=== PATIENT | male | born 1935 | race Caucasian/White ===

== ENCOUNTER → 2016-06-03 | Outpatient (CLI) | payer OTHER, BC ==
[~2016-06-03] MED LIST: ASPI81TA28 PO; LSN5 PO; METR1GEL16 TOP; MNC50 PO; TRIA37.5 PO
[2016-06-03 15:27] LABS: BASO % 0.2 %; BASO ABS # 0.02 K/uL (0-0.2); COMPLETE YES; EOS % 2.1 %; HEMATOCRIT 45.7 % (42-52); IG% 0.2 %; LYMPH % 22.8 %; LYMPH ABS # 2.38 K/uL (1.2-3.4); MEAN CORPUSCULAR HEMOGLOBIN 33.1 pg (25-34); MEAN CORPUSCULAR HGB CONC 34.8 g/dl (32-36); MEAN PLATELET VOLUME 10.2 fL (7.4-10.4); MONO % 10.2 %; NEUT % 64.5 %; PLATELET COUNT 205 K/uL (130-400); RED BLOOD COUNT 4.81 M/uL (4.7-6.1); WHITE BLOOD COUNT 10.43 K/uL (4.8-10.8)
== END | disposition home or self-care (01) ==
LOC: C.LABSPEC 14:52
PROVIDERS: ATTEND Internal Medicine
DX: M19.072 Primary osteoarthritis, left ankle and foot (principal)

== ENCOUNTER → 2016-06-04 | Outpatient (CLI) | payer OTHER, BC ==
--- NOTE | 2016-06-04 12:45 | DIAGNOSTIC IMAGING REPORT ---
RIGHT ANKLE MIN 3 VIEWS ROUTINE CLINICAL HISTORY: ACUTE ARTHRITIS Right pain COMPARISON: None. DISCUSSION: Significant degenerative change of the right ankle. Findings of old healed fractures the medial malleolus as well as distal fibular shaft. Moderate deterioration of the ankle mortise. Small heel spur. Soft tissue vascular calcifications. Moderate soft tissue edema. IMPRESSION: Findings consistent with a combination of old trauma and superimposed degenerative change. Electronically signed by: Mateo Lawrence M.D. 06/04/2016 12:42 PM Dictated Date/Time: 06/04/2016 12:42 PM
--- NOTE | 2016-06-04 12:46 | DIAGNOSTIC IMAGING REPORT ---
LEFT ANKLE MIN 3 VIEWS ROUTINE CLINICAL HISTORY: ACUTE ARTHRITIS pain COMPARISON: None. DISCUSSION: Findings consistent with a combination of old trauma and degenerative change. There is an old healed fracture of the distal fibular shaft. Is considerable degenerative change of the ankle mortise. Heel spur is present. There is mild pars planus deformity of the ankle. Soft tissue vascular calcifications present. There is no evidence for soft tissue swelling. IMPRESSION: Combination of considerable degenerative change and old posttraumatic change. No acute bony abnormalities identified. Electronically signed by: Mateo Lawrence M.D. 06/04/2016 12:44 PM Dictated Date/Time: 06/04/2016 12:43 PM
--- NOTE | 2016-06-04 12:48 | DIAGNOSTIC IMAGING REPORT ---
RIGHT FOOT MIN 3 VIEWS ROUTINE CLINICAL HISTORY: ACUTE ARTHRITIS Right pain COMPARISON: None. DISCUSSION: Considerable degenerative change throughout the great toe. This is most prominent at the first metatarsophalangeal joint but less prominent findings seen at the tarsal metatarsal and interphalangeal joint. There are moderate degenerative changes of the interphalangeal joints throughout the second through fifth toes. There is pars planus deformity of the right ankle. Heel spur is present. There is no evidence for soft tissue swelling. IMPRESSION: Considerable degenerative change. This is most prominent at the level of the great toe. Electronically signed by: Mateo Lawrence M.D. 06/04/2016 12:45 PM Dictated Date/Time: 06/04/2016 12:44 PM
--- NOTE | 2016-06-04 12:49 | DIAGNOSTIC IMAGING REPORT ---
LEFT FOOT MIN 3 VIEWS ROUTINE CLINICAL HISTORY: Left foot pain. Acute arthritis. COMPARISON: None. DISCUSSION: The bones are osteopenic. There are vascular calcifications present. No acute fractures are visualized. There is no erosive disease. There are degenerative changes most pronounced at the level of the first metatarsal phalangeal joint. There is a plantar calcaneal spur. IMPRESSION: 1. No acute fractures 2. Osteopenia and vascular calcification 3. No evidence of erosive disease 4. Degenerative changes most pronounced at the level of the first metatarsal phalangeal joint Electronically signed by: Jayy Kevin M.D. 06/04/2016 12:47 PM Dictated Date/Time: 06/04/2016 12:46 PM
== END | disposition home or self-care (01) ==
LOC: C.RAD 11:56
PROVIDERS: ATTEND Internal Medicine
DX: M19.071 Primary osteoarthritis, right ankle and foot (principal); M19.072 Primary osteoarthritis, left ankle and foot

== ENCOUNTER → 2016-11-11 | Outpatient (CLI) | payer OTHER, BC ==
--- NOTE | 2016-11-11 12:20 | DIAGNOSTIC IMAGING REPORT ---
KUB HISTORY: Follow-up study to assess bilateral kidney stones. N20.0 [id number] COMPARISON: Abdominal radiograph 11/08/2015. FINDINGS: The bowel gas pattern is non-obstructive. There is no organomegaly. Bilateral renal calculi are redemonstrated, largest of which involves the inferior pole left kidney measuring up to 1.5 cm. Largest calculi on the right measure up to 9 mm. Distribution of the stones appear stable from comparison. No calculi are seen along the course of either ureter or within the region of the urinary bladder. Multiple phleboliths are seen within the pelvis. No pneumoperitoneum or pneumatosis. No fracture. Moderate changes involve the bilateral hips. IMPRESSION: Extensive bilateral nephrolithiasis, not significantly changed from 11/08/2015. No calculi are seen along the course of either ureter. Electronically signed by: Manny Villafuerte M.D. 11/11/2016 12:19 PM Dictated Date/Time: 11/11/2016 12:17 PM
== END | disposition home or self-care (01) ==
LOC: C.RAD 11:46
PROVIDERS: ATTEND Urology
DX: N20.0 Calculus of kidney (principal)

== ENCOUNTER → 2017-06-17 | Outpatient (CLI) | payer OTHER, BC ==
[2017-06-17 13:54] LABS: HEMOGLOBIN A1C 6.2 % (4.5-5.6)
[2017-06-17 14:01] LABS: BLOOD UREA NITROGEN 17 mg/dl (7-18); CALCIUM 9.9 mg/dl (8.5-10.1); CARBON DIOXIDE 29 mmol/L (21-32); CHOLESTEROL 149 mg/dl (0-200); CREATININE 1.23 mg/dl (0.60-1.40); GLUCOSE 109 mg/dl (70-99); SODIUM 142 mmol/L (136-145)
[2017-06-17 14:06] LABS: LDL CHOLESTEROL (DIRECT) 95 mg/dl
== END | disposition home or self-care (01) ==
LOC: C.LABSPEC 12:25
PROVIDERS: ATTEND Internal Medicine
DX: I10 Essential (primary) hypertension (principal); E78.5 Hyperlipidemia, unspecified; R73.9 Hyperglycemia, unspecified

== ENCOUNTER 2018-04-16 14:52 | Inpatient (IN) ==
[2018-04-16 15:43] LABS: Basophils # (auto) 0.03 K/uL (0-0.2); Basophils % (auto) 0.3 %; Eosinophils # (auto) 0.06 K/uL (0-0.5); Eosinophils % (auto) 0.5 %; Hematocrit (blood only) 39.7 % (42-52); Hemoglobin 13.3 g/dL (14.0-18.0); Immature Granulocytes # (auto) 0.04 K/uL (0.00-0.02); Immature Granulocytes % (auto) 0.3 %; Lymphocytes # (auto) 1.31 K/uL (1.2-3.4); Lymphocytes % (auto) 11.1 %; Mean Corpuscular Hgb Conc 33.5 g/dL (32-36); Mean Corpuscular Volume 97.8 fL (80-100); Mean Platelet Volume 10.1 fL (7.4-10.4); Monocytes # (auto) 0.51 K/uL (0.11-0.59); Monocytes % (auto) 4.3 %; Neutrophils # (auto) 9.86 K/uL (1.4-6.5); Neutrophils % (auto) 83.5 %; Platelet Count 235 K/uL (130-400); RDW Coefficient of Variation 13.8 % (11.5-14.5); RDW Standard Deviation 48.8 fL (36.4-46.3); Red Blood Count 4.06 M/uL (4.7-6.1); White Blood Count 11.81 K/uL (4.8-10.8)
[2018-04-16 15:53] LABS: INR 1.2 (0.9-1.1); Partial Thromboplastin Time 26.3 Seconds (21.0-31.0); Prothrombin Time 12.1 Seconds (9.0-12.0)
[2018-04-16 16:13] LABS: Alanine Aminotransferase 15 U/L (12-78); Albumin Level 2.9 gm/dl (3.4-5.0); Aspartate Aminotransferase 14 U/L (15-37); BUN Creatinine Ratio 16.7 (10-20); Blood Urea Nitrogen 21 mg/dl (7-18); Calcium 9.3 mg/dl (8.5-10.1); Carbon Dioxide 26 mmol/L (21-32); Chloride 112 mmol/L (98-107); Creatinine Clr Calc Pharmacy 51.3 ml/min; Est GFR (African American) 60.4; Est GFR (Non-African American) 52.1; Glucose 133 mg/dl (70-99); Sodium 144 mmol/L (136-145)
[2018-04-16 16:18] LABS: Albumin Globulin Ratio 0.8 (0.9-2); Alkaline Phosphatase 83 U/L (45-117); Bilirubin,Total 0.6 mg/dl (0.2-1); Globulin 3.5 gm/dl (2.5-4.0); Total Protein 6.4 gm/dl (6.4-8.2); Troponin I < 0.015 ng/ml (0-0.045)
[2018-04-16] MEDS ORDERED: IOVERSOL 100ml IV PRN (17:03)
--- NOTE | 2018-04-16 17:19 | CT Scan Report ---
CT abd pelvis IV con only CT DOSE: 588.72 mGy.cm HISTORY: Bleeding. Nausea. Pain. gi bleeding, hx diverticulitits TECHNIQUE: Multiaxial CT images of the abdomen and pelvis were performed following the use of intrave nous contrast. A dose lowering technique was utilized adhering to the principles of ALARA. COMPARISON STUDY: 02/11/2018 FINDINGS: Findings consistent with acute diverticula diverticulitis of the a sending colon at and yesi ewhat proximal to the hepatic flexure. Mild pericolonic infiltrative change. No evidence for drainabl e abscess or collection. No obstructive characteristics. Lung bases are grossly clear. Liver demonstrates several small cysts unchanged in the prior study. Ex tensive bilateral nonobstructing nephrocalcinosis is present. Bilateral renal cysts are stable. Bowel pattern is nonobstructive. There are findings of chronic diverticulosis involving the bulk of the remainder the colon. The bladd er is midline. There is no free fluid within the pelvic cul-de-sac. IMPRESSION: 1. Acute diverticulitis of the a sending colon extending to the hepatic flexure. 2. Mild pericolonic infiltrative change with no evidence for drainable abscess or collection. 3. Chronic diverticulosis throughout the major components of the remainder the colon. 4. Stable extensive bilateral nephrocalcinosis and renal cysts. 5. Several small hepatic cysts also stable. The above report was generated using voice recognition software. It may contain grammatical, syntax or spelling errors. Electronically signed by: Mateo Lawrence M.D. 04/16/2018 5:17 PM
[2018-04-16] MEDS ORDERED: CIPROFLOXACIN 400 MG/200 ML BAG IV STA (17:20)
[2018-04-16] MEDS ORDERED: metroNIDAZOLE 500 MG/100 ML BAG IV STA (17:20)
--- NOTE | 2018-04-16 17:53 | History & Physical Report ---
Date of Service April 16, 2018 Assessment & Plan (1) Lower GI bleed: Suspect diverticular bleed as in the past. Patient presently hemodynamically stable, H/h=13.3/39.7, only slightly lower than his baseline of 15/45. No bleeding since arrival to ER. -Admit to PCU -Maintain 2 large PIVs -CBC q 8 hours - transfuse for active bleed, symptomatic anemia or Hg < 7 -Protonix 40mg IV daily -NPO -GI consultation - patient is known to Dr. Carlson, appreciate assistance with this case Present on Admission?: Yes (2) Atrial fibrillation: Rate controlled. Patient taking Eliquis for anticoagulation - last dose this AM around 08:30 -Hold Eliquis in setting of GIB -Hold Metoprolol in setting of GIB -Telemetry monitoring (3) Acute diverticulitis: Patient afebrile, hemodynamically stable, non-toxic in appearance. Abdominal exam benign -Cipro and Flagyl -GI consult as above (4) Hypertension: Blood pressure well controlled at present -Hold Metoprolol -Hold Lisinopril -Hold Triamterine/HCTZ -Continue to monitor BP (5) Gout: Stable. Chronic -Continue Allopurinol F/E/N - Maintain 2 PIVs. LR at 80mL/hr x 1 liter. Monitor electrolytes and replete as needed. NPO for now Ppx - SCDs to bilateral LE Code -FUll Dispo - PCU History of Present Illness Chief Complaint: GIB Primary Care Provider: Elio Ramires MD Mr. Major is a pleasant 82yo male with history of AF on Eliquis antiocoagulation, HTN, diverticular disease presenting with LGIB. Patient was admitted in August of 2013 with a severe diverticular bleed with syncope requiring transfusion of 7 u of PRBCs. He was evaluated by Drs. Patrick and Robny and had EGD and Colonoscopy performed at that time with no bleeding source identified. He was transferred to [facility] [place] for angiogram with possible embolization. He presents today with loose stools with bright red blood per rectum which started this AM. He reports at least 4 BMs that were very loose, franki in color with BRB noted on the toilet paper after wiping. He denies abdominal pain, no epigastric discomfort. No nausea/vomiting/constipation. No CP/SOB/palpitations or diaphoresis. He was quite dizzy throughout the day. He was seen by his PCP this afternoon and was sent to the ER for further workup. ER Course: Cipro, Flagyl Allergies Allergy/AdvReac Type Severity Reaction Status Date / Time No Known Allergies Allergy Unknown Verified 04/16/18 15:26 Home Medications Home Medications Medication Instructions Recorded Confirmed Type Eliquis 5 mg PO BID 01/27/18 04/16/18 History allopurinol 100 mg PO QAM 01/27/18 04/16/18 History potassium chloride 10 meq PO QAM 01/27/18 04/16/18 History triamterene-hydrochlorothiazid 1 tab PO QAM 01/27/18 04/16/18 History metronidazole 1 applic TOPICAL DAILY PRN 02/02/18 04/16/18 History lisinopril 10 mg PO QAM 04/16/18 04/16/18 History metoprolol succinate 50 mg PO QAM 04/16/18 04/16/18 History Past Med/Surg History Medical History Gout Atrial fibrillation BPH (benign prostatic hyperplasia) Basal cell carcinoma (BCC) FOLLOWS WITH DERMATOLOGY Diverticular disease GI bleed 4-5 YEARS AGO --> 2/2 DIVERTICULITIS Hematuria FOLLOWING WITH DR. POLANCO. AWAITING CT AND CYSTOSCOPY Hypertension Kidney stones On anticoagulant therapy SCC (squamous cell carcinoma) FOLLOWS WITH DERMATOLOGY Surgical History History of surgery on arm History of colonoscopy History of total knee replacement RIGHT Status post Mohs surgery MULTIPLE TIMES Family History Father Cancer PROSTATE CANCER Social History Preferred Language: Tajik Communication Ability: Effective Beliefs That Will Affect Care: None Current Living Situation: Spouse Feels Safe at Home: Yes Smoking Status: Never smoker Hx Alcohol Use: No Hx Substance Use: No Review of Systems All systems reviewed & are unremarkable except as noted in HPI & below Physical Exam Vital Signs (Past 24 Hours): Last Vital Signs Temp 36.8 C 04/16/18 15:00 Pulse 68 04/16/18 16:47 Resp 23 04/16/18 16:47 BP 106/70 04/16/18 16:47 Pulse Ox 99 04/16/18 16:47 Physical Exam: General: patient resting comfortably, NAD, non-toxic in appearance, AA&O x 4 Skin: warm, dry, intact, multiple skin lesions, dry patches with flaking, no bleeding, no evidence of secondary infection HEENT: NC/AT, PERRL, EOMI, anicteric sclera, conjunctiva without injection, external ear normal to inspection and nontender, nares patent, moist mucus membranes, dentition intact, no oropharyngeal lesions, neck supple, trachea midline, no LAD, no thyromegaly, no JVD Heart: +S1/S2, irregularly irregular, no m/r/g Lungs: equal air entry bilaterally, no rales/rhonchi/wheezes Abd: +BS, soft, NT/ND, no masses/organomegaly/ascites. Rectal performed by PCP - Hemoccult positive. patient with external hemorrhoids visible on inspection and dried blood present on buttock Ext: warm, 2+ pulses in UE/LE bilaterally, no clubbing/cyanosis or edema Neuro: nonfocal, patient AA&O x 4, speech intact, no facial droop, moving all extremities on command with equal strength 5/5 Results & Data Laboratory Results Lab Results 04/16/18 04/16/18 04/16/18 Range/Units 14:56 15:27 15:27 WBC 11.81 H (4.8-10.8) K/uL RBC 4.06 L (4.7-6.1) M/uL Hgb 13.3 L (14.0-18.0) g/dL Hct 39.7 L (42-52) % MCV 97.8 (80-100) fL MCH 32.8 (25-34) pg MCHC 33.5 (32-36) g/dL RDW Std Deviation 48.8 H (36.4-46.3) fL RDW Coeff of Edith 13.8 (11.5-14.5) % Plt Count 235 (130-400) K/uL MPV 10.1 (7.4-10.4) fL Immature Gran % (Auto) 0.3 % Neut % (Auto) 83.5 % Lymph % (Auto) 11.1 % Sauk % (Auto) 4.3 % Eos % (Auto) 0.5 % Baso % (Auto) 0.3 % Immature Gran # (Auto) 0.04 H (0.00-0.02) K/uL Neut # (Auto) 9.86 H (1.4-6.5) K/uL Lymph # (Auto) 1.31 (1.2-3.4) K/uL Sauk # (Auto) 0.51 (0.11-0.59) K/uL Eos # (Auto) 0.06 (0-0.5) K/uL Baso # (Auto) 0.03 (0-0.2) K/uL PT 12.1 H (9.0-12.0) Seconds INR 1.2 H (0.9-1.1) APTT 26.3 (21.0-31.0) Seconds PTT Ratio 1.0 Sodium (136-145) mmol/L Potassium (3.5-5.1) mmol/L Chloride (98-107) mmol/L Carbon Dioxide (21-32) mmol/L Anion Gap (3-11) BUN (7-18) mg/dl Creatinine (0.6-1.4) mg/dl Est Cr Clr Drug Dosing ml/min Est GFR ( Amer) Est GFR (Non-Af Amer) BUN/Creatinine Ratio (10-20) Glucose (70-99) mg/dl Calcium (8.5-10.1) mg/dl Total Bilirubin (0.2-1) mg/dl AST (15-37) U/L ALT (12-78) U/L Alkaline Phosphatase (45-117) U/L Troponin I (0-0.045) ng/ml Total Protein (6.4-8.2) gm/dl Albumin (3.4-5.0) gm/dl Globulin (2.5-4.0) gm/dl Albumin/Globulin Ratio (0.9-2) Lipase (73-393) U/L POC Stool Occult Blood Positive H (Negative) Blood Type Antibody Screen 04/16/18 04/16/18 Range/Units 15:27 15:27 WBC (4.8-10.8) K/uL RBC (4.7-6.1) M/uL Hgb (14.0-18.0) g/dL Hct (42-52) % MCV (80-100) fL MCH (25-34) pg MCHC (32-36) g/dL RDW Std Deviation (36.4-46.3) fL RDW Coeff of Edith (11.5-14.5) % Plt Count (130-400) K/uL MPV (7.4-10.4) fL Immature Gran % (Auto) % Neut % (Auto) % Lymph % (Auto) % Sauk % (Auto) % Eos % (Auto) % Baso % (Auto) % Immature Gran # (Auto) (0.00-0.02) K/uL Neut # (Auto) (1.4-6.5) K/uL Lymph # (Auto) (1.2-3.4) K/uL Sauk # (Auto) (0.11-0.59) K/uL Eos # (Auto) (0-0.5) K/uL Baso # (Auto) (0-0.2) K/uL PT (9.0-12.0) Seconds INR (0.9-1.1) APTT (21.0-31.0) Seconds PTT Ratio Sodium 144 (136-145) mmol/L Potassium 4.0 (3.5-5.1) mmol/L Chloride 112 H (98-107) mmol/L Carbon Dioxide 26 (21-32) mmol/L Anion Gap 6.0 (3-11) BUN 21 H (7-18) mg/dl Creatinine 1.28 (0.6-1.4) mg/dl Est Cr Clr Drug Dosing 51.3 ml/min Est GFR ( Amer) 60.4 Est GFR (Non-Af Amer) 52.1 BUN/Creatinine Ratio 16.7 (10-20) Glucose 133 H (70-99) mg/dl Calcium 9.3 (8.5-10.1) mg/dl Total Bilirubin 0.6 (0.2-1) mg/dl AST 14 L (15-37) U/L ALT 15 (12-78) U/L Alkaline Phosphatase 83 (45-117) U/L Troponin I < 0.015 (0-0.045) ng/ml Total Protein 6.4 (6.4-8.2) gm/dl Albumin 2.9 L (3.4-5.0) gm/dl Globulin 3.5 (2.5-4.0) gm/dl Albumin/Globulin Ratio 0.8 L (0.9-2) Lipase 205 (73-393) U/L POC Stool Occult Blood (Negative) Blood Type B Positive Antibody Screen NEGATIVE Diagnostic Findings [place], [place] [phone] CT Scan Report Patient: ALEJANDRO MAJOR JRAdmit Date: 04/16/18 MR#: [id number]: [address] Acct ID:[id number]: Date: 1935City Zip: [place] [address] Age: 82Location: ED Sex: M Room/Bed: Att Phy: Diagnosis: GI BLEED Evangelina Phy: Elio Ortega M.D.Service Date: 04/16/18 Fam Phy: Mahesh Carlson M.D.Interpreting Phy: Mateo Lawrence MD Admit Phy: Ordering Phy: Jose James M.D. cc: ~ CT abd pelvis IV con only CT DOSE: 588.72 mGy.cm HISTORY: Bleeding. Nausea. Pain. gi bleeding, hx diverticulitits TECHNIQUE: Multiaxial CT images of the abdomen and pelvis were performed following the use of intravenous contrast. A dose lowering technique was utilized adhering to the principles of ALARA. COMPARISON STUDY: 02/11/2018 FINDINGS: Findings consistent with acute diverticula diverticulitis of the a sending colon at and somewhat proximal to the hepatic flexure. Mild pericolonic infiltrative change. No evidence for drainable abscess or collection. No obstructive characteristics. Lung bases are grossly clear. Liver demonstrates several small cysts unchanged in the prior study. Extensive bilateral nonobstructing nephrocalcinosis is pre sent. Bilateral renal cysts are stable. Bowel pattern is nonobstructive. There are findings of chronic diverticulosis involving the bulk of the remainder the colon. The bladder is midline. There is no free fluid within the pelvic cul-de-sac. IMPRESSION: 1. Acute diverticulitis of the a sending colon extending to the hepatic flexure. 2. Mild pericolonic infiltrative change with no evidence for drainable abscess or collection. 3. Chronic diverticulosis throughout the major components of the remainder the colon. 4. Stable extensive bilateral nephrocalcinosis and renal cysts. 5. Several small hepatic cysts also stable. The above report was generated using voice recognition software. It may contain grammatical, syntax or spelling errors. Electronically signed by: Mateo Lawrence M.D. 04/16/2018 5:17 PM Dictated: 04/16/181705 Transcribed: 04/16/181705 ECG Additional Comments: The study shows AF at 75bpm, left axis deviation, PVC x 1, TWI present in anterior leads Code Status & VTE Plan Code Status FULL VTE Prophylaxis Plan VTE Prophylaxis will be ordered: Yes Critical Care Time Critical Care Time: No (1) Atrial fibrillation Atrial fibrillation type: permanent Qualified Code(s): I48.2 - Chronic atrial fibrillation (2) Hypertension Hypertension type: essential hypertension Qualified Code(s): I10 - Essential (primary) hypertension
[2018-04-16] MEDS ORDERED: LACTATED RINGER'S 1,000 ML IV SCH (19:57)
[2018-04-16] MEDS ORDERED: ONDANSETRON INJ 2 MG/ML 2 ML VIAL IV PRN (19:57)
[2018-04-16 20:51] LABS: Hematocrit (blood only) 39.9 % (42-52); Hemoglobin 13.5 g/dL (14.0-18.0); Mean Corpuscular Hgb Conc 33.8 g/dL (32-36); Mean Corpuscular Volume 97.6 fL (80-100); Mean Platelet Volume 9.8 fL (7.4-10.4); Platelet Count 253 K/uL (130-400); RDW Coefficient of Variation 13.7 % (11.5-14.5); RDW Standard Deviation 48.4 fL (36.4-46.3); Red Blood Count 4.09 M/uL (4.7-6.1); White Blood Count 10.86 K/uL (4.8-10.8)
[2018-04-16 21:07] LABS: Magnesium 1.9 mg/dl (1.8-2.4); Phosphorus 2.9 mg/dl (2.5-4.9)
--- NOTE | 2018-04-16 21:56 | Emergency Department Note ---
Entered by Charmaine Lafleur acting as a scribe for History of Present Illness General Chief complaint: GI Bleed Source: patient Mode of arrival: EMS Limitations: no limitations History of Present Illness Provider complaint: Hematochezia Onset (ago): hour(s) (4-5) Location: abdomen Severity: mild Pain Consistency: + constant Associated symptoms: + denies other symptoms Patient is an 82 year old female presenting to the ED with GI bleed beginning today. Patient states that a few hours ago, he noticed bright red blood during his bowel movement. Patient notes that he had diarrhea as well, being a total of x5 bowel movements since onset. He notes that he went to his PCPs office today for complaint, to which he began to feel dizzy after walking back to the patient room. According to nurse, patient did have a syncopal episode lastly a few seconds in length.. He shares that he was feeling dizzy and lightheaded while at home upon onset. Patient denies any nausea, vomiting, CP, cough, abd pain, or any other complaints or concerns at this time. He notes that he does have a hx of diverticulitis, Afib, and HTN. Home Medications Home Medications Medication Instructions Recorded Confirmed Type Eliquis 5 mg PO BID 01/27/18 04/16/18 History allopurinol 100 mg PO QAM 01/27/18 04/16/18 History potassium chloride 10 meq PO QAM 01/27/18 04/16/18 History triamterene-hydrochlorothiazid 1 tab PO QAM 01/27/18 04/16/18 History metronidazole 1 applic TOPICAL DAILY PRN 02/02/18 04/16/18 History lisinopril 10 mg PO QAM 04/16/18 04/16/18 History metoprolol succinate 50 mg PO QAM 04/16/18 04/16/18 History Allergies Allergy/AdvReac Type Severity Reaction Status Date / Time No Known Allergies Allergy Unknown Verified 04/16/18 15:26 Past Med/Surg History Medical History Gout Atrial fibrillation BPH (benign prostatic hyperplasia) Basal cell carcinoma (BCC) FOLLOWS WITH DERMATOLOGY Diverticular disease GI bleed 4-5 YEARS AGO --> 2/2 DIVERTICULITIS Hematuria FOLLOWING WITH DR. POLANCO. AWAITING CT AND CYSTOSCOPY Hypertension Kidney stones On anticoagulant therapy SCC (squamous cell carcinoma) FOLLOWS WITH DERMATOLOGY Surgical History History of surgery on arm History of colonoscopy History of total knee replacement RIGHT Status post Mohs surgery MULTIPLE TIMES Family History Father Cancer PROSTATE CANCER Social History Preferred Language: Ghanaian Beliefs That Will Affect Care: None Current Living Situation: Spouse Feels Safe at Home: Yes Safety Concerns: Feels Safe At This Time Smoking Status: Never smoker Hx Alcohol Use: Yes ("very rarely") Hx Substance Use: No Review of Systems See HPI for pertinent positives & negatives. and A total of 10 systems reviewed and were otherwise negative Physical Exam Vital Signs Vital Signs - 24 hr 04/16/18 14:56 04/16/18 15:00 04/16/18 16:47 Temperature 36.8 C Temperature Source Oral Sepsis Recent Fever Within 48 Hours No Sepsis New/Unexplained Change in Mental Status No Sepsis Action Taken by Nursing No Action Required Pulse Rate 74 Pulse Rate [Apical] 68 Respiratory Rate 20 23 Respiratory Effort / Characteristics Non-Labored Respiratory Depth Normal Respiratory Pattern Regular Blood Pressure 111/74 Blood Pressure [Right Arm] 106/70 Blood Pressure Mean 86 Blood Pressure Mean [Right Arm] 82 Pulse Oximetry 100 97 99 Oxygen Delivery Method Room Air Room Air Room Air 04/16/18 18:00 04/16/18 19:28 04/16/18 19:40 Temperature 36.6 C Temperature Source Oral Sepsis Recent Fever Within 48 Hours Sepsis New/Unexplained Change in Mental Status Sepsis Action Taken by Nursing Pulse Rate 68 Pulse Rate [Apical] 72 70 Respiratory Rate 20 20 17 Respiratory Effort / Characteristics Non-Labored Spontaneous Respiratory Depth Normal Respiratory Pattern Regular Blood Pressure 91/67 L Blood Pressure [Right Arm] 106/58 L 106/68 Blood Pressure Mean Blood Pressure Mean [Right Arm] 74 80 Pulse Oximetry 99 98 98 Oxygen Delivery Method Room Air Room Air Room Air GENERAL: Awake, alert, well-appearing, in no distress HENT: Normocephalic, atraumatic. EYES: Normal conjunctiva. Sclera non-icteric. NECK: Supple. No nuchal rigidity. RESPIRATORY: Clear to auscultation. No wheezes. Normal respiratory effort. CARDIAC: Normal rate. Irregular rhythm. Extremities warm and well perfused. GI: Soft, non-distended. No tenderness to palpation. No rebound or guarding. No masses. RECTAL: Hemoccult positive showing bright red blood per rectum. MUSCULOSKELETAL: Atraumatic. Chest examination reveals no tenderness. LOWER EXTREMITIES: Calves are equal size bilaterally and non-tender. NEURO: Normal sensorium. No sensory or motor deficits noted. No facial droop. SKIN: Warm and dry. No rash or jaundice noted. Course 1459: Past medical records reviewed. The patient was evaluated in room B06, and a complete history and physical examination were performed. 1723: Discussed case with Dr. James, who accepts patient for admission. 1725: Updated patient on discussion with Dr. James and plan for admission. Patient is agreeable to plan. Administered Medications Lactated Ringer's (Lr) 1,000 mls @ 80 mls/hr IV .[id number] HUNTER Stop: 04/17/18 08:26 Last Admin: 04/16/18 20:46 Dose: 80 mls/hr Documented by: [id number] Discontinued Medications Ciprofloxacin (Cipro) 400 mg in 200 mls @ 200 mls/hr IV NOW STA Stop: 04/16/18 18:19 Last Infusion: 04/16/18 18:42 Dose: 0 mls/hr Documented by: [id number] Admin: 04/16/18 17:46 Dose: 200 mls/hr Documented by: [id number] Metronidazole (Flagyl) 500 mg in 100 mls @ 100 mls/hr IV NOW STA Stop: 04/16/18 18:19 Last Infusion: 04/16/18 18:42 Dose: 0 mls/hr Documented by: [id number] Admin: 04/16/18 17:46 Dose: 100 mls/hr Documented by: [id number] Ioversol (Optiray 320 100ml) 93 ml IV ONCE PRN PRN Reason: Interaction Checking Stop: 04/20/18 17:02 Last Admin: 04/16/18 17:04 Dose: 93 ml Documented by: [id number] Medical Decision Making Differential Diagnosis Differential diagnosis: Etiologies such as diverticulosis, AVM, coagulopathy, colitis, inflammatory bowel disease, malignancy, Rebecca-Vega tear, esophagitis, peptic ulcer disease, variceal bleed, gastritis, epistaxis, fissure, hemorrhoids, as well as others were entertained Medical Records Attestation: I reviewed the patient's medical records. Home Medications Current Medication List: was personally reviewed by me Laboratory Data Attestation: I reviewed the patient's lab results. Result diagrams: 04/16/18 20:27 04/16/18 15:27 Lab Results 04/16/18 04/16/18 04/16/18 Range/Units 14:56 15:27 15:27 WBC 11.81 H (4.8-10.8) K/uL RBC 4.06 L (4.7-6.1) M/uL Hgb 13.3 L (14.0-18.0) g/dL Hct 39.7 L (42-52) % MCV 97.8 (80-100) fL MCH 32.8 (25-34) pg MCHC 33.5 (32-36) g/dL RDW Std Deviation 48.8 H (36.4-46.3) fL RDW Coeff of Edith 13.8 (11.5-14.5) % Plt Count 235 (130-400) K/uL MPV 10.1 (7.4-10.4) fL Immature Gran % (Auto) 0.3 % Neut % (Auto) 83.5 % Lymph % (Auto) 11.1 % [place] % (Auto) 4.3 % Eos % (Auto) 0.5 % Baso % (Auto) 0.3 % Immature Gran # (Auto) 0.04 H (0.00-0.02) K/uL Neut # (Auto) 9.86 H (1.4-6.5) K/uL Lymph # (Auto) 1.31 (1.2-3.4) K/uL [place] # (Auto) 0.51 (0.11-0.59) K/uL Eos # (Auto) 0.06 (0-0.5) K/uL Baso # (Auto) 0.03 (0-0.2) K/uL PT 12.1 H (9.0-12.0) Seconds INR 1.2 H (0.9-1.1) APTT 26.3 (21.0-31.0) Seconds PTT Ratio 1.0 Sodium (136-145) mmol/L Potassium (3.5-5.1) mmol/L Chloride (98-107) mmol/L Carbon Dioxide (21-32) mmol/L Anion Gap (3-11) BUN (7-18) mg/dl Creatinine (0.6-1.4) mg/dl Est Cr Clr Drug Dosing ml/min Est GFR ( Amer) Est GFR (Non-Af Amer) BUN/Creatinine Ratio (10-20) Glucose (70-99) mg/dl Calcium (8.5-10.1) mg/dl Phosphorus (2.5-4.9) mg/dl Magnesium (1.8-2.4) mg/dl Total Bilirubin (0.2-1) mg/dl AST (15-37) U/L ALT (12-78) U/L Alkaline Phosphatase (45-117) U/L Troponin I (0-0.045) ng/ml Total Protein (6.4-8.2) gm/dl Albumin (3.4-5.0) gm/dl Globulin (2.5-4.0) gm/dl Albumin/Globulin Ratio (0.9-2) Lipase (73-393) U/L POC Stool Occult Blood Positive H (Negative) Blood Type Antibody Screen 04/16/18 04/16/18 04/16/18 Range/Units 15:27 15:27 20:27 WBC (4.8-10.8) K/uL RBC (4.7-6.1) M/uL Hgb (14.0-18.0) g/dL Hct (42-52) % MCV (80-100) fL MCH (25-34) pg MCHC (32-36) g/dL RDW Std Deviation (36.4-46.3) fL RDW Coeff of Edith (11.5-14.5) % Plt Count (130-400) K/uL MPV (7.4-10.4) fL Immature Gran % (Auto) % Neut % (Auto) % Lymph % (Auto) % [place] % (Auto) % Eos % (Auto) % Baso % (Auto) % Immature Gran # (Auto) (0.00-0.02) K/uL Neut # (Auto) (1.4-6.5) K/uL Lymph # (Auto) (1.2-3.4) K/uL [place] # (Auto) (0.11-0.59) K/uL Eos # (Auto) (0-0.5) K/uL Baso # (Auto) (0-0.2) K/uL PT (9.0-12.0) Seconds INR (0.9-1.1) APTT (21.0-31.0) Seconds PTT Ratio Sodium 144 (136-145) mmol/L Potassium 4.0 (3.5-5.1) mmol/L Chloride 112 H (98-107) mmol/L Carbon Dioxide 26 (21-32) mmol/L Anion Gap 6.0 (3-11) BUN 21 H (7-18) mg/dl Creatinine 1.28 (0.6-1.4) mg/dl Est Cr Clr Drug Dosing 51.3 ml/min Est GFR ( Amer) 60.4 Est GFR (Non-Af Amer) 52.1 BUN/Creatinine Ratio 16.7 (10-20) Glucose 133 H (70-99) mg/dl Calcium 9.3 (8.5-10.1) mg/dl Phosphorus 2.9 (2.5-4.9) mg/dl Magnesium 1.9 (1.8-2.4) mg/dl Total Bilirubin 0.6 (0.2-1) mg/dl AST 14 L (15-37) U/L ALT 15 (12-78) U/L Alkaline Phosphatase 83 (45-117) U/L Troponin I < 0.015 (0-0.045) ng/ml Total Protein 6.4 (6.4-8.2) gm/dl Albumin 2.9 L (3.4-5.0) gm/dl Globulin 3.5 (2.5-4.0) gm/dl Albumin/Globulin Ratio 0.8 L (0.9-2) Lipase 205 (73-393) U/L POC Stool Occult Blood (Negative) Blood Type B Positive Antibody Screen NEGATIVE 04/16/18 Range/Units 20:27 WBC 10.86 H (4.8-10.8) K/uL RBC 4.09 L (4.7-6.1) M/uL Hgb 13.5 L (14.0-18.0) g/dL Hct 39.9 L (42-52) % MCV 97.6 (80-100) fL MCH 33.0 (25-34) pg MCHC 33.8 (32-36) g/dL RDW Std Deviation 48.4 H (36.4-46.3) fL RDW Coeff of Edith 13.7 (11.5-14.5) % Plt Count 253 (130-400) K/uL MPV 9.8 (7.4-10.4) fL Immature Gran % (Auto) % Neut % (Auto) % Lymph % (Auto) % [place] % (Auto) % Eos % (Auto) % Baso % (Auto) % Immature Gran # (Auto) (0.00-0.02) K/uL Neut # (Auto) (1.4-6.5) K/uL Lymph # (Auto) (1.2-3.4) K/uL [place] # (Auto) (0.11-0.59) K/uL Eos # (Auto) (0-0.5) K/uL Baso # (Auto) (0-0.2) K/uL PT (9.0-12.0) Seconds INR (0.9-1.1) APTT (21.0-31.0) Seconds PTT Ratio Sodium (136-145) mmol/L Potassium (3.5-5.1) mmol/L Chloride (98-107) mmol/L Carbon Dioxide (21-32) mmol/L Anion Gap (3-11) BUN (7-18) mg/dl Creatinine (0.6-1.4) mg/dl Est Cr Clr Drug Dosing ml/min Est GFR ( Amer) Est GFR (Non-Af Amer) BUN/Creatinine Ratio (10-20) Glucose (70-99) mg/dl Calcium (8.5-10.1) mg/dl Phosphorus (2.5-4.9) mg/dl Magnesium (1.8-2.4) mg/dl Total Bilirubin (0.2-1) mg/dl AST (15-37) U/L ALT (12-78) U/L Alkaline Phosphatase (45-117) U/L Troponin I (0-0.045) ng/ml Total Protein (6.4-8.2) gm/dl Albumin (3.4-5.0) gm/dl Globulin (2.5-4.0) gm/dl Albumin/Globulin Ratio (0.9-2) Lipase (73-393) U/L POC Stool Occult Blood (Negative) Blood Type Antibody Screen Imaging Data Radiologist's Impression: CT abd pelvis IV con only CT DOSE: 588.72 mGy.cm HISTORY: Bleeding. Nausea. Pain. gi bleeding, hx diverticulitits TECHNIQUE: Multiaxial CT images of the abdomen and pelvis were performed following the use of intravenous contrast. A dose lowering technique was utilized adhering to the principles of ALARA. COMPARISON STUDY: 02/11/2018 FINDINGS: Findings consistent with acute diverticula diverticulitis of the a sending colon at and somewhat proximal to the hepatic flexure. Mild pericolonic infiltrative change. No evidence for drainable abscess or collection. No obstructive characteristics. Lung bases are grossly clear. Liver demonstrates several small cysts unchanged in the prior study. Extensive bilateral nonobstructing nephrocalcinosis is present. Bilateral renal cysts are stable. Bowel pattern is nonobstructive. There are findings of chronic diverticulosis involving the bulk of the remainder the colon. The bladder is midline. There is no free fluid within the pelvic cul-de-sac. IMPRESSION: 1. Acute diverticulitis of the a sending colon extending to the hepatic flexure. 2. Mild pericolonic infiltrative change with no evidence for drainable abscess or collection. 3. Chronic diverticulosis throughout the major components of the remainder the colon. 4. Stable extensive bilateral nephrocalcinosis and renal cysts. 5. Several small hepatic cysts also stable. The above report was generated using voice recognition software. It may contain grammatical, syntax or spelling errors. Electronically signed by: Mateo Lawrence M.D. 04/16/2018 5:17 PM ECG Data Attestation: I personally reviewed and interpreted this ECG as follows: Indication: other (GI bleed) Rate (beats per minute): 75 Rhythm: atrial fibrillation Findings: + nonspecific-ST abn and + PVC; no ST elevation Blood Pressure Blood Pressure Findings: Normal blood pressure MDM Narrative Patient is an 82-year-old gentleman with a significant past medical history of hypertension, atrial fibrillation on Eliquis, GI bleed secondary to diverticulitis, kidney stones presenting today complaining of GI bleed. Noted multiple episodes of bright red blood per rectum today. Checked in his doctor's office and did have a syncopal event for less than 10 seconds there. Is on Eliquis. Denies abdominal pain or fever. History again of significant diverticular bleed requiring transfusion in the past. Not hypotensive or tachycardic upon arrival here. Basic laboratory studies including hemoglobin type and screen were completed. CT abdomen pelvis completed look for possible evidence of diverticulitis at this time of the pain has minimal abdominal symptoms. Denies a history of these in the past with this issue. Discussed with his PCP via phone. Trace leukocytosis with slight anemia that does appear new based on laboratory studies of 13. BUN not significantly elevated compared to previous and lower suspicion for upper GI bleed in this patient. No evidence of hepatitis pancreatitis or cardiac injury. Is an irregular rate controlled A. fib. CT does show evidence of acute diverticulitis given Cipro and Flagyl. Liekly this is source of bleeding. Do believe the patient requires admission especially given his anticoagulation and syncopal event today. Discussed with patient and hospitalist. Impression & Plan Acute diverticulitis, Lower GI bleed Discharge Plan Visit Data *Final* Discharge Date/Time: 04/16/18 19:28 Chief Complaint: GI Bleed ED Provider: Jose James Discharge Problem: Acute diverticulitis, Lower GI bleed Patient Disposition: Home - Self-Care Discharge Instructions Interventions: ED Discharge Assessment Last Done: 04/16/18 19:28 The leeannibe's documentation has been prepared under my direction and personally reviewed by me in its entirety. I confirm that the note above accurately reflects all work, treatment, procedures, and medical decision making performed by me.
[2018-04-17] MEDS: metroNIDAZOLE 500 MG/100 ML BAG IV SCH ×3 (01:59→18:06)
[2018-04-17 04:01] LABS: Hematocrit (blood only) 38.7 % (42-52); Hemoglobin 12.8 g/dL (14.0-18.0); Mean Corpuscular Hgb Conc 33.1 g/dL (32-36); Mean Corpuscular Volume 97.5 fL (80-100); Mean Platelet Volume 9.5 fL (7.4-10.4); Platelet Count 230 K/uL (130-400); RDW Coefficient of Variation 13.9 % (11.5-14.5); RDW Standard Deviation 49.8 fL (36.4-46.3); Red Blood Count 3.97 M/uL (4.7-6.1); White Blood Count 10.96 K/uL (4.8-10.8)
[2018-04-17 04:19] LABS: BUN Creatinine Ratio 17.6 (10-20); Calcium 9.7 mg/dl (8.5-10.1); Creatinine Clr Calc Pharmacy 52.6 ml/min; Est GFR (African American) 63.4; Est GFR (Non-African American) 54.7; Potassium 3.9 mmol/L (3.5-5.1)
[2018-04-17] MEDS: CIPROFLOXACIN 400 MG/200 ML BAG IV SCH ×2 (05:38→18:05)
[2018-04-17] MEDS: ALLOPURINOL 100 MG TAB PO SCH (07:37)
[2018-04-17] MEDS: PANTOprazole 40 MG in SYRINGE 0 ML IV SCH (10:24)
[2018-04-17 12:45] LABS: Hematocrit (blood only) 35.7 % (42-52); Mean Corpuscular Hgb Conc 33.6 g/dL (32-36); Mean Corpuscular Volume 96.2 fL (80-100); Mean Platelet Volume 9.4 fL (7.4-10.4); Platelet Count 200 K/uL (130-400); RDW Coefficient of Variation 13.9 % (11.5-14.5); RDW Standard Deviation 48.7 fL (36.4-46.3); Red Blood Count 3.71 M/uL (4.7-6.1); White Blood Count 9.41 K/uL (4.8-10.8)
--- NOTE | 2018-04-17 15:18 | Hospitalist Progress Note ---
Date of Service April 17, 2018 Assessment & Plan (1) Lower GI bleed: (2) Atrial fibrillation: (3) Acute diverticulitis: (4) Hypertension: (5) Gout: 82yo male with history of AF on Eliquis antiocoagulation, HTN, diverticular disease presenting with LGIB. Lower GI bleed Suspect diverticular bleed History of diverticular bleeding Acute diverticulitis which is evident by CT exam Continue IV fluid, follow-up CBC q 8 hours - transfuse for active bleed, symptomatic anemia or Hg < 7 Continue Protonix 40mg IV daily, NPO follow-up GI consult Atrial fibrillation: Rate controlled. Patient taking Eliquis for anticoagulation Hold Eliquis in setting of GIB, and hold Metoprolol in setting of GIB Discussed with patient and family about risk and benefit of holding Eliquis, they understand and fully understand and okay to take the risk of stroke while holding this medication Hypertension, gout, will continue follow-up, monitor blood pressure DVT prophylaxis on SCD, GI prophylaxis is Protonix Subjective Generally doing okay, denies abdominal pain, denied dizziness, Review of Systems Constitutional: positive weakness, or fatigue Respiratory: no cough, sputum, wheezing, or dyspnea on exertion Cardiac: No chest pain, No orthopnea, No PND, No claudication, No palpitations, Abdomen: No pain, No nausea, No vomiting, Musculoskeletal: No joint pain, No muscle pain, No swelling, No calf pain, No problem reported : No dysuria, No urinary frequency, No incontinence, No hematuria Neurologic: No paralysis, No weakness, No numbness/tingling, No vertigo, No balance problems Psychiatric: No depression symptoms, No anhedonism, No anxiety, No insomnia, No substance abuse Heme: No abnormal bleeding/bruising, No clotting problems, No swollen lymph nodes, No night sweats Skin: No rash, No itch, No new/changing skin lesions, No color change, No bleeding Physical Exam Vital Signs (Past 24 Hours): Last Vital Signs Temp 37.0 C 04/17/18 12:00 Pulse 76 04/17/18 12:00 Resp 18 04/17/18 12:00 BP 135/77 04/17/18 12:00 Pulse Ox 99 04/17/18 12:00 Physical Exam: General Appearance: WD/WN, no apparent distress, no obvious pale Eyes: normal inspection, PERRL, EOMI, sclerae normal ENT: normal ENT inspection, hearing grossly normal, pharynx normal Neck: supple, no adenopathy, thyroid normal, no JVD, no carotid bruits, trachea midline Respiratory/Chest: chest non-tender, normal breath sounds, no respiratory distress, no accessory muscle use, rales, wheezing Cardiovascular: irregular rate, rhythm, no JVD, no murmur Abdomen: normal bowel sounds, non tender, soft, no organomegaly, Extremities: normal range of motion, non-tender, normal inspection, no pedal edema, no calf tenderness, normal capillary refill, pelvis stable, joint has no limited range of motion, capillary refill is normal, no cyanosis clubbing Neurologic/Psychiatric: online marketing coordinator II-XII nml as tested, no motor/sensory deficits, alert, normal mood/affect, oriented x 3 Skin: normal color, warm/dry, no rash Lymphatic: no adenopathy Results & Data Laboratory Results Laboratory Results - last 24 hr 04/16/18 04/16/18 04/16/18 14:56 15:27 15:27 WBC 11.81 H RBC 4.06 L Hgb 13.3 L Hct 39.7 L MCV 97.8 MCH 32.8 MCHC 33.5 RDW Std Deviation 48.8 H RDW Coeff of Edith 13.8 Plt Count 235 MPV 10.1 Immature Gran % (Auto) 0.3 Neut % (Auto) 83.5 Lymph % (Auto) 11.1 [place] % (Auto) 4.3 Eos % (Auto) 0.5 Baso % (Auto) 0.3 Immature Gran # (Auto) 0.04 H Neut # (Auto) 9.86 H Lymph # (Auto) 1.31 [place] # (Auto) 0.51 Eos # (Auto) 0.06 Baso # (Auto) 0.03 PT 12.1 H INR 1.2 H APTT 26.3 PTT Ratio 1.0 Sodium Potassium Chloride Carbon Dioxide Anion Gap BUN Creatinine Est Cr Clr Drug Dosing Est GFR ( Amer) Est GFR (Non-Af Amer) BUN/Creatinine Ratio Glucose Calcium Phosphorus Magnesium Total Bilirubin AST ALT Alkaline Phosphatase Troponin I Total Protein Albumin Globulin Albumin/Globulin Ratio Lipase POC Stool Occult Blood Positive H Blood Type Antibody Screen 04/16/18 04/16/18 04/16/18 15:27 15:27 20:27 WBC RBC Hgb Hct MCV MCH MCHC RDW Std Deviation RDW Coeff of Edith Plt Count MPV Immature Gran % (Auto) Neut % (Auto) Lymph % (Auto) [place] % (Auto) Eos % (Auto) Baso % (Auto) Immature Gran # (Auto) Neut # (Auto) Lymph # (Auto) [place] # (Auto) Eos # (Auto) Baso # (Auto) PT INR APTT PTT Ratio Sodium 144 Potassium 4.0 Chloride 112 H Carbon Dioxide 26 Anion Gap 6.0 BUN 21 H Creatinine 1.28 Est Cr Clr Drug Dosing 51.3 Est GFR ( Amer) 60.4 Est GFR (Non-Af Amer) 52.1 BUN/Creatinine Ratio 16.7 Glucose 133 H Calcium 9.3 Phosphorus 2.9 Magnesium 1.9 Total Bilirubin 0.6 AST 14 L ALT 15 Alkaline Phosphatase 83 Troponin I < 0.015 Total Protein 6.4 Albumin 2.9 L Globulin 3.5 Albumin/Globulin Ratio 0.8 L Lipase 205 POC Stool Occult Blood Blood Type B Positive Antibody Screen NEGATIVE 04/16/18 04/16/18 04/17/18 20:27 22:58 03:44 WBC 10.86 H 10.96 H RBC 4.09 L 3.97 L Hgb 13.5 L 12.8 L Hct 39.9 L 38.7 L MCV 97.6 97.5 MCH 33.0 32.2 MCHC 33.8 33.1 RDW Std Deviation 48.4 H 49.8 H RDW Coeff of Edith 13.7 13.9 Plt Count 253 230 MPV 9.8 9.5 Immature Gran % (Auto) Neut % (Auto) Lymph % (Auto) [place] % (Auto) Eos % (Auto) Baso % (Auto) Immature Gran # (Auto) Neut # (Auto) Lymph # (Auto) [place] # (Auto) Eos # (Auto) Baso # (Auto) PT INR APTT PTT Ratio Sodium Potassium Chloride Carbon Dioxide Anion Gap BUN Creatinine Est Cr Clr Drug Dosing Est GFR ( Amer) Est GFR (Non-Af Amer) BUN/Creatinine Ratio Glucose Calcium Phosphorus Magnesium Total Bilirubin AST ALT Alkaline Phosphatase Troponin I < 0.015 Total Protein Albumin Globulin Albumin/Globulin Ratio Lipase POC Stool Occult Blood Blood Type Antibody Screen 04/17/18 04/17/18 03:44 12:19 WBC 9.41 RBC 3.71 L Hgb 12.0 L Hct 35.7 L MCV 96.2 MCH 32.3 MCHC 33.6 RDW Std Deviation 48.7 H RDW Coeff of Edith 13.9 Plt Count 200 MPV 9.4 Immature Gran % (Auto) Neut % (Auto) Lymph % (Auto) [place] % (Auto) Eos % (Auto) Baso % (Auto) Immature Gran # (Auto) Neut # (Auto) Lymph # (Auto) [place] # (Auto) Eos # (Auto) Baso # (Auto) PT INR APTT PTT Ratio Sodium 143 Potassium 3.9 Chloride 109 H Carbon Dioxide 29 Anion Gap 5.0 BUN 22 H Creatinine 1.23 Est Cr Clr Drug Dosing 52.6 Est GFR ( Amer) 63.4 Est GFR (Non-Af Amer) 54.7 BUN/Creatinine Ratio 17.6 Glucose 118 H Calcium 9.7 Phosphorus Magnesium Total Bilirubin AST ALT Alkaline Phosphatase Troponin I Total Protein Albumin Globulin Albumin/Globulin Ratio Lipase POC Stool Occult Blood Blood Type Antibody Screen (1) Atrial fibrillation Atrial fibrillation type: permanent Qualified Code(s): I48.2 - Chronic atrial fibrillation (2) Hypertension Hypertension type: essential hypertension Qualified Code(s): I10 - Essential (primary) hypertension
[2018-04-17] MEDS ORDERED: MAGNESIUM CITRATE 296 ML/BTL PO STA (16:00)
--- NOTE | 2018-04-17 16:11 | Gastrointestinal Consultation ---
Date of Consultation April 17, 2018 Assessment & Plan (1) Lower GI bleed: most likely diveticular bleed. Seems to have slowed or stopped. Follow H and H. Had recent colonscoy and colonoscopy now in setting of possible diverticulitis contraindicated. Purge gut with mag citrate to more rapidly a scertain when bleeding has stopped. If rebleeds recommend RBC scan and/or transfer to [place] where IR is available. acute blood loss anemia---follow diverticultis on CT--continue abx History of Present Illness Reason for Consultation: GI bleeding Requesting Physician: Phillip Mir MD Attending Physician: Phillip Mir MD, PhD, [facility] History of Present Illness CC GI bleeding HPI Reviewed [facility] EMR and [facility]si EMR. PT had GI bleedig 08/2013 with EGD normal then. [place] then to TI normal TI but fresh blood throughout colon with pandiverticulosis. TC polyp not removed. He was sent to [place] but stopped bleeding and no intervention done and thought secondary to diverticular bleed. Pt had rectal bleed and went to ER 09/2017 with nl Hgb. Pt saw Dr Carlson after ER visit and colonoscopy 11/2018 showed mild internal hemorrhoids, pandiverticulosis and 3 mm AC polyp removed, tubular adenoma wiht 5 year recall. Pt was diagnose with afib just prior to that colonscopy and was on place on Eliquis. He comes into ER with 3 large bms of blood mahagony to bright red but no abd pain. HTc on amdit 13.3 and noon today 12. No stools since yesterday at noon. No abd pain. CT a/p suggestive of diverticuois AC and hepatic flexure. Allergies Allergy/AdvReac Type Severity Reaction Status Date / Time No Known Allergies Allergy Unknown Verified 04/16/18 15:26 Home Medications Home Medications Medication Instructions Recorded Confirmed Type Eliquis 5 mg PO BID 01/27/18 04/16/18 History allopurinol 100 mg PO QAM 01/27/18 04/16/18 History potassium chloride 10 meq PO QAM 01/27/18 04/16/18 History triamterene-hydrochlorothiazid 1 tab PO QAM 01/27/18 04/16/18 History metronidazole 1 applic TOPICAL DAILY PRN 02/02/18 04/16/18 History lisinopril 10 mg PO QAM 04/16/18 04/16/18 History metoprolol succinate 50 mg PO QAM 04/16/18 04/16/18 History Patient History Medical History Gout Atrial fibrillation BPH (benign prostatic hyperplasia) Basal cell carcinoma (BCC) FOLLOWS WITH DERMATOLOGY Diverticular disease GI bleed 4-5 YEARS AGO --> 2/2 DIVERTICULITIS Hematuria FOLLOWING WITH DR. POLANCO. AWAITING CT AND CYSTOSCOPY Hypertension Kidney stones On anticoagulant therapy SCC (squamous cell carcinoma) FOLLOWS WITH DERMATOLOGY Surgical History History of surgery on arm History of colonoscopy History of total knee replacement RIGHT Status post Mohs surgery MULTIPLE TIMES Family History Father Cancer PROSTATE CANCER Social History Preferred Language: Slovenian Beliefs That Will Affect Care: None Current Living Situation: Spouse Feels Safe at Home: Yes Safety Concerns: Feels Safe At This Time Smoking Status: Never smoker Hx Alcohol Use: Yes ("very rarely") Hx Substance Use: No Review of Systems see HPI, otherwise 10 ROS neg Physical Exam Vital Signs (Past 24 Hours): Last Vital Signs Temp 36.9 C 04/17/18 15:35 Pulse 70 04/17/18 15:35 Resp 18 04/17/18 15:35 BP 115/79 04/17/18 15:35 Pulse Ox 99 04/17/18 15:35 Constitutional: WD/WN, vitals as above Eyes: PERRL, conjunctivae normal, anicteric sclerae ENMT: external ear and nose normal, oropharynx normal Neck: normal visual inspection and trachea midline Respiratory: normal respiratory effort, lungs clear to auscultation Cardiovascular: Heart Sounds: no murmur Gastrointestinal (Abdomen): normal bowel sounds, soft, nontender, no hepatospl enomegaly Skin: normal turgor warm and dry Neurologic: PERRL, EOMI, accommodation nl, no face palsy, no dysarthria Psychiatric: A+Ox3, euthymic affect
[2018-04-17 20:13] LABS: Hematocrit (blood only) 33.7 % (42-52); Hemoglobin 11.4 g/dL (14.0-18.0); Mean Corpuscular Hgb Conc 33.8 g/dL (32-36); Mean Corpuscular Volume 96.3 fL (80-100); Mean Platelet Volume 9.3 fL (7.4-10.4); Platelet Count 204 K/uL (130-400); RDW Coefficient of Variation 13.8 % (11.5-14.5); RDW Standard Deviation 48.8 fL (36.4-46.3); White Blood Count 8.92 K/uL (4.8-10.8)
[2018-04-18] MEDS: metroNIDAZOLE 500 MG/100 ML BAG IV SCH ×3 (02:17→18:42)
[2018-04-18] MEDS: CIPROFLOXACIN 400 MG/200 ML BAG IV SCH ×2 (06:01→18:42)
[2018-04-18 07:16] LABS: Basophils # (auto) 0.03 K/uL (0-0.2); Basophils % (auto) 0.4 %; Eosinophils # (auto) 0.13 K/uL (0-0.5); Eosinophils % (auto) 1.8 %; Hematocrit (blood only) 33.4 % (42-52); Immature Granulocytes # (auto) 0.04 K/uL (0.00-0.02); Immature Granulocytes % (auto) 0.6 %; Lymphocytes # (auto) 1.85 K/uL (1.2-3.4); Lymphocytes % (auto) 25.7 %; Mean Corpuscular Hgb Conc 32.9 g/dL (32-36); Mean Corpuscular Volume 97.4 fL (80-100); Mean Platelet Volume 9.5 fL (7.4-10.4); Monocytes # (auto) 0.53 K/uL (0.11-0.59); Monocytes % (auto) 7.4 %; Neutrophils # (auto) 4.61 K/uL (1.4-6.5); Neutrophils % (auto) 64.1 %; Platelet Count 203 K/uL (130-400); RDW Coefficient of Variation 13.9 % (11.5-14.5); RDW Standard Deviation 49.2 fL (36.4-46.3); Red Blood Count 3.43 M/uL (4.7-6.1); White Blood Count 7.19 K/uL (4.8-10.8)
[2018-04-18 08:17] LABS: Albumin Globulin Ratio 0.9 (0.9-2); Albumin Level 2.8 gm/dl (3.4-5.0); BUN Creatinine Ratio 16.8 (10-20); Bilirubin,Total 0.6 mg/dl (0.2-1); Calcium 9.3 mg/dl (8.5-10.1); Creatinine Clr Calc Pharmacy 61.1 ml/min; Est GFR (African American) 75.9; Est GFR (Non-African American) 65.5; Phosphorus 2.1 mg/dl (2.5-4.9); Potassium 3.3 mmol/L (3.5-5.1); Total Protein 5.8 gm/dl (6.4-8.2)
[2018-04-18] MEDS ORDERED: POTASSIUM PHOS 3 MMOL/1 ML INFUSION IV STA (08:36)
[2018-04-18] MEDS: ALLOPURINOL 100 MG TAB PO SCH (10:24)
[2018-04-18] MEDS: PANTOprazole 40 MG in SYRINGE 0 ML IV SCH (10:24)
[2018-04-18] MEDS ORDERED: POTASSIUM PHOSPHATE 21 MMOL in SODIUM CHLORIDE 0.9% 500 ML IV ONE (11:00)
[2018-04-18] MEDS ORDERED: Nursing to Pharmacy Communication ONE (11:18)
[2018-04-18] MEDS: POTASSIUM CHLORIDE / WTR 10 MEQ/100 ML PLCT IV SCH (11:20)
[2018-04-18] MEDS ORDERED: POTASSIUM CHLORIDE 20 MEQ TABCR PO ONE (12:00)
--- NOTE | 2018-04-18 15:46 | Hospitalist Progress Note ---
Date of Service April 18, 2018 Assessment & Plan (1) Lower GI bleed: (2) Atrial fibrillation: (3) Acute diverticulitis: (4) Hypertension: (5) Gout: 82yo male with history of AF on Eliquis antiocoagulation, HTN, diverticular disease presenting with LGIB. Lower GI bleed Suspect diverticular bleed History of diverticular bleeding Acute diverticulitis which is evident by CT exam Condition has been stable , hemoglobin stable, Advance diet as DC IV fluid, Continue Protonix 40mg IV daily Continue follow-up H&H Atrial fibrillation: Rate controlled. Patient taking Eliquis for anticoagulation Hold Eliquis in setting of GIB, and hold Metoprolol in setting of GIB Discussed with patient and family about risk and benefit of holding Eliquis, they understand and fully understand and okay to take the risk of stroke while holding this medication Hypertension, gout, will continue follow-up, monitor blood pressure Hypokalemia and hypophosphatemia, recommendation from GI, red blood cell scan or transfer to [place] if need Patient is doing fair for now, if hemoglobin continues stable after resume Eliquis, if continue to be stable after resumed Eliquis will discharge her home in 2 days DVT prophylaxis on SCD, GI prophylaxis is Protonix Subjective Generally doing okay no more BRBPR, currently has some brown dark stool No other complaints Start on clear liquid diet, will otherwise to full liquid diet as tolerated Review of Systems Constitutional: positive weakness, or fatigue Respiratory: no cough, sputum, wheezing, or dyspnea on exertion Cardiac: No chest pain, No orthopnea, No PND, No claudication, No palpitations, Abdomen: No pain, No nausea, No vomiting, Musculoskeletal: No joint pain, No muscle pain, No swelling, No calf pain, No problem reported : No dysuria, No urinary frequency, No incontinence, No hematuria Neurologic: No paralysis, No weakness, No numbness/tingling, No vertigo, No balance problems Psychiatric: No depression symptoms, No anhedonism, No anxiety, No insomnia, No substance abuse Heme: No abnormal bleeding/bruising, No clotting problems, No swollen lymph nodes, No night sweats Skin: No rash, No itch, No new/changing skin lesions, No color change, No bleeding Physical Exam Vital Signs (Past 24 Hours): Last Vital Signs Temp 36.9 C 04/18/18 11:29 Pulse 74 04/18/18 11:29 Resp 16 04/18/18 11:29 BP 123/77 04/18/18 11:29 Pulse Ox 99 04/18/18 11:29 Physical Exam: General Appearance: WD/WN, no apparent distress, no obvious pale Eyes: normal inspection, PERRL, EOMI, sclerae normal ENT: normal ENT inspection, hearing grossly normal, pharynx normal Neck: supple, no adenopathy, thyroid normal, no JVD, no carotid bruits, trachea midline Respiratory/Chest: chest non-tender, normal breath sounds, no respiratory distress, no accessory muscle use, rales, wheezing Cardiovascular: irregular rate, rhythm, no JVD, no murmur Abdomen: normal bowel sounds, non tender, soft, no organomegaly, Extremities: normal range of motion, non-tender, normal inspection, no pedal edema, no calf tenderness, normal capillary refill, pelvis stable, joint has no limited range of motion, capillary refill is normal, no cyanosis clubbing Neurologic/Psychiatric: fourchette sewer II-XII nml as tested, no motor/sensory deficits, alert, normal mood/affect, oriented x 3 Skin: normal color, warm/dry, no rash Lymphatic: no adenopathy Results & Data Laboratory Results Laboratory Results - last 24 hr 04/17/18 04/18/18 04/18/18 19:51 06:37 06:37 WBC 8.92 7.19 RBC 3.50 L 3.43 L Hgb 11.4 L 11.0 L Hct 33.7 L 33.4 L MCV 96.3 97.4 MCH 32.6 32.1 MCHC 33.8 32.9 RDW Std Deviation 48.8 H 49.2 H RDW Coeff of Edith 13.8 13.9 Plt Count 204 203 MPV 9.3 9.5 Immature Gran % (Auto) 0.6 Neut % (Auto) 64.1 Lymph % (Auto) 25.7 [place] % (Auto) 7.4 Eos % (Auto) 1.8 Baso % (Auto) 0.4 Immature Gran # (Auto) 0.04 H Neut # (Auto) 4.61 Lymph # (Auto) 1.85 [place] # (Auto) 0.53 Eos # (Auto) 0.13 Baso # (Auto) 0.03 Sodium 141 Potassium 3.3 L D Chloride 107 Carbon Dioxide 28 Anion Gap 6.0 BUN 18 Creatinine 1.06 Est Cr Clr Drug Dosing 61.1 Est GFR ( Amer) 75.9 Est GFR (Non-Af Amer) 65.5 BUN/Creatinine Ratio 16.8 Glucose 123 H Calcium 9.3 Phosphorus 2.1 L Magnesium 2.0 Total Bilirubin 0.6 AST 15 ALT 15 Alkaline Phosphatase 73 Total Protein 5.8 L Albumin 2.8 L Globulin 3.0 Albumin/Globulin Ratio 0.9 (1) Atrial fibrillation Atrial fibrillation type: permanent Qualified Code(s): I48.2 - Chronic atrial fibrillation (2) Hypertension Hypertension type: essential hypertension Qualified Code(s): I10 - Essential (primary) hypertension
--- NOTE | 2018-04-18 16:07 | Gastroenterology Progress Note ---
Date of Service April 18, 2018 Assessment & Plan (1) Lower GI bleed: most likely diveticular bleed. This has stopped. Ok for advance to low fiber diet in am. Discussed with DR Mir who feels it is important to resume Eliquis as quickly as possible so this may be resumed tomorrow. Discussed would keep patient another 24 hour after starting Eliquis. Also, I recommend transfer to [place] where they have IR if patient rebleeds whether on of off Eliquis. acute blood loss anemia---follow diverticultis on CT--continue abx Subjective CC f/u GI Bleeding HPI Pt had mag citrate with subseequent loose stools and by this am stools clerared to brown. No abd pain. Respiratory: no dyspnea Cardiovascular: no chest pain Gastrointestinal: + abdominal pain Physical Exam Vital Signs (Past 24 Hours): Last Vital Signs Temp 36.9 C 04/18/18 11:29 Pulse 74 04/18/18 11:29 Resp 16 04/18/18 11:29 BP 123/77 04/18/18 11:29 Pulse Ox 99 04/18/18 11:29 Constitutional: WD/WN, vitals as above Respiratory: normal respiratory effort, lungs clear to auscultation Cardiovascular: Heart Sounds: no murmur Gastrointestinal (Abdomen): normal bowel sounds, soft, nontender, no hepatosplenomegaly Psychiatric: A+Ox3, euthymic affect
[2018-04-19] MEDS: metroNIDAZOLE 500 MG/100 ML BAG IV SCH (02:28)
[2018-04-19] MEDS: CIPROFLOXACIN 400 MG/200 ML BAG IV SCH (06:29)
[2018-04-19 07:07] LABS: Basophils # (auto) 0.03 K/uL (0-0.2); Basophils % (auto) 0.4 %; Eosinophils # (auto) 0.26 K/uL (0-0.5); Eosinophils % (auto) 3.4 %; Hemoglobin 11.1 g/dL (14.0-18.0); Immature Granulocytes # (auto) 0.05 K/uL (0.00-0.02); Immature Granulocytes % (auto) 0.7 %; Lymphocytes % (auto) 22.5 %; Mean Corpuscular Hgb Conc 33.6 g/dL (32-36); Mean Corpuscular Volume 95.9 fL (80-100); Mean Platelet Volume 9.2 fL (7.4-10.4); Monocytes # (auto) 0.79 K/uL (0.11-0.59); Monocytes % (auto) 10.5 %; Neutrophils # (auto) 4.71 K/uL (1.4-6.5); Neutrophils % (auto) 62.5 %; Platelet Count 192 K/uL (130-400); RDW Coefficient of Variation 13.8 % (11.5-14.5); RDW Standard Deviation 48.3 fL (36.4-46.3); Red Blood Count 3.44 M/uL (4.7-6.1); White Blood Count 7.54 K/uL (4.8-10.8)
[2018-04-19 07:35] LABS: Albumin Level 2.6 gm/dl (3.4-5.0); BUN Creatinine Ratio 10.7 (10-20); Calcium 9.3 mg/dl (8.5-10.1); Creatinine Clr Calc Pharmacy 64.9 ml/min; Est GFR (African American) 81.4; Est GFR (Non-African American) 70.3; Potassium 3.4 mmol/L (3.5-5.1)
[2018-04-19 07:38] LABS: Albumin Globulin Ratio 0.9 (0.9-2); Bilirubin,Total 0.6 mg/dl (0.2-1); Globulin 2.9 gm/dl (2.5-4.0); Total Protein 5.5 gm/dl (6.4-8.2)
[2018-04-19] MEDS ORDERED: POTASSIUM CHLORIDE 10 MEQ TABCR PO ONE (08:30)
[2018-04-19] MEDS: ALLOPURINOL 100 MG TAB PO SCH (08:45)
[2018-04-19] MEDS: metroNIDAZOLE 500 MG TAB PO SCH ×3 (08:45→21:14)
[2018-04-19] MEDS: PANTOprazole 40 MG in SYRINGE 0 ML IV SCH (11:07)
[2018-04-19] MEDS: APIXABAN 2.5 MG TAB PO SCH ×2 (11:07→21:14)
--- NOTE | 2018-04-19 13:49 | Gastroenterology Progress Note ---
Date of Service April 19, 2018 Assessment & Plan (1) Lower GI bleed: most likely diveticular bleed--resolved, Eliquis has been restarted--if rebleeds recommend [facility] where they have IR capability. acute blood loss anemia---stabl.e diverticultis on CT--continue abx I am going off service tomorrow 04/20/[address] Carlson is assuming GI care then. Subjective CC f/u GI Bleeding HPI Pt states stools continue to be brown. No abd pain Respiratory: no dyspnea Cardiovascular: no chest pain Physical Exam Vital Signs (Past 24 Hours): Last Vital Signs Temp 36.7 C 04/19/18 11:51 Pulse 81 04/19/18 11:51 Resp 16 04/19/18 11:51 BP 127/81 04/19/18 11:51 Pulse Ox 98 04/19/18 11:51 Constitutional: WD/WN, vitals as above Respiratory: normal respiratory effort, lungs clear to auscultation Cardiovascular: Heart Sounds: no murmur Gastrointestinal (Abdomen): normal bowel sounds, soft, nontender, no hepatosplenomegaly Psychiatric: A+Ox3, euthymic affect
--- NOTE | 2018-04-19 15:56 | Hospitalist Progress Note ---
Date of Service April 19, 2018 Assessment & Plan (1) Lower GI bleed: (2) Atrial fibrillation: (3) Acute diverticulitis: (4) Hypertension: (5) Gout: 82yo male with history of AF on Eliquis antiocoagulation, HTN, diverticular disease presenting with LGIB. Lower GI bleed, likely from diverticular bleed, possible resolving no active bleeding for now H&H stable yesterday 11 today's 11.1 History of diverticular bleeding Acute diverticulitis which is evident by CT exam, change antibiotic to oral which include Cipro and Flagyl Advance diet as DC IV fluid, Continue Protonix 40mg IV daily, will change to p.o. Atrial fibrillation: Rate controlled. Patient taking Eliquis for anticoagulati on prior to his admission He has been on hold Discussed with patient and family about risk and benefit of restarting Eliquis, will start low-dose as he initially doing 2.5 mg p.o. twice daily , and will let his PCP to continue take care of it , and will notify packager hand as well Hypertension, gout, will continue follow-up, monitor blood pressure per recommendation from GI, red blood cell scan or transfer to [place] to be eval by IR if need DVT prophylaxis on SCD and Eliquis, GI prophylaxis is Protonix Subjective Generally doing okay, no more BRBPR, denies abdominal pain diarrhea or constipation No other complaints, has been tolerate diet Review of Systems Constitutional: positive weakness, or fatigue, however is better Respiratory: no cough, sputum, wheezing, or dyspnea on exertion Cardiac: No chest pain, No orthopnea, No PND, No claudication, No palpitations, Abdomen: No pain, No nausea, No vomiting, Musculoskeletal: No joint pain, No muscle pain, No swelling, No calf pain, No problem reported : No dysuria, No urinary frequency, No incontinence, No hematuria Neurologic: No paralysis, No weakness, No numbness/tingling, No vertigo, No balance problems Psychiatric: No depression symptoms, No anhedonism, No anxiety, No insomnia, No substance abuse Heme: No abnormal bleeding/bruising, Skin: No rash, No itch, No new/changing skin lesions, No color change, No bleeding Physical Exam Vital Signs (Past 24 Hours): Last Vital Signs Temp 36.9 C 04/19/18 15:28 Pulse 76 04/19/18 15:28 Resp 16 04/19/18 15:28 BP 128/79 04/19/18 15:28 Pulse Ox 97 04/19/18 15:28 Physical Exam: General Appearance: WD/WN, no apparent distress, no obvious pale, pleasant and conversational Eyes: normal inspection, PERRL, EOMI, sclerae normal ENT: normal ENT inspection, hearing grossly normal, pharynx normal Neck: supple, no adenopathy, thyroid normal, no JVD, no carotid bruits, trachea midline Respiratory/Chest: chest non-tender, normal breath sounds, no respiratory distress, no accessory muscle use, rales, wheezing Cardiovascular: irregular rate, rhythm, no JVD, no murmur Abdomen: normal bowel sounds, non tender, soft, no organomegaly, Extremities: normal range of motion, non-tender, normal inspection, no pedal edema, no calf tenderness, normal capillary refill, joint has no limited range of motion, capillary refill is normal, no cyanosis clubbing Neurologic/Psychiatric: stone derrickman and rigger II-XII nml as tested, no motor/sensory deficits, alert, normal mood/affect, oriented x 3 Skin: normal color, warm/dry, no rash Lymphatic: no adenopathy Results & Data Laboratory Results Laboratory Results - last 24 hr 04/19/18 04/19/18 04/19/18 06:53 06:53 08:17 WBC 7.54 RBC 3.44 L Hgb 11.1 L Hct 33.0 L MCV 95.9 MCH 32.3 MCHC 33.6 RDW Std Deviation 48.3 H RDW Coeff of Edith 13.8 Plt Count 192 MPV 9.2 Immature Gran % (Auto) 0.7 Neut % (Auto) 62.5 Lymph % (Auto) 22.5 [place] % (Auto) 10.5 Eos % (Auto) 3.4 Baso % (Auto) 0.4 Immature Gran # (Auto) 0.05 H Neut # (Auto) 4.71 Lymph # (Auto) 1.70 [place] # (Auto) 0.79 H Eos # (Auto) 0.26 Baso # (Auto) 0.03 Sodium 143 Potassium 3.4 L 3.6 Chloride 112 H Carbon Dioxide 25 Anion Gap 7.0 BUN 11 Creatinine 1.00 Est Cr Clr Drug Dosing 64.9 Est GFR ( Amer) 81.4 Est GFR (Non-Af Amer) 70.3 BUN/Creatinine Ratio 10.7 Glucose 128 H Calcium 9.3 Total Bilirubin 0.6 AST 21 ALT 15 Alkaline Phosphatase 68 Total Protein 5.5 L Albumin 2.6 L Globulin 2.9 Albumin/Globulin Ratio 0.9 (1) Atrial fibrillation Atrial fibrillation type: permanent Qualified Code(s): I48.2 - Chronic atrial fibrillation (2) Hypertension Hypertension type: essential hypertension Qualified Code(s): I10 - Essential (primary) hypertension
[2018-04-19] MEDS: CIPROFLOXACIN 500 MG TAB PO SCH (21:13)
[2018-04-20 07:23] LABS: Basophils # (auto) 0.02 K/uL (0-0.2); Basophils % (auto) 0.2 %; Eosinophils # (auto) 0.33 K/uL (0-0.5); Eosinophils % (auto) 3.7 %; Hematocrit (blood only) 35.9 % (42-52); Immature Granulocytes # (auto) 0.05 K/uL (0.00-0.02); Immature Granulocytes % (auto) 0.6 %; Lymphocytes # (auto) 2.22 K/uL (1.2-3.4); Lymphocytes % (auto) 25.2 %; Mean Corpuscular Hgb Conc 33.4 g/dL (32-36); Mean Platelet Volume 9.3 fL (7.4-10.4); Monocytes # (auto) 0.89 K/uL (0.11-0.59); Monocytes % (auto) 10.1 %; Neutrophils # (auto) 5.31 K/uL (1.4-6.5); Neutrophils % (auto) 60.2 %; Platelet Count 219 K/uL (130-400); RDW Standard Deviation 49.1 fL (36.4-46.3); White Blood Count 8.82 K/uL (4.8-10.8)
[2018-04-20] MEDS: ALLOPURINOL 100 MG TAB PO SCH (07:31)
[2018-04-20] MEDS: APIXABAN 2.5 MG TAB PO SCH (07:32)
[2018-04-20] MEDS: metroNIDAZOLE 500 MG TAB PO SCH ×2 (07:32→12:53)
[2018-04-20] MEDS: CIPROFLOXACIN 500 MG TAB PO SCH (07:32)
[2018-04-20 07:59] LABS: BUN Creatinine Ratio 7.7 (10-20); Calcium 9.2 mg/dl (8.5-10.1); Creatinine Clr Calc Pharmacy 51.2 ml/min; Est GFR (Non-African American) 52.6; Magnesium 2.1 mg/dl (1.8-2.4); Potassium 3.7 mmol/L (3.5-5.1)
[2018-04-20 08:01] LABS: Albumin Globulin Ratio 0.9 (0.9-2); Bilirubin,Total 0.7 mg/dl (0.2-1); Globulin 3.4 gm/dl (2.5-4.0); Phosphorus 2.3 mg/dl (2.5-4.9); Total Protein 6.4 gm/dl (6.4-8.2)
[2018-04-20] MEDS: POT PHOSPHATE MONOBASIC W/ SOD TAB PO SCH ×2 (10:55→12:52)
[2018-04-20] MEDS: PANTOprazole 40 MG in SYRINGE 0 ML IV SCH (10:55)
--- NOTE | 2018-04-20 11:36 | Discharge Summary ---
Date of Service April 20, 2018 Admission HPI Per Admitting Provider Mr. Major is a pleasant 82yo male with history of AF on Eliquis antiocoagulation, HTN, diverticular disease presenting with LGIB. Patient was admitted in August of 2013 with a severe diverticular bleed with syncope requiring transfusion of 7 u of PRBCs. He was evaluated by Drs. Patrick and Robyn and had EGD and Colonoscopy performed at that time with no bleeding source identified. He was transferred to [facility] for angiogram with possible embolization. He presents today with loose stools with bright red blood per rectum which started this AM. He reports at least 4 BMs that were very loose, franki in color with BRB noted on the toilet paper after wiping. He denies abdominal pain, no epigastric discomfort. No nausea/vomiting/constipation. No CP/SOB/palpitations or diaphoresis. He was quite dizzy throughout the day. He was seen by his PCP this afternoon and was sent to the ER for further workup. ER Course: Cipro, Flagyl Principal Diagnosis no Discharge Data Allergies Allergy/AdvReac Type Severity Reaction Status Date / Time No Known Allergies Allergy Unknown Verified 04/16/18 15:26 Consultations 04/16/18 17:20 ED Decision to Admit Stat 04/16/18 19:57 Consult Gastroenterology Routine Ordered Studies 04/16/18 14:56 CT abd pelvis IV con only Stat Hospital Course (1) Lower GI bleed: (2) Atrial fibrillation: (3) Acute diverticulitis: (4) Hypertension: (5) Gout: 82yo male with history of AF on Eliquis antiocoagulation, HTN, diverticular disease presenting with LGIB. Lower GI bleed, likely from diverticular bleed, possible resolving no active bleeding for now H&H stable History of diverticular bleeding Acute diverticulitis which is evident by CT exam, change antibiotic to oral which include Cipro and Flagyl, Will need to be total 14 days Has been tolerate diet, changed to low fiber diet Continue Protonix 40mg IV daily, will change to p.o. Atrial fibrillation: Rate controlled. Patient taking Eliquis for anticoagulation prior to his admission He has been on hold Discussed with patient and family about risk and benefit of restarting Eliquis, will start low-dose as he initially doing 2.5 mg p.o. twice daily , and will let his PCP to continue take care of it , and will notify vault keeper as well Hypertension, gout, will continue follow-up, monitor blood pressure, Will resume home blood pressure medication per recommendation from GI, red blood cell scan or transfer to [place] to be eval by IR if need I have advised patient that if have re-bleeding from GI, need to be transferred from Emergency room, if appropriate, to a facility with interventional radiologist Available to have more further evaluation and treatment by angiography DVT prophylaxis on SCD and Eliquis, GI prophylaxis is Protonix Subjective discharge Generally doing okay, no more BRBPR,Passing a lot of gas, and some stool is brown, denies abdominal pain diarrhea or constipation No other complaints, has been tolerate diet Review of SystemsAt discharge Constitutional: positive weakness, or fatigue, however is better Respiratory: no cough, sputum, wheezing, or dyspnea on exertion Cardiac: No chest pain, No orthopnea, No PND, No claudication, No palpita tions, Abdomen: No pain, No nausea, No vomiting, Musculoskeletal: No joint pain, No muscle pain, No swelling, No calf pain, No problem reported : No dysuria, No urinary frequency, No incontinence, No hematuria Neurologic: No paralysis, No weakness, No numbness/tingling, No vertigo, No balance problems Psychiatric: No depression symptoms, No anhedonism, No anxiety, No insomnia, No substance abuse Heme: No abnormal bleeding/bruising, Skin: No rash, No itch, No new/changing skin lesions, No color change, No bleeding Physical ExamAt discharge General Appearance: WD/WN, no apparent distress, no obvious pale, pleasant and conversational Eyes: normal inspection, PERRL, EOMI, sclerae normal ENT: normal ENT inspection, hearing grossly normal, pharynx normal Neck: supple, no adenopathy, thyroid normal, no JVD, no carotid bruits, trachea midline Respiratory/Chest: chest non-tender, normal breath sounds, no respiratory distress, no accessory muscle use, rales, wheezing Cardiovascular: irregular rate, rhythm, no JVD, no murmur Abdomen: normal bowel sounds, non tender, soft, no organomegaly, Extremities: normal range of motion, non-tender, normal inspection, no pedal edema, no calf tenderness, normal capillary refill, joint has no limited range of motion, capillary refill is normal, no cyanosis clubbing Neurologic/Psychiatric: language translator II-XII nml as tested, no motor/sensory deficits, alert, normal mood/affect, oriented x 3 Skin: normal color, warm/dry, no rash Lymphatic: no adenopathy Lab data Subjective upon discharge Laboratory Results - last 24 hr 04/20/18 04/20/18 07:07 07:07 WBC 8.82 RBC 3.70 L Hgb 12.0 L Hct 35.9 L MCV 97.0 MCH 32.4 MCHC 33.4 RDW Std Deviation 49.1 H RDW Coeff of Edith 14.0 Plt Count 219 MPV 9.3 Immature Gran % (Auto) 0.6 Neut % (Auto) 60.2 Lymph % (Auto) 25.2 [place] % (Auto) 10.1 Eos % (Auto) 3.7 Baso % (Auto) 0.2 Immature Gran # (Auto) 0.05 H Neut # (Auto) 5.31 Lymph # (Auto) 2.22 [place] # (Auto) 0.89 H Eos # (Auto) 0.33 Baso # (Auto) 0.02 Sodium 142 Potassium 3.7 Chloride 109 H Carbon Dioxide 26 Anion Gap 7.0 BUN 10 Creatinine 1.27 Est Cr Clr Drug Dosing 51.2 Est GFR ( Amer) 61.0 Est GFR (Non-Af Amer) 52.6 BUN/Creatinine Ratio 7.7 L Glucose 113 H Calcium 9.2 Phosphorus 2.3 L Magnesium 2.1 Total Bilirubin 0.7 AST 48 H ALT 30 Alkaline Phosphatase 75 Total Protein 6.4 Albumin 3.0 L Globulin 3.4 Albumin/Globulin Ratio 0.9 Total Time Total Time Spent Total Time Spent (In Minutes): 35 Total Time Includes: Examination of the Patient, Discharge Planning, Medication Reconciliation and Communication With Other Providers Discharge Plan Discharge Items Patient Disposition: Home - Self-Care Reason For Visit: GI BLEED Discharge Diagnosis: Lower GI bleed, likely from diverticular bleed Acute diverticulitis Condition: Fair Discharge Goals: Decrease discomfort, Diagnostic testing, Improve disease co ntrol, Improve function, Increase independence, Learn about illness and Therapeutic intervention Activity: Resume your previous activity Non-emergency contact: Primary Care Provider and Information Technology Assistant Call non-emergency contact if: you have any medication questions Follow-up/Referrals: Elio Ramires MD [Primary Care Provider] - Diet: Heart Healthy and Low Fiber Addtl Provider Instructions: you have Lower GI bleed, likely from diverticular bleed, relative stable Acute diverticulitis which is evident by CT exam, will continue for Cipro and Flagyl for total 14 days you have Atrial fibrillation: Rate controlled. you was taking Eliquis for anticoagulation prior to his admission has restarted low-dose eliquis at 2.5 mg p.o. twice daily , and you need to follow uo with your PCP to continue take care of it , and you need to follow up vault keeper as well If you have re-bleeding from GI, you need to be transferred from Emergency room, if appropriate, to a facility with interventional radiologist Available to have more further evaluation and treatment by angiography you need to follow up with your primary care physician in 1 week, - take medication as instructed, never overdose or any misuse, or take with alcohol, because misuse of medicine may cause organ damage or , call me, or your primary care physician if have questions of discharge medicaitons. - call your primary care physician, or go to local emergency room if has any fever/chill, chest pain, shortness of breathing, nausea/vomiting/abdominal pain, facial droop/slurry speech/local weakness, or if has any questions. - fall precaution - diet as instructed - you need to follow up with your subspecialist, such as Dr. Montes Prescriptions: New metronidazole 500 mg Tablet 500 mg PO TID 10 Days Qty: 30 RF: 0 ciprofloxacin HCl 500 mg Tablet 500 mg PO BID 10 Days Qty: 20 RF: 0 Eliquis 2.5 mg Tablet 2.5 mg PO BID 30 Days Qty: 60 RF: 0 Continued potassium chloride 10 mEq Tablet Extended Release 10 meq PO QAM RF: 0 allopurinol 100 mg Tablet 100 mg PO QAM RF: 0 triamterene-hydrochlorothiazid 37.5-25 mg Tablet 1 tab PO QAM RF: 0 metronidazole 1 % Gel 1 applic TOPICAL DAILY PRN (Reason: ROSACEA FLARES) RF: 0 metoprolol succinate 50 mg Tablet Extended Release 24 Hr 50 mg PO QAM RF: 0 lisinopril 10 mg Tablet 10 mg PO QAM RF: 0 Discontinued Eliquis 5 mg Tablet 5 mg PO BID RF: 0 Stand-Alone Forms: My [facility] Discharge Orders: Discharge Order (Routine); Ordered 04/20/18 Ordered By: Phillip Mir Admission Data Admit Date/Time: 04/16/18 18:24 Attending Provider: Phillip Mir Admit Provider: Kitty James Primary Care Provider: Elio Ramires Other Providers: Kitty James ; Mahesh Carlson Service: Telemetry
[2018-04-20] MEDS ORDERED: POLYETHYLENE (MIRALAX) 17 GM PACK PO SCH (12:30)
[2018-04-20] MEDS ORDERED: SENNA 8.6 MG TAB PO SCH (14:30)
== END 2018-04-20 16:43 | disposition home or self-care (01) | DRG 378 ==
LOC: ED 14:52 → SUATTDRO 18:24 → 2S 18:24

== ENCOUNTER 2021-09-02 14:42 | Inpatient (IN) ==
[2021-09-02] MEDS ORDERED: SODIUM CHLORIDE 0.9% 500 ML IV STA (15:25)
--- NOTE | 2021-09-02 15:29 | Emergency Department Note ---
History of Present Illness General Chief complaint: Rectal Bleed Stated complaint: BLOOD IN STOOL Time Seen by Provider: 09/02/21 15:12 Source: patient and family ( Who is at the bedside) Mode of arrival: ambulatory Limitations: no limitations History of Present Illness This patient is a 86-year-old male who comes in complaining of rectal bleeding which started around 11 or 1130 he noticed a small amount on the tissue and he felt like his stomach was grumbling a little bit and then at 2:00 this afternoon he looked in the toilet and he said it was maroon stool he had history of diverticulosis bleed in the past and he is on Eliquis for A. fib he is took his Eliquis last and this morning. He feels asymptomatic at present no light headedness or dizziness no chest pain or shortness of breath or palpitations no abdominal pain. no blood or bruising anywhere else no trauma or injury. Home Medications Medication Instructions Recorded Confirmed Type allopurinol 100 mg tablet 100 mg PO QAM 01/27/18 09/02/21 History potassium chloride 10 mEq 10 meq PO QAM 01/27/18 09/02/21 History tablet,extended release metronidazole 1 % topical gel 1 applic topical DAILY PRN ROSACEA 02/02/18 09/02/21 History FLARES triamterene 37.5 0.5 tab PO QAM 02/23/19 09/02/21 History mg-hydrochlorothiazide 25 mg tablet apixaban 5 mg tablet 5 mg PO BID #180 tabs 10/05/20 09/02/21 Rx lisinopril 20 mg tablet 20 mg PO DAILY #90 tabs 04/05/21 09/02/21 Rx Allergies Allergy/AdvReac Type Severity Reaction Status Date / Time No Known Allergies Allergy Verified 09/02/21 16:40 Past Med/Surg History Medical History (Updated 09/02/21 @ 21:55 by Nawaf Sen MD) Atrial fibrillation Benign prostatic hyperplasia with urinary obstruction BPH (benign prostatic hyperplasia) BPH NOS w ur obs/LUTS Carpal tunnel syndrome of right wrist Diverticular disease Diverticulosis GI bleed 4-5 YEARS AGO --> 2/2 DIVERTICULITIS Gout Gross hematuria Hematuria FOLLOWING WITH DR. POLANCO. AWAITING CT AND CYSTOSCOPY Hypertension Kidney stones Mild mitral regurgitation On anticoagulant therapy Permanent atrial fibrillation Rosacea Swelling of eyelid Surgical History History of cataract surgery History of colonoscopy History of lithotripsy History of surgery on arm History of tonsillectomy History of total knee replacement RIGHT Status post Mohs surgery MULTIPLE TIMES Family History Father Cancer PROSTATE CANCER Social History Smoking Status: Never smoker Second Hand Exposure: No; Hx Alcohol Use: Yes Alcohol type: wine Hx Substance Use: No Preferred Language: Sami Communication Ability: Effective Institutional Custodian Required: No Beliefs That Will Affect Care: None Current Living Situation: Spouse Current Living Situation Comment: Lives at home with Other Information That Helps Us Care for You: No Feels Safe at Home: Yes Safety Concerns: Feels Safe At This Time Assistive Devices: Glasses Review of Systems A total of 10 systems reviewed and were otherwise negative Physical Exam Vital Signs Vital Signs - 24 hr 09/02/21 14:43 09/02/21 16:07 09/02/21 15:25 Temperature 36.4 C L Temperature Source Temporal Artery Scan Pulse Rate 81 Pulse Rate [Apical] 67 Respiratory Rate 16 18 Blood Pressure 117/83 Blood Pressure [Right Arm] 109/78 Blood Pressure Mean 94 Blood Pressure Mean [Right Arm] 88 Pulse Oximetry 96 98 97 Oxygen Delivery Method Room Air Room Air Sepsis Recent Fever Within 48 Hours No Sepsis New/Unexplained Change in Mental Status No Sepsis Action Taken by Nursing No Action Required General: Well developed well nourished not ill-appearing older male who appears in no acute distress, breathing comfortably on room air. Normal speech HEENT: Normal cephalic atraumatic. Pupils are equal round and reactive to light. Extraocular movements are intact. Oropharynx is pink with moist mucous membranes. No swelling of the mouth lips or tongue. Neck: Supple with a midline trachea. No meningeal signs or stiffness, no JVD or bruits. No Stridor. Chest: Clear to auscultation bilaterally. No wheezes or rhonchi. No increased work of breathing. Heart: Regular rate and rhythm without murmurs or gallops. Abdomen: Soft nontender, nondistended without rebound guarding or rigidity. Rectal: There is a small amount of bright red/maroon blood seen at the rectum but no active bleeding. No masses or hemorrhoids. Normal rectal tone. when the stool was tested it was guaiac negative Extremities: No cyanosis clubbing or edema. No calf tenderness or assymetry Spine/Back. Non tender to palpation. No CVA tenderness Skin: Good turgor without rashes. Neurologic exam: Cranial nerves two through 12 are intact. Motor and sensation are intact and symmetrical throughout. Course Administered Medications Discontinued Medications Sodium Chloride (Nss) 500 mls @ 999 mls/hr IV .Q31M STA Stop: 09/02/21 15:55 Last Infusion: 09/02/21 16:43 Dose: 0 mls/hr Documented By: JO-ANN Admin: 09/02/21 16:06 Dose: 999 mls/hr Documented By: JO-ANN Sodium Chloride (Nss 1000ml) 1,000 mls @ 999 mls/hr IV .Q1H1M ONE Stop: 09/02/21 21:01 Last Infusion: 09/02/21 21:10 Dose: 0 mls/hr Documented By: Admin: 09/02/21 20:09 Dose: 999 mls/hr Documented By: PALMER Ioversol (Optiray 320 125ml) 114 ml IV ONCE ONE Stop: 09/02/21 20:43 Last Admin: 09/02/21 20:43 Dose: 114 ml Documented By: CATRACHO Medical Decision Making Differential Diagnosis GI bleed, anticoagulation, anemia, diverticulosis, infection, electrolyte or metabolic Medical Records Attestation: I reviewed the patient's medical records. Home Medications Current Medication List: was personally reviewed by me Laboratory Data Attestation: I reviewed the patient's lab results. Result diagrams: 09/02/21 20:12 09/02/21 15:19 Lab Results 09/02/21 09/02/21 09/02/21 Range/Units 15:19 15:19 15:19 WBC 9.44 (4.8-10.8) K/ul RBC 4.49 L (4.63-6.08) M/uL Hgb 14.9 (14.0-18.0) g/dl Hct 43.8 (40.1-51.0) % MCV 97.6 (80.0-100.0) fL MCH 33.2 (25.0-34.0) pg MCHC 34.0 (32.0-36.0) g/dL RDW Std Deviation 47.8 H (36.4-46.3) fL RDW Coeff of Edith 13.5 (11.5-14.5) % Plt Count 178 (130-400) K/uL MPV 9.9 (9.4-12.4) fL Immature Gran % (Auto) 0.2 % Neut % (Auto) 68.6 % Lymph % (Auto) 21.6 % [place] % (Auto) 7.3 % Eos % (Auto) 1.8 % Baso % (Auto) 0.5 % Neut # (Auto) 6.47 (1.4-6.5) K/uL Lymph # (Auto) 2.04 (1.2-3.4) K/uL [place] # (Auto) 0.69 (0.24-0.82) K/uL Eos # (Auto) 0.17 (0-0.50) K/uL Baso # (Auto) 0.05 (0-0.2) K/uL Immature Gran # (Auto) 0.02 (0.00-0.02) K/uL PT 12.1 H (9.0-12.0) Seconds INR 1.1 (0.9-1.1) APTT 30.9 (21.0-31.0) Seconds PTT Ratio 1.1 Sodium 141 (136-145) mmol/L Potassium 4.1 (3.5-5.1) mmol/L Chloride 108 H (98-107) mmol/L Carbon Dioxide 24 (21-32) mmol/L Anion Gap 9 (3-11) BUN 19 (6-23) mg/dl Creatinine 1.26 (0.6-1.4) mg/dl Est Cr Clr Drug Dosing 47.4 ml/min Est GFR ( Amer) 59.9 ml/min Est GFR (Non-Af Amer) 51.7 ml/min BUN/Creatinine Ratio 15.1 (10-20) Glucose 108 H (70-99(Fasting)) mg/dl Calcium 10.6 H (8.5-10.1) mg/dl Total Bilirubin 1.3 H (0.2-1.0) mg/dl AST 15 (13-39) U/L ALT 9 (7-52) U/L Alkaline Phosphatase 81 (34-104) U/L Total Protein 7.0 (6.0-8.3) gm/dl Albumin 4.0 (3.4-5.0) gm/dl Globulin 3.0 (2.5-4.0) gm/dl Albumin/Globulin Ratio 1.3 (0.9-2) Lipase 26 (11-82) U/L SARS-CoV-2, RNA, NAAT (NEGATIVE) Blood Type Antibody Screen Crossmatch 09/02/21 09/02/21 Range/Units 16:10 16:22 WBC (4.8-10.8) K/ul RBC (4.63-6.08) M/uL Hgb (14.0-18.0) g/dl Hct (40.1-51.0) % MCV (80.0-100.0) fL MCH (25.0-34.0) pg MCHC (32.0-36.0) g/dL RDW Std Deviation (36.4-46.3) fL RDW Coeff of Edith (11.5-14.5) % Plt Count (130-400) K/uL MPV (9.4-12.4) fL Immature Gran % (Auto) % Neut % (Auto) % Lymph % (Auto) % [place] % (Auto) % Eos % (Auto) % Baso % (Auto) % Neut # (Auto) (1.4-6.5) K/uL Lymph # (Auto) (1.2-3.4) K/uL [place] # (Auto) (0.24-0.82) K/uL Eos # (Auto) (0-0.50) K/uL Baso # (Auto) (0-0.2) K/uL Immature Gran # (Auto) (0.00-0.02) K/uL PT (9.0-12.0) Seconds INR (0.9-1.1) APTT (21.0-31.0) Seconds PTT Ratio Sodium (136-145) mmol/L Potassium (3.5-5.1) mmol/L Chloride (98-107) mmol/L Carbon Dioxide (21-32) mmol/L Anion Gap (3-11) BUN (6-23) mg/dl Creatinine (0.6-1.4) mg/dl Est Cr Clr Drug Dosing ml/min Est GFR ( Amer) ml/min Est GFR (Non-Af Amer) ml/min BUN/Creatinine Ratio (10-20) Glucose (70-99(Fasting)) mg/dl Calcium (8.5-10.1) mg/dl Total Bilirubin (0.2-1.0) mg/dl AST (13-39) U/L ALT (7-52) U/L Alkaline Phosphatase (34-104) U/L Total Protein (6.0-8.3) gm/dl Albumin (3.4-5.0) gm/dl Globulin (2.5-4.0) gm/dl Albumin/Globulin Ratio (0.9-2) Lipase (11-82) U/L SARS-CoV-2, RNA, NAAT NEGATIVE (NEGATIVE) Blood Type B Positive Antibody Screen NEGATIVE Crossmatch See Detail ECG Data Attestation: I personally reviewed and interpreted this ECG as follows: Indication: + weakness Rate (beats per minute): 91 Rhythm: + atrial fibrillation ECG Intervals/blocks: + Normal QRS, + Normal QT and + Normal [place] ECG [place]: + Normal ECG ST segments: + Normal ST segments ECG Findings: + PVCs and + Poor R wave progression Comparison ECG Date: from (04/16/18) Change: the following changes noted (lateral T waves are now upright when they were inverted and the old) MDM Narrative This patient comes in as described above he has a GI bleed he is on Eliquis. He 2 IVs were established and he was placed on a vehicle monitor technician he is asymptomatic at present blood work was obtained given his history of GI bleed and due to the fact he is on Eliquis I did type and cross him for potential transfusion. He was reassessed frequently. He is in the ER he made hemodynamically stable his initial hemoglobin is in the mid 14 range. He has no severe electrolyte or metabolic abnormalities. COVID testing was negative. No further bleeding while he was in the ED. Upon rectal exam, he does have reddish to maroon stool which I think is most likely coming from his colon with his history of bleeding diverticulosis. He will need to be admitted for observation and monitor of his hemoglobin and GI work-up. In regards to his Eliquis, his last dose was this morning and he should hold his evening and further dosages here. I have consulted the [facility] [place] hospitalist to see him in the ER for admission/observation. He is cardiac monitoring: Orders placed in EMR for continuous cardiac monitoring. Upon my evaluation he was noted to be in chronic rate controlled A. fib with a rate of 70 Impression & Plan Acute GI bleeding, A-fib, Current use of vermin exterminator anticoagulation, Lab test negative for COVID-19 virus, Rectal bleeding Discharge Plan Visit Data Chief Complaint: Rectal Bleed Stated Complaint: BLOOD IN STOOL ED Provider: Nawaf Sen Discharge Problem: Acute GI bleeding, A-fib, Current use of vermin exterminator anticoagulation, Lab test negative for COVID-19 virus, Rectal bleeding Patient Disposition: Admitted As Inpatient Discharge Instructions Interventions: ED Discharge Assessment Last Done: 09/02/21 18:02 : A-fib Qualifiers: Atrial fibrillation type: longstanding persistent Qualified Code(s): I48.11 - Longstanding persistent atrial fibrillation
[2021-09-02 15:33] LABS: Basophils # (auto) 0.05 K/uL (0-0.2); Basophils % (auto) 0.5 %; Eosinophils # (auto) 0.17 K/uL (0-0.50); Eosinophils % (auto) 1.8 %; Hematocrit (blood only) 43.8 % (40.1-51.0); Hemoglobin 14.9 g/dl (14.0-18.0); Immature Granulocytes # (auto) 0.02 K/uL (0.00-0.02); Immature Granulocytes % (auto) 0.2 %; Lymphocytes # (auto) 2.04 K/uL (1.2-3.4); Lymphocytes % (auto) 21.6 %; Mean Corpuscular Hemoglobin 33.2 pg (25.0-34.0); Mean Corpuscular Volume 97.6 fL (80.0-100.0); Mean Platelet Volume 9.9 fL (9.4-12.4); Monocytes # (auto) 0.69 K/uL (0.24-0.82); Monocytes % (auto) 7.3 %; Neutrophils # (auto) 6.47 K/uL (1.4-6.5); Neutrophils % (auto) 68.6 %; Platelet Count 178 K/uL (130-400); RDW Coefficient of Variation 13.5 % (11.5-14.5); RDW Standard Deviation 47.8 fL (36.4-46.3); Red Blood Count 4.49 M/uL (4.63-6.08); White Blood Count 9.44 K/ul (4.8-10.8)
[2021-09-02 15:54] LABS: Albumin Globulin Ratio 1.3 (0.9-2); BUN Creatinine Ratio 15.1 (10-20); Bilirubin,Total 1.3 mg/dl (0.2-1.0); Calcium 10.6 mg/dl (8.5-10.1); Creatinine Clr Calc Pharmacy 47.4 ml/min; Est GFR (African American) 59.9 ml/min; Est GFR (Non-African American) 51.7 ml/min; Potassium 4.1 mmol/L (3.5-5.1)
[2021-09-02 15:55] LABS: INR 1.1 (0.9-1.1); Partial Thromboplastin Ratio 1.1; Partial Thromboplastin Time 30.9 Seconds (21.0-31.0); Prothrombin Time 12.1 Seconds (9.0-12.0)
--- NOTE | 2021-09-02 17:31 | History & Physical Report ---
Date of Service September 02, 2021 Assessment & Plan (1) Diverticular hemorrhage: Plan: Bright red blood in rectum in a 86 yo male Acute blood loss anemia. NPO hold eliquis Hemoglobin is at a good level at 14, however patient had a level of 16 prior to hospital admission. will recheck this evening and reorder at midnight. Patient has not had a BM since 2 pm, and it was maroon in color. Patient is comfortable. Will admit to PCU. and monitor. Consult GI. holding blood pressure meds (2) Lower GI bleed: Plan: Patient has history of above diagnosis. (3) Permanent atrial fibrillation: Plan: holding eliquis, rate is steady (4) Hypertension: Plan: holding bp meds (5) History of SCC (squamous cell carcinoma) of skin: Plan: stable. History of Present Illness Chief Complaint: rectal bleeding. Primary Care Provider: Demetrice Guidry MD 86 yo male with history of AF on Eliquis antiocoagulation, HTN, diverticular disease presenting with LGIB. He comes into the hospital with an episode of bright red blood in the rectum. He reports he had an episode of bright red blood at 11:00. His toilet had blood in it. Patient though feels well. However, he states he wanted to come in sooner. As the last time he came in with a GI bleed, he waited at home, and then had to be transfused 6 units. Allergies Allergy/AdvReac Type Severity Reaction Status Date / Time No Known Allergies Allergy Verified 09/02/21 16:40 Home Medications Medication Instructions Recorded Confirmed Type allopurinol 100 mg tablet 100 mg PO QAM 01/27/18 09/02/21 History potassium chloride 10 mEq 10 meq PO QAM 01/27/18 09/02/21 History tablet,extended release metronidazole 1 % topical gel 1 applic topical DAILY PRN ROSACEA 02/02/18 09/02/21 History FLARES triamterene 37.5 0.5 tab PO QAM 02/23/19 09/02/21 History mg-hydrochlorothiazide 25 mg tablet apixaban 5 mg tablet 5 mg PO BID #180 tabs 10/05/20 09/02/21 Rx lisinopril 20 mg tablet 20 mg PO DAILY #90 tabs 02/17/22 07/17/22 Rx Past Med/Surg History Medical History Atrial fibrillation Benign prostatic hyperplasia with urinary obstruction BPH (benign prostatic hyperplasia) BPH NOS w ur obs/LUTS Carpal tunnel syndrome of right wrist Diverticular disease Diverticulosis GI bleed 4-5 YEARS AGO --> 2/2 DIVERTICULITIS Gout Gross hematuria Hematuria FOLLOWING WITH DR. POLANCO. AWAITING CT AND CYSTOSCOPY Hypertension Kidney stones Mild mitral regurgitation On anticoagulant therapy Permanent atrial fibrillation Rosacea Swelling of eyelid Surgical History History of cataract surgery History of colonoscopy History of lithotripsy History of surgery on arm History of tonsillectomy History of total knee replacement RIGHT Status post Mohs surgery MULTIPLE TIMES Family History Father Cancer PROSTATE CANCER Social History Smoking Status: Never smoker Second Hand Exposure: No; Hx Alcohol Use: Yes Alcohol type: wine Hx Substance Use: No Preferred Language: Ugandan Communication Ability: Effective Soft Boarder Required: No Beliefs That Will Affect Care: None Current Living Situation: Spouse Current Living Situation Comment: Lives at home with Other Information That Helps Us Care for You: No Feels Safe at Home: Yes Safety Concerns: Feels Safe At This Time Assistive Devices: None Review of Systems Constitutional: no fever and no sweats Eyes: no blind spots and no diplopia Ear, Nose, Mouth, Throat: no ear pain Respiratory: no cough Cardiovascular: no chest pain Gastrointestinal: + blood in stools; no abdominal pain Genitourinary: no dysuria Musculoskeletal: no back pain Integumentary: no acne Neurologic: no gait abnormality Psychiatric: no behavioral changes Endocrine: no fatigue Hematologic / Lymphatic: no easy bleeding Allergy / Immunological: no GI upset with certain foods and no lip swelling Physical Exam Constitutional: WD/WN, vitals as above Eyes: PERRL, conjunctivae normal, anicteric sclerae ENMT: external ear and nose normal, oropharynx normal Neck: trachea midline, no thyromegaly Respiratory: normal respiratory effort, lungs clear to auscultation Cardiovascular: Rate/Rhythm: + tachycardic and + irregularly irregular Gastrointestinal (Abdomen): normal bowel sounds, soft, nontender, no hepatosplenomegaly Musculoskeletal: no cyanosis or clubbing, extremities motor strength 5/5 Skin: no rashes, warm and dry Neurologic: PERRL, EOMI, accommodation nl, no face palsy, no dysarthria Psychiatric: A+Ox3, euthymic affect Lymphatic: no cervical or axillary lymphadenopathy Results & Data Results & Data ([facility]) Vital Signs (Past 12 Hours) Vital Signs Temp Pulse Pulse Resp BP BP Pulse Ox 09/02/21 15:25 97 09/02/21 16:07 67 18 109/78 98 09/02/21 14:43 36.4 C L 81 16 117/83 96 O2 Del Method 09/02/21 15:25 Room Air 09/02/21 16:07 Room Air 09/02/21 14:43 PG Care Time/CCT Total # of Minutes Spent Total Time Spent with Patient: Total time spent is greater than 50% in coordination of care (as documented) at patient's floor/unit and/or counseling patient: Coding Level of Care Code 99698 Initial Inpt Care Lvl 3 Diagnoses Diverticular hemorrhage K57.31 Lower GI bleed K92.2 Permanent atrial fibrillation I48.2 Hypertension I10 Hypertension type: essential hypertension History of SCC (squamous cell carcinoma) of skin Z85.828 (1) Hypertension Hypertension type: essential hypertension Qualified Code(s): I10 - Essential (primary) hypertension
[2021-09-02 19:25] LABS: Appearance Urine Clear (Clear); Bacteria Urine Automated Negative (Negative); Bilirubin Urine Negative (Negative); Blood Urine 2+ (Negative); Cast Urine Automated 0 /lpf (0-5); Color Urine Yellow; Glucose Urine UA Negative (Negative); Ketones Urine Trace (Negative); Leukocyte Esterase Urine 1+ (Negative); Nitrite Urine Negative (Negative); Protein Urine Negative (Negative); Specific Gravity Urine 1.016 (1.000-1.030); Urobilinogen Urine Negative (Negative)
[2021-09-02] MEDS ORDERED: SODIUM CHLORIDE 0.9% 1000ML 1,000 ML IV ONE (20:01)
[2021-09-02 20:22] LABS: Hematocrit (blood only) 38.7 % (40.1-51.0)
[2021-09-02] MEDS ORDERED: SODIUM CHLORIDE 0.9% 250 ML IV PRN (20:31)
[2021-09-02] MEDS ORDERED: OPTIRAY 320 125ml IV ONE (20:42)
[2021-09-03 02:16] LABS: Hematocrit (blood only) 35.8 % (40.1-51.0); Mean Corpuscular Hemoglobin 32.6 pg (25.0-34.0); Mean Corpuscular Hgb Conc 33.5 g/dL (32.0-36.0); Mean Corpuscular Volume 97.3 fL (80.0-100.0); Platelet Count 149 K/uL (130-400); RDW Coefficient of Variation 13.9 % (11.5-14.5); RDW Standard Deviation 49.1 fL (36.4-46.3); Red Blood Count 3.68 M/uL (4.63-6.08); White Blood Count 8.23 K/ul (4.8-10.8)
[2021-09-03 02:42] LABS: BUN Creatinine Ratio 21.3 (10-20); Calcium 9.1 mg/dl (8.5-10.1); Creatinine Clr Calc Pharmacy 55.3 ml/min; Est GFR (African American) 72.2 ml/min; Est GFR (Non-African American) 62.3 ml/min; Potassium 4.1 mmol/L (3.5-5.1)
--- NOTE | 2021-09-03 08:25 | CT Scan Report ---
CT angio abdomen pelvis w con HISTORY: lower GI bleed, h/o diverticular bleed TECHNIQUE: Multiaxial CT images of the abdomen and pelvis were performed following the intravenous ad ministration of 114 cc of Optiray 320. Maximum intensity projection images were also obtained to eval uate the major arterial structures. COMPARISON STUDY: Abdomen and pelvis CT 04/16/2018. FINDINGS: The heart is mildly enlarged. Normal caliber abdominal aorta and iliac arteries with no terence dence for dissection. The aorta and iliac arteries are widely patent. The celiac artery and renal art eries are also patent. There are 2 left renal arteries noted. 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 There is also 50% stenosis at the takeoff of the inf erior mesenteric artery. No evidence for active arterial extravasation within the bowel. Mild dependent changes seen at the lung bases. No pneumoperitoneum. No pneumatosis. 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 T he L5-S1 vertebral bodies are fused. Small fat-containing bilateral inguinal hernias. Stable hypodens e lesions within the liver and kidneys. These likely represent cysts. Bilateral nephrolithiasis again noted. Dominant stones measure up to 1 cm. This is similar to the prior study. No ureteral stones. N o hydronephrosis. The adrenal glands and pancreas are unremarkable. Normal gallbladder. No retroperit esposito lymphadenopathy. There is a left retroaortic renal vein. Mild bladder wall thickening with mild fat stranding at the bladder dome. This raises the possibility of a mild cystitis. Extensive colonic diverticulosis. No evidence for acute diverticulitis. No bowel wall thickening or obstruction. Margret l appendix. IMPRESSION: 1. No evidence for active arterial extravasation within the bowel. 2. Colonic diverticulosis. No evidence for acute diverticulitis. 3. Mild bladder wall thickening with adjacent fat stranding. This may represent a cystitis. Recommend correlate with urinalysis. 4. 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 5. Bilateral nephrolithiasis. No ureteral stones. No hydronephrosis. 6. Additional findings as described above. ACT 112: Negative or not required by law. Electronically signed by: Dionicio Mistry M.D. 09/03/2021 8:24 AM
--- NOTE | 2021-09-03 09:54 | Gastrointestinal Consultation ---
Date of Consultation September 03, 2021 Assessment & Plan (1) Rectal bleeding: Now resolved. H/H 12.0/35.8. Patient has a history of diverticular bleed in 2019. CTA negative at present. -Continue to monitor for further rectal bleeding -Monitor H/H -If patient re-bleeds would consider colonoscopy vs GI bleed scan/IR intervention Supervising Physician Co-Signing Physician Notes Agree with TWAN Morel as above Abd: Soft, NT, ND, +BS Continue current therapy and supportive care Will give Bowel prep tonight and if he does have further bleeding will proceed with Colonoscopy in the AM Discussed case with Dr. Quick History of Present Illness Reason for Consultation: Lower GI bleed Attending Physician: Kehinde Quick History of Present Illness Patient is an 86 yo male with PMH of diverticular bleeding, A fib on chronic anticoagulation, nephrolithiasis, BPH, Carpal tunnel, SCC of the skin, BCC, HTN, mitral regurgitation, gout & rosacea who came to the emergency room with rectal bleeding that began on 09/02/21. He notes he saw a small amount of blood on the toilet paper. He felt that his stomach was making more noises than usual and he had an urge to move his bowels and noted maroon stool. presented to the ED. Initial hemoglobin was 13. Eliquis was held. He had an additional episode of dark red blood this AM. His H/H is presently 12.0/35.8. He had a CTA that does not show any active concerns for bleeding. He denies further abdominal discom fort or rectal bleeding. He has a history of diverticular bleeding and was hospitalized for this in 2019. He was under the care of [facility] at that time. At that time, the plan was conservative management with plans to transfer for IR intervention should he continue to bleed given the complexity of his colonic diverticulosis. He had a colonoscopy in 2019 that indicated diverticulosis throughout the entire colon. No pertinent family history. Allergies Allergy/AdvReac Type Severity Reaction Status Date / Time No Known Allergies Allergy Verified 09/02/21 16:40 Home Medications Medication Instructions Recorded Confirmed Type allopurinol 100 mg tablet 100 mg PO QAM 01/27/18 09/02/21 History potassium chloride 10 mEq 10 meq PO QAM 01/27/18 09/02/21 History tablet,extended release metronidazole 1 % topical gel 1 applic topical DAILY PRN ROSACEA 02/02/18 09/02/21 History FLARES triamterene 37.5 0.5 tab PO QAM 02/23/19 09/02/21 History mg-hydrochlorothiazide 25 mg tablet apixaban 5 mg tablet 5 mg PO BID #180 tabs 10/05/20 09/02/21 Rx lisinopril 20 mg tablet 20 mg PO DAILY #90 tabs 04/05/21 09/02/21 Rx Patient History Medical History Atrial fibrillation Benign prostatic hyperplasia with urinary obstruction BPH (benign prostatic hyperplasia) BPH NOS w ur obs/LUTS Carpal tunnel syndrome of right wrist Diverticular disease Diverticulosis GI bleed 4-5 YEARS AGO --> 2/2 DIVERTICULITIS Gout Gross hematuria Hematuria FOLLOWING WITH DR. POLANCO. AWAITING CT AND CYSTOSCOPY Hypertension Kidney stones Mild mitral regurgitation On anticoagulant therapy Permanent atrial fibrillation Rosacea Swelling of eyelid Surgical History History of cataract surgery History of colonoscopy History of lithotripsy History of surgery on arm History of tonsillectomy History of total knee replacement RIGHT Status post Mohs surgery MULTIPLE TIMES Family History Father Cancer PROSTATE CANCER Social History Smoking Status: Never smoker Second Hand Exposure: No; Hx Alcohol Use: Yes Alcohol type: wine Hx Substance Use: No Preferred Language: Icelandic Communication Ability: Effective Hog Raiser Required: No Beliefs That Will Affect Care: None Current Living Situation: Spouse Current Living Situation Comment: Lives at home with Other Information That Helps Us Care for You: No Feels Safe at Home: Yes Safety Concerns: Feels Safe At This Time Assistive Devices: None Review of Systems Constitutional: no fever and no chills Respiratory: no cough and no dyspnea Cardiovascular: no chest pain Gastrointestinal: + blood in stools (now resolved); no abdominal pain Psychiatric: no problem reported Physical Exam Constitutional: well developed Respiratory: normal respiratory effort Cardiovascular: Rate/Rhythm: regular rate Gastrointestinal (Abdomen): normal bowel sounds, soft, nontender, no hepatosplenomegaly Musculoskeletal: Head/Neck/Chest: normocephalic Psychiatric: Orientation: alert and oriented x 3 Results & Data ([facility]) Vital Signs (Past 12 Hours) Vital Signs Temp Pulse Pulse Resp BP BP Pulse Ox 09/03/21 08:32 36.4 C L 61 18 131/82 96 09/03/21 03:41 36.6 C 71 16 115/77 97 09/03/21 00:00 67 09/03/21 00:30 36.5 C 75 16 102/68 95 09/03/21 00:20 36.7 C 68 18 102/68 97 09/02/21 23:20 36.5 C 65 16 124/81 98 09/02/21 22:27 36.6 C 66 18 135/85 97 09/02/21 22:20 36.6 C 65 18 135/85 98 09/02/21 21:50 36.6 C 65 16 111/68 98 O2 Del Method 09/03/21 08:32 Room Air 09/03/21 03:41 Room Air 09/03/21 00:00 09/03/21 00:30 09/03/21 00:20 09/02/21 23:20 09/02/21 22:27 09/02/21 22:20 09/02/21 21:50 PG Care Time/CCT Total # of Minutes Spent Total Time Spent with Patient: Total time spent is greater than 50% in coordination of care (as documented) at patient's floor/unit and/or counseling patient: Coding Level of Care Code 35264 Initial Inpt Care Lvl 3 Diagnoses Rectal bleeding K62.5
[2021-09-03] MEDS: allopurinoL 100 MG TAB PO SCH (10:30)
[2021-09-03 11:43] LABS: Hematocrit (blood only) 36.5 % (40.1-51.0); Hemoglobin 12.5 g/dl (14.0-18.0)
--- NOTE | 2021-09-03 12:36 | Electrocardiogram Report ---
Test Reason : Blood Pressure : / mmHG Vent. Rate : 091 BPM Atrial Rate : 357 BPM P-R Int : 000 ms QRS Dur : 090 ms QT Int : 370 ms P-R-T Axes : 000 -32 -70 degrees QTc Int : 455 ms Atrial fibrillation with premature ventricular or aberrantly conducted complexes Left axis deviation Septal infarct , age undetermined Abnormal ECG When compared with ECG of 16-APR-2018 15:33, T wave inversion no longer evident in Anterolateral leads Confirmed by Guanakito Phillips ([id number]) on 09/03/2021 12:36:21 PM Referred By: REFERRED SELF Confirmed By:Guanakito Phillips
[2021-09-03] MEDS: LAVAGE SOLUTION 4000ML PO SCH (17:56)
[2021-09-03 18:13] LABS: Hematocrit (blood only) 34.6 % (40.1-51.0); Hemoglobin 11.8 g/dl (14.0-18.0)
--- NOTE | 2021-09-03 18:49 | Hospitalist Progress Note ---
Date of Service September 03, 2021 Assessment & Plan (1) Diverticular hemorrhage: Plan: Bright red blood in rectum in a 86 yo male Acute blood loss anemia. Patient remains NPO on 09/03 will continue to hold eliquis Hemoglobin has dropped to 12. Consulted GI plan for possible scope if he continues to bleed today. Patient remains comfortable. will order bleeding scan on 09/03 (2) Lower GI bleed: Plan: Patient has history of above diagnosis. (3) Permanent atrial fibrillation: Plan: holding eliquis, rate is steady (4) Hypertension: Plan: continue to hold bp meds.dvt SCD (5) History of SCC (squamous cell carcinoma) of skin: Plan: stable. Admission and Anticipated Discharge Date Admission Date: September 02, 2021 Subjective Patient reports he had another episode of bright red blood overnight. Patient then had a unit of blood overnight ordered by overnight resident. Patient states he is feeling better. Review of Systems Constitutional: no fever and no sweats Eyes: no blind spots and no diplopia Ear, Nose, Mouth, Throat: no ear pain Respiratory: no cough Cardiovascular: no chest pain Gastrointestinal: + blood in stools; no abdominal pain Genitourinary: no dysuria Musculoskeletal: no back pain Integumentary: no acne Neurologic: no gait abnormality Psychiatric: no behavioral changes Endocrine: no fatigue Hematologic / Lymphatic: no easy bleeding Allergy / Immunological: no GI upset with certain foods and no lip swelling Physical Exam Constitutional: WD/WN, vitals as above Eyes: PERRL, conjunctivae normal, anicteric sclerae ENMT: external ear and nose normal, oropharynx normal Neck: trachea midline, no thyromegaly Respiratory: normal respiratory effort, lungs clear to auscultation Cardiovascular: Rate/Rhythm: + tachycardic and + irregularly irregular Gastrointestinal (Abdomen): normal bowel sounds, soft, nontender, no hepatosplenomegaly Musculoskeletal: no cyanosis or clubbing, extremities motor strength 5/5 Skin: no rashes, warm and dry Neurologic: PERRL, EOMI, accommodation nl, no face palsy, no dysarthria Psychiatric: A+Ox3, euthymic affect Lymphatic: no cervical or axillary lymphadenopathy Results & Data Results & Data ([facility]) Vital Signs (Past 12 Hours) Vital Signs Temp Pulse Pulse Resp BP Pulse Ox O2 Del Method 09/03/21 14:15 73 09/03/21 11:12 36.7 C 71 16 119/77 97 Room Air 09/03/21 08:32 36.4 C L 61 18 131/82 96 Room Air PG Care Time/CCT Total # of Minutes Spent Total Time Spent with Patient: Total time spent is greater than 50% in coordination of care (as documented) at patient's floor/unit and/or counseling patient: Coding Level of Care Code 37318 Subseq Hosp Care Lvl 3 Diagnoses Diverticular hemorrhage K57.31 Lower GI bleed K92.2 Permanent atrial fibrillation I48.2 Hypertension I10 Hypertension type: essential hypertension History of SCC (squamous cell carcinoma) of skin Z85.828 Time Spent (min) 35 (1) Hypertension Hypertension type: essential hypertension Qualified Code(s): I10 - Essential (primary) hypertension
[2021-09-04] MEDS: LAVAGE SOLUTION 4000ML PO SCH (03:46)
[2021-09-04] MEDS: allopurinoL 100 MG TAB PO SCH (07:10)
[2021-09-04 08:30] LABS: Hematocrit (blood only) 32.6 % (40.1-51.0); Hemoglobin 10.9 g/dl (14.0-18.0); Mean Corpuscular Hgb Conc 33.4 g/dL (32.0-36.0); Mean Corpuscular Volume 98.8 fL (80.0-100.0); Mean Platelet Volume 10.5 fL (9.4-12.4); Platelet Count 149 K/uL (130-400); RDW Coefficient of Variation 14.4 % (11.5-14.5); RDW Standard Deviation 51.4 fL (36.4-46.3); White Blood Count 8.18 K/ul (4.8-10.8)
[2021-09-04 08:41] LABS: INR 1.1 (0.9-1.1); Partial Thromboplastin Ratio 0.9; Partial Thromboplastin Time 25.9 Seconds (21.0-31.0); Prothrombin Time 12.1 Seconds (9.0-12.0)
[2021-09-04 08:49] LABS: BUN Creatinine Ratio 21.2 (10-20); Calcium 9.6 mg/dl (8.5-10.1); Creatinine Clr Calc Pharmacy 52.5 ml/min; Est GFR (African American) 68.3 ml/min; Est GFR (Non-African American) 58.9 ml/min; Potassium 3.9 mmol/L (3.5-5.1)
--- NOTE | 2021-09-04 09:59 | Anesthesiology Consultation ---
Date of Service September 04, 2021 History Surgery Operation Date: 09/04/21 16:30 Proposed Procedures p Colonoscopy Dr. Mark Flores, DO Height/Weight Height: 5 ft 9 in Weight: 88 kg Allergies Allergy/AdvReac Type Severity Reaction Status Date / Time No Known Allergies Allergy Verified 09/02/21 16:40 Medications Home Medications Medication Instructions Recorded Confirmed Last Taken allopurinol 100 mg tablet 100 mg PO QAM 01/27/18 09/02/21 09/02/21 potassium chloride 10 mEq 10 meq PO QAM 01/27/18 09/02/21 09/02/21 tablet,extended release metronidazole 1 % topical gel 1 applic topical DAILY PRN ROSACEA 02/02/18 09/02/21 Unknown FLARES triamterene 37.5 0.5 tab PO QAM 02/23/19 09/02/21 09/02/21 mg-hydrochlorothiazide 25 mg tablet apixaban 5 mg tablet 5 mg PO BID #180 tabs 10/05/20 09/02/21 09/02/21 08:00 lisinopril 20 mg tablet 20 mg PO DAILY #90 tabs 04/05/21 09/02/21 09/02/21 Active Medications Generic Name Dose Route Start Last Admin Trade Name Freq PRN Reason Stop Dose Admin Allopurinol 100 mg 09/03/21 09:00 09/04/21 07:10 Allopurinol 100 Mg Tab PO 10/03/21 08:59 Not Given QAM [facility] Past Medical History Medical History Atrial fibrillation Benign prostatic hyperplasia with urinary obstruction BPH (benign prostatic hyperplasia) BPH NOS w ur obs/LUTS Carpal tunnel syndrome of right wrist Diverticular disease Diverticulosis GI bleed 4-5 YEARS AGO --> 2/2 DIVERTICULITIS Gout Gross hematuria Hematuria FOLLOWING WITH DR. POLANCO. AWAITING CT AND CYSTOSCOPY Hypertension Kidney stones Mild mitral regurgitation On anticoagulant therapy Permanent atrial fibrillation Rosacea Swelling of eyelid Past Family History Family History Father Cancer PROSTATE CANCER Past Surgical History Surgical History History of cataract surgery History of colonoscopy History of lithotripsy History of surgery on arm History of tonsillectomy History of total knee replacement RIGHT Status post Mohs surgery MULTIPLE TIMES Social History Smoking Status: Never smoker Hx Alcohol Use: Yes Alcohol type: wine alcohol intake frequency: holidays/special occasions only Alcohol Intake Frequency Comment: Very rarely, last drink was years ago Hx Substance Use: No substance use type: does not use Physical Exam Vital Signs Last Vital Signs Temp 36.4 C L 09/04/21 08:11 Pulse 68 09/04/21 08:11 Resp 17 09/04/21 08:11 BP 137/85 09/04/21 08:11 Pulse Ox 99 09/04/21 08:11 O2 Del Method 09/04/21 08:11 Testing Laboratory Results 09/04/21 08:02 09/04/21 08:02 PT 12.1 Seconds (9.0-12.0) H 09/04/21 08:02 INR 1.1 (0.9-1.1) 09/04/21 08:02 APTT 25.9 Seconds (21.0-31.0) 09/04/21 08:02 Urine Color Yellow 09/02/21 18:10 Urine Appearance Clear (Clear) 09/02/21 18:10 Urine pH 5.0 (4.5-7.5) 09/02/21 18:10 Ur Specific [place] 1.016 (1.000-1.030) 09/02/21 18:10 Urine Protein Negative (Negative) 09/02/21 18:10 Urine Glucose (UA) Negative (Negative) 09/02/21 18:10 Urine Ketones Trace (Negative) H 09/02/21 18:10 Urine Nitrite Negative (Negative) 09/02/21 18:10 Ur Leukocyte Esterase 1+ (Negative) H 09/02/21 18:10 Urine WBC (Auto) 10-30 /hpf (0-5) H 09/02/21 18:10 Urine RBC (Auto) 10-30 /hpf (0-4) H 09/02/21 18:10 U Hyaline Cast (Auto) 0 /lpf (0-5) 09/02/21 18:10 U Epithel Cells (Auto) 5-10 /lpf (0-5) H 09/02/21 18:10 Urine Bacteria (Auto) Negative (Negative) 09/02/21 18:10 Blood Type B Positive 09/02/21 16:10 Antibody Screen NEGATIVE 09/02/21 16:10 09/02/21 18:10 Urine Culture - Preliminary Urine,Clean Catch No growth - Less than 1,000 colonies/mL, Final report to follow. 09/04/21 06:09 POC Glucose 113 H Electrocardiogram Date: 09/02/21 Test Reason : Blood Pressure : / mmHG Vent. Rate : 091 BPM Atrial Rate : 357 BPM P-R Int : 000 ms QRS Dur : 090 ms QT Int : 370 ms P-R-T Axes : 000 -32 -70 degrees QTc Int : 455 ms Atrial fibrillation with premature ventricular or aberrantly conducted complexes Left axis deviation Septal infarct , age undetermined Abnormal ECG When compared with ECG of 16-APR-2018 15:33, T wave inversion no longer evident in Anterolateral leads Confirmed by Guanakito Phillips ([id number]) on 09/03/2021 12:36:21 PM Echocardiogram Date: 12/11/17 EF: 60-65% LV Function: normal RWMA: + none Valvular Disease: + MR (mild) Mod-severe TR
--- NOTE | 2021-09-04 10:44 | History & Physical Bridge Note ---
Date of Service September 04, 2021 History & Physical Bridge Note I have examined the patient, reviewed the History & Physical and in the interval since the performance of the History & Physical I have noted the following changes of clinical significance: no changes noted Patient completed a bowel prep last night and had improvement of bleeding throughout that process. He notes no other concerns. His H/H dropped to 10.9/32.6. Keep NPO & proceed with colonoscopy today for further evaluation. Supervising Physician Co-Signing Physician Notes Agree with TWAN Morel as above Abd: Soft, NT, ND, +BS Continue current therapy and supportive care Proceed with colonoscopy now
[2021-09-04] MEDS ORDERED: LIDOCAINE 2% MPF LOCAL 5 ML VIAL INFIL ONE (14:25)
[2021-09-04] MEDS ORDERED: PROPOFOL IV EMULSION 10 MG/ML 20 ML VIAL IV ONE (14:25)
[2021-09-04] MEDS ORDERED: PHENYLEPHRINE 100MCG/ML 5ML SYR ONE (14:26)
--- NOTE | 2021-09-04 14:26 | GI REPORT ---
Patient Name: Abhay Major Procedure Date: 09/04/2021 1:53 PM Date of : 1935 Admit Type: Inpatient Age: 86 Gender: Male Attending MD: Brandon Flores DO Procedure: Colonoscopy Providers: Brandon Flores DO Referring MD: Referred Self Indications: Hematochezia Medicines: Monitored Anesthesia Care Complications: No immediate complications. Estimated Blood Loss: Estimated blood loss: none. Procedure: Pre-Anesthesia Assessment: - Prior to the procedure, a History and Physical was performed, and patient medications and allergies were reviewed. The patient's tolerance of previous anesthesia was also reviewed. The risks and benefits of the procedure and the sedation options and risks were discussed with the patient. All questions were answered, and informed consent was obtained. Prior Anticoagulants: The patient has taken Eliquis (apixaban), last dose was 2 days prior to procedure. ASA Grade Assessment: III - A patient with severe systemic disease. After reviewing the risks and benefits, the patient was deemed in satisfactory condition to undergo the procedure. After I obtained informed consent, the scope was passed under direct vision. Throughout the procedure, the patient's blood pressure, pulse, and oxygen saturations were monitored continuously. The Colonoscope was introduced through the anus and advanced to the terminal ileum. The colonoscopy was performed without difficulty. The patient tolerated the procedure well. Findings: The perianal and digital rectal examinations were normal. Scattered small and large-mouthed diverticula were found in the entire colon. Non-bleeding internal hemorrhoids were found during retroflexion. The hemorrhoids were small. - There was no evidence of active or recent GI bleeding throughout the colon or terminal ileum. Impression: - Diverticulosis in the entire examined colon. - Non-bleeding internal hemorrhoids. - No specimens collected. Recommendation: - [facility]. - Advance diet as tolerated. - Continue present medications. - Return to primary care physician as previously scheduled. Brandon Flores DO 09/04/2021 2:26:33 PM This report has been signed electronically. Note Initiated On: 09/04/2021 1:53 PM Number of Addenda: 0 I attest to the content of the Intraoperative Record and orders documented therein, exceptions below {[id number]}
--- NOTE | 2021-09-04 15:09 | Anesthesiology Progress Note ---
Date of Service September 04, 2021 Anesthesia Post Procedure Vital Signs Vital Signs: Temp Pulse Pulse Resp BP Pulse Ox O2 Del Method 09/04/21 15:06 36.9 C 77 20 132/96 99 Room Air 09/04/21 14:52 73 18 135/77 98 Room Air 09/04/21 14:37 78 18 112/74 99 Room Air 09/04/21 14:22 72 18 109/66 100 Room Air 09/04/21 13:06 36.7 C 75 16 179/94 H 99 Room Air 09/04/21 11:42 36.4 C L 72 18 125/73 97 Room Air 09/04/21 08:00 75 09/04/21 08:11 36.4 C L 68 17 137/85 99 Room Air 09/04/21 06:06 36.4 C L 76 20 146/99 H 99 Room Air 09/04/21 00:00 70 09/04/21 00:25 36.4 C L 72 21 137/83 98 Room Air 09/03/21 19:33 36.3 C L 75 18 142/91 H 98 Room Air Transfer of Care Handoff Completed per policy Notes Mental Status: alert / awake / arousable and participated in evaluation Patient Amnestic to Procedure: Yes Nausea / Vomiting: adequately controlled Pain: adequately controlled Airway Patency, RR, SpO2: stable & adequate BP & HR: stable & adequate Hydration State: stable & adequate Anesthetic Complications: no major complications apparent and Pt Satisfied with anesthetic care
--- NOTE | 2021-09-04 20:56 | Hospitalist Progress Note ---
Date of Service September 04, 2021 Assessment & Plan (1) Diverticular hemorrhage: Plan: Bright red blood in rectum in a 86 yo male Acute blood loss anemia. Patient remains NPO on 09/03 will continue to hold eliquis Hemoglobin has dropped to 10.9 Patient remains comfortable. Patient will have scope later today. (2) Lower GI bleed: Plan: Patient has history of above diagnosis. (3) Permanent atrial fibrillation: Plan: holding eliquis, rate is steady (4) Hypertension: Plan: continue to hold bp meds.dvt SCD (5) History of SCC (squamous cell carcinoma) of skin: Plan: stable. Admission and Anticipated Discharge Date Admission Date: September 02, 2021 Subjective Patient reports having blood in his stools last night. Review of Systems Review of Systems: All systems reviewed & are unremarkable except as noted in HPI & below Physical Exam Constitutional: WD/WN, vitals as above Eyes: PERRL, conjunctivae normal, anicteric sclerae ENMT: external ear and nose normal, oropharynx normal Neck: trachea midline, no thyromegaly Respiratory: normal respiratory effort, lungs clear to auscultation Cardiovascular: Rate/Rhythm: + tachycardic and + irregularly irregular Gastrointestinal (Abdomen): normal bowel sounds, soft, nontender, no hepatosplenomegaly Musculoskeletal: no cyanosis or clubbing, extremities motor strength 5/5 Skin: no rashes, warm and dry Neurologic: PERRL, EOMI, accommodation nl, no face palsy, no dysarthria Psychiatric: A+Ox3, euthymic affect Lymphatic: no cervical or axillary lymphadenopathy Results & Data Results & Data ([facility]) Vital Signs (Past 12 Hours) Vital Signs Temp Pulse Resp BP Pulse Ox O2 Del Method 09/04/21 19:43 36.8 C 85 17 111/69 96 Room Air 09/04/21 15:06 36.9 C 77 20 132/96 99 Room Air 09/04/21 14:52 73 18 135/77 98 Room Air 09/04/21 14:37 78 18 112/74 99 Room Air 09/04/21 14:22 72 18 109/66 100 Room Air 09/04/21 13:06 36.7 C 75 16 179/94 H 99 Room Air 09/04/21 11:42 36.4 C L 72 18 125/73 97 Room Air PG Care Time/CCT Total # of Minutes Spent Total Time Spent with Patient: Total time spent is greater than 50% in coordination of care (as documented) at patient's floor/unit and/or counseling patient: Coding Level of Care Code 66484 Subseq Hosp Care Lvl 2 Diagnoses Diverticular hemorrhage K57.31 Lower GI bleed K92.2 Permanent atrial fibrillation I48.2 Hypertension I10 Hypertension type: essential hypertension History of SCC (squamous cell carcinoma) of skin Z85.828 Time Spent (min) 25 (1) Hypertension Hypertension type: essential hypertension Qualified Code(s): I10 - Essential (primary) hypertension
[2021-09-05 06:45] LABS: Hematocrit (blood only) 27.5 % (40.1-51.0); Hemoglobin 9.4 g/dl (14.0-18.0); Mean Corpuscular Hemoglobin 33.7 pg (25.0-34.0); Mean Corpuscular Hgb Conc 34.2 g/dL (32.0-36.0); Mean Corpuscular Volume 98.6 fL (80.0-100.0); Mean Platelet Volume 10.1 fL (9.4-12.4); Platelet Count 141 K/uL (130-400); RDW Coefficient of Variation 14.2 % (11.5-14.5); RDW Standard Deviation 50.7 fL (36.4-46.3); Red Blood Count 2.79 M/uL (4.63-6.08); White Blood Count 8.52 K/ul (4.8-10.8)
[2021-09-05 07:07] LABS: BUN Creatinine Ratio 17.5 (10-20); Calcium 9.2 mg/dl (8.5-10.1); Est GFR (African American) 67.6 ml/min; Est GFR (Non-African American) 58.3 ml/min; Potassium 3.3 mmol/L (3.5-5.1)
--- NOTE | 2021-09-05 08:50 | Communication Note ---
Date of Service: September 05, 2021 Colonoscopy on 09/04/21 was unremarkable for acute GI bleeding. If patient re- bleeds, consider NM GI bleed scan and possibly transfer for IR intervention.
[2021-09-05] MEDS: allopurinoL 100 MG TAB PO SCH (09:34)
[2021-09-05 18:45] LABS: Hematocrit (blood only) 28.2 % (40.1-51.0); Hemoglobin 9.5 g/dl (14.0-18.0)
--- NOTE | 2021-09-05 21:41 | Hospitalist Progress Note ---
Date of Service September 05, 2021 Assessment & Plan (1) Diverticular hemorrhage: Plan: Bright red blood in rectum in a 86 yo male Acute blood loss anemia. Patient remains NPO on 09/03 will continue to hold eliquis Colonoscopy completed on 09/04 was negative. Hemoglobin appears to have stabilized at 9 will recheck in morning. If patient has signs of bleeding, may consider bleeding scan. If bleeding continues, may consider transfer to tertiary center, however, anticipate likely discharge 09/06 given no change in hemoglobin. His current lack of bleeding, and negative colonoscopy is also reassuring.. Patient remains comfortable. (2) Lower GI bleed: Plan: Patient has history of above diagnosis. (3) Permanent atrial fibrillation: Plan: holding eliquis, rate is steady (4) Hypertension: Plan: continue to hold bp meds.dvt SCD (5) History of SCC (squamous cell carcinoma) of skin: Plan: stable. Admission and Anticipated Discharge Date Admission Date: September 02, 2021 Subjective 86 yo male reports he is tolerating his diet. He states no significant blood in his stools. He did have a small streak of blood on his toilet paper Review of Systems Review of Systems: All systems reviewed & are unremarkable except as noted in HPI & below Physical Exam Constitutional: WD/WN, vitals as above Eyes: PERRL, conjunctivae normal, anicteric sclerae ENMT: external ear and nose normal, oropharynx normal Neck: trachea midline, no thyromegaly Respiratory: normal respiratory effort, lungs clear to auscultation Cardiovascular: irregular rhythm, regular rate Gastrointestinal (Abdomen): normal bowel sounds, soft, nontender, no hepatosplenomegaly Musculoskeletal: no cyanosis or clubbing, extremities motor strength 5/5 Skin: no rashes, warm and dry Neurologic: PERRL, EOMI, accommodation nl, no face palsy, no dysarthria Psychiatric: A+Ox3, euthymic affect Lymphatic: no cervical or axillary lymphadenopathy Results & Data Results & Data ([facility]) Vital Signs (Past 12 Hours) Vital Signs Temp Pulse Pulse Resp BP Pulse Ox O2 Del Method 09/05/21 19:50 36.7 C 79 22 107/79 96 Room Air 09/05/21 14:15 71 09/05/21 15:03 36.7 C 91 H 19 119/69 99 Room Air 09/05/21 11:34 36.6 C 66 20 116/62 97 Room Air PG Care Time/CCT Total # of Minutes Spent Total Time Spent with Patient: Total time spent is greater than 50% in coordination of care (as documented) at patient's floor/unit and/or counseling patient: Coding Level of Care Code 27512 Subseq Hosp Care Lvl 2 Diagnoses Diverticular hemorrhage K57.31 Lower GI bleed K92.2 Permanent atrial fibrillation I48.2 Hypertension I10 Hypertension type: essential hypertension History of SCC (squamous cell carcinoma) of skin Z85.828 (1) Hypertension Hypertension type: essential hypertension Qualified Code(s): I10 - Essential (primary) hypertension
[2021-09-06 06:16] LABS: Hemoglobin 9.2 g/dl (14.0-18.0); Mean Corpuscular Hemoglobin 33.5 pg (25.0-34.0); Mean Corpuscular Hgb Conc 34.1 g/dL (32.0-36.0); Mean Corpuscular Volume 98.2 fL (80.0-100.0); Mean Platelet Volume 9.9 fL (9.4-12.4); Nucleated RBC # (auto) 0.02 K/uL (0-0); Nucleated RBC % (auto) 0.2 %; Platelet Count 143 K/uL (130-400); RDW Coefficient of Variation 14.5 % (11.5-14.5); RDW Standard Deviation 50.6 fL (36.4-46.3); Red Blood Count 2.75 M/uL (4.63-6.08); White Blood Count 9.78 K/ul (4.8-10.8)
[2021-09-06 06:48] LABS: BUN Creatinine Ratio 16.8 (10-20); Calcium 9.3 mg/dl (8.5-10.1); Creatinine Clr Calc Pharmacy 52.6 ml/min; Est GFR (African American) 68.3 ml/min; Est GFR (Non-African American) 58.9 ml/min; Potassium 3.5 mmol/L (3.5-5.1)
[2021-09-06] MEDS: allopurinoL 100 MG TAB PO SCH (09:17)
--- NOTE | 2021-09-06 10:09 | Discharge Summary ---
Date of Service September 06, 2021 Admission HPI Per Admitting Provider 86 yo male with history of AF on Eliquis antiocoagulation, HTN, diverticular disease presenting with LGIB. He comes into the hospital with an episode of bright red blood in the rectum. He reports he had an episode of bright red blood at 11:00. His toilet had blood in it. Patient though feels well. However, he states he wanted to come in sooner. As the last time he came in with a GI bleed, he waited at home, and then had to be transfused 6 units. Principal Diagnosis Lower GI bleed Discharge Exam General: A&Ox3. NAD. Cooperative. HEENT: Atraumatic, normocephalic. Pulm: CTAB A&P. -wheezes, -rales, -rhonchi. Symmetrical chest rise. No increase in work of breathing. No respiratory distress. Cardiac: irir, -mrg. Radial pulses intact and symmetrical. Abdominal: Nontender, nondistended, soft. BS present. Discharge Data Allergies Allergy/AdvReac Type Severity Reaction Status Date / Time No Known Allergies Allergy Verified 09/04/21 13:05 Consultations 09/02/21 16:31 ED Decision to Admit Stat 09/03/21 07:11 Consult Gastroenterology Routine Procedures Performed Operation Date: 09/04/21 16:30 Actual Procedures p Colonoscopy - Brandon Casey Case, DO Ordered Studies 09/02/21 20:17 CTA abdomen pelvis w con [CT angio abdomen pelvis w con] Urgent Hospital Course (1) Diverticular hemorrhage: Abhay is an 86-year-old male admitted for GI bleeding suspected from diverticular hemorrhage versus mid GI bleed. Eliquis was held, was recommended to be held for 1 week. Patient aware increased risk of stroke while this is held. Hemoglobin stable x3 measurements around 9, was discharged home to follow-up with primary care providers. If patient does experience or rebleed he was instructed to present to the emergency department, but should be transferred to a facility with interventional radiology capability at that point. To do as outpatient: 1. Repeat CBC within 1 week by PCP 2. Resume Eliquis in 1 week if hemoglobin stable Bright red blood in rectum in a 86 yo male Acute blood loss anemia. Patient remains NPO on 09/03 will continue to hold eliquis Colonoscopy completed on 09/04 was negative. Hemoglobin appears to have stabilized at 9 Would recommend transfer to tertiary care center if patient were to rebleed, clinically stable at time of discharge His current lack of bleeding, and negative colonoscopy is also reassuring.. Patient remains comfortable. (2) Lower GI bleed: Patient has history of above diagnosis. (3) Permanent atrial fibrillation: holding eliquis. Resume in 1 week if blood count stable rate is steady (4) Hypertension: continue to hold bp meds.dvt SCD (5) History of SCC (squamous cell carcinoma) of skin: stable. Total Time Total Time Spent Total Time Spent (In Minutes): Time spend day of discharge 35 minutes including direct patient care, documentation, review of labs and images, and coordination of care. Discharge Plan Discharge Items Patient Disposition: Home - Self-Care Reason For Visit: LOWER GI BLEED Discharge Diagnosis: Lower GI Bleed Activity: Resume your previous activity Non-emergency contact: Primary Care Provider and [employer] Pipe Call non-emergency contact if: you have any medication questions, your symptoms worsen and your pain is not controlled Follow-up/Referrals: Demetrice Guidry MD [Primary Care Provider] - Diet: Heart Healthy Addtl Attending Provider Instructions: You were seen in the hospital for suspected lower GI bleed. Your blood counts remained stable prior to discharge. Your apixaban has been temporarily held. Please do not take apixaban until 09/11/2021. This has been continued on your med list below so that it is not lost at follow-up, but please do not take this until 09/11 or unless advised otherwise by your follow-up providers. A follow-up appoint is being scheduled for you with your primary care provider. You should be seen within 1 week. If you do not receive a call to confirm an appointment within 48 hours, please call their office at the number above. If you develop any new or worsening symptoms including fever, chills, sweats, chest pain, chest pressure, difficulty breathing, uncontrolled nausea/vomiting, rash, wheezing, passing out or nearly passing out, bleeding, black/bloody bowel movements, or other new or concerning symptoms please call your primary care physician, or call 911 for re-evaluation in the emergency department if you are very concerned. Pending Studies at Discharge: No Stand-Alone Forms: [employer], Smoking Cessation Medications and DC Order Prescriptions: Continued apixaban 5 mg tablet 5 mg PO BID Qty: 180 3RF lisinopril 20 mg tablet 20 mg PO DAILY Qty: 90 3RF potassium chloride 10 mEq Tablet Extended Release 10 meq PO QAM allopurinol 100 mg Tablet 100 mg PO QAM metronidazole 1 % Gel 1 applic TOPICAL DAILY PRN (Reason: ROSACEA FLARES) triamterene-hydrochlorothiazid 37.5-25 mg tablet 0.5 tab PO QAM Discharge Orders: Discharge Order (Routine); Ordered 09/06/21 Ordered By: Buster Hugo Admission Data Admit Date/Time: 09/02/21 17:07 Attending Provider: Buster Hugo Admit Provider: Kehinde Quick Primary Care Provider: Demetrice Guidry Other Providers: Kehinde Quick ; Brandon Flores ; Lizy Lindsey ; Breanna Reyna ; Valentin Kang ; eDl Barrett Coding Level of Care Code D/C DAY MANAGEMENT >30 MINS Diagnoses Diverticular hemorrhage K57.31 Lower GI bleed K92.2 Permanent atrial fibrillation I48.2 Hypertension I10 Hypertension type: essential hypertension History of SCC (squamous cell carcinoma) of skin Z85.828
== END 2021-09-06 13:52 | disposition home or self-care (01) | DRG 378 ==
LOC: ED 14:42 → 2E 17:07 → SUATTDRO 17:07 → 2E 18:02

== ENCOUNTER 2021-09-13 12:55 | Inpatient (IN) ==
--- NOTE | 2021-09-13 15:34 | ED Triage Note ---
Date of Service September 13, 2021 History of Present Illness This patient was briefly evaluated while in triage. An abbreviated physical exam was performed. This patient is a 86-year-old Male with recent hospitalization for GI bleed who presents to the ED for evaluation of rectal bleeding. Patient was recently discharged and states that he is again having rectal bleeding, although mild at this time. Physical Exam VITALS: Vitals are noted on the nurse's note and reviewed by myself. GENERAL: This is an 86-year-old male, in no acute distress, well-developed well- nourished. SKIN: The skin was without rashes. HEART: Regular rate and rhythm without murmurs gallops or rubs. LUNGS: Clear to auscultation bilaterally without wheezes, rales or rhonchi. ABDOMEN: Positive bowel sounds x 4. Soft, nontender. NEURO: Patient was alert and oriented to person place and time. Initial orders for labs and / or imaging were placed and patient was placed in the waiting area until a bed is available. Please see further documentation for the full ED course.
[2021-09-13 15:53] LABS: Hematocrit (blood only) 28.4 % (40.1-51.0); Hemoglobin 9.2 g/dl (14.0-18.0); Mean Corpuscular Hemoglobin 33.2 pg (25.0-34.0); Mean Corpuscular Hgb Conc 32.4 g/dL (32.0-36.0); Mean Corpuscular Volume 102.5 fL (80.0-100.0); Mean Platelet Volume 9.8 fL (9.4-12.4); Platelet Count 240 K/uL (130-400); RDW Coefficient of Variation 15.2 % (11.5-14.5); Red Blood Count 2.77 M/uL (4.63-6.08); White Blood Count 8.99 K/ul (4.8-10.8)
[2021-09-13 16:06] LABS: INR 1.1 (0.9-1.1); Partial Thromboplastin Time 26.6 Seconds (21.0-31.0)
[2021-09-13 16:19] LABS: Albumin Globulin Ratio 1.5 (0.9-2); BUN Creatinine Ratio 18.8 (10-20); Bilirubin,Total 0.9 mg/dl (0.2-1.0); Calcium 10.3 mg/dl (8.5-10.1); Creatinine Clr Calc Pharmacy 44.5 ml/min; Est GFR (African American) 56.1 ml/min; Est GFR (Non-African American) 48.4 ml/min; Globulin 2.7 gm/dl (2.5-4.0); Potassium 4.4 mmol/L (3.5-5.1); Total Protein 6.7 gm/dl (6.0-8.3)
--- NOTE | 2021-09-13 18:47 | Emergency Department Note ---
Impression & Plan Acute GI bleeding, Anemia ED Provider Note NAME: ALEJANDRO LOPEZ JR AGE: 86 SEX: M : 1935 ARRIVES VIA: Walk-In INFORMANT: Patient ED PROVIDER(S): Derrick Shelton DO CHIEF COMPLAINT: BRBPR HPI: Patient is a 86-year-old male with a past medical history of A. fib currently anticoagulated who presents the ER for dark red blood per rectum. He was seen and evaluated admitted last week. He was discharged and the bleeding started back up on Friday. He did just recently start his an NOAC. He is taking apixaban and notes that today he discussed with his PCP who referred him in for further evaluation. About 10 minutes prior to arrival he put out a large amount of bright red blood which she feels was close to a half a cup to a cup. He denies any dizziness or lightheadedness. No chest pain or shortness of breath. No other exacerbating or remitting factors. No belly pain. Denies any black stools. ROS: See above HPI for pertinent positives & negatives. A total of 10 systems reviewed and were otherwise negative. PAST MEDICAL HISTORY:See Below PAST SURGICAL HISTORY:See Below FAMILY HISTORY:See Below SOCIAL HISTORY:See Below HOME MEDICATIONS:See Below ALLERGIES:See Below VITALS:See Below PHYSICAL EXAMINATION: GENERAL: Sitting up in bed, alert, well appearing, well nourished, no distress, non-toxic EYE EXAM: normal conjunctiva. OROPHARYNX: no exudate, no erythema, lips, buccal mucosa, and tongue normal and mucous membranes are moist NECK: supple, no nuchal rigidity, no adenopathy, non-tender LUNGS: Clear to auscultation. Normal chest wall mechanics HEART: no murmurs, S1 normal and S2 normal ABDOMEN: abdomen soft, non-tender, normo-active bowel sounds, no masses, no rebound or guarding. UPPER EXTREMITIES: upper extremities are grossly normal. LOWER EXTREMITIES: No pitting edema. NEURO EXAM: Normal sensorium, cranial nerves II-XII grossly intact, normal speech, no gross weakness of arms, no gross weakness of legs. MEDICAL DECISION MAKING: Patient is an 86-year-old male who presents ER for above-stated complaint. IV was established blood was obtained. He became slightly hypotensive with systolics in the high 90s. He is currently anticoagulated and having bright red blood per rectum. Labs show no significant leukocytosis but mild anemia of 9 consistent with previous upon discharge. INR unremarkable. BMP with slightly elevated chloride. LFTs bilirubin was unremarkable. COVID was negative. Patient typed and crossed. No blood ordered. No belly pain and consequently CT was not ordered. Discussed with Danica James for further evaluation. Triage Nursing notes reviewed. Limited review of prior medical records performed Vital Signs: reviewed and remarkable for no significant abnormalities Differential diagnosis: Differential diagnosis includes etiologies such as diverticulitis, diverticulosis, AVM, coagulopathy, colitis, inflammatory bowel disease, malignancy, Rebecca-Vega tear, esophagitis, peptic ulcer disease, variceal ble ed, gastritis, epistaxis, fissure, hemorrhoids, as well as others were entertained. ER treatment provided: See below Diagnostics interpreted by me: ECG: Sinus rhythm rate of 62 Normal axis No PVCs QTC 442 Cardiac Monitoring: An order was placed for continuous cardiac monitoring. The monitor shows a rate of 80 with sinus rhythm. Laboratory studies: As stated above and show below. Imaging studies: See below Consultation(s): Discussed with Danica James as described above Procedures: none Critical Care: None Past Med/Surg History Medical History (Updated 09/13/21 @ 23:29 by Derrick Shelton DO) Atrial fibrillation Benign prostatic hyperplasia with urinary obstruction BPH (benign prostatic hyperplasia) BPH NOS w ur obs/LUTS Carpal tunnel syndrome of right wrist Diverticular disease Diverticulosis GI bleed 4-5 YEARS AGO --> 2/2 DIVERTICULITIS Gout Gross hematuria Hematuria FOLLOWING WITH DR. POLANCO. AWAITING CT AND CYSTOSCOPY Hypertension Kidney stones Mild mitral regurgitation On anticoagulant therapy Permanent atrial fibrillation Rosacea Swelling of eyelid Surgical History History of cataract surgery History of colonoscopy History of lithotripsy History of surgery on arm History of tonsillectomy History of total knee replacement RIGHT Status post Mohs surgery MULTIPLE TIMES Family History Father Cancer PROSTATE CANCER Social History Smoking Status: Never smoker Second Hand Exposure: No; Hx Alcohol Use: Yes Alcohol type: wine Hx Substance Use: No Preferred Language: Hebrew Communication Ability: Effective Broadcast Supervisor Required: No Beliefs That Will Affect Care: None Current Living Situation: Spouse Current Living Situation Comment: Lives at home with Feels Safe at Home: Yes Assistive Devices: None Allergies Allergies Allergy/AdvReac Type Severity Reaction Status Date / Time No Known Allergies Allergy Verified 09/13/21 19:32 Home Meds Home Medications Medication Instructions Recorded Confirmed allopurinol 100 mg tablet 100 mg PO QAM 01/27/18 09/13/21 potassium chloride 10 mEq 10 meq PO QAM 01/27/18 09/13/21 tablet,extended release metronidazole 1 % topical gel 1 applic topical DAILY PRN ROSACEA 02/02/18 09/13/21 FLARES triamterene 37.5 0.5 tab PO QAM 02/23/19 09/13/21 mg-hydrochlorothiazide 25 mg tablet fluoride (sodium) 1.1 % dental 1 applic dental UD 09/13/21 09/13/21 cream (Denta 5000 Plus) Previous Rx's Medication Instructions Recorded apixaban 5 mg tablet 5 mg PO BID #180 tabs 10/05/20 lisinopril 20 mg tablet 20 mg PO DAILY #90 tabs 04/05/21 Results & Data (ED) Vital Signs Vital Signs - 24 hr 09/13/21 13:23 09/13/21 15:15 09/13/21 18:36 Temperature 36.5 C Temperature Source Temporal Artery Scan Pulse Rate - Lying 97 H Pulse Rate - Sitting 72 Pulse Rate - Standing 75 Pulse Rate 76 Pulse Rate [Apical] 72 Pulse Rhythm Regular Pulse Rhythm [Apical] Regular Pulse Strength Normal Respiratory Rate 18 16 Respiratory Effort / Characteristics Non-Labored Spontaneous Non-Labored Respiratory Depth Normal Normal Respiratory Pattern Regular Blood Pressure - Lying 115/61 Blood Pressure - Sitting 129/79 Blood Pressure- Standing 121/70 Blood Pressure 105/59 L Blood Pressure [Right Arm] 107/66 Blood Pressure Mean 74 Blood Pressure Mean [Right Arm] 79 Blood Pressure Position Sitting Blood Pressure Position [Right Arm] Pulse Oximetry 97 99 Oxygen Delivery Method Room Air Room Air Sepsis Recent Fever Within 48 Hours No Sepsis New/Unexplained Change in Mental Status No Sepsis Action Taken by Nursing No Action Required 09/13/21 18:36 09/13/21 19:35 09/13/21 20:03 Temperature Temperature Source Pulse Rate - Lying Pulse Rate - Sitting Pulse Rate - Standing Pulse Rate 65 Pulse Rate [Apical] 74 Pulse Rhythm Pulse Rhythm [Apical] Pulse Strength Respiratory Rate 12 25 H Respiratory Effort / Characteristics Non-Labored Respiratory Depth Normal Respiratory Pattern Regular Blood Pressure - Lying Blood Pressure - Sitting Blood Pressure- Standing Blood Pressure Blood Pressure [Right Arm] 92/44 L Blood Pressure Mean Blood Pressure Mean [Right Arm] 60 Blood Pressure Position Blood Pressure Position [Right Arm] Lying Pulse Oximetry 99 99 100 Oxygen Delivery Method Room Air Room Air Sepsis Recent Fever Within 48 Hours Sepsis New/Unexplained Change in Mental Status Sepsis Action Taken by Nursing 09/13/21 20:03 Temperature Temperature Source Pulse Rate - Lying Pulse Rate - Sitting Pulse Rate - Standing Pulse Rate Pulse Rate [Apical] Pulse Rhythm Pulse Rhythm [Apical] Pulse Strength Respiratory Rate Respiratory Effort / Characteristics Respiratory Depth Respiratory Pattern Blood Pressure - Lying Blood Pressure - Sitting Blood Pressure- Standing Blood Pressure 111/64 Blood Pressure [Right Arm] Blood Pressure Mean 79 Blood Pressure Mean [Right Arm] Blood Pressure Position Blood Pressure Position [Right Arm] Pulse Oximetry Oxygen Delivery Method Sepsis Recent Fever Within 48 Hours Sepsis New/Unexplained Change in Mental Status Sepsis Action Taken by Nursing Laboratory Data Result diagrams: 09/13/21 11:53 09/13/21 11:53 Lab Results 09/13/21 09/13/21 09/13/21 Range/Units 11:53 11:53 11:53 WBC 8.99 (4.8-10.8) K/ul RBC 2.77 L (4.63-6.08) M/uL Hgb 9.2 L (14.0-18.0) g/dl Hct 28.4 L (40.1-51.0) % MCV 102.5 H (80.0-100.0) fL MCH 33.2 (25.0-34.0) pg MCHC 32.4 (32.0-36.0) g/dL RDW Std Deviation 56.0 H (36.4-46.3) fL RDW Coeff of Edith 15.2 H (11.5-14.5) % Plt Count 240 (130-400) K/uL MPV 9.8 (9.4-12.4) fL PT 12.0 (9.0-12.0) Seconds INR 1.1 (0.9-1.1) APTT 26.6 (21.0-31.0) Seconds PTT Ratio 1.0 Sodium 140 (136-145) mmol/L Potassium 4.4 (3.5-5.1) mmol/L Chloride 108 H (98-107) mmol/L Carbon Dioxide 26 (21-32) mmol/L Anion Gap 6 (3-11) BUN 25 H (6-23) mg/dl Creatinine 1.33 (0.6-1.4) mg/dl Est Cr Clr Drug Dosing 44.5 ml/min Est GFR ( Amer) 56.1 ml/min Est GFR (Non-Af Amer) 48.4 ml/min BUN/Creatinine Ratio 18.8 (10-20) Glucose 107 H (70-99(Fasting)) mg/dl Calcium 10.3 H (8.5-10.1) mg/dl Total Bilirubin 0.9 (0.2-1.0) mg/dl AST 15 (13-39) U/L ALT 10 (7-52) U/L Alkaline Phosphatase 73 (34-104) U/L Total Protein 6.7 (6.0-8.3) gm/dl Albumin 4.0 (3.4-5.0) gm/dl Globulin 2.7 (2.5-4.0) gm/dl Albumin/Globulin Ratio 1.5 (0.9-2) Blood Type Antibody Screen 09/13/21 Range/Units 18:55 WBC (4.8-10.8) K/ul RBC (4.63-6.08) M/uL Hgb (14.0-18.0) g/dl Hct (40.1-51.0) % MCV (80.0-100.0) fL MCH (25.0-34.0) pg MCHC (32.0-36.0) g/dL RDW Std Deviation (36.4-46.3) fL RDW Coeff of Edith (11.5-14.5) % Plt Count (130-400) K/uL MPV (9.4-12.4) fL PT (9.0-12.0) Seconds INR (0.9-1.1) APTT (21.0-31.0) Seconds PTT Ratio Sodium (136-145) mmol/L Potassium (3.5-5.1) mmol/L Chloride (98-107) mmol/L Carbon Dioxide (21-32) mmol/L Anion Gap (3-11) BUN (6-23) mg/dl Creatinine (0.6-1.4) mg/dl Est Cr Clr Drug Dosing ml/min Est GFR ( Amer) ml/min Est GFR (Non-Af Amer) ml/min BUN/Creatinine Ratio (10-20) Glucose (70-99(Fasting)) mg/dl Calcium (8.5-10.1) mg/dl Total Bilirubin (0.2-1.0) mg/dl AST (13-39) U/L ALT (7-52) U/L Alkaline Phosphatase (34-104) U/L Total Protein (6.0-8.3) gm/dl Albumin (3.4-5.0) gm/dl Globulin (2.5-4.0) gm/dl Albumin/Globulin Ratio (0.9-2) Blood Type B Positive Antibody Screen NEGATIVE Discharge Plan Visit Data Chief Complaint: GI Bleed Stated Complaint: BLOOD IN STOOL ED Provider: Derrick Shelton Discharge Problem: Acute GI bleeding, Anemia
--- NOTE | 2021-09-13 20:13 | History & Physical Report ---
Date of Service September 13, 2021 Assessment & Plan (1) Rectal bleeding: Plan: 86-year-old male with history of atrial fibrillation on apixaban anticoagulation, recent admission for lower GI bleed thought to be secondary to diverticular bleed returning with 2 days of bloody bowel movements. Patient reports franki colored stools. No abdominal pain. 1 bloody bowel movement witnessed in ER. Hemoglobin 9.2 on arrival with repeat of 7.5. Patient remains hemodynamically stable Admit to medical with telemetry Maintain 2 large-bore IVs Transfuse 2 units PRBCs Continue to monitor CBCtransfuse for inappropriate response, continued bleeding, hemodynamic instability or hemoglobin less than 7 GI consultation appreciated Zofran as needed for nausea N.p.o. -Question referral to tertiary care center as previously discussed. Patient is hemodynamically stable at present. Will await GI input (2) A-fib: Plan: Rate controlled. Patient on apixaban anticoagulation Hold apixaban for now in setting of acute bleed (3) Hypertension: Plan: Blood pressure borderline low, presently 100/62 Hold triamterene hydrochlorothiazide Hold lisinopril Continue to monitor blood pressure (4) Gout: Plan: Chronic. Well-controlled. Hold allopurinol for now History of Present Illness Chief Complaint: Bloody bowel movements Primary Care Provider: Demetrice Guidry MD Abhay Major is a 56-year-old male with history of atrial fibrillation on apixaban anticoagulation, BPH, gout and hypertension, several episodes of lower GI bleed in the past presenting with "franki colored stools". Patient was recently admitted to [facility] from 09/02/2021 through 09/06/2021 for bright red blood in the rectum. Patient had a CT angiogram of the abdomen and pelvis that was unremarkable. He had a colonoscopy performed on 09/04/2021 which was unrevealing for the source of bleed. Patient was transfused with 1 unit PRBCs. Bleed ultimately thought to be secondary to diverticular hemorrhage. His Eliquis was held x1 week and he was discharged home in stable condition. Hemoglobin level on day of discharge was 9.2. Of note, patient with prior episode of lower GI bleed requiring hospitalization in March 2018 as well as 2013. Patient reports resuming his Eliquis on 09/11/2021 as directed shortly thereafter he began to notice blood present on the toilet paper after bowel movements. He reports that the blood was franki in color. Yesterday he noted a small amount of blood in the toilet bowl as well. He denies abdominal pain or cramping. Denies rectal pain. Denies hard stools or straining. Denies chest pain/cough/shortness of breath/dizziness/syncope. Denies nausea/v omiting/hematemesis. Allergies Allergy/AdvReac Type Severity Reaction Status Date / Time No Known Allergies Allergy Verified 09/13/21 19:32 Home Medications Medication Instructions Recorded Confirmed Type allopurinol 100 mg tablet 100 mg PO QAM 01/27/18 09/13/21 History potassium chloride 10 mEq 10 meq PO QAM 01/27/18 09/13/21 History tablet,extended release metronidazole 1 % topical gel 1 applic topical DAILY PRN ROSACEA 02/02/18 09/13/21 History FLARES triamterene 37.5 0.5 tab PO QAM 02/23/19 09/13/21 History mg-hydrochlorothiazide 25 mg tablet apixaban 5 mg tablet 5 mg PO BID #180 tabs 10/05/20 09/13/21 Rx lisinopril 20 mg tablet 20 mg PO DAILY #90 tabs 04/05/21 09/13/21 Rx fluoride (sodium) 1.1 % dental 1 applic dental UD 09/13/21 09/13/21 History cream (Denta 5000 Plus) Past Med/Surg History Medical History (Updated 09/13/21 @ 23:29 by Derrick Shelton DO) Atrial fibrillation Benign prostatic hyperplasia with urinary obstruction BPH (benign prostatic hyperplasia) BPH NOS w ur obs/LUTS Carpal tunnel syndrome of right wrist Diverticular disease Diverticulosis GI bleed 4-5 YEARS AGO --> 2/2 DIVERTICULITIS Gout Gross hematuria Hematuria FOLLOWING WITH DR. POLANCO. AWAITING CT AND CYSTOSCOPY Hypertension Kidney stones Mild mitral regurgitation On anticoagulant therapy Permanent atrial fibrillation Rosacea Swelling of eyelid Surgical History History of cataract surgery History of colonoscopy History of lithotripsy History of surgery on arm History of tonsillectomy History of total knee replacement RIGHT Status post Mohs surgery MULTIPLE TIMES Family History Father Cancer PROSTATE CANCER Social History Smoking Status: Never smoker Second Hand Exposure: No; Hx Alcohol Use: No Hx Substance Use: No Preferred Language: Colombian Communication Ability: Effective Telecom Sales Consultant Required: No Beliefs That Will Affect Care: None Current Living Situation: Spouse Current Living Situation Comment: Lives at home with Other Information That Helps Us Care for You: No Feels Safe at Home: Yes Safety Concerns: Feels Safe At This Time Assistive Devices: Glasses Assistive Devices Comment: partial upper and lower Review of Systems Review of Systems: All systems reviewed & are unremarkable except as noted in HPI & below Physical Exam Physical Exam: General: patient resting comfortably, NAD, non-toxic in appearance, AA&O x 4 Skin: warm, dry, intact, no rashes or lesions, + pallor HEENT: NC/AT, PERRL, EOMI, anicteric sclera, conjunctiva without injection, external ear normal to inspection and nontender, nares patent, moist mucus membranes, dentition intact, no oropharyngeal lesions, neck supple, trachea midline, no LAD, no thyromegaly, no JVD Heart: +S1/S2, regular, no m/r/g Lungs: equal air entry bilaterally, no rales/rhonchi/wheezes Abd: +BS, soft, NT/ND, no masses/organomegaly/ascites Ext: warm, 2+ pulses in UE/LE bilaterally, no clubbing/cyanosis or edema Neuro: nonfocal, patient AA&O x 4, speech intact, no facial droop, moving all extremities on command with equal strength 5/5 Results & Data Results & Data ([facility]) Vital Signs (Past 12 Hours) Vital Signs Temp Pulse Pulse Resp BP BP Pulse Ox 09/13/21 19:35 74 12 92/44 L 99 09/13/21 18:36 99 09/13/21 18:36 72 16 107/66 99 09/13/21 13:23 36.5 C 76 18 105/59 L 97 O2 Del Method 09/13/21 19:35 Room Air 09/13/21 18:36 Room Air 09/13/21 18:36 Room Air 09/13/21 13:23 Room Air Laboratory Results Laboratory Results WBC 7.39 K/ul (4.8-10.8) 09/14/21 00:54 RBC 2.25 M/uL (4.63-6.08) L 09/14/21 00:54 Hgb 7.5 g/dl (14.0-18.0) L 09/14/21 00:54 Hct 23.3 % (40.1-51.0) L 09/14/21 00:54 MCV 103.6 fL (80.0-100.0) H 09/14/21 00:54 MCH 33.3 pg (25.0-34.0) 09/14/21 00:54 MCHC 32.2 g/dL (32.0-36.0) 09/14/21 00:54 RDW Std Deviation 56.4 fL (36.4-46.3) H 09/14/21 00:54 RDW Coeff of Edith 15.4 % (11.5-14.5) H 09/14/21 00:54 Plt Count 192 K/uL (130-400) 09/14/21 00:54 MPV 9.5 fL (9.4-12.4) 09/14/21 00:54 Immature Gran % (Auto) 0.3 % 09/14/21 00:54 Neut % (Auto) 64.4 % 09/14/21 00:54 Lymph % (Auto) 23.7 % 09/14/21 00:54 [place] % (Auto) 8.8 % 09/14/21 00:54 Eos % (Auto) 2.3 % 09/14/21 00:54 Baso % (Auto) 0.5 % 09/14/21 00:54 Neut # (Auto) 4.76 K/uL (1.4-6.5) 09/14/21 00:54 Lymph # (Auto) 1.75 K/uL (1.2-3.4) 09/14/21 00:54 [place] # (Auto) 0.65 K/uL (0.24-0.82) 09/14/21 00:54 Eos # (Auto) 0.17 K/uL (0-0.50) 09/14/21 00:54 Baso # (Auto) 0.04 K/uL (0-0.2) 09/14/21 00:54 Immature Gran # (Auto) 0.02 K/uL (0.00-0.02) 09/14/21 00:54 Polychromasia 1+ 09/14/21 00:54 PT 12.0 Seconds (9.0-12.0) 09/13/21 11:53 INR 1.1 (0.9-1.1) 09/13/21 11:53 APTT 26.6 Seconds (21.0-31.0) 09/13/21 11:53 PTT Ratio 1.0 09/13/21 11:53 Sodium 140 mmol/L (136-145) 09/13/21 11:53 Potassium 4.4 mmol/L (3.5-5.1) 09/13/21 11:53 Chloride 108 mmol/L (98-107) H 09/13/21 11:53 Carbon Dioxide 26 mmol/L (21-32) 09/13/21 11:53 Anion Gap 6 (3-11) 09/13/21 11:53 BUN 25 mg/dl (6-23) H 09/13/21 11:53 Creatinine 1.33 mg/dl (0.6-1.4) 09/13/21 11:53 Est Cr Clr Drug Dosing 44.5 ml/min 09/13/21 11:53 Est GFR ( Amer) 56.1 ml/min 09/13/21 11:53 Est GFR (Non-Af Amer) 48.4 ml/min 09/13/21 11:53 BUN/Creatinine Ratio 18.8 (10-20) 09/13/21 11:53 Glucose 107 mg/dl (70-99(Fasting)) H 09/13/21 11:53 Calcium 10.3 mg/dl (8.5-10.1) H 09/13/21 11:53 Phosphorus 3.1 mg/dl (2.5-4.9) 09/13/21 18:58 Magnesium 1.8 mg/dl (1.7-2.4) 09/13/21 18:58 Total Bilirubin 0.9 mg/dl (0.2-1.0) 09/13/21 11:53 AST 15 U/L (13-39) 09/13/21 11:53 ALT 10 U/L (7-52) 09/13/21 11:53 Alkaline Phosphatase 73 U/L (34-104) 09/13/21 11:53 Total Protein 6.7 gm/dl (6.0-8.3) 09/13/21 11:53 Albumin 4.0 gm/dl (3.4-5.0) 09/13/21 11:53 Globulin 2.7 gm/dl (2.5-4.0) 09/13/21 11:53 Albumin/Globulin Ratio 1.5 (0.9-2) 09/13/21 11:53 POC Stool Occult Blood Positive (Negative) A 09/14/21 00:07 SARS-CoV-2, RNA, NAAT NEGATIVE (NEGATIVE) 09/13/21 21:51 Blood Type B Positive 09/13/21 18:55 Antibody Screen NEGATIVE 09/13/21 18:55 Crossmatch See Detail 09/13/21 18:55 Code Status & VTE Plan VTE Prophylaxis Plan VTE Prophylaxis will be ordered: Yes PG Care Time/CCT Total # of Minutes Spent Total Time Spent with Patient: Total time spent is greater than 50% in coordination of care (as documented) at patient's floor/unit and/or counseling patient: Coding Level of Care Code 21961 Initial Inpt Care Lvl 2 Diagnoses Rectal bleeding K62.5 A-fib I48.11 Atrial fibrillation type: longstanding persistent Hypertension I10 Hypertension type: essential hypertension Gout M10.9 (1) A-fib Atrial fibrillation type: longstanding persistent Qualified Code(s): I48.11 - Longstanding persistent atrial fibrillation (2) Hypertension Hypertension type: essential hypertension Qualified Code(s): I10 - Essential (primary) hypertension
[2021-09-13] MEDS ORDERED: ONDANSETRON INJ 2 MG/ML 2 ML VIAL IV PRN (22:59)
[2021-09-13] MEDS ORDERED: ACETAMINOPHEN 325 MG TAB PO PRN (22:59)
[2021-09-13 23:40] LABS: Magnesium 1.8 mg/dl (1.7-2.4); Phosphorus 3.1 mg/dl (2.5-4.9)
[2021-09-14 01:12] LABS: Basophils # (auto) 0.04 K/uL (0-0.2); Basophils % (auto) 0.5 %; Eosinophils # (auto) 0.17 K/uL (0-0.50); Eosinophils % (auto) 2.3 %; Hematocrit (blood only) 23.3 % (40.1-51.0); Hemoglobin 7.5 g/dl (14.0-18.0); Immature Granulocytes # (auto) 0.02 K/uL (0.00-0.02); Immature Granulocytes % (auto) 0.3 %; Lymphocytes # (auto) 1.75 K/uL (1.2-3.4); Lymphocytes % (auto) 23.7 %; Mean Corpuscular Hemoglobin 33.3 pg (25.0-34.0); Mean Corpuscular Hgb Conc 32.2 g/dL (32.0-36.0); Mean Corpuscular Volume 103.6 fL (80.0-100.0); Mean Platelet Volume 9.5 fL (9.4-12.4); Monocytes # (auto) 0.65 K/uL (0.24-0.82); Monocytes % (auto) 8.8 %; Neutrophils # (auto) 4.76 K/uL (1.4-6.5); Neutrophils % (auto) 64.4 %; Platelet Count 192 K/uL (130-400); RDW Coefficient of Variation 15.4 % (11.5-14.5); RDW Standard Deviation 56.4 fL (36.4-46.3); Red Blood Count 2.25 M/uL (4.63-6.08); White Blood Count 7.39 K/ul (4.8-10.8)
[2021-09-14 01:30] LABS: Polychromasia 1+
[2021-09-14] MEDS ORDERED: SODIUM CHLORIDE 0.9% 250 ML IV PRN (02:41)
--- NOTE | 2021-09-14 07:40 | Hospitalist Progress Note ---
Date of Service September 14, 2021 Assessment & Plan (1) Rectal bleeding: Plan: 86-year-old male with history of atrial fibrillation on apixaban anticoagulation, recent admission for lower GI bleed thought to be secondary to diverticular bleed returning with 2 days of bloody bowel movements. Patient reports franki colored stools. No abdominal pain. Prior diverticular bleed in . 1 bloody bowel movement witnessed in ER, additional franki stool this morning after 1 u prbc fecal occult positive s/p 2u prbc 09/14 repeat hgb to 10.7 (7.5 on admit, was 9.2 at discharge within past week) Holding eliquis (on for afib) checking B12/folate given MCV >100 Vitals stable at present, remains on room air. No CP/SOB reported or abdominal pain of note, prior stenosis SMA, lactic added and elevated however no abd pain IVF provided Continue NPO status for now Bleeding scan ordered --> patient currently in study GI consulted Antiemetics prn Continue to monitor labs/transfuse as needed/electrolyte replacement as needed Question referral to tertiary care center as previously discussed however remains stable at present and bleeding stopped with cessation of eliquis last admission and patient with permanent afib which has been rate controlled and recommend complete cessation of such (2) A-fib: Plan: Rate controlled but not on any rate controlling agents Permanent for at least 3-4 years, follows with Dr Christianson Holding eliquis, rec discontinuation Monitor on telemetry (3) Hypertension: Plan: Blood pressure 114/75 Holding BP agents at present Continue to monitor (4) Gout: Plan: Chronic. Well-controlled, no recent flare Holding allopurinol Plan NPO for bleeding scan, GI on consult rec d/c AC continued inpatient stay Admission and Anticipated Discharge Date Admission Date: September 13, 2021 Supervising Physician Co-Signing Physician Notes PA Supervision Note: I did not personally see or examine the patient today, but I verified all feng points of MARIO Mirza's assessment and plan with the following exceptions/additions: None Subjective Patient evaluated this morning, finishing up second unit PRBC currently then to go down for bleeding scan. He is hungry and states last real meal was friday evening. Noted after started back on eliquis (has been on for years, states follows with sheryl, notes with permanent afib), he noticed a darkened franki colored stool and then subsequent bowel movements with continued blood. Takes 5mg BID Largest franki stool in ER after having one while waiting in triage. States had additional franki colored stool after first unit of blood this morning and feeling like he might need to move his bowels again. Denies any shortness of breath or palpitations, chest pain or shortness of breath at present time. Discussed if permanent afib and not able to tolerate eliquis may be able to reach out to Dr Christianson about discontinuing this medication. Review of Systems Review of Systems: All systems reviewed & are unremarkable except as noted in HPI & below Physical Exam Physical Exam: General: WN/WD elderly male sitting up in bed, NAD, +general pallor HEENT: head normocephalic, atraumatic, mm slightly dry trachea midline Resp: CTAB, no w/c/r 100% on RA CV: irregularly irregular, rate 70bpm, no m/r/g, no edema/calf tenderness GI: +BS throughout, soft, non-tender, no gaurding or rigidity : no argueta MSK/Neuro; moves all extremities, no focal deficit Psych: AOx3 pleasant and cooperative Results & Data Results & Data ([facility]) Vital Signs (Past 12 Hours) Vital Signs Temp Pulse Pulse Pulse Resp BP BP 09/14/21 07:20 70 09/14/21 01:22 74 09/14/21 06:38 36.4 C L 72 20 136/85 09/14/21 06:45 36.6 C 68 18 149/90 H 09/14/21 06:24 36.5 C 72 16 136/81 09/14/21 05:45 36.4 C L 74 16 104/74 09/14/21 05:15 36.5 C 63 16 123/78 09/14/21 05:00 36.6 C 71 18 104/71 09/14/21 05:00 36.6 C 71 18 104/71 09/14/21 04:40 36.7 C 69 18 107/71 09/14/21 01:28 36.4 C L 64 16 100/62 09/14/21 01:03 69 14 83/54 L 09/14/21 00:00 67 23 09/14/21 00:00 97/57 L 09/13/21 23:00 69 17 09/13/21 23:00 108/67 09/13/21 22:00 70 19 09/13/21 22:00 99/59 L 09/13/21 21:00 72 19 09/13/21 21:00 107/77 09/13/21 20:03 111/64 09/13/21 20:03 65 25 H Pulse Ox O2 Del Method 09/14/21 07:20 09/14/21 01:22 09/14/21 06:38 100 Room Air 09/14/21 06:45 99 09/14/21 06:24 99 09/14/21 05:45 99 09/14/21 05:15 99 09/14/21 05:00 99 09/14/21 05:00 99 09/14/21 04:40 99 09/14/21 01:28 98 Room Air 09/14/21 01:03 98 Room Air 09/14/21 00:00 100 09/14/21 00:00 09/13/21 23:00 100 09/13/21 23:00 09/13/21 22:00 99 09/13/21 22:00 09/13/21 21:00 98 09/13/21 21:00 09/13/21 20:03 09/13/21 20:03 100 Laboratory Results 09/14/21 09/14/21 09/14/21 Range/Units 11:31 11:31 11:31 WBC 13.05 H (4.8-10.8) K/ul RBC 3.24 L (4.63-6.08) M/uL Hgb 10.7 L D (14.0-18.0) g/dl Hct 32.5 L (40.1-51.0) % MCV 100.3 H (80.0-100.0) fL MCH 33.0 (25.0-34.0) pg MCHC 32.9 (32.0-36.0) g/dL RDW Std Deviation 57.7 H (36.4-46.3) fL RDW Coeff of Edith 16.1 H (11.5-14.5) % Plt Count 226 (130-400) K/uL MPV 9.9 (9.4-12.4) fL Immature Gran % (Auto) 0.4 % Neut % (Auto) 66.4 % Lymph % (Auto) 20.4 % Linn % (Auto) 8.1 % Eos % (Auto) 4.2 % Baso % (Auto) 0.5 % Neut # (Auto) 8.66 H (1.4-6.5) K/uL Lymph # (Auto) 2.66 (1.2-3.4) K/uL Linn # (Auto) 1.06 H (0.24-0.82) K/uL Eos # (Auto) 0.55 H (0-0.50) K/uL Baso # (Auto) 0.07 (0-0.2) K/uL Immature Gran # (Auto) 0.05 H (0.00-0.02) K/uL Polychromasia PT (9.0-12.0) Seconds INR (0.9-1.1) APTT (21.0-31.0) Seconds PTT Ratio Sodium (136-145) mmol/L Potassium (3.5-5.1) mmol/L Chloride (98-107) mmol/L Carbon Dioxide (21-32) mmol/L Anion Gap (3-11) BUN (6-23) mg/dl Creatinine (0.6-1.4) mg/dl Est Cr Clr Drug Dosing ml/min Est GFR ( Amer) ml/min Est GFR (Non-Af Amer) ml/min BUN/Creatinine Ratio (10-20) Glucose (70-99(Fasting)) mg/dl Lactate (0.4-2.0) mmol/L Calcium (8.5-10.1) mg/dl Phosphorus (2.5-4.9) mg/dl Magnesium 1.9 (1.7-2.4) mg/dl Total Bilirubin (0.2-1.0) mg/dl Direct Bilirubin (0-0.2) mg/dl AST (13-39) U/L ALT (7-52) U/L Alkaline Phosphatase (34-104) U/L Total Protein (6.0-8.3) gm/dl Albumin (3.4-5.0) gm/dl Globulin (2.5-4.0) gm/dl Albumin/Globulin Ratio (0.9-2) Vitamin B12 292 (180-914) pg/ml Folate 12.23 (>5.38) ng/ml POC Stool Occult Blood (Negative) SARS-CoV-2, RNA, NAAT (NEGATIVE) Blood Type Antibody Screen Crossmatch 09/14/21 09/14/21 09/14/21 Range/Units 11:31 11:30 00:54 WBC 7.39 (4.8-10.8) K/ul RBC 2.25 L (4.63-6.08) M/uL Hgb 7.5 L (14.0-18.0) g/dl Hct 23.3 L (40.1-51.0) % MCV 103.6 H (80.0-100.0) fL MCH 33.3 (25.0-34.0) pg MCHC 32.2 (32.0-36.0) g/dL RDW Std Deviation 56.4 H (36.4-46.3) fL RDW Coeff of Edith 15.4 H (11.5-14.5) % Plt Count 192 (130-400) K/uL MPV 9.5 (9.4-12.4) fL Immature Gran % (Auto) 0.3 % Neut % (Auto) 64.4 % Lymph % (Auto) 23.7 % Linn % (Auto) 8.8 % Eos % (Auto) 2.3 % Baso % (Auto) 0.5 % Neut # (Auto) 4.76 (1.4-6.5) K/uL Lymph # (Auto) 1.75 (1.2-3.4) K/uL Linn # (Auto) 0.65 (0.24-0.82) K/uL Eos # (Auto) 0.17 (0-0.50) K/uL Baso # (Auto) 0.04 (0-0.2) K/uL Immature Gran # (Auto) 0.02 (0.00-0.02) K/uL Polychromasia 1+ PT (9.0-12.0) Seconds INR (0.9-1.1) APTT (21.0-31.0) Seconds PTT Ratio Sodium 141 (136-145) mmol/L Potassium 4.0 (3.5-5.1) mmol/L Chloride 109 H (98-107) mmol/L Carbon Dioxide 22 (21-32) mmol/L Anion Gap 10 (3-11) BUN 27 H (6-23) mg/dl Creatinine 1.26 (0.6-1.4) mg/dl Est Cr Clr Drug Dosing 47.3 ml/min Est GFR ( Amer) 59.9 ml/min Est GFR (Non-Af Amer) 51.7 ml/min BUN/Creatinine Ratio 21.4 H (10-20) Glucose 123 H (70-99(Fasting)) mg/dl Lactate 3.3 H* (0.4-2.0) mmol/L Calcium 9.8 (8.5-10.1) mg/dl Phosphorus (2.5-4.9) mg/dl Magnesium (1.7-2.4) mg/dl Total Bilirubin 1.6 H D (0.2-1.0) mg/dl Direct Bilirubin 0.2 (0-0.2) mg/dl AST 14 (13-39) U/L ALT 9 (7-52) U/L Alkaline Phosphatase 69 (34-104) U/L Total Protein 6.1 (6.0-8.3) gm/dl Albumin 3.7 (3.4-5.0) gm/dl Globulin (2.5-4.0) gm/dl Albumin/Globulin Ratio (0.9-2) Vitamin B12 (180-914) pg/ml Folate (>5.38) ng/ml POC Stool Occult Blood (Negative) SARS-CoV-2, RNA, NAAT (NEGATIVE) Blood Type Antibody Screen Crossmatch 09/14/21 09/13/21 09/13/21 Range/Units 00:07 21:51 18:58 WBC (4.8-10.8) K/ul RBC (4.63-6.08) M/uL Hgb (14.0-18.0) g/dl Hct (40.1-51.0) % MCV (80.0-100.0) fL MCH (25.0-34.0) pg MCHC (32.0-36.0) g/dL RDW Std Deviation (36.4-46.3) fL RDW Coeff of Edith (11.5-14.5) % Plt Count (130-400) K/uL MPV (9.4-12.4) fL Immature Gran % (Auto) % Neut % (Auto) % Lymph % (Auto) % Linn % (Auto) % Eos % (Auto) % Baso % (Auto) % Neut # (Auto) (1.4-6.5) K/uL Lymph # (Auto) (1.2-3.4) K/uL Linn # (Auto) (0.24-0.82) K/uL Eos # (Auto) (0-0.50) K/uL Baso # (Auto) (0-0.2) K/uL Immature Gran # (Auto) (0.00-0.02) K/uL Polychromasia PT (9.0-12.0) Seconds INR (0.9-1.1) APTT (21.0-31.0) Seconds PTT Ratio Sodium (136-145) mmol/L Potassium (3.5-5.1) mmol/L Chloride (98-107) mmol/L Carbon Dioxide (21-32) mmol/L Anion Gap (3-11) BUN (6-23) mg/dl Creatinine (0.6-1.4) mg/dl Est Cr Clr Drug Dosing ml/min Est GFR ( Amer) ml/min Est GFR (Non-Af Amer) ml/min BUN/Creatinine Ratio (10-20) Glucose (70-99(Fasting)) mg/dl Lactate (0.4-2.0) mmol/L Calcium (8.5-10.1) mg/dl Phosphorus 3.1 (2.5-4.9) mg/dl Magnesium 1.8 (1.7-2.4) mg/dl Total Bilirubin (0.2-1.0) mg/dl Direct Bilirubin (0-0.2) mg/dl AST (13-39) U/L ALT (7-52) U/L Alkaline Phosphatase (34-104) U/L Total Protein (6.0-8.3) gm/dl Albumin (3.4-5.0) gm/dl Globulin (2.5-4.0) gm/dl Albumin/Globulin Ratio (0.9-2) Vitamin B12 (180-914) pg/ml Folate (>5.38) ng/ml POC Stool Occult Blood Positive A (Negative) SARS-CoV-2, RNA, NAAT NEGATIVE (NEGATIVE) Blood Type Antibody Screen Crossmatch 09/13/21 09/13/21 09/13/21 Range/Units 18:55 11:53 11:53 WBC (4.8-10.8) K/ul RBC (4.63-6.08) M/uL Hgb (14.0-18.0) g/dl Hct (40.1-51.0) % MCV (80.0-100.0) fL MCH (25.0-34.0) pg MCHC (32.0-36.0) g/dL RDW Std Deviation (36.4-46.3) fL RDW Coeff of Edith (11.5-14.5) % Plt Count (130-400) K/uL MPV (9.4-12.4) fL Immature Gran % (Auto) % Neut % (Auto) % Lymph % (Auto) % Linn % (Auto) % Eos % (Auto) % Baso % (Auto) % Neut # (Auto) (1.4-6.5) K/uL Lymph # (Auto) (1.2-3.4) K/uL Linn # (Auto) (0.24-0.82) K/uL Eos # (Auto) (0-0.50) K/uL Baso # (Auto) (0-0.2) K/uL Immature Gran # (Auto) (0.00-0.02) K/uL Polychromasia PT 12.0 (9.0-12.0) Seconds INR 1.1 (0.9-1.1) APTT 26.6 (21.0-31.0) Seconds PTT Ratio 1.0 Sodium 140 (136-145) mmol/L Potassium 4.4 (3.5-5.1) mmol/L Chloride 108 H (98-107) mmol/L Carbon Dioxide 26 (21-32) mmol/L Anion Gap 6 (3-11) BUN 25 H (6-23) mg/dl Creatinine 1.33 (0.6-1.4) mg/dl Est Cr Clr Drug Dosing 44.5 ml/min Est GFR ( Amer) 56.1 ml/min Est GFR (Non-Af Amer) 48.4 ml/min BUN/Creatinine Ratio 18.8 (10-20) Glucose 107 H (70-99(Fasting)) mg/dl Lactate (0.4-2.0) mmol/L Calcium 10.3 H (8.5-10.1) mg/dl Phosphorus (2.5-4.9) mg/dl Magnesium (1.7-2.4) mg/dl Total Bilirubin 0.9 (0.2-1.0) mg/dl Direct Bilirubin (0-0.2) mg/dl AST 15 (13-39) U/L ALT 10 (7-52) U/L Alkaline Phosphatase 73 (34-104) U/L Total Protein 6.7 (6.0-8.3) gm/dl Albumin 4.0 (3.4-5.0) gm/dl Globulin 2.7 (2.5-4.0) gm/dl Albumin/Globulin Ratio 1.5 (0.9-2) Vitamin B12 (180-914) pg/ml Folate (>5.38) ng/ml POC Stool Occult Blood (Negative) SARS-CoV-2, RNA, NAAT (NEGATIVE) Blood Type B Positive Antibody Screen NEGATIVE Crossmatch See Detail 09/13/21 Range/Units 11:53 WBC 8.99 (4.8-10.8) K/ul RBC 2.77 L (4.63-6.08) M/uL Hgb 9.2 L (14.0-18.0) g/dl Hct 28.4 L (40.1-51.0) % MCV 102.5 H (80.0-100.0) fL MCH 33.2 (25.0-34.0) pg MCHC 32.4 (32.0-36.0) g/dL RDW Std Deviation 56.0 H (36.4-46.3) fL RDW Coeff of Edith 15.2 H (11.5-14.5) % Plt Count 240 (130-400) K/uL MPV 9.8 (9.4-12.4) fL Immature Gran % (Auto) % Neut % (Auto) % Lymph % (Auto) % Linn % (Auto) % Eos % (Auto) % Baso % (Auto) % Neut # (Auto) (1.4-6.5) K/uL Lymph # (Auto) (1.2-3.4) K/uL Linn # (Auto) (0.24-0.82) K/uL Eos # (Auto) (0-0.50) K/uL Baso # (Auto) (0-0.2) K/uL Immature Gran # (Auto) (0.00-0.02) K/uL Polychromasia PT (9.0-12.0) Seconds INR (0.9-1.1) APTT (21.0-31.0) Seconds PTT Ratio Sodium (136-145) mmol/L Potassium (3.5-5.1) mmol/L Chloride (98-107) mmol/L Carbon Dioxide (21-32) mmol/L Anion Gap (3-11) BUN (6-23) mg/dl Creatinine (0.6-1.4) mg/dl Est Cr Clr Drug Dosing ml/min Est GFR ( Amer) ml/min Est GFR (Non-Af Amer) ml/min BUN/Creatinine Ratio (10-20) Glucose (70-99(Fasting)) mg/dl Lactate (0.4-2.0) mmol/L Calcium (8.5-10.1) mg/dl Phosphorus (2.5-4.9) mg/dl Magnesium (1.7-2.4) mg/dl Total Bilirubin (0.2-1.0) mg/dl Direct Bilirubin (0-0.2) mg/dl AST (13-39) U/L ALT (7-52) U/L Alkaline Phosphatase (34-104) U/L Total Protein (6.0-8.3) gm/dl Albumin (3.4-5.0) gm/dl Globulin (2.5-4.0) gm/dl Albumin/Globulin Ratio (0.9-2) Vitamin B12 (180-914) pg/ml Folate (>5.38) ng/ml POC Stool Occult Blood (Negative) SARS-CoV-2, RNA, NAAT (NEGATIVE) Blood Type Antibody Screen Crossmatch PG Care Time/CCT Total # of Minutes Spent Total Time Spent with Patient: Total time spent is greater than 50% in coordination of care (as documented) at patient's floor/unit and/or counseling patient: Coding Level of Care Code 45824 Subseq Hosp Care Lvl 3 Diagnoses Rectal bleeding K62.5 A-fib I48.11 Atrial fibrillation type: longstanding persistent Hypertension I10 Hypertension type: essential hypertension Gout M10.9 (1) A-fib Atrial fibrillation type: longstanding persistent Qualified Code(s): I48.11 - Longstanding persistent atrial fibrillation (2) Hypertension Hypertension type: essential hypertension Qualified Code(s): I10 - Essential (primary) hypertension
[2021-09-14] MEDS ORDERED: SODIUM CHLORIDE 0.9% 1000ML 1,000 ML IV SCH (08:45)
--- NOTE | 2021-09-14 09:23 | Gastrointestinal Consultation ---
Date of Consultation September 14, 2021 Assessment & Plan (1) Rectal bleedin86 year old male with a history of a fib on eliquis, BPH, gout, HTN, several episodes of GI bleeding () who was recently on 09/02/21 through 09/06/21 for bright red blood per rectum. He went home and had done well until he resum ed his eliquis on 09/11/21 and developed further bleeding leading to this admission. - await results of GI bleed scan being done today and pending results, he may need transfer for IR intervention. - follow H/H and transfuse as needed. - will continue to monitor and follow. Supervising Physician Co-Signing Physician Notes I personally evaluated the patient and agree with the findings as documented by Del Barrett, TWAN Exam: Constitutional: WD/WN, vitals as above General: EOM intact bilaterally Neck: normal visual inspection Respiratory: normal respiratory effort, lungs clear to auscultation Cardiovascular: RRR, no murmur, no edema Gastrointestinal: abdomennormal to inspection, nondistended, soft, nontender, no hepatosplenomegaly Musculoskeletal: no cyanosis, head normal to inspection Skin: no rashes, warm and dry Neurologic: moves all extremities Psychiatric: A and O x3, euthymic affect bleeding scan negative, currently doing better, hgb 10.2. Will monitor overnight, if stable can likely d/c tomorrow and follow up with Breanna Reyna or Dr. Flores as an outpatient. History of Present Illness Reason for Consultation: LGIB Requesting Physician: Dr. Kitty James Attending Physician: Tiara Smith MD History of Present Illness Patient is an 86 year old male with a history of a fib on eliquis, BPH, gout, HTN, several episodes of GI bleeding () who was recently on 09/02/21 through 09/06/21 for bright red blood per rectum. He went home and had done well until he resumed his eliquis on 09/11/21. Shortly afterwards he started to notice brb on the toilet tissue after bowel movements. He then started to have stools that were franki in color. Yesterday he tells me that he noticed a significant amount of blood in the toilet with a bowel movement and came to the ED for evaluation. His hgb on discharge from last admission was 9.2 and his hgb upon this admission was 9.2. Since admission he tells me he has had one more franki stool. his hgb today is 7.5. Currently he is being transfused. Previous gastro communication note dated 09/05/21 had recommended if patient re-bleeds, consider [place] GI bleed scan and possibly transfer for IR intervention. He is to have a bleeding scan today. He denies any nausea, vomiting, heartburn, dysphagia, abdominal pain, melena. Colonoscopy 09/04/21 internal hemorrhoids and diverticulosis. CTA 09/02/21 unremarkable. Allergies Allergy/AdvReac Type Severity Reaction Status Date / Time No Known Allergies Allergy Verified 09/13/21 19:32 Home Medications Medication Instructions Recorded Confirmed Type allopurinol 100 mg tablet 100 mg PO QAM 01/27/18 09/13/21 History potassium chloride 10 mEq 10 meq PO QAM 01/27/18 09/13/21 History tablet,extended release metronidazole 1 % topical gel 1 applic topical DAILY PRN ROSACEA 02/02/18 09/13/21 History FLARES triamterene 37.5 0.5 tab PO QAM 02/23/19 09/13/21 History mg-hydrochlorothiazide 25 mg tablet apixaban 5 mg tablet 5 mg PO BID #180 tabs 10/05/20 09/13/21 Rx lisinopril 20 mg tablet 20 mg PO DAILY #90 tabs 04/05/21 09/13/21 Rx fluoride (sodium) 1.1 % dental 1 applic dental UD 09/13/21 09/13/21 History cream (Denta 5000 Plus) Patient History Medical History (Updated 09/13/21 @ 23:29 by Derrick Shelton DO) Atrial fibrillation Benign prostatic hyperplasia with urinary obstruction BPH (benign prostatic hyperplasia) BPH NOS w ur obs/LUTS Carpal tunnel syndrome of right wrist Diverticular disease Diverticulosis GI bleed 4-5 YEARS AGO --> 2/2 DIVERTICULITIS Gout Gross hematuria Hematuria FOLLOWING WITH DR. POLANCO. AWAITING CT AND CYSTOSCOPY Hypertension Kidney stones Mild mitral regurgitation On anticoagulant therapy Permanent atrial fibrillation Rosacea Swelling of eyelid Surgical History History of cataract surgery History of colonoscopy History of lithotripsy History of surgery on arm History of tonsillectomy History of total knee replacement RIGHT Status post Mohs surgery MULTIPLE TIMES Family History Father Cancer PROSTATE CANCER Social History Smoking Status: Never smoker Second Hand Exposure: No; Hx Alcohol Use: No Hx Substance Use: No Preferred Language: Italian Communication Ability: Effective 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 Beliefs That Will Affect Care: None marital status: Current Living Situation: Spouse Current Living Situation Comment: Lives at home with Feels Safe at Home: Yes Assistive Devices: None Review of Systems Constitutional: no fever, no chills and no fatigue Physical Exam Constitutional: WD/WN, vitals as above Eyes: + anicteric sclerae and PERRL ENMT: external ear and nose normal, oropharynx normal Respiratory: normal respiratory effort, lungs clear to auscultation Cardiovascular: RRR, no murmur, no edema Gastrointestinal (Abdomen): normal bowel sounds, soft, nontender, no hepa tosplenomegaly Skin: no rashes, warm and dry Psychiatric: A+Ox3, euthymic affect Results & Data ([facility]) Vital Signs (Past 12 Hours) Vital Signs Temp Pulse Pulse Pulse Resp BP BP 09/14/21 08:21 36.5 C 63 18 106/66 09/14/21 08:03 36.5 C 75 18 113/73 09/14/21 07:20 70 09/14/21 01:22 74 09/14/21 06:38 36.4 C L 72 20 136/85 09/14/21 06:45 36.6 C 68 18 149/90 H 09/14/21 06:24 36.5 C 72 16 136/81 09/14/21 05:45 36.4 C L 74 16 104/74 09/14/21 05:15 36.5 C 63 16 123/78 09/14/21 05:00 36.6 C 71 18 104/71 09/14/21 05:00 36.6 C 71 18 104/71 09/14/21 04:40 36.7 C 69 18 107/71 09/14/21 01:28 36.4 C L 64 16 100/62 09/14/21 01:03 69 14 83/54 L 09/14/21 00:00 67 23 09/14/21 00:00 97/57 L 09/13/21 23:00 69 17 09/13/21 23:00 108/67 09/13/21 22:00 70 19 09/13/21 22:00 99/59 L Pulse Ox O2 Del Method 09/14/21 08:21 100 09/14/21 08:03 100 09/14/21 07:20 09/14/21 01:22 09/14/21 06:38 100 Room Air 09/14/21 06:45 99 09/14/21 06:24 99 09/14/21 05:45 99 09/14/21 05:15 99 09/14/21 05:00 99 09/14/21 05:00 99 09/14/21 04:40 99 09/14/21 01:28 98 Room Air 09/14/21 01:03 98 Room Air 09/14/21 00:00 100 09/14/21 00:00 09/13/21 23:00 100 09/13/21 23:00 09/13/21 22:00 99 09/13/21 22:00 PG Care Time/CCT Total # of Minutes Spent Total Time Spent with Patient: Total time spent is greater than 50% in coordination of care (as documented) at patient's floor/unit and/or counseling patient: Coding Level of Care Code 98138 Initial Inpt Care Lvl 3 Diagnoses Rectal bleeding K62.5
[2021-09-14 11:46] LABS: Basophils # (auto) 0.07 K/uL (0-0.2); Basophils % (auto) 0.5 %; Eosinophils # (auto) 0.55 K/uL (0-0.50); Eosinophils % (auto) 4.2 %; Hematocrit (blood only) 32.5 % (40.1-51.0); Hemoglobin 10.7 g/dl (14.0-18.0); Immature Granulocytes # (auto) 0.05 K/uL (0.00-0.02); Immature Granulocytes % (auto) 0.4 %; Lymphocytes # (auto) 2.66 K/uL (1.2-3.4); Lymphocytes % (auto) 20.4 %; Mean Corpuscular Hgb Conc 32.9 g/dL (32.0-36.0); Mean Corpuscular Volume 100.3 fL (80.0-100.0); Mean Platelet Volume 9.9 fL (9.4-12.4); Monocytes # (auto) 1.06 K/uL (0.24-0.82); Monocytes % (auto) 8.1 %; Neutrophils # (auto) 8.66 K/uL (1.4-6.5); Neutrophils % (auto) 66.4 %; Platelet Count 226 K/uL (130-400); RDW Coefficient of Variation 16.1 % (11.5-14.5); RDW Standard Deviation 57.7 fL (36.4-46.3); Red Blood Count 3.24 M/uL (4.63-6.08); White Blood Count 13.05 K/ul (4.8-10.8)
[2021-09-14 12:10] LABS: Albumin Level 3.7 gm/dl (3.4-5.0); BUN Creatinine Ratio 21.4 (10-20); Bilirubin Direct 0.2 mg/dl (0-0.2); Bilirubin,Total 1.6 mg/dl (0.2-1.0); Calcium 9.8 mg/dl (8.5-10.1); Creatinine Clr Calc Pharmacy 47.3 ml/min; Est GFR (African American) 59.9 ml/min; Est GFR (Non-African American) 51.7 ml/min; Total Protein 6.1 gm/dl (6.0-8.3)
[2021-09-14] MEDS ORDERED: SODIUM CHLORIDE 0.9% 1000ML 250 ML IV ONE (12:21)
[2021-09-14 12:30] LABS: Folate (Folic Acid) 12.23 ng/ml (>5.38)
--- NOTE | 2021-09-14 14:19 | Nuclear Medicine Report ---
TAGGED RED BLOOD CELL GI BLEEDING SCAN CLINICAL HISTORY: bleeding COMPARISON STUDY: CT angiography of the abdomen and pelvis September 02, 2021. TECHNIQUE: Following the IV administration of 22.7 mCi of technetium 99m UltraTag labeled red blood c ells, nuclear bleeding scan was performed. Anterior flow images were obtained every 2 seconds for a t otal 48 seconds. Anterior static images were obtained every 5 minutes for a total of 60 minutes. FINDINGS: Expected radiotracer distribution is noted. There is no evidence for an active GI bleed du ring this 60 minute examination. Specifically, no tracer uptake within small or large bowel is identi fied. IMPRESSION: No scintigraphic evidence for GI bleed during this 60 minute study. ACT 112: Negative or not required by law. Electronically signed by: Zach Abreu M.D. 09/14/2021 2:18 PM
[2021-09-14 14:24] LABS: Basophils # (auto) 0.06 K/uL (0-0.2); Basophils % (auto) 0.6 %; Eosinophils % (auto) 2.9 %; Hematocrit (blood only) 31.1 % (40.1-51.0); Hemoglobin 10.2 g/dl (14.0-18.0); Immature Granulocytes # (auto) 0.05 K/uL (0.00-0.02); Immature Granulocytes % (auto) 0.5 %; Lymphocytes # (auto) 1.15 K/uL (1.2-3.4); Lymphocytes % (auto) 11.2 %; Mean Corpuscular Hemoglobin 32.6 pg (25.0-34.0); Mean Corpuscular Hgb Conc 32.8 g/dL (32.0-36.0); Mean Corpuscular Volume 99.4 fL (80.0-100.0); Mean Platelet Volume 9.5 fL (9.4-12.4); Monocytes # (auto) 0.63 K/uL (0.24-0.82); Monocytes % (auto) 6.2 %; Neutrophils # (auto) 8.05 K/uL (1.4-6.5); Neutrophils % (auto) 78.6 %; Platelet Count 209 K/uL (130-400); RDW Coefficient of Variation 16.6 % (11.5-14.5); RDW Standard Deviation 57.8 fL (36.4-46.3); Red Blood Count 3.13 M/uL (4.63-6.08); White Blood Count 10.24 K/ul (4.8-10.8)
--- NOTE | 2021-09-15 07:50 | Hospitalist Progress Note ---
Date of Service September 15, 2021 Assessment & Plan (1) Rectal bleeding: Plan: 86-year-old male with history of atrial fibrillation on apixaban anticoagulation, recent admission for lower GI bleed thought to be secondary to diverticular bleed returning with 2 days of bloody bowel movements. Patient reports franki colored stools. No abdominal pain. Prior diverticular bleed in . 1 bloody bowel movement witnessed in ER, additional franki stool this morning after 1 u prbc fecal occult positive s/p 2u prbc 09/14 repeat hgb to 10.7 (7.5 on admit, was 9.2 at discharge within past week) Holding eliquis (on for afib) checking B12/folate given MCV >100 Vitals stable at present, remains on room air. No CP/SOB reported or abdominal pain of note, prior stenosis SMA, lactic added and elevated however no abd pain IVF provided Continue NPO status for now Bleeding scan ordered --> patient currently in study GI consulted Antiemetics prn Continue to monitor labs/transfuse as needed/electrolyte replacement as needed Question referral to tertiary care center as previously discussed however remains stable at present and bleeding stopped with cessation of eliquis last admission and patient with permanent afib which has been rate controlled and recommend complete cessation of such (2) A-fib: Plan: Rate controlled but not on any rate controlling agents Permanent for at least 3-4 years, follows with Dr Christianson Holding eliquis, rec discontinuation Monitor on telemetry (3) Hypertension: Plan: Blood pressure 114/75 Holding BP agents at present Continue to monitor (4) Gout: Plan: Chronic. Well-controlled, no recent flare Holding allopurinol Plan NPO for bleeding scan, GI on consult rec d/c AC continued inpatient stay Admission and Anticipated Discharge Date Admission Date: September 13, 2021 Results & Data Results & Data ([facility]) Vital Signs (Past 12 Hours) Vital Signs Temp Pulse Resp BP Pulse Ox O2 Del Method 09/15/21 03:09 36.3 C L 73 18 124/75 98 Room Air 09/14/21 23:04 36.5 C 67 16 118/72 99 Room Air PG Care Time/CCT Total # of Minutes Spent Total Time Spent with Patient: Total time spent is greater than 50% in coordination of care (as documented) at patient's floor/unit and/or counseling patient: Coding Diagnoses Rectal bleeding K62.5 A-fib I48.11 Atrial fibrillation type: longstanding persistent Hypertension I10 Hypertension type: essential hypertension Gout M10.9 (1) A-fib Atrial fibrillation type: longstanding persistent Qualified Code(s): I48.11 - Longstanding persistent atrial fibrillation (2) Hypertension Hypertension type: essential hypertension Qualified Code(s): I10 - Essential (primary) hypertension
[2021-09-15 08:39] LABS: Basophils # (auto) 0.04 K/uL (0-0.2); Basophils % (auto) 0.4 %; Eosinophils # (auto) 0.73 K/uL (0-0.50); Eosinophils % (auto) 7.8 %; Hematocrit (blood only) 29.1 % (40.1-51.0); Hemoglobin 9.6 g/dl (14.0-18.0); Immature Granulocytes # (auto) 0.04 K/uL (0.00-0.02); Immature Granulocytes % (auto) 0.4 %; Lymphocytes # (auto) 1.98 K/uL (1.2-3.4); Lymphocytes % (auto) 21.2 %; Mean Corpuscular Hemoglobin 32.3 pg (25.0-34.0); Mean Platelet Volume 9.9 fL (9.4-12.4); Monocytes # (auto) 0.74 K/uL (0.24-0.82); Monocytes % (auto) 7.9 %; Neutrophils % (auto) 62.3 %; Platelet Count 208 K/uL (130-400); RDW Coefficient of Variation 17.1 % (11.5-14.5); RDW Standard Deviation 58.9 fL (36.4-46.3); Red Blood Count 2.97 M/uL (4.63-6.08); White Blood Count 9.33 K/ul (4.8-10.8)
[2021-09-15] MEDS ORDERED: lisinopril 20 MG TAB PO ONE (09:00)
[2021-09-15] MEDS ORDERED: CYANOCOBALAMIN (B-12) 500 MCG TABLET PO SCH (09:00)
[2021-09-15 09:31] LABS: Albumin Globulin Ratio 1.7 (0.9-2); Albumin Level 3.5 gm/dl (3.4-5.0); Calcium 9.8 mg/dl (8.5-10.1); Creatinine Clr Calc Pharmacy 42.9 ml/min; Est GFR (African American) 59.9 ml/min; Est GFR (Non-African American) 51.7 ml/min; Globulin 2.1 gm/dl (2.5-4.0); Magnesium 1.9 mg/dl (1.7-2.4); Potassium 3.9 mmol/L (3.5-5.1); Total Protein 5.6 gm/dl (6.0-8.3)
[2021-09-15] MEDS ORDERED: ERGOCALCIFEROL 50,000 UNITS 1250 MCG CAP PO SCH (10:15)
--- NOTE | 2021-09-15 11:30 | Discharge Summary ---
Date of Service September 15, 2021 Admission HPI Per Admitting Provider Abhay Major is an 86-year-old male with history of atrial fibrillation on apixaban anticoagulation, BPH, gout and hypertension, several episodes of lower GI bleed in the past presenting with "franki colored stools". Patient was recently admitted to [facility] from 09/02/2021 through 09/06/2021 for bright red blood in the rectum. Patient had a CT angiogram of the abdomen and pelvis that was unremarkable. He had a colonoscopy performed on 09/04/2021 which was unrevealing for the source of bleed. Patient was transfused with 1 unit PRBCs. Bleed ultimately thought to be secondary to diverticular hemorrhage. His Eliquis was held x1 week and he was discharged home in stable condition. Hemoglobin level on day of discharge was 9.2. Of note, patient with prior episode of lower GI bleed requiring hospitalization in March 2018 as well as 2013. Patient reports resuming his Eliquis on 09/11/2021 as directed shortly thereafter he began to notice blood present on the toilet paper after bowel movements. He reports that the blood was franki in color. Yesterday he noted a small amount of blood in the toilet bowl as well. He denies abdominal pain or cramping. Denies rectal pain. Denies hard stools or straining. Denies chest pain/cough/shortness of breath/dizziness/syncope. Denies nausea/vomiting/hematemesis. Admission Exam Per Admitting Provider General: patient resting comfortably, NAD, non-toxic in appearance, AA&O x 4 Skin: warm, dry, intact, no rashes or lesions, + pallor HEENT: NC/AT, PERRL, EOMI, anicteric sclera, conjunctiva without injection, external ear normal to inspection and nontender, nares patent, moist mucus membranes, dentition intact, no oropharyngeal lesions, neck supple, trachea midline, no LAD, no thyromegaly, no JVD Heart: +S1/S2, regular, no m/r/g Lungs: equal air entry bilaterally, no rales/rhonchi/wheezes Abd: +BS, soft, NT/ND, no masses/organomegaly/ascites Ext: warm, 2+ pulses in UE/LE bilaterally, no clubbing/cyanosis or edema Neuro: nonfocal, patient AA&O x 4, speech intact, no facial droop, moving all extremities on command with equal strength 5/5 Principal Diagnosis GI Bleed Discharge Exam General: WN/WD elderly male sitting up in bed, NAD, general pallor improved HEENT: head normocephalic, atraumatic, mm slightly dry trachea midline Resp: CTAB, no w/c/r 98% on RA CV: irregularly irregular, rate 66bpm, no m/r/g, no edema/calf tenderness GI: +BS throughout, soft, non-tender, no guarding or rigidity : no argueta MSK/Neuro; moves all extremities, no focal deficit Psych: AOx3 pleasant and cooperative Discharge Data Allergies Allergy/AdvReac Type Severity Reaction Status Date / Time No Known Allergies Allergy Verified 09/13/21 19:32 Consultations 09/13/21 19:09 ED Decision to Admit Stat 09/13/21 22:59 Consult Gastroenterology Routine Ordered Studies GI Bleed Scan Nuclear Medicine 09/14/21 07:24 TAGGED RED BLOOD CELL GI BLEEDING SCAN CLINICAL HISTORY: bleeding COMPARISON STUDY: CT angiography of the abdomen and pelvis September 02, 2021. TECHNIQUE: Following the IV administration of 22.7 mCi of technetium 99m UltraTag labeled red blood cells, nuclear bleeding scan was performed. Anterior flow images were obtained every 2 seconds for a total 48 seconds. Anterior static images were obtained every 5 minutes for a total of 60 minutes. FINDINGS: Expected radiotracer distribution is noted. There is no evidence for an active GI bleed during this 60 minute examination. Specifically, no tracer uptake within small or large bowel is identified. IMPRESSION: No scintigraphic evidence for GI bleed during this 60 minute study. ACT 112: Negative or not required by law. Electronically signed by: Zach Abreu M.D. 09/14/2021 2:18 PM Hospital Course (1) Rectal bleedin-year-old male with history of atrial fibrillation on apixaban anticoagulation, recent admission for lower GI bleed thought to be secondary to diverticular bleed returning with 2 days of bloody bowel movements. Patient reports franki colored stools. No abdominal pain. Prior diverticular bleed in . 1 bloody bowel movement witnessed in ER. 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 Lactic 3.1 and resolved with IVF/PRBC. Do not suspect ischemic bowel s/p 2u prbc for hgb 7.5 --> repeat hgb 9.6 on AM labs and did get some IVF while NPO and volume down 09/14 Iron panel not obtained but did recently recent get transfused and likely not good indicator of stores Borderline MCV on admit >100 (normalized on repeat), and checked B12/folate. B12 borderline and PO started and continued at discharge GI consulted -- follow up with Dr Flores at discharge Bleeding scan negative NO FURTHER BLOODY BM Discontinued Eliquis given re-bleed but notable the patient did not hold eliquis for very long prior to restarting Given previous bleeding and afib that is well rate controlled without medications, discussion with Dr Christianson and discontinued this at discharge --> to f/u with cardiology for discussion of watchman in future if needed. Ambulated in rojas without any dizziness/lightheadedness as concerns voiced by , able to take several laps without issue. Arranged for follow up appointment with Dr Guidry for 09/20 as patient transitioning from Dr Reji Alcazar and has yet to establish care. (2) A-fib: Rate controlled but not on any rate controlling agents, actually has pauses on holter, typically occuring at night Permanent for at least 3-4 years, follows with Dr Christianson -Did have 6beat vtach in pt w/ afib, asymptomatic. also noted 2.5 second pause overnight however patient w/ prior holter monitor and pauses up to 3.1seconds occurring overnight Dsicontinued eliquis at discharge and to have follow up Dr Christianson/consider watchman in future (3) Hyperparathyroidism: Ca elevated on admit but likely from acute blood loss anemia/dehydration and normalized on AM labs with normal albumin. (Does have b/l nephrolithiasis on prior CT imaging, no ureteral stones/hydro) However, prior levels have been elevated and prompted checking Vitamin D level/PTH PTH elevated as well significantly 179, vitamin D level significantly low at 11.1 Mixed picture primary hyperparathyroidism given the elevated calcium on admit/history of low level elevations, but also with significant vitamin d deficiency Placed on ergocalciferol 50,000 weekly and recommend continuing x 8 weeks at discharge and f/u PCP for repeat testing outpatient. (4) Hypertension: Blood pressure stable 124/75 Resumed lisinopril AM 09/14 for elevated BP but to check BP at home tomorrow and if keeping up with oral intake/eating without issue and BP stable in AM without any symptoms of lightheadedness/dizziness he can resume triamterene/HCTZ Consider decreasing this dose outpatient pending BPs/hydration status at baseline but given underlying afib although rate controlled, would like to ensure adequate BP control/stroke prevention (5) Gout: Chronic. Well-controlled Held allopurinol while npo for bleeding scan, can resume at discharge No issues inpatient (6) Vitamin D deficiency: low as above, 50,000 ergocalciferol at discharge and repeat labs with PCP for further management (7) B12 deficiency: B12 level checked given MCV >100 on admit B12 borderline low, started and to continue PO supplementation at d/c Total Time Total Time Spent Total Time Spent (In Minutes): 50 Discharge Plan Discharge Items Patient Disposition: Home - Self-Care Reason For Visit: LGIB Discharge Diagnosis: Diverticular Bleed Goals: You have been hospitalized for an acute medical problem. During your stay at [facility], we have made an effort to correct the problem that brought you to the hospital while keeping you as comfortable as possible. Medications were used to bring your condition under control and your discharge instructions will include directions for any medications you should take after leaving the hospital. Please make sure you see your Primary Care Provider as part of your follow up plan. Activity: Resume your previous activity Non-emergency contact: Primary Care Provider, Locomotive Pipe Fitter and Otr Driver Call non-emergency contact if: you have any medication questions, your symptoms worsen, your pain is not controlled and you have a fever Follow-up/Referrals: Abhay Christianson MD [Physician] - Demetrice Guidry MD [Primary Care Provider] - 09/20/21 11:00 am (Appointment with Jackie Dsouza PA-C) Diet: Heart Healthy Addtl Attending Provider Instructions: You have been hospitalized for an acute GI bleed. Your eliquis had been held as you quickly had rebleeding after this had previously stopped and quickly resolved after holding again. Given you have underlying afib, but this is PERMANENT that is on the slower side, in the setting of repeat bleeding, we have discussed with Dr Christianson and your ELIQUIS has been STOPPED. We also checked B12/folate levels and B12 was on the low end of normal. I recommended that you continue daily supplementation to prevent deficiency and this also can help with memory/balance. Your calcium had been elevated in the past, and I checked a vitamin D level to ensure this wasn't just from dehydration and your Vitamin D level was very low at 11.1. This puts you at risk for fractures in the event of a fall and I have ordered 50,000 units WEEKLY for a total of eight weeks to help boost these stores. You got a dose on FRIDAY, and your next dose should be next Friday. We also checked a parathyroid level which was elevated. We would like you to follow up with PCP for repeat labs once vitamin D is repleted to further delineate. Please hold your triamterene/hydrochlorothiazide until you check your blood pressure tomorrow and if eating/drinking normally and without lightheaded or dizziness you can resume this. You should follow up with primary care in the next 7-10 days. I have arranged an appointment with Dr Guidry for September 20 at 11am. You should also follow up with Dr Christianson in the next 2-3 weeks. Please return to the ER with any repeat bleeding, chest pain, shortness of breath, or for any other symptoms that are concerning for you. Pending Studies at Discharge: No Stand-Alone Forms: My [facility] Medications and DC Order Prescriptions: New ergocalciferol (vitamin D2) 1,250 mcg (50,000 unit) Capsule 50,000 unit PO Sa@0900 Qty: 7 0RF cyanocobalamin (vitamin B-12) 1,000 mcg capsule 1,000 mcg PO DAILY Qty: 30 0RF Continued lisinopril 20 mg tablet 20 mg PO DAILY Qty: 90 3RF potassium chloride 10 mEq Tablet Extended Release 10 meq PO QAM allopurinol 100 mg Tablet 100 mg PO QAM metronidazole 1 % Gel 1 applic TOPICAL DAILY PRN (Reason: ROSACEA FLARES) triamterene-hydrochlorothiazid 37.5-25 mg tablet 0.5 tab PO QAM fluoride (sodium) [Denta 5000 Plus] 1.1 % cream 1 applic dental UD Discontinued apixaban 5 mg tablet 5 mg PO BID Qty: 180 3RF Discharge Orders: Discharge Order (Routine); Ordered 09/15/21 Ordered By: Sole Mirza Admission Data Admit Date/Time: 09/13/21 20:12 Attending Provider: Tiara Smith Admit Provider: Kitty James Primary Care Provider: Demetrice Guidry Other Providers: Kitty James ; Brandon Flores Supervising Physician Co-Signing Physician Notes PA Supervision Note: I personally saw and examined the patient. I verified all feng points and agree with MARIO Mirza with the following exceptions and/or additions: S-Pt feeling well, no further bleeding in stool. No lightheadedness, CP, SOB. Is ambulating the halls and doing well, stable for discharge O- Vitals reviewed Gen: [AAOx3, NAD] HEENT: [anicteric sclerae, EOMI] CV: [irreg irreg, normal rate no mgr nl S1S2] Pulm: [CTAB no wcr] Abd: [+BS soft NT ND no masses or hernias] Ext: [no edema] Skin: [no rashes, warm/dry] Neuro: [full strength throughout] A/P-86 yo male here with GI bleed and acute blood loss anemia in setting of taking Eliquis Recommend to remain off ELiquis indefinitely follow CBC as outpt with PCP Bleeding has stopped, was given transfusional support. Bleeding scan negative Stable for dc to home Coding Level of Care Code D/C DAY MANAGEMENT >30 MINS Diagnoses Rectal bleeding K62.5 A-fib I48.11 Atrial fibrillation type: longstanding persistent Hyperparathyroidism E21.3 Hypertension I10 Hypertension type: essential hypertension Gout M10.9 Vitamin D deficiency E55.9 B12 deficiency E53.8
== END 2021-09-15 17:13 | disposition home or self-care (01) | DRG 378 ==
LOC: ED 12:55 → SUATTDRO 20:12 → EDINP 20:12 → 2W 09-14 01:15
DX: I10 Essential (primary) hypertension; N40.0 Benign prostatic hyperplasia without lower urinary tract symptoms; E53.8 Deficiency of other specified B group vitamins; E55.9 Vitamin D deficiency, unspecified; K57.91 Diverticulosis of intestine, part unspecified, without perforation or abscess with bleeding; D62 Acute posthemorrhagic anemia; M10.9 Gout, unspecified; Z79.01 Long term (current) use of anticoagulants; I48.11 Longstanding persistent atrial fibrillation; K62.5 Hemorrhage of anus and rectum; E21.3 Hyperparathyroidism, unspecified

== ENCOUNTER 2022-08-31 13:08 | Observation (INO) ==
[2022-08-31 14:04] LABS: Basophils # (auto) 0.06 K/uL (0-0.2); Basophils % (auto) 0.7 %; Eosinophils % (auto) 1.2 %; Hematocrit (blood only) 33.4 % (42.0-52.0); Hemoglobin 11.1 g/dl (14.0-18.0); Immature Granulocytes # (auto) 0.02 K/uL (0.01-0.20); Immature Granulocytes % (auto) 0.2 %; Lymphocytes # (auto) 1.09 K/uL (1.2-3.4); Mean Corpuscular Hemoglobin 33.1 pg (25.0-34.0); Mean Corpuscular Hgb Conc 33.2 g/dL (32.0-36.0); Mean Corpuscular Volume 99.7 fL (80.0-100.0); Mean Platelet Volume 10.8 fL (9.4-12.4); Monocytes # (auto) 0.57 K/uL (0.11-0.59); Monocytes % (auto) 6.8 %; Neutrophils # (auto) 6.53 K/uL (1.40-6.50); Neutrophils % (auto) 78.1 %; Platelet Count 191 K/uL (130-400); RDW Coefficient of Variation 13.6 % (11.5-14.5); Red Blood Count 3.35 M/uL (4.70-6.10); White Blood Count 8.37 K/ul (4.8-10.8)
[2022-08-31 14:30] LABS: Albumin Level 3.6 gm/dl (3.4-5.0); BUN Creatinine Ratio 15.7 (10-20); Bilirubin Direct 0.2 mg/dl (0-0.2); Bilirubin,Total 1.2 mg/dl (0.2-1.0); Creatinine Clr Calc Pharmacy 45.7 ml/min; Est GFR (African American) 58.9 ml/min; Est GFR (Non-African American) 50.8 ml/min; Potassium 3.7 mmol/L (3.5-5.1)
--- NOTE | 2022-08-31 15:25 | History & Physical Report ---
Date of Service August 31, 2022 Assessment & Plan (1) Hematochezia: Plan: Hold aspirin Clear liquids Monitor H&H q6h Will defer consulting gastroenterology on admission since this is a recurrent problem, he had a colonoscopy last year and do not suspect he will need blood transufsions. Likely diverticular bleed which is generally self limiting (2) Hypertension: Plan: Continue lisinopril (3) Permanent atrial fibrillation: Plan: Not on anticoagulation due to Watchman Rate controlled without medications Plan VTE Prophylaxis - chemical contraindicated Diet - clear liquids Disposition - obs to med/tele Admission and Anticipated Discharge Date Admission Date: August 31, 2022 History of Present Illness Chief Complaint: Hematochezia Primary Care Provider: Demetrice Guidry MD Abhay Major is an 87 year old male who presents to the ER 4 days hematochezia. He has had multiple similar bleeds which have been likely diverticular. He was hospitalized in August 2021 requiring 3 units of blood however this was while taking Eliquis. He is no longer on Eliquis since having a Wachman device placed however remains on aspirin which he last took this morning. Last colonoscopy was in August 2021 showing non-bleeding internal hemorrhoids, scattered small and large mouthed diverticular and no evidence of acute or recent GI bleeding throughout the colon or terminal ileum. He denies any chest pain, lightheadedness or shortness of breath. Main reason he came in today was because he was sure he was during the right thing. No abdominal pain, constipation, diarrhea, nausea, vomiting, fever or chills. Allergies Allergy/AdvReac Type Severity Reaction Status Date / Time No Known Allergies Allergy Verified 08/30/22 13:37 Home Medications Medication Instructions Recorded Confirmed Type fluoride (sodium) 1.1 % dental 1 applic dental DIRECTED 09/13/21 08/31/22 History cream (Denta 5000 Plus) aspirin 81 mg tablet,delayed 81 mg PO DAILY 02/05/22 08/31/22 History release (Adult Low Dose Aspirin) allopurinol 100 mg tablet 100 mg PO QAM #90 tabs 03/18/22 08/31/22 Rx cholecalciferol (vitamin D3) 50 50 mcg PO DAILY 05/06/22 08/31/22 History mcg (2,000 unit) capsule lisinopril 20 mg tablet 20 mg PO DAILY #90 tabs 05/06/22 08/31/22 Rx metronidazole 1 % topical gel 1 applic topical DAILY #60 grams 05/21/22 08/31/22 Rx Past Med/Surg History Medical History A-fib Atrial fibrillation Benign prostatic hyperplasia with urinary obstruction BPH (benign prostatic hyperplasia) BPH NOS w ur obs/LUTS Carpal tunnel syndrome of right wrist Diverticular disease Diverticulosis GI bleed 4-5 YEARS AGO --> 2/2 DIVERTICULITIS Gout Gross hematuria Hematuria FOLLOWING WITH DR. POLANCO. AWAITING CT AND CYSTOSCOPY History of basal cell carcinoma History of SCC (squamous cell carcinoma) of skin Hypertension Kidney stones Mild mitral regurgitation On anticoagulant therapy Permanent atrial fibrillation Prediabetes Rosacea Swelling of eyelid Surgical History History of cataract surgery History of colonoscopy History of lithotripsy History of surgery on arm History of tonsillectomy History of total knee replacement RIGHT Status post Mohs surgery MULTIPLE TIMES Family History Father Cancer PROSTATE CANCER Prostate cancer Denies family history of Ovarian cancer Myocardial infarction Breast cancer Colorectal cancer Social History Smoking Status: Never smoker Second Hand Exposure: No; Do You Dip or Chew Tobacco: No; Hx Alcohol Use: No Hx Substance Use: No Preferred Language: Icelandic Communication Ability: Effective Visual Impairment: Limited Hearing Ability: Normal Feed Manager Required: No Beliefs That Will Affect Care: None marital status: Current Living Situation: Spouse Current Living Situation Comment: Lives at home with current occupational status: retired Feels Safe at Home: Yes Safety Concerns: Feels Safe At This Time Childhood Exposure to Second-Hand Smoke: No Dental Care, Regularly: Yes Physical Activity Frequency: 3-4 Times per Week Seatbelt Use: always Sunscreen Use: Yes Assistive Devices: Glasses Review of Systems Review of Systems: All systems reviewed & are unremarkable except as noted in HPI & below Physical Exam Constitutional: WD/WN, vitals as above Respiratory: normal respiratory effort, lungs clear to auscultation Cardiovascular: Rate/Rhythm: regular rate and + irregularly irregular Heart Sounds: no murmur Extremities: normal capillary refill; no calf tenderness and no pedal edema Gastrointestinal (Abdomen): normal bowel sounds, soft, nontender, no hepatosplenomegaly Musculoskeletal: no cyanosis or clubbing, extremities motor strength 5/5 Skin: no rashes, warm and dry Neurologic: moves all extremities and awake; not confused Psychiatric: A+Ox3, euthymic affect Results & Data Results & Data Vital Signs (Past 12 Hours) Vital Signs Temp Pulse Pulse Resp BP BP Pulse Ox 08/31/22 13:26 82 08/31/22 13:37 80 18 125/87 96 08/31/22 13:37 36.4 C L 81 18 125/87 95 O2 Del Method 08/31/22 13:26 08/31/22 13:37 Room Air 08/31/22 13:37 Room Air Laboratory Results Abnormal lab results 08/31/22 08/31/22 Range/Units 13:31 13:31 RBC 3.35 L (4.70-6.10) M/uL Hgb 11.1 L (14.0-18.0) g/dl Hct 33.4 L (42.0-52.0) % RDW Std Deviation 50.0 H (36.4-46.3) fL Neut # (Auto) 6.53 H (1.40-6.50) K/uL Lymph # (Auto) 1.09 L (1.2-3.4) K/uL Chloride 112 H (98-107) mmol/L Glucose 111 H (70-99(Fasting)) mg/dl Total Bilirubin 1.2 H (0.2-1.0) mg/dl Diagnostic Findings None Medications Administered ER Medications Given: None ECG Rate (beats per minute): 91 Rhythm: atrial fibrillation Findings: no acute ischemic change Comparison ECG Date: from (Apr 16, 2018) Change: no significant change Code Status & VTE Plan Code Status Full VTE Prophylaxis Plan VTE Prophylaxis will be ordered: No PG Care Time/CCT Total # of Minutes Spent Total Time Spent with Patient: Total time spent is greater than 50% in coordination of care (as documented) at patient's floor/unit and/or counseling patient: Coding Level of Care Code 35757 INT INP/OBS CARE 2/55MIN Diagnoses Hematochezia K92.1 Hypertension I10 Hypertension type: essential hypertension Permanent atrial fibrillation I48.2 (2) Hypertension Hypertension type: essential hypertension Qualified Code(s): I10 - Essential (primary) hypertension
[2022-08-31 15:29] LABS: INR 1.2 (0.9-1.1); Partial Thromboplastin Ratio 0.9; Partial Thromboplastin Time 26.1 Seconds (21.0-31.0); Prothrombin Time 12.9 Seconds (9.0-12.0)
[2022-08-31] MEDS: SODIUM CHLORIDE 0.9% 500 ML IV SCH ×2 (15:29→19:59)
--- NOTE | 2022-08-31 15:56 | Emergency Department Note ---
History of Present Illness General Chief complaint: GI Bleed Time Seen by Provider: 08/31/22 13:36 History of Present Illness Provider Complaint: + gross hematochezia Onset (ago): 4 day(s) Pain Consistency: + constant Relieved By: + none Exacerbated By: + bowel movement Context: + history of GI bleed; no liver disease, no hemorrhoids, no rectal trauma or no alcohol abuse Associated symptoms: no abdominal pain, no nausea, no vomiting, no epistaxis, no fever, no chills, no headaches or no shortness of breath Home Medications Medication Instructions Recorded Confirmed Type fluoride (sodium) 1.1 % dental 1 applic dental DIRECTED 09/13/21 08/31/22 History cream (Denta 5000 Plus) aspirin 81 mg tablet,delayed 81 mg PO DAILY 02/05/22 08/31/22 History release (Adult Low Dose Aspirin) allopurinol 100 mg tablet 100 mg PO QAM #90 tabs 03/18/22 08/31/22 Rx cholecalciferol (vitamin D3) 50 50 mcg PO DAILY 05/06/22 08/31/22 History mcg (2,000 unit) capsule lisinopril 20 mg tablet 20 mg PO DAILY #90 tabs 05/06/22 08/31/22 Rx metronidazole 1 % topical gel 1 applic topical DAILY #60 grams 05/21/22 08/31/22 Rx Allergies Allergy/AdvReac Type Severity Reaction Status Date / Time No Known Allergies Allergy Verified 08/30/22 13:37 Past Med/Surg History Medical History A-fib Atrial fibrillation Benign prostatic hyperplasia with urinary obstruction BPH (benign prostatic hyperplasia) BPH NOS w ur obs/LUTS Carpal tunnel syndrome of right wrist Diverticular disease Diverticulosis GI bleed 4-5 YEARS AGO --> 2/2 DIVERTICULITIS Gout Gross hematuria Hematuria FOLLOWING WITH DR. POLANCO. AWAITING CT AND CYSTOSCOPY History of basal cell carcinoma History of SCC (squamous cell carcinoma) of skin Hypertension Kidney stones Mild mitral regurgitation On anticoagulant therapy Permanent atrial fibrillation Prediabetes Rosacea Swelling of eyelid Surgical History History of cataract surgery History of colonoscopy History of lithotripsy History of surgery on arm History of tonsillectomy History of total knee replacement RIGHT Status post Mohs surgery MULTIPLE TIMES Family History Father Cancer PROSTATE CANCER Prostate cancer Denies family history of Ovarian cancer Myocardial infarction Breast cancer Colorectal cancer Social History Smoking Status: Never smoker Second Hand Exposure: No; Do You Dip or Chew Tobacco: No; Hx Alcohol Use: No Hx Substance Use: No Preferred Language: Korean Communication Ability: Effective Visual Impairment: Limited Hearing Ability: Normal Beauty Therapist Required: No Beliefs That Will Affect Care: None marital status: Current Living Situation: Spouse Current Living Situation Comment: Lives at home with current occupational status: retired Feels Safe at Home: Yes Childhood Exposure to Second-Hand Smoke: No Dental Care, Regularly: Yes Physical Activity Frequency: 3-4 Times per Week Seatbelt Use: always Sunscreen Use: Yes Assistive Devices: None Physical Exam Vital Signs: Vital Signs - 24 hr 08/31/22 13:37 08/31/22 13:37 08/31/22 13:26 Temperature 36.4 C L Temperature Source Temporal Artery Sc an Pulse Rate 81 82 Pulse Rate [Apical ] 80 Respiratory Rate 18 18 Blood Pressure 125/87 Blood Pressure [Ri ght Radial Artery] 125/87 Blood Pressure Patricia n 99 Blood Pressure Patricia n [Right Radial Ar jamey] 99 Pulse Oximetry 95 96 Oxygen Delivery Me thod Room Air Room Air Sepsis Recent Feve r Within 48 Hours No Sepsis New/Unexpla ined Change in Men enrique Status No Sepsis Action Take n by Nursing No Action Required Physical Exam: Physical Exam GENERAL: She is oriented to person, place, and time. She appears well-developed and well-nourished. She does not appear distressed. HENT: Exam performed. -Head: Normocephalic and atraumatic. -Right Ear: External ear normal. No mastoid erythema -Left Ear: External ear normal. No mastoid erythema -Mouth/Throat: The oropharynx is clear and moist. No trismus in the jaw. No dental abscesses or uvula swelling. No oropharyngeal exudate or tonsillar abscesses. EYES: Conjunctivae and EOM are normal.Right eye exhibits no discharge. Left eye exhibits no discharge. No scleral icterus. NECK: Normal range of motion. Neck supple. No JVD present. No tracheal deviation and normal range of motion present. CV: Normal rate, regular rhythm, normal heart sounds and intact distal pulses. There is no peripheral edema. Palpable radial pulses bue. PULM/CHEST: Effort normal and breath sounds normal. No respiratory distress. No stridor. She has no wheezes. She has no rales. -Chest Wall: She exhibits no tenderness. ABD: The abdomen is soft. Bowel sounds are normal. She has no distension. No mass is present. There is no tenderness. There is no rebound, no guarding, no Monroy's sign and no tenderness at McBurney's point. Rovsig negative Rectal: Bright red blood per rectum MUSC/SKEL: Normal range of motion. There is no peripheral edema, tenderness or deformity. NEURO: Motor and sensation grossly intact. SKIN: Skin is warm and dry. She is not diaphoretic. PSYCH: She has a normal mood and affect. Behavior is normal. Judgment and thought content normal. Course Course 1336: The patient was evaluated in room C2. A complete history and physical exam was performed Cardiac monitoring: An order was placed for continuous cardiac monitoring. The monitor shows a rate of 80 with atrial fibrilation rhythm interpreted by ks 1500: Vital signs stable. Labs show hemoglobin of 11.1, otherwise no significant lab abnormalities. No pain on palpation of the abdomen. Patient was offered inpatient observation versus outpatient follow-up, shared decision was making was used with the patient we decided that the patient should be observed overnight for GI bleed. [facility] hospitalist team will be made aware of the patient. Administered Medications Sodium Chloride (Nss) 500 mls @ 125 mls/hr IV .Q4H HUNTER Stop: 09/30/22 13:44 Last Admin: 08/31/22 15:29 Dose: 125 mls/hr Documented By: JOHANNA Medical Decision Making Laboratory Data Attestation: I reviewed the patient's lab results. 08/31/22 13:31 08/31/22 13:31 Lab Results 08/31/22 08/31/22 08/31/22 Range/Units 13:31 13:31 13:31 WBC 8.37 (4.8-10.8) K/ul RBC 3.35 L (4.70-6.10) M/uL Hgb 11.1 L (14.0-18.0) g/dl Hct 33.4 L (42.0-52.0) % MCV 99.7 (80.0-100.0) fL MCH 33.1 (25.0-34.0) pg MCHC 33.2 (32.0-36.0) g/dL RDW Std Deviation 50.0 H (36.4-46.3) fL RDW Coeff of Edith 13.6 (11.5-14.5) % Plt Count 191 (130-400) K/uL MPV 10.8 (9.4-12.4) fL Immature Gran % (Auto) 0.2 % Neut % (Auto) 78.1 % Lymph % (Auto) 13.0 % [place] % (Auto) 6.8 % Eos % (Auto) 1.2 % Baso % (Auto) 0.7 % Neut # (Auto) 6.53 H (1.40-6.50) K/uL Lymph # (Auto) 1.09 L (1.2-3.4) K/uL [place] # (Auto) 0.57 (0.11-0.59) K/uL Eos # (Auto) 0.10 (0-0.50) K/uL Baso # (Auto) 0.06 (0-0.2) K/uL Immature Gran # (Auto) 0.02 (0.01-0.20) K/uL PT Cancelled INR Cancelled APTT Cancelled PTT Ratio Cancelled Sodium 145 (136-145) mmol/L Potassium 3.7 (3.5-5.1) mmol/L Chloride 112 H (98-107) mmol/L Carbon Dioxide 23 (21-32) mmol/L Anion Gap 10 (3-11) BUN 20 (6-23) mg/dl Creatinine 1.27 (0.6-1.4) mg/dl Est Cr Clr Drug Dosing 45.7 ml/min Est GFR ( Amer) 58.9 ml/min Est GFR (Non-Af Amer) 50.8 ml/min BUN/Creatinine Ratio 15.7 (10-20) Glucose 111 H (70-99(Fasting)) mg/dl Calcium 10.0 (8.6-10.3) mg/dl Total Bilirubin 1.2 H (0.2-1.0) mg/dl Direct Bilirubin 0.2 (0-0.2) mg/dl AST 17 (13-39) U/L ALT 9 (7-52) U/L Alkaline Phosphatase 73 (34-104) U/L Total Protein 6.0 (6.0-8.3) gm/dl Albumin 3.6 (3.4-5.0) gm/dl Blood Type Antibody Screen 08/31/22 08/31/22 Range/Units 13:54 14:39 WBC (4.8-10.8) K/ul RBC (4.70-6.10) M/uL Hgb (14.0-18.0) g/dl Hct (42.0-52.0) % MCV (80.0-100.0) fL MCH (25.0-34.0) pg MCHC (32.0-36.0) g/dL RDW Std Deviation (36.4-46.3) fL RDW Coeff of Edith (11.5-14.5) % Plt Count (130-400) K/uL MPV (9.4-12.4) fL Immature Gran % (Auto) % Neut % (Auto) % Lymph % (Auto) % [place] % (Auto) % Eos % (Auto) % Baso % (Auto) % Neut # (Auto) (1.40-6.50) K/uL Lymph # (Auto) (1.2-3.4) K/uL [place] # (Auto) (0.11-0.59) K/uL Eos # (Auto) (0-0.50) K/uL Baso # (Auto) (0-0.2) K/uL Immature Gran # (Auto) (0.01-0.20) K/uL PT 12.9 H INR 1.2 H APTT 26.1 PTT Ratio 0.9 Sodium (136-145) mmol/L Potassium (3.5-5.1) mmol/L Chloride (98-107) mmol/L Carbon Dioxide (21-32) mmol/L Anion Gap (3-11) BUN (6-23) mg/dl Creatinine (0.6-1.4) mg/dl Est Cr Clr Drug Dosing ml/min Est GFR ( Amer) ml/min Est GFR (Non-Af Amer) ml/min BUN/Creatinine Ratio (10-20) Glucose (70-99(Fasting)) mg/dl Calcium (8.6-10.3) mg/dl Total Bilirubin (0.2-1.0) mg/dl Direct Bilirubin (0-0.2) mg/dl AST (13-39) U/L ALT (7-52) U/L Alkaline Phosphatase (34-104) U/L Total Protein (6.0-8.3) gm/dl Albumin (3.4-5.0) gm/dl Blood Type B Positive Antibody Screen NEGATIVE [facility] Narrative 1336: The patient was evaluated in room C2. A complete history and physical exam was performed Cardiac monitoring: An order was placed for continuous cardiac monitoring. The monitor shows a rate of 80 with atrial fibrilation rhythm interpreted by ks 1500: Vital signs stable. Labs show hemoglobin of 11.1, otherwise no significant lab abnormalities. No pain on palpation of the abdomen. Patient was offered inpatient observation versus outpatient follow-up, shared decision was making was used with the patient we decided that the patient should be observed overnight for GI bleed. [facility] hospitalist team will be made aware of the patient. Impression & Plan Lower GI bleed Discharge Plan Visit Data Chief Complaint: GI Bleed ED Provider: Anirudh Chiu Discharge Problem: Lower GI bleed Patient Disposition: Admitted As Inpatient Forms Stand Alone Forms: My [facility] Prescriptions Prescriptions: No Action allopurinol 100 mg tablet 100 mg PO QAM Qty: 90 3RF metronidazole 1 % gel 1 applic topical DAILY Qty: 60 1RF Rx Instructions: apply to forehead aspirin [Adult Low Dose Aspirin] 81 mg tablet,delayed release (DR/EC) 81 mg PO DAILY cholecalciferol (vitamin D3) 50 mcg (2,000 unit) capsule 50 mcg PO DAILY lisinopril 20 mg tablet 20 mg PO DAILY Qty: 90 3RF fluoride (sodium) [Denta 5000 Plus] 1.1 % cream 1 applic dental DIRECTED Referrals Referrals: Demetrice Guidry MD [Primary Care Provider] -
[2022-08-31 21:29] LABS: Hematocrit (blood only) 33.4 % (42.0-52.0); Hemoglobin 11.1 g/dl (14.0-18.0)
[2022-08-31] MEDS ORDERED: ACETAMINOPHEN 325 MG TAB PO PRN (22:53)
[2022-09-01 01:50] LABS: Basophils # (auto) 0.04 K/uL (0-0.2); Basophils % (auto) 0.5 %; Eosinophils # (auto) 0.18 K/uL (0-0.50); Eosinophils % (auto) 2.3 %; Hematocrit (blood only) 27.4 % (42.0-52.0); Hemoglobin 9.3 g/dl (14.0-18.0); Immature Granulocytes # (auto) 0.02 K/uL (0.01-0.20); Immature Granulocytes % (auto) 0.3 %; Lymphocytes # (auto) 1.48 K/uL (1.2-3.4); Lymphocytes % (auto) 18.9 %; Mean Corpuscular Hemoglobin 33.3 pg (25.0-34.0); Mean Corpuscular Hgb Conc 33.9 g/dL (32.0-36.0); Mean Corpuscular Volume 98.2 fL (80.0-100.0); Mean Platelet Volume 10.2 fL (9.4-12.4); Monocytes # (auto) 0.68 K/uL (0.11-0.59); Monocytes % (auto) 8.7 %; Neutrophils # (auto) 5.45 K/uL (1.40-6.50); Neutrophils % (auto) 69.3 %; Platelet Count 188 K/uL (130-400); RDW Coefficient of Variation 13.6 % (11.5-14.5); RDW Standard Deviation 48.6 fL (36.4-46.3); Red Blood Count 2.79 M/uL (4.70-6.10); White Blood Count 7.85 K/ul (4.8-10.8)
[2022-09-01 02:05] LABS: BUN Creatinine Ratio 17.4 (10-20); Calcium 9.6 mg/dl (8.6-10.3); Creatinine Clr Calc Pharmacy 43.8 ml/min; Est GFR (African American) 62.5 ml/min; Est GFR (Non-African American) 53.9 ml/min; Potassium 3.4 mmol/L (3.5-5.1)
[2022-09-01] MEDS ORDERED: allopurinoL 100 MG TAB PO SCH (09:00)
[2022-09-01] MEDS ORDERED: lisinopril 20 MG TAB PO SCH (09:00)
[2022-09-01 10:02] LABS: Hematocrit (blood only) 31.8 % (42.0-52.0); Hemoglobin 10.6 g/dl (14.0-18.0)
[2022-09-01] MEDS: POTASSIUM CHLORIDE / WTR 10 MEQ/100 ML PLCT IV SCH ×2 (10:46→12:23)
--- NOTE | 2022-09-01 11:45 | Electrocardiogram Report ---
Test Reason : Blood Pressure : / mmHG Vent. Rate : 077 BPM Atrial Rate : 000 BPM P-R Int : 000 ms QRS Dur : 088 ms QT Int : 386 ms P-R-T Axes : 000 -33 -55 degrees QTc Int : 436 ms Atrial fibrillation with premature ventricular or aberrantly conducted complexes Left axis deviation Anteroseptal infarct , age undetermined Abnormal ECG When compared with ECG of 10-APR-2022 11:47, (unconfirmed) QRS duration has decreased Anteroseptal infarct is now Present Confirmed by Guanakito Phillips ([id number]) on 09/01/2022 11:45:39 AM Referred By: REFERRED SELF Confirmed By:Guanakito Phillips
--- NOTE | 2022-09-01 12:59 | Discharge Summary ---
Date of Service September 01, 2022 Admission HPI Per Admitting Provider Abhay Major is an 87 year old male who presents to the ER 4 days hematochezia. He has had multiple similar bleeds which have been likely diverticular. He was hospitalized in August 2021 requiring 3 units of blood however this was while taking Eliquis. He is no longer on Eliquis since having a [place]achman device placed however remains on aspirin which he last took this morning. Last colonoscopy was in August 2021 showing non-bleeding internal hemorrhoids, scattered small and large mouthed diverticular and no evidence of acute or recent GI bleeding throughout the colon or terminal ileum. He denies any chest pain, lighthe adedness or shortness of breath. Main reason he came in today was because he was sure he was during the right thing. No abdominal pain, constipation, diarrhea, nausea, vomiting, fever or chills. Principal Diagnosis diverticular bleed Discharge Exam Constitutional: WD/WN, vitals as above Respiratory: normal respiratory effort, lungs clear to auscultation Cardiovascular: Rate/Rhythm: regular rate and + irregularly irregular Heart Sounds: no murmur Extremities: normal capillary refill; no calf tenderness and no pedal edema Gastrointestinal (Abdomen): normal bowel sounds, soft, nontender, no hepatosplenomegaly Musculoskeletal: no cyanosis or clubbing, extremities motor strength 5/5 Skin: no rashes, warm and dry Neurologic: moves all extremities and awake; not confused Psychiatric: A+Ox3, euthymic affect Discharge Data Allergies Allergy/AdvReac Type Severity Reaction Status Date / Time No Known Allergies Allergy Verified 08/30/22 13:37 Consultations 08/31/22 15:00 ED Decision to Admit Stat Hospital Course (1) Hematochezia: Due to diverticular bleed Hold aspirin Clear liquids, will advance to low fiber diet, Patient reports no new symtpoms. Patient has not had diarrhea, only had one BM with blood. Hemoglobin though is stable. Patient reports he will wwant to be discharged with close follwup with PCP, will check hemoglobin later in the week. His diverticular bleeds have been self limiting in the past. (2) Hypertension: Continue lisinopril (3) Permanent atrial fibrillation: Not on anticoagulation due to Watchman Rate controlled without medications Plan VTE Prophylaxis - chemical contraindicated Total Time Total Time Spent Total Time Spent (In Minutes): 32 Discharge Plan Discharge Items Patient Disposition: Home - Self-Care Reason For Visit: GI BLEED Discharge Diagnosis: GI bleed Activity: Resume your previous activity Non-emergency contact: Primary Care Provider Call non-emergency contact if: you have any medication questions Follow-up/Referrals: Demetrice Guidry MD [Primary Care Provider] - 09/10/22 11:00 am Diet: Low Fiber Addtl Attending Provider Instructions: Recommend you continue on a low fiber diet. If bleeding reoccurs, please come back to the ED. Recommend close followup with your PCP in 1-2 weeks. Recommend rechecking your blood work on Friday. Will hold your aspirin. A low fiber diet is typically recommended for individuals with certain medical conditions or as a temporary measure to relieve digestive symptoms. Here is some basic information about a low fiber diet: 1. Purpose: A low fiber diet limits the intake of foods high in dietary fiber to reduce the workload on the digestive system and ease symptoms like diarrhea, abdominal pain, or cramping. 2. Foods to limit or avoid: - Whole grains (e.g., whole wheat, whole oats, brown rice) - Legumes (e.g., lentils, beans, chickpeas) - Nuts and seeds - Raw fruits and vegetables (except for some cooked or peeled options) - High-fiber cereals or breads 3. Foods generally allowed: - Refined grains (e.g., white bread, white rice, refined cereals) - Cooked and peeled fruits and vegetables (e.g., applesauce, canned fruits, cooked carrots) - Lean meats, poultry, and fish - Dairy products (unless lactose intolerant) - Eggs 4. Cooking and preparation methods: - Choose peeled or cooked fruits and vegetables instead of raw ones. - Remove seeds and skin from fruits and vegetables. - Opt for refined grain products instead of whole grains. - Cook or soak legumes to reduce their fiber content. Continue this diet until your next followup appointment. Pending Studies at Discharge: No Stand-Alone Forms: My [employer], Smoking Cessation Medications and DC Order Prescriptions: New ferrous sulfate 325 mg (65 mg iron) tablet,delayed release (DR/EC) 325 mg PO MOWEFR Qty: 14 0RF Rx Instructions: Take one tablet once a day Friday, Friday and Friday Continued allopurinol 100 mg tablet 100 mg PO QAM Qty: 90 3RF metronidazole 1 % gel 1 applic topical DAILY Qty: 60 1RF Rx Instructions: apply to forehead cholecalciferol (vitamin D3) 50 mcg (2,000 unit) capsule 50 mcg PO DAILY lisinopril 20 mg tablet 20 mg PO DAILY Qty: 90 3RF fluoride (sodium) [Denta 5000 Plus] 1.1 % cream 1 applic dental DIRECTED Discontinued aspirin [Adult Low Dose Aspirin] 81 mg tablet,delayed release (DR/EC) 81 mg PO DAILY No Action aspirin [Adult Low Dose Aspirin] 81 mg tablet,delayed release (DR/EC) 81 mg PO DAILY Qty: 90 0RF Hold Instructions: HOLD PER [facility] Rx Instructions: on HOLD- UNTIL PCP DECIDES WHEN TO RESTART. [facility] 09/01/22 Discharge Orders: Discharge Order (Routine); Ordered 09/01/22 Ordered By: Kehinde Quick Admission Data Admit Date/Time: 08/31/22 15:32 Attending Provider: Kehinde Quick Admit Provider: Sabino Ryan Primary Care Provider: Demetrice Guidry Other Providers: Sabino Ryan Other Interventions: Discharge Summary Assessment (RN) Last Done: 09/01/22 14:04 Coding Level of Care Code 48045 INP/OBS DISCH >30 MIN Diagnoses Hematochezia K92.1 Hypertension I10 Hypertension type: essential hypertension Permanent atrial fibrillation I48.2
[2022-09-01 14:21] LABS: Hematocrit (blood only) 31.7 % (42.0-52.0); Hemoglobin 10.7 g/dl (14.0-18.0)
== END 2022-09-01 15:20 | disposition home or self-care (01) ==
LOC: 2N 13:08 → ED 13:08 → SUATTDRO 15:32 → 2N 19:44

== ENCOUNTER 2023-04-30 11:58 | Observation (INO) ==
--- NOTE | 2023-04-30 12:37 | Emergency Department Note ---
Impression & Plan Weakness, Fall, Acute dehydration, History of intracranial hemorrhage, Anemia, Hypomagnesemia ED Provider Note NAME: ALEJANDRO LOPEZ Jr AGE: 87 SEX: M : 1935 ARRIVES VIA: Ambulance INFORMANT: [Patient][nursing, ems] ED PROVIDER(S): [Angus Jacobo MD] CHIEF COMPLAINT: Fall HISTORY OF PRESENT ILLNESS: The patient is an 87-year-old male who was found on the floor next to his bed this morning. He was found by family. The patient believes he rolled out of bed. He thinks he was on the floor for about 2 hours. He currently denies any pain in the head, neck, back or extremities. He states that he has lately been in baseline health. Of note, the patient was at [facility] last month for an intracranial hemorrhage and hip fracture. No neurosurgical procedure was required. The right hip was repaired by orthopedics. The patient was at his doctor's office yesterday, as per the note, the family felt the patient may require rehab/strengthening. PMHx/PSHx/Social Hx: See Below PHYSICAL EXAM: GENERAL: Patient is in no acute distress. HEENT: No acute trauma, normocephalic atraumatic, mucous membranes dry, no nasal congestion. NECK: No stridor, no adenopathy, nontender cervical spine, trachea is midline. LUNGS: Clear to auscultation bilaterally, no wheeze, no rhonchi, breath sounds equal. HEART: Regular rate, irregular rhythm. No obvious murmur. ABDOMEN: Soft, nontender, no peritonitis. Gold catheter noted. EXTREMITIES: No cyanosis, full range of motion of all the joints without pain or difficulty. The surgical wounds along the right hip appear to be healing without infection. NEUROLOGIC: Awake and alert, excellent historian, no acute motor or sensory deficits, no focal weakness. No speech slur. SKIN: No jaundice, no diaphoresis. Back: Nontender thoracic or lumbar spine. DIFFERENTIAL DIAGNOSIS: Dehydration, electrolyte imbalance, anemia, debilitation, intracranial hemorrhage, extremity fracture, cervical spine injury, among others. EMERGENCY DEPARTMENT PROCEDURES: MEDICAL DECISION MAKING: There is no leukocytosis. The patient is anemic but this appears baseline when looking back at previous testing. There is a normal platelet count. No coagulopathy. No renal failure. Magnesium is low at 1.6. There were a few subtle liver enzyme elevations. ECG did not show acute ischemia, A-fib was seen. Cardiac enzyme testing x 1 is not consistent with acute cardiac injury. Patient appeared to be in a euthyroid state. Chest film does not show pneumonia or CHF. Pelvis film does not show any acute fracture and his hardware appears intact. Brain CT showed no acute bleed or mass effect. C-spine CT showed no acute fracture. On exam, the patient appeared dehydrated. No exam findings to suggest injury to the back, chest, abdomen or extremities. Patient received IV saline, 1 L. He was given IV magnesium. The patient is falling, his family does not feel he is safe at home. They believe he needs inpatient rehab, he needs strengthening. The patient was seen by case management. He will need inpatient hospitalization before being transferred to rehab. The patient and the family were aware of the need for the hospital stay. I did speak with case management a second time. The on-call hospitalist was consulted. Prior/Outside records/notes reviewed: Family practice note from 04/29/2023 describing the patient's current condition and the concern for the need for rehab placement. ECG per my interpretation: ECG indication was fall. The ECG shows atrial fibrillation with a rate of 76. There is no acute ST elevation. 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 There are no PVCs. The QTc is 420. Continuous Cardiac Monitoring per my interpretation: An order was placed for continuous cardiac monitoring. The monitor shows a rate of 64 with atrial fibrillation. Imaging/x-ray results per my interpretation: Chest x-ray does not show mediastinal widening, pneumonia or pneumothorax. Pelvis film does not show acute fracture, the rodding of the right hip appears intact. Chronic Medical/Social conditions affecting care: Advanced age. Care/Management discussed with: Case management, the on-call hospitalist. 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 POLANCO. AWAITING CT AND CYSTOSCOPY GI bleed 4-5 YEARS AGO --> 2/2 DIVERTICULITIS Diverticular disease On anticoagulant therapy Atrial fibrillation Hypertension Surgical History H/O tooth extraction History of tonsillectomy History of lithotripsy History of cataract surgery History of surgery on arm History of total knee replacement Status post Mohs surgery History of colonoscopy Family History Father Cancer Prostate cancer Denies family history of Ovarian cancer Myocardial infarction Breast cancer Colorectal cancer Social History Smoking Status: Never smoker Second Hand Exposure: No; Do You Dip or Chew Tobacco: No; Hx Alcohol Use: No Hx Substance Use: No Preferred Language: Kazakh Communication Ability: Effective Visual Impairment: Limited Hearing Ability: Normal Independent Crop Consultant Required: No Beliefs That Will Affect Care: None marital status: Current Living Situation: Spouse Current Living Situation Comment: Lives at home with current occupational status: retired Feels Safe at Home: Yes Childhood Exposure to Second-Hand Smoke: No Dental Care, Regularly: Yes Physical Activity Frequency: 3-4 Times per Week Seatbelt Use: always Sunscreen Use: Yes Assistive Devices: Cane and Walker Allergies Allergies Allergy/AdvReac Type Severity Reaction Status Date / Time Thiazides AdvReac Intermediate Hypercalcem Verified 04/08/23 15:45 ia Home Meds Home Medications Medication Instructions Recorded Confirmed fluoride (sodium) 1.1 % dental 1 applic dental DIRECTED 09/13/21 04/30/23 cream (Denta 5000 Plus) ferrous sulfate 325 mg (65 mg 325 mg PO 3XWK 04/08/23 04/30/23 iron) tablet,delayed release Previous Rx's Medication Instructions Recorded allopurinol 100 mg tablet 100 mg PO QAM #90 tabs 03/18/22 metronidazole 1 % topical gel 1 applic topical DAILY #60 grams 05/21/22 lisinopril 40 mg tablet 40 mg PO DAILY #90 tabs 11/13/22 alfuzosin 10 mg tablet,extended 10 mg PO DAILY #30 tabs 12/10/22 release 24 hr amlodipine 5 mg tablet 5 mg PO DAILY #90 tabs 12/27/22 escitalopram oxalate 10 mg tablet 10 mg PO DAILY #90 tabs 01/31/23 Results & Data (ED) Vital Signs Vital Signs - 24 hr 04/30/23 12:13 04/30/23 13:44 04/30/23 13:46 Temperature 36.8 C Temperature Source Oral Pulse Rate 64 67 66 Pulse Rate from SpO2 Sensor Pulse Rhythm Regular Pulse Strength Normal Respiratory Rate 20 22 Respiratory Effort / Characteristics Non-Labored Spontaneous Respiratory Depth Normal Respiratory Pattern Regular Blood Pressure 161/96 H Blood Pressure [Left Arm] Blood Pressure Mean 117 Blood Pressure Mean [Left Arm] Blood Pressure Position [Left Arm] Pulse Oximetry 97 Oxygen Delivery Method Room Air Sepsis Recent Fever Within 48 Hours No Sepsis New/Unexplained Change in Mental Status N/A Sepsis Action Taken by Nursing No Action Required 04/30/23 14:00 04/30/23 14:00 04/30/23 14:00 Temperature Temperature Source Pulse Rate 72 Pulse Rate from SpO2 Sensor Pulse Rhythm Pulse Strength Respiratory Rate 17 19 Respiratory Effort / Characteristics Non-Labored Respiratory Depth Normal Respiratory Pattern Regular Blood Pressure 152/100 H Blood Pressure [Left Arm] 152/100 H Blood Pressure Mean 123 Blood Pressure Mean [Left Arm] 117 Blood Pressure Position [Left Arm] Lying Pulse Oximetry 95 Oxygen Delivery Method Room Air Sepsis Recent Fever Within 48 Hours Sepsis New/Unexplained Change in Mental Status Sepsis Action Taken by Nursing 04/30/23 14:30 04/30/23 15:00 04/30/23 15:00 Temperature Temperature Source Pulse Rate 76 66 Pulse Rate from SpO2 Sensor 70 Pulse Rhythm Pulse Strength Respiratory Rate 20 20 Respiratory Effort / Characteristics Respiratory Depth Respiratory Pattern Blood Pressure 162/99 H 169/103 H Blood Pressure [Left Arm] Blood Pressure Mean 130 142 Blood Pressure Mean [Left Arm] Blood Pressure Position [Left Arm] Pulse Oximetry Oxygen Delivery Method Sepsis Recent Fever Within 48 Hours Sepsis New/Unexplained Change in Mental Status Sepsis Action Taken by Nursing 04/30/23 15:22 04/30/23 15:30 Temperature Temperature Source Pulse Rate 72 87 Pulse Rate from SpO2 Sensor Pulse Rhythm Pulse Strength Respiratory Rate 25 H Respiratory Effort / Characteristics Respiratory Depth Respiratory Pattern Blood Pressure Blood Pressure [Left Arm] Blood Pressure Mean Blood Pressure Mean [Left Arm] Blood Pressure Position [Left Arm] Pulse Oximetry Oxygen Delivery Method Sepsis Recent Fever Within 48 Hours Sepsis New/Unexplained Change in Mental Status Sepsis Action Taken by Jail Medications Current Medication List: was personally reviewed by me Laboratory Data Attestation: I reviewed the patient's lab results. 04/30/23 13:01 04/30/23 13:01 Lab Results 04/30/23 Range/Units 13:01 WBC 8.14 (4.8-10.8) K/ul RBC 3.78 L (4.70-6.10) M/uL Hgb 11.9 L (14.0-18.0) g/dl Hct 37.0 L (42.0-52.0) % MCV 97.9 (80.0-100.0) fL MCH 31.5 (25.0-34.0) pg MCHC 32.2 (32.0-36.0) g/dL RDW Std Deviation 54.6 H (36.4-46.3) fL RDW Coeff of Edith 15.3 H (11.5-14.5) % Plt Count 237 (130-400) K/uL MPV 9.3 L (9.4-12.4) fL Immature Gran % (Auto) 0.4 % Neut % (Auto) 70.5 % Lymph % (Auto) 14.5 % [place] % (Auto) 11.2 % Eos % (Auto) 3.2 % Baso % (Auto) 0.2 % Neut # (Auto) 5.74 (1.40-6.50) K/uL Lymph # (Auto) 1.18 L (1.20-3.40) K/uL [place] # (Auto) 0.91 H (0.11-0.59) K/uL Eos # (Auto) 0.26 (0.00-0.50) K/uL Baso # (Auto) 0.02 (0.00-0.20) K/uL Immature Gran # (Auto) 0.03 (0.01-0.20) K/uL APTT 28 (21-31) Seconds PTT Ratio 1.0 Sodium 142 (136-145) mmol/L Potassium 3.5 (3.5-5.1) mmol/L Chloride 106 (98-107) mmol/L Carbon Dioxide 31 (21-32) mmol/L Anion Gap 5 (3-11) BUN 27 H (6-23) mg/dl Creatinine 1.00 (0.6-1.4) mg/dl Est Cr Clr Drug Dosing 49.6 ml/min Est GFR ( Amer) 78.6 ml/min Est GFR (Non-Af Amer) 67.8 ml/min BUN/Creatinine Ratio 27.0 H (10-20) Glucose 113 H (70-99(Fasting)) mg/dl Calcium 10.9 H (8.6-10.3) mg/dl Magnesium 1.6 L (1.7-2.4) mg/dl Total Bilirubin 1.2 H (0.2-1.0) mg/dl AST 12 L (13-39) U/L ALT 8 (7-52) U/L Alkaline Phosphatase 133 H (34-104) U/L Total Creatine Kinase 19 L (30-223) U/L Troponin I High Sens 19.1 (0-20) pg/ml Total Protein 6.4 (6.0-8.3) gm/dl Albumin 3.6 (3.4-5.0) gm/dl Globulin 2.8 (2.5-4.0) gm/dl Albumin/Globulin Ratio 1.3 (0.9-2) TSH 1.026 (0.300-4.500) uIu/ml Administered Medications Discontinued Medications Sodium Chloride (Nss) 500 mls @ 999 mls/hr IV .Q31M HUNTER Stop: 04/30/23 13:00 Last Infusion: 04/30/23 14:14 Dose: Infused Documented By: Admin: 04/30/23 13:28 Dose: 999 mls/hr Documented By: ISA Magnesium Sulfate/Dextrose (Magnesium Sulfate / D5w) 1 gm in 100 mls @ 100 mls/hr IV NOW STA Stop: 04/30/23 14:50 Last Infusion: 04/30/23 15:16 Dose: Infused Documented By: Admin: 04/30/23 14:03 Dose: 100 mls/hr Documented By: ANAYA Sodium Chloride (Nss) 500 mls @ 999 mls/hr IV .Q31M ONE Stop: 04/30/23 14:21 Last Infusion: 04/30/23 15:16 Dose: Infused Documented By: Admin: 04/30/23 14:09 Dose: 999 mls/hr Documented By: ANAYA Magnesium Sulfate/Dextrose (Magnesium Sulfate / D5w) 1 gm in 100 mls @ 50 mls/hr IV ONE ONE Stop: 04/30/23 17:26 Last Admin: 04/30/23 16:25 Dose: 50 mls/hr Documented By: ANAYA Imaging Data Radiologist's Impression: Cervical Spine CT 04/30/23 12:28 CT cervical spine wo con CLINICAL HISTORY: fall TECHNIQUE: Multidetector row helical CT of the cervical spine was performed without administration of intravenous contrast. Coronal and sagittal reformations were obtained. Automated dose lowering techniques and/or adjustment according to patient size were utilized for this exam. Comparison: None available at the time of this dictation. FINDINGS: No acute fractures or subluxations are identified. Degenerative changes are seen in the visualized spine. The alignment is normal. Subcentimeter thyroid nodules are seen which do not require follow-up by ACR criteria. IMPRESSION: Degenerative changes without evidence of acute bony injury. ACT 112: Negative or not required by law. Electronically signed by: Chapin Arora M.D. 04/30/2023 1:05 PM Chest X-Ray 04/30/23 12:28 XR chest 1V portable HISTORY: 87 years-old Male weakness COMPARISON: 04/08/2023 TECHNIQUE: AP view the chest FINDINGS: Cardiac silhouette is enlarged. Atherosclerosis of the aorta. No pneumothorax, pleural effusion or airspace consolidation. Bones appear grossly intact. No pulmonary edema. IMPRESSION: Cardiomegaly without acute process. ACT 112: Negative or not required by law. The above report was generated using voice recognition software. It may contain grammatical, syntax or spelling errors. Electronically signed by: Shaquille Villafuerte M.D. 04/30/2023 3:[address] 04/30/23 12:28 CT OF THE HEAD WITHOUT CONTRAST CLINICAL HISTORY: Fall. COMPARISON STUDY: Head CT April 08, 2023. TECHNIQUE: Helical axial images of the head were obtained without IV contrast. Automated exposure control was utilized for the study. A dose lowering technique was utilized adhering to the principles of ALARA. FINDINGS: The small amount of acute intraventricular hemorrhage on prior head CT has nearly completely resolved with trace residual hemorrhage. The ventricular system is stable. White matter hypodensity suggests small vessel disease. Focal hypodensity within left cerebellar hemisphere remains unchanged. The basal cisterns are patent. No extra-axial collections are present. There are no findings to suggest acute dural sinus thrombosis or acute territorial infarct. No significant calvarial abnormalities are present. Visualized portions of the sinuses and mastoid air cells are clear. IMPRESSION: 1. No acute intracranial findings. Near complete resolution of intraventricular hemorrhage shown on head CT of April 08, 2023. 2. No calvarial fracture. ACT 112: Negative or not required by law. Electronically signed by: Zach Abreu M.D. 04/30/2023 1:26 PM Pelvis X-Ray 04/30/23 12:28 XR pelvis 1-2V routine CLINICAL HISTORY: fall, recent hip surgery TECHNIQUE: A single frontal view of the pelvis was obtained. Comparison: Comparison is made to hip radiograph 04/08/2023 FINDINGS: There is no evidence of an acute fracture. Degenerative changes are seen in the hip joints and lumbar spine. Right medullary nail is seen. No soft tissue abnormality is seen. IMPRESSION: Degenerative changes without evidence of acute abnormality. ACT 112: Negative or not required by law. Electronically signed by: Chapin Arora M.D. 04/30/2023 2:14 PM Discharge Plan Visit Data Chief Complaint: Fall Stated Complaint: HEAD AND NECK PAIN ED Provider: Angus Jacobo Discharge Problem: Weakness, Fall, Acute dehydration, History of intracranial hemorrhage, Anemia, Hypomagnesemia Patient Disposition: Admitted As Inpatient Condition: Fair Discharge Instructions Interventions: ED Discharge Assessment Last Done: 04/30/23 17:03 Discharge Problem: Fall Qualifiers: Encounter type: initial encounter Qualified Code(s): W19.XXXA - Unspecified fall, initial encounter Anemia Qualifiers: Anemia type: unspecified type Qualified Code(s): D64.9 - Anemia, unspecified
--- NOTE | 2023-04-30 13:06 | CT Scan Report ---
CT cervical spine wo con CLINICAL HISTORY: fall TECHNIQUE: Multidetector row helical CT of the cervical spine was performed without administration of intravenous contrast. Coronal and sagittal reformations were obtained. Automated dose lowering techn iques and/or adjustment according to patient size were utilized for this exam. Comparison: None available at the time of this dictation. FINDINGS: No acute fractures or subluxations are identified. Degenerative changes are seen in the visualized sp ine. The alignment is normal. Subcentimeter thyroid nodules are seen which do not require follow-up b y ACR criteria. IMPRESSION: Degenerative changes without evidence of acute bony injury. ACT 112: Negative or not required by law. Electronically signed by: Chapin Arora M.D. 04/30/2023 1:05 PM
--- NOTE | 2023-04-30 13:27 | CT Scan Report ---
CT OF THE HEAD WITHOUT CONTRAST CLINICAL HISTORY: Fall. COMPARISON STUDY: Head CT April 08, 2023. TECHNIQUE: Helical axial images of the head were obtained without IV contrast. Automated exposure con trol was utilized for the study. A dose lowering technique was utilized adhering to the principles o f ALARA. FINDINGS: The small amount of acute intraventricular hemorrhage on prior head CT has nearly completel y resolved with trace residual hemorrhage. The ventricular system is stable. White matter hypodensity suggests small vessel disease. Focal hypodensity within left cerebellar hemisphere remains unchanged . The basal cisterns are patent. No extra-axial collections are present. There are no findings to sug gest acute dural sinus thrombosis or acute territorial infarct. No significant calvarial abnormalitie s are present. Visualized portions of the sinuses and mastoid air cells are clear. IMPRESSION: 1. No acute intracranial findings. Near complete resolution of intraventricular hemorrhage shown on h ead CT of April 08, 2023. 2. No calvarial fracture. ACT 112: Negative or not required by law. Electronically signed by: Zach Abreu M.D. 04/30/2023 1:26 PM
[2023-04-30] MEDS: SODIUM CHLORIDE 0.9% 500 ML IV SCH (13:28)
[2023-04-30 13:30] LABS: Basophils # (auto) 0.02 K/uL (0.00-0.20); Basophils % (auto) 0.2 %; Eosinophils # (auto) 0.26 K/uL (0.00-0.50); Eosinophils % (auto) 3.2 %; Hemoglobin 11.9 g/dl (14.0-18.0); Immature Granulocytes # (auto) 0.03 K/uL (0.01-0.20); Immature Granulocytes % (auto) 0.4 %; Lymphocytes # (auto) 1.18 K/uL (1.20-3.40); Lymphocytes % (auto) 14.5 %; Mean Corpuscular Hemoglobin 31.5 pg (25.0-34.0); Mean Corpuscular Hgb Conc 32.2 g/dL (32.0-36.0); Mean Corpuscular Volume 97.9 fL (80.0-100.0); Mean Platelet Volume 9.3 fL (9.4-12.4); Monocytes # (auto) 0.91 K/uL (0.11-0.59); Monocytes % (auto) 11.2 %; Neutrophils # (auto) 5.74 K/uL (1.40-6.50); Neutrophils % (auto) 70.5 %; Platelet Count 237 K/uL (130-400); RDW Coefficient of Variation 15.3 % (11.5-14.5); RDW Standard Deviation 54.6 fL (36.4-46.3); Red Blood Count 3.78 M/uL (4.70-6.10); White Blood Count 8.14 K/ul (4.8-10.8)
[2023-04-30 13:45] LABS: Albumin Globulin Ratio 1.3 (0.9-2); Albumin Level 3.6 gm/dl (3.4-5.0); Bilirubin,Total 1.2 mg/dl (0.2-1.0); Calcium 10.9 mg/dl (8.6-10.3); Creatinine Clr Calc Pharmacy 49.6 ml/min; Est GFR (African American) 78.6 ml/min; Est GFR (Non-African American) 67.8 ml/min; Globulin 2.8 gm/dl (2.5-4.0); Magnesium 1.6 mg/dl (1.7-2.4); Potassium 3.5 mmol/L (3.5-5.1); Total Protein 6.4 gm/dl (6.0-8.3)
[2023-04-30 13:51] LABS: Troponin I High Sensitivity 19.1 pg/ml (0-20)
[2023-04-30 13:54] LABS: Partial Thromboplastin Time 28 Seconds (21-31)
[2023-04-30 14:00] LABS: Thyroid Stimulating Hormone 1.026 uIu/ml (0.300-4.500)
[2023-04-30] MEDS: MAGNESIUM SULFATE / D5W 1 GM/100 ML BAG IV STA (14:03)
[2023-04-30] MEDS: SODIUM CHLORIDE 0.9% 500 ML IV ONE (14:09)
--- NOTE | 2023-04-30 14:16 | XRay Report ---
XR pelvis 1-2V routine CLINICAL HISTORY: fall, recent hip surgery TECHNIQUE: A single frontal view of the pelvis was obtained. Comparison: Comparison is made to hip radiograph 04/08/2023 FINDINGS: There is no evidence of an acute fracture. Degenerative changes are seen in the hip joints and lumbar spine. Right medullary nail is seen. No soft tissue abnormality is seen. IMPRESSION: Degenerative changes without evidence of acute abnormality. ACT 112: Negative or not required by law. Electronically signed by: Chapin Arora M.D. 04/30/2023 2:14 PM
--- NOTE | 2023-04-30 14:51 | History & Physical Report ---
Date of Service April 30, 2023 Assessment & Plan (1) Fall: Plan: Patient rolled out of bed on the morning of 04/29 and was on the ground for approximately 2 hours before being found by No leukocytosis; afebrile Total creatinine kinase low at [address] revealed no acute intracranial findings; near complete resolution of intraventricular hemorrhage (from April 08, 2023) Pelvic x-ray revealed degenerative changes but no acute abnormalities Fall precautions Aspiration precautions PT/OT consulted Case management consult, as patient would like rehab at [facility] which requires 3 days inpatient A.m. CBC, BMP, mag (2) Urinary retention: Plan: Indwelling Gold UA ordered, pending Daily catheter care (3) Hypomagnesemia: Plan: Magnesium 1.6 on arrival Magnesium sulfate 2 g IV given Recheck a.m. mag (4) Permanent atrial fibrillation: Plan: S/p Watchman procedure EKG revealed atrial fibrillation at 76 bpm; QTc 420 (5) Hypercalcemia: Plan: Chronic; 10.9 on arrival (Corrected: 11.2) May be secondary to chronic primary hyperparathyroidism Fluid resuscitation with LR at 125 mL/hr x 2 Recheck a.m. calcium Plan Disposition: Admit to [facility] DNR/DNI Regular diet (aspiration precautions) VTE PPx: SCDs (fall precautions; okay to hold anticoag given watchman) History of Present Illness Chief Complaint: Fall Primary Care Provider: Demetrice Guidry MD Abhay is an 87-year-old male with PMH of permanent A-fib, gout, GI bleed, acute diverticulitis, BPH, hyperparathyroidism, nephrolithiasis, total knee replacement, urinary retention (indwelling catheter), and HTN. He presented for a fall on 04/29 after rolling out of bed and being found on the floor by his ~2 hours later. Patient is unsure what time he fell, but believes he was down for 2 hours, and was unable to get up on his own. He denies head strike, LOC, or blood thinners. He does note that his right leg has been weaker since his operation for a recent hip fracture. Recent intracranial hemorrhage and right hip fracture (at [facility]); discharge from [facility] 1 week ago. Patient denies smoking, alcohol use, and tobacco use. He is unsure if he took his morning medications today. He notes he has an indwelling catheter, and believes it was placed around a week ago. Patient is hypertensive at 152/100 at time of admission; vitals otherwise stable. ED course: NSS 500 mL IV x 2 Magnesium sulfate 1 g IV ROS: Patient endorses dark orange urine, blood in the urine (resolved) Patient denies fever, chills, night sweats, dizziness, lightheadedness, headache, chest pain, SOB, abdominal pain, right hip pain, N/V/D, saddle anesthesia, back pain, or numbness/tingling in the legs. Allergies Allergy/AdvReac Type Severity Reaction Status Date / Time Thiazides AdvReac Intermediate Hypercalcem Verified 04/08/23 15:45 ia Home Medications Medication Instructions Recorded Confirmed Type fluoride (sodium) 1.1 % dental 1 applic dental DIRECTED 09/13/21 04/30/23 History cream (Denta 5000 Plus) allopurinol 100 mg tablet 100 mg PO QAM #90 tabs 03/18/22 04/30/23 Rx metronidazole 1 % topical gel 1 applic topical DAILY #60 grams 05/21/22 04/30/23 Rx lisinopril 40 mg tablet 40 mg PO DAILY #90 tabs 11/13/22 04/30/23 Rx alfuzosin 10 mg tablet,extended 10 mg PO DAILY #30 tabs 12/10/22 04/30/23 Rx release 24 hr amlodipine 5 mg tablet 5 mg PO DAILY #90 tabs 12/27/22 04/30/23 Rx escitalopram oxalate 10 mg tablet 10 mg PO DAILY #90 tabs 01/31/23 04/30/23 Rx ferrous sulfate 325 mg (65 mg 325 mg PO 3XWK 04/08/23 04/30/23 History iron) tablet,delayed release Past Med/Surg History Medical History ELISE (acute kidney injury) Prediabetes A-fib Benign prostatic hyperplasia with 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 Diverticulosis Gross hematuria History of SCC (squamous cell carcinoma) of skin History of basal cell carcinoma BPH NOS w ur obs/LUTS Mild mitral regurgitation Permanent atrial fibrillation Rosacea Swelling of eyelid Gout BPH (benign prostatic hyperplasia) Kidney stones Hematuria FOLLOWING WITH DR. POLNACO. AWAITING CT AND CYSTOSCOPY GI bleed 4-5 YEARS AGO --> 2/2 DIVERTICULITIS Diverticular disease On anticoagulant therapy Atrial fibrillation Hypertension Surgical History H/O tooth extraction History of tonsillectomy History of lithotripsy History of cataract surgery History of surgery on arm History of total knee replacement Status post Mohs surgery History of colonoscopy Family History Father Cancer Prostate cancer Denies family history of Ovarian cancer Myocardial infarction Breast cancer Colorectal cancer Social History Smoking Status: Never smoker Second Hand Exposure: No; Do You Dip or Chew Tobacco: No; Hx Alcohol Use: No Hx Substance Use: No Preferred Language: Welsh Communication Ability: Effective Visual Impairment: Limited Hearing Ability: Normal Oncology Nurse Navigator Required: No Beliefs That Will Affect Care: None marital status: Current Living Situation: Spouse Current Living Situation Comment: Lives at home with current occupational status: retired Feels Safe at Home: No Is there a partner from a previous relationship who is making you feel unsafe now?: No Any Concerns about Your Family Situation: No Would You Like to Speak to Someone About Your Situation: No Safety Concerns: Feels Safe At This Time Childhood Exposure to Second-Hand Smoke: No Dental Care, Regularly: Yes Physical Activity Frequency: 3-4 Times per Week Seatbelt Use: always Sunscreen Use: Yes Assistive Devices: Cane and Walker Review of Systems Review of Systems: See HPI above Physical Exam Physical Exam: General: no acute distress; pleasant affect; non-toxic appearing; well- nourished; cooperative HEENT: normocephalic, atraumatic; no scleral icterus; PERRLA w/ EOMs intact; moist mucus membrane; vision and hearing grossly intact Neck: supple; no lymphadenopathy; trachea midline Skin: warm, dry without signs of tenting; no cyanosis; no rashes, bruising, lesions, or erythema noted CV: chest wall NTP; irregularly irregular rhythm; S1/S2 normal; 2/6 systolic ejection murmur auscultated at the second ICS MCL; pulses intact and symmetric at radial, DP, and PT Lungs: no acute respiratory distress; symmetrical chest wall expansion; clear breath sounds across all lung park w/o adventitious sounds; no wheezing ABD: Soft, NTP; BS present; no rebound/guarding; no ascites; no distention Right hip: Surgical site NTP without erythema, drainage MSK: no tics or fasciculations; +1 pitting edema noted in the LEs b/l, nonerythematous; patient demonstrates symmetrical toes; decreased strength 3/5 when lifting with the right leg at the hip; 4/5 in left leg Neuro: A&Ox3; normal mood and affect; fluent speech; no focal deficits; sensation grossly intact in the LEs b/l Results & Data Results & Data Vital Signs (Past 12 Hours) Vital Signs Temp Pulse Resp BP BP Pulse Ox O2 Del Method 04/30/23 14:00 17 152/100 H 95 Room Air 04/30/23 13:46 66 04/30/23 12:13 36.8 C 64 20 161/96 H 97 Room Air Laboratory Results Abnormal lab results 04/30/23 Range/Units 13:01 RBC 3.78 L (4.70-6.10) M/uL Hgb 11.9 L (14.0-18.0) g/dl Hct 37.0 L (42.0-52.0) % RDW Std Deviation 54.6 H (36.4-46.3) fL RDW Coeff of Edith 15.3 H (11.5-14.5) % MPV 9.3 L (9.4-12.4) fL Lymph # (Auto) 1.18 L (1.20-3.40) K/uL Lander # (Auto) 0.91 H (0.11-0.59) K/uL BUN 27 H (6-23) mg/dl BUN/Creatinine Ratio 27.0 H (10-20) Glucose 113 H (70-99(Fasting)) mg/dl Calcium 10.9 H (8.6-10.3) mg/dl Magnesium 1.6 L (1.7-2.4) mg/dl Total Bilirubin 1.2 H (0.2-1.0) mg/dl AST 12 L (13-39) U/L Alkaline Phosphatase 133 H (34-104) U/L Total Creatine Kinase 19 L (30-223) U/L Diagnostic Findings Cervical Spine CT 04/30/23 12:28 CT cervical spine wo con CLINICAL HISTORY: fall TECHNIQUE: Multidetector row helical CT of the cervical spine was performed without administration of intravenous contrast. Coronal and sagittal reformations were obtained. Automated dose lowering techniques and/or adjustment according to patient size were utilized for this exam. Comparison: None available at the time of this dictation. FINDINGS: No acute fractures or subluxations are identified. Degenerative changes are seen in the visualized spine. The alignment is normal. Subcentimeter thyroid nodules are seen which do not require follow-up by ACR criteria. IMPRESSION: Degenerative changes without evidence of acute bony injury. ACT 112: Negative or not required by law. Electronically signed by: Chapin Arora M.D. 04/30/2023 1:[address] 04/30/23 12:28 CT OF THE HEAD WITHOUT CONTRAST CLINICAL HISTORY: Fall. COMPARISON STUDY: Head CT April 08, 2023. TECHNIQUE: Helical axial images of the head were obtained without IV contrast. Automated exposure control was utilized for the study. A dose lowering technique was utilized adhering to the principles of ALARA. FINDINGS: The small amount of acute intraventricular hemorrhage on prior head CT has nearly completely resolved with trace residual hemorrhage. The ventricular system is stable. White matter hypodensity suggests small vessel disease. Focal hypodensity within left cerebellar hemisphere remains unchanged. The basal cisterns are patent. No extra-axial collections are present. There are no findings to suggest acute dural sinus thrombosis or acute territorial infarct. No significant calvarial abnormalities are present. Visualized portions of the sinuses and mastoid air cells are clear. IMPRESSION: 1. No acute intracranial findings. Near complete resolution of intraventricular hemorrhage shown on head CT of April 08, 2023. 2. No calvarial fracture. ACT 112: Negative or not required by law. Electronically signed by: Zach Abreu M.D. 04/30/2023 1:26 PM Pelvis X-Ray 04/30/23 12:28 XR pelvis 1-2V routine CLINICAL HISTORY: fall, recent hip surgery TECHNIQUE: A single frontal view of the pelvis was obtained. Comparison: Comparison is made to hip radiograph 04/08/2023 FINDINGS: There is no evidence of an acute fracture. Degenerative changes are seen in the hip joints and lumbar spine. Right medullary nail is seen. No soft tissue abnormality is seen. IMPRESSION: Degenerative changes without evidence of acute abnormality. ACT 112: Negative or not required by law. Electronically signed by: Chapin Arora M.D. 04/30/2023 2:14 PM Code Status & VTE Plan Code Status DNR/DNI VTE Prophylaxis Plan VTE Prophylaxis will be ordered: Yes Supervising Physician Co-Signing Physician Notes Patient seen and examined, chart reviewed, case discussed with Dionicio Vieyra PA-C and I agree with the assessment and plan as above except as otherwise noted Labs and images reviewed 87-year-old male poor historian with hx of GIB, BPH, Afib who rolled out of bed no head strike/LOC but who was too weak to stand up and was found on the ground by family. Recent ICH and R hip fracture seen at [facility]. Chronic indewlling catheter. No signs of UTI. No signs o fbleeding. CT-H stable. Recommended for admission and placement. NO signs of acute infectious process, hgb stable, no signs of expanded/worsened GIB or acute focal neuro sx. Mg low, repleted. Ca chronically elevated with high PTH. No acute change. Agree w/ above PG Care Time/CCT Total # of Minutes Spent Total Time Spent with Patient: Total time spent is greater than 50% in coordination of care (as documented) at patient's floor/unit and/or counseling patient: Coding [place] [address] INT INP/OBS CARE 2/55MIN Patient Type Established History Comprehensive Exam Comprehensive Medical Decision Making Moderate Complexity Diagnoses Fall W19.XXXA Encounter type: initial encounter Urinary retention R33.9 Hypomagnesemia E83.42 Permanent atrial fibrillation I48.2 Hypercalcemia E83.52 (1) Fall Encounter type: initial encounter Qualified Code(s): W19.XXXA - Unspecified fall, initial encounter
--- NOTE | 2023-04-30 15:08 | XRay Report ---
XR chest 1V portable HISTORY: 87 years-old Male weakness COMPARISON: 04/08/2023 TECHNIQUE: AP view the chest FINDINGS: Cardiac silhouette is enlarged. Atherosclerosis of the aorta. No pneumothorax, pleural effusion or ai rspace consolidation. Bones appear grossly intact. No pulmonary edema. IMPRESSION: Cardiomegaly without acute process. ACT 112: Negative or not required by law. The above report was generated using voice recognition software. It may contain grammatical, syntax o r spelling errors. Electronically signed by: Shaquille Villafuerte M.D. 04/30/2023 3:07 PM
[2023-04-30] MEDS: MAGNESIUM SULFATE / D5W 1 GM/100 ML BAG IV ONE (16:25)
[2023-04-30] MEDS ORDERED: ACETAMINOPHEN 325 MG TAB PO PRN (17:21)
[2023-04-30] MEDS: FERROUS SULFATE 325 MG TAB PO SCH (20:46)
[2023-04-30] MEDS: LACTATED RINGER'S 1,000 ML IV SCH (22:31)
[2023-05-01 06:44] LABS: Basophils # (auto) 0.03 K/uL (0.00-0.20); Basophils % (auto) 0.3 %; Eosinophils # (auto) 0.57 K/uL (0.00-0.50); Eosinophils % (auto) 6.6 %; Hematocrit (blood only) 30.1 % (42.0-52.0); Immature Granulocytes # (auto) 0.03 K/uL (0.01-0.20); Immature Granulocytes % (auto) 0.3 %; Lymphocytes # (auto) 1.24 K/uL (1.20-3.40); Lymphocytes % (auto) 14.3 %; Mean Corpuscular Hemoglobin 31.9 pg (25.0-34.0); Mean Corpuscular Hgb Conc 33.2 g/dL (32.0-36.0); Mean Corpuscular Volume 96.2 fL (80.0-100.0); Mean Platelet Volume 9.3 fL (9.4-12.4); Monocytes # (auto) 1.25 K/uL (0.11-0.59); Monocytes % (auto) 14.4 %; Neutrophils # (auto) 5.55 K/uL (1.40-6.50); Neutrophils % (auto) 64.1 %; Platelet Count 208 K/uL (130-400); RDW Coefficient of Variation 15.2 % (11.5-14.5); Red Blood Count 3.13 M/uL (4.70-6.10); White Blood Count 8.67 K/ul (4.8-10.8)
[2023-05-01 07:07] LABS: BUN Creatinine Ratio 25.7 (10-20); Calcium 10.1 mg/dl (8.6-10.3); Creatinine Clr Calc Pharmacy 50.8 ml/min; Est GFR (African American) 77.7 ml/min; Magnesium 1.7 mg/dl (1.7-2.4); Potassium 3.4 mmol/L (3.5-5.1)
[2023-05-01] MEDS: amLODIPine BESYLATE 5 MG TAB PO SCH (08:51)
[2023-05-01] MEDS: TAMSULOSIN HCL 0.4 MG CAP PO SCH (08:52)
[2023-05-01] MEDS: allopurinoL 100 MG TAB PO SCH (08:52)
[2023-05-01] MEDS: ESCITALOPRAM OXALATE 10 MG TAB PO SCH (08:52)
[2023-05-01] MEDS: lisinopril 40 MG TAB PO SCH (08:52)
[2023-05-01] MEDS: MAGNESIUM SULFATE / D5W 1 GM/100 ML BAG IV ONE (11:44)
[2023-05-01] MEDS: POTASSIUM CHLORIDE CRTAB 20 MEQ TABCR PO STA (11:44)
[2023-05-01 12:19] LABS: Appearance Urine Cloudy (Clear); Bilirubin Urine Negative (Negative); Blood Urine 3+ (Negative); Color Urine Yellow; Epithelial Cell Urine Auto 0-5 /lpf (0-5); Glucose Urine UA Negative (Negative); Ketones Urine Negative (Negative); Leukocyte Esterase Urine 2+ (Negative); Nitrite Urine Positive (Negative); Protein Urine 2+ (Negative); RBC Urine Automated >30 /hpf (0-4); Specific Gravity Urine 1.017 (1.000-1.030); Urobilinogen Urine Negative (Negative); WBC Urine Automated >30 /hpf (0-5); pH Urine 5.5 (4.5-7.5)
[2023-05-01] MEDS: CEFEPIME 2,000 MG in SYRINGE 0 ML IV SCH (12:26)
[2023-05-01 12:45] LABS: Bacteria Urine Automated 1+ (Negative)
--- NOTE | 2023-05-01 14:34 | Communication Note ---
Date of Service: May 01, 2023 By CMS guidelines, a determination that the admission or continued stay is not medically necessary has been made by a member of the UR committee and a phys ician for this hospital stay, therefore a Code 44 will be completed and the Inpatient admission will be changed to outpatient. Tiara Smith M.D.
--- NOTE | 2023-05-01 14:36 | Discharge Summary ---
Discharge Summary Date of Service May 01, 2023 Admission HPI Per Admitting Provider Abhay is an 87-year-old male with PMH of permanent A-fib, gout, GI bleed, acute diverticulitis, BPH, hyperparathyroidism, nephrolithiasis, total knee replacement, urinary retention (indwelling catheter), and HTN. He presented for a fall on 04/29 after rolling out of bed and being found on the floor by his ~2 hours later. Patient is unsure what time he fell, but believes he was down for 2 hours, and was unable to get up on his own. He denies head strike, LOC, or blood thinners. He does note that his right leg has been weaker since his operation for a recent hip fracture. Recent intracranial hemorrhage and right hip fracture (at [facility]); [facility] ago. Patient denies smoking, alcohol use, and tobacco use. He is unsure if he took his morning medications today. He notes he has an indwelling catheter, and believes it was placed around a week ago. Patient is hypertensive at 152/100 at time of admission; vitals otherwise stable. ED course: NSS 500 mL IV x 2 Magnesium sulfate 1 g IV ROS: Patient endorses dark orange urine, blood in the urine (resolved) Patient denies fever, chills, night sweats, dizziness, lightheadedness, headache, chest pain, SOB, abdominal pain, right hip pain, N/V/D, saddle anesthesia, back pain, or numbness/tingling in the legs. Principal Dx & Hospital Course #1 = Principal Diagnosis (1) Fall: Patient rolled out of bed on the morning of 04/29 and was on the ground for approximately 2 hours before being found by No leukocytosis; afebrile Total creatinine kinase low at [address] revealed no acute intracranial findings; near complete resolution of intraventricular hemorrhage (from April 08, 2023) Pelvic x-ray revealed degenerative changes but no acute abnormalities Fall precautions Aspiration precautions PT/OT consulted Case management consult, as patient would like rehab at [facility] which requires 3 days inpatient A.m. CBC, BMP, mag (2) Urinary retention: Indwelling Gold UA ordered, pending Daily catheter care (3) Hypomagnesemia: Magnesium 1.6 on arrival Magnesium sulfate 2 g IV given Recheck a.m. mag (4) Permanent atrial fibrillation: S/p Watchman procedure EKG revealed atrial fibrillation at 76 bpm; QTc 420 (5) Hypercalcemia: Chronic; 10.9 on arrival (Corrected: 11.2) May be secondary to chronic primary hyperparathyroidism Fluid resuscitation with LR at 125 mL/hr x 2 Recheck a.m. calcium Plan Disposition: Admit to [facility] DNR/DNI Regular diet (aspiration precautions) VTE PPx: SCDs (fall precautions; okay to hold anticoag given watchman) Updated Medication List Medication Instructions Recorded Confirmed Type fluoride (sodium) 1.1 % dental 1 applic dental DIRECTED 09/13/21 04/30/23 History cream (Denta 5000 Plus) allopurinol 100 mg tablet 100 mg PO QAM #90 tabs 03/18/22 04/30/23 Rx metronidazole 1 % topical gel 1 applic topical DAILY #60 grams 05/21/22 04/30/23 Rx lisinopril 40 mg tablet 40 mg PO DAILY #90 tabs 11/13/22 04/30/23 Rx alfuzosin 10 mg tablet,extended 10 mg PO DAILY #30 tabs 12/10/22 04/30/23 Rx release 24 hr amlodipine 5 mg tablet 5 mg PO DAILY #90 tabs 12/27/22 04/30/23 Rx escitalopram oxalate 10 mg tablet 10 mg PO DAILY #90 tabs 01/31/23 04/30/23 Rx ferrous sulfate 325 mg (65 mg 325 mg PO 3XWK 04/08/23 04/30/23 History iron) tablet,delayed release ciprofloxacin HCl 500 mg tablet 500 mg PO BID #13 tabs 05/01/23 Rx (Cipro) Hospital Stay Data Consultations 04/30/23 14:20 ED Decision to Admit Stat Diagnostic Imagining Performed 04/30/23 12:28 CT cervical spine wo con Stat CT head/brain wo con Stat Pending Results Patient Have Any Pending Studies at Discharge: Yes (repeat urine culture) Discharge Instructions Given to Patient (Per Discharging Provider) Please continue on Cipro 500mg twice daily x 6 more days for your UTI. Your Gold catheter was exchanged on 05/01/23. Please follow up with Urology as scheduled for trial of void in a few weeks. You will need to continue rehab until strong enough to go to personal care facility as planned. Coding Diagnoses Fall W19.XXXA Encounter type: initial encounter Urinary retention R33.9 Hypomagnesemia E83.42 Permanent atrial fibrillation I48.2 Hypercalcemia E83.52
--- NOTE | 2023-05-03 06:04 | Electrocardiogram Report ---
Test Reason : Blood Pressure : / mmHG Vent. Rate : 076 BPM Atrial Rate : 000 BPM P-R Int : 000 ms QRS Dur : 104 ms QT Int : 374 ms P-R-T Axes : 000 -29 006 degrees QTc Int : 420 ms Atrial fibrillation Anteroseptal infarct , age undetermined Abnormal ECG When compared with ECG of 08-APR-2023 13:30, Anteroseptal infarct is now Present Confirmed by Brady Valdes ([id number]) on 05/03/2023 6:04:42 AM Referred By: REFERRED SELF Confirmed By:Brady Valdes
== END 2023-05-01 16:59 | DRG 92 ==
LOC: ED 11:58 → SUATTDRO 15:31 → EDINP 15:31 → INTOOBSV 15:31 → 3N 17:03

== ENCOUNTER 2023-07-28 07:43 | Inpatient (IN) ==
--- NOTE | 2023-07-28 07:54 | Emergency Department Note ---
Impression & Plan Stroke, A-fib, Acute confusion ED Provider Note Name: ALEJANDRO LOPEZ Jr Age: 87 Sex: Male Arrives Via: Ambulance Informant: Patient (patient somewhat poor historian), EMS, family ED Provider: Phillip Henderson MD Chief Complaint: Weakness and confusion Impression: As per impressions above Medical Decision Makin-year-old gentleman with chronic A-fib not anticoagulated due to falls arrives for evaluation of worsening weakness and confusion. This started yesterday. The story was somewhat limited initially other than it was quite clear this is been going on since the last yesterday. No focal neurologic deficits though does have some slow speech and some abnormal answers. Does follow some commands and is protecting her airway. CT of the head was obtained does show a small area of infarct acute/subacute. Laboratory workup is reassuring there is no evidence of clear infection. Suspect his symptoms are due to this stroke and family arrived to confirm that he is not at his baseline. Given findings will treat with rectal aspirin and hospitalized. He was given some IV fluids as he appeared a bit on the dry side initially. He was not a stroke alert initially as symptoms had clearly started yesterday and he does not have large vessel occlusion findings. He would not be a tPA candidate. Triage/Nursing Notes reviewed by Me External Chart Review by me: I reviewed fpc chart which reveals no blood thinner use. Differential:Infection, dehydration, metabolic abnormality, hypo/hyperglycemia, electrolyte disturbance, anemia, hypoxia, cardiac sources, intracerebral event, toxicologic, neurologic, as well as other pathologies. Vital Signs: reviewed and remarkable for no significant abnormalities Interventions: Aspirin rectal, normal saline bolus IV Labs:ED labs Reviewed by me and remarkable for no significant abnormalities Imaging:CT of the head without contrast as per my informal interpretation no overt intracranial hemorrhage nor mass effect. Confirmed by radiologist who note there is concern for acute/subacute infarct frontal lobe. 1 view chest x-ray as per my interpretation no infiltrate or effusion appreciated. EKG:As per my interpretation. Indication weakness. Atrial fibrillation with PVCs 74 bpm QTc 426. There is no overt ischemia appreciated. When compared to EKG of July 06, 2023 heart rate has increased somewhat. Cardiac/Tele Monitoring: Cardiac Monitoring: An Order was placed for continuous cardiac monitoring. The monitor shows a rate of 65 with a afib rhythm. Consults:Discussed with Dr. Oanh CORTEZ hospitalist who will evaluate and bring in for further management. Plan: Disposition:Hospitalization. Condition: Fair History of Present Illness: 87-year-old male arrives for evaluation of illness. Patient arrives following essentially 24 hours of worsening confusion weakness and fatigue. Starting yesterday he was noted to not being his typical self exhausted. Was not holding cups as well. This continued this morning and he was noted to have loss of urinary continence. Patient without any specific fevers, runny nose, cough. No reported complaints by patient though is becoming increasingly confused. According to EMS staff patient is usually awake and interactive. No reported recent falls, trauma, injuries. Patient is unable to give review of systems due to confusion Past Medical History:See Below Home Medications:See Below Allergies: Thiazides Vitals:Blood Pressure: 146/107, Pulse 72, RR 97, T 36.8C, O2 98% on RA Physical Exam: GENERAL: Patient is elderly/frail/dry appearing and in no distress. RESPIRATORY: No dyspnea. Clear to auscultation and equal bilaterally. CARDIOVASCULAR: Irregular.No murmur appreciated. GASTROINTESTINAL: Abdomen soft, non-tender, no peritonitis. EXTREMITIES: Normal motion all extremities, no cyanosis, no edema. NEUROLOGIC: Patient is awake looking around the room somewhat confused following some commands not answering questions. No focal neurologic deficits appreciated SKIN: No rash, no jaundice, no diaphoresis. GCS: 15 ED Course: Times/Reassessments: Patient did perk up significantly with IV fluids however continues to have some cognitive confusion that is beyond his baseline. Phillip Henderson MD Past Med/Surg History Problem List (Updated 07/28/23 @ 14:03 by Phillip Henderson MD) Acute confusion (Acute) A-fib (Acute) Stroke (Acute) AMS (altered mental status) UTI (urinary tract infection) due to urinary indwelling Gold catheter Hypomagnesemia (Acute) Anemia (Acute) History of intracranial hemorrhage (Acute) Weakness (Acute) Urinary retention Abrasion of right arm (Acute) Elevated PSA H/O tooth extraction 3 weeks ago, then put in partial Weight loss BPH (benign prostatic hyperplasia) Anemia (Acute) GI bleed (Acute) Acute diverticulitis (Acute) Lower GI bleed (Acute) Gout Atrial fibrillation Gout Rosacea Permanent atrial fibrillation (Acute) Mild mitral regurgitation Hypertension BPH NOS w ur obs/LUTS Gross hematuria Diverticulosis Carpal tunnel syndrome of right wrist Benign prostatic hyperplasia with urinary obstruction Closed fracture of medial condyle of femur H/O total knee replacement Anticoagulant long-term use Nephrolithiasis Diverticular hemorrhage Current use of joint terminal attack controller anticoagulation (Acute) Lab test negative for COVID-19 virus (Acute) Rectal bleeding (Acute) Vitamin D deficiency Hyperparathyroidism B12 deficiency Prediabetes Hematochezia Hypercalcemia (Acute) Medical History Fall ELISE (acute kidney injury) Prediabetes A-fib Benign prostatic hyperplasia with 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 Diverticulosis Gross hematuria History of SCC (squamous cell carcinoma) of skin History of basal cell carcinoma BPH NOS w ur obs/LUTS Mild mitral regurgitation Permanent atrial fibrillation Rosacea Swelling of eyelid Gout BPH (benign prostatic hyperplasia) Kidney stones Hematuria GI bleed Diverticular disease On anticoagulant therapy Atrial fibrillation Hypertension Surgical History H/O tooth extraction History of tonsillectomy History of lithotripsy History of cataract surgery History of surgery on arm History of total knee replacement Status post Mohs surgery History of colonoscopy Family History Father Cancer Prostate cancer Denies family history of Ovarian cancer Myocardial infarction Breast cancer Colorectal cancer Social History Smoking Status: Never smoker Second Hand Exposure: No; Do You Dip or Chew Tobacco: No; Hx Alcohol Use: No Hx Substance Use: No Preferred Language: Occitan Communication Ability: Effective Visual Impairment: Limited Hearing Ability: Normal Director Business Travel Required: No Beliefs That Will Affect Care: None marital status: Current Living Situation: Spouse Current Living Situation Comment: Lives at home with current occupational status: retired Feels Safe at Home: Yes Childhood Exposure to Second-Hand Smoke: No Dental Care, Regularly: Yes Physical Activity Frequency: 3-4 Times per Week Seatbelt Use: always Sunscreen Use: Yes Assistive Devices: Cane, Raised Toilet Seat and Walker Allergies Allergies Allergy/AdvReac Type Severity Reaction Status Date / Time Thiazides AdvReac Intermediate Hypercalcem Verified 04/08/23 15:45 ia Home Meds Home Medications Medication Instructions Recorded Confirmed ferrous sulfate 325 mg (65 mg 325 mg PO 3XWK 04/08/23 07/28/23 iron) tablet,delayed release Saccharomyces boulardii 250 mg 250 mg PO BID 05/21/23 07/28/23 capsule (Florastor) acetaminophen 500 mg tablet 1,000 mg PO Q8H PRN pain/fever 07/28/23 07/28/23 alfuzosin 10 mg tablet,extended 10 mg PO QAM 07/28/23 07/28/23 release 24 hr Previous Rx's Medication Instructions Recorded allopurinol 100 mg tablet 100 mg PO QAM #90 tabs 03/18/22 amlodipine 5 mg tablet 5 mg PO DAILY #90 tabs 12/27/22 escitalopram oxalate 10 mg tablet 10 mg PO DAILY #90 tabs 01/31/23 lisinopril 20 mg tablet 20 mg PO DAILY #30 tabs 05/21/23 Results & Data (ED) Vital Signs Vital Signs - 24 hr 07/28/23 07:51 07/28/23 07:54 07/28/23 07:57 Temperature 36.8 C Temperature Source Oral Pulse Rate 76 66 Pulse Rate from SpO2 Sensor 69 Pulse Rhythm Regular Pulse Strength Normal Respiratory Rate 21 24 Respiratory Effort / Characteristics Non-Labored Respiratory Depth Normal Respiratory Pattern Regular Blood Pressure 146/107 H Blood Pressure [Right Arm] Blood Pressure Mean 120 Blood Pressure Mean [Right Arm] Blood Pressure Position Sitting Blood Pressure Position [Right Arm] Pulse Oximetry 97 97 98 Oxygen Delivery Method Room Air Room Air Room Air Sepsis Recent Fever Within 48 Hours No Sepsis New/Unexplained Change in Mental Status No Sepsis Action Taken by Nursing No Action Required 07/28/23 07:58 07/28/23 08:09 07/28/23 08:15 Temperature Temperature Source Pulse Rate 69 73 69 Pulse Rate from SpO2 Sensor 66 64 Pulse Rhythm Pulse Strength Respiratory Rate 22 20 Respiratory Effort / Characteristics Respiratory Depth Respiratory Pattern Blood Pressure Blood Pressure [Right Arm] Blood Pressure Mean Blood Pressure Mean [Right Arm] Blood Pressure Position Blood Pressure Position [Right Arm] Pulse Oximetry 98 95 Oxygen Delivery Method Room Air Room Air Sepsis Recent Fever Within 48 Hours Sepsis New/Unexplained Change in Mental Status Sepsis Action Taken by Nursing 07/28/23 08:21 07/28/23 08:51 07/28/23 09:18 Temperature Temperature Source Pulse Rate 71 66 65 Pulse Rate from SpO2 Sensor 69 66 Pulse Rhythm Pulse Strength Respiratory Rate 20 20 22 Respiratory Effort / Characteristics Respiratory Depth Respiratory Pattern Blood Pressure Blood Pressure [Right Arm] Blood Pressure Mean Blood Pressure Mean [Right Arm] Blood Pressure Position Blood Pressure Position [Right Arm] Pulse Oximetry 95 98 Oxygen Delivery Method Room Air Room Air Sepsis Recent Fever Within 48 Hours Sepsis New/Unexplained Change in Mental Status Sepsis Action Taken by Nursing 07/28/23 09:24 07/28/23 09:27 07/28/23 09:30 Temperature Temperature Source Pulse Rate 69 72 Pulse Rate from SpO2 Sensor 66 64 Pulse Rhythm Pulse Strength Respiratory Rate 20 19 Respiratory Effort / Characteristics Respiratory Depth Respiratory Pattern Blood Pressure 133/85 Blood Pressure [Right Arm] Blood Pressure Mean 94 Blood Pressure Mean [Right Arm] Blood Pressure Position Blood Pressure Position [Right Arm] Pulse Oximetry 99 98 Oxygen Delivery Method Room Air Room Air Sepsis Recent Fever Within 48 Hours Sepsis New/Unexplained Change in Mental Status Sepsis Action Taken by Nursing 07/28/23 09:36 07/28/23 09:48 07/28/23 09:51 Temperature Temperature Source Pulse Rate 62 66 64 Pulse Rate from SpO2 Sensor 67 Pulse Rhythm Pulse Strength Respiratory Rate 18 19 19 Respiratory Effort / Characteristics Respiratory Depth Respiratory Pattern Blood Pressure Blood Pressure [Right Arm] Blood Pressure Mean Blood Pressure Mean [Right Arm] Blood Pressure Position Blood Pressure Position [Right Arm] Pulse Oximetry 98 Oxygen Delivery Method Room Air Sepsis Recent Fever Within 48 Hours Sepsis New/Unexplained Change in Mental Status Sepsis Action Taken by Nursing 07/28/23 10:12 07/28/23 10:21 07/28/23 10:27 Temperature Temperature Source Pulse Rate 67 56 L Pulse Rate from SpO2 Sensor 69 Pulse Rhythm Pulse Strength Respiratory Rate 20 20 Respiratory Effort / Characteristics Respiratory Depth Respiratory Pattern Blood Pressure Blood Pressure [Right Arm] 139/84 Blood Pressure Mean Blood Pressure Mean [Right Arm] 102 Blood Pressure Position Blood Pressure Position [Right Arm] Sitting Pulse Oximetry 97 Oxygen Delivery Method Room Air Sepsis Recent Fever Within 48 Hours Sepsis New/Unexplained Change in Mental Status Sepsis Action Taken by Nursing Laboratory Data 07/28/23 07:50 07/28/23 07:50 Lab Results 07/28/23 07/28/23 07/28/23 Range/Units 07:50 07:59 08:05 WBC 10.93 H (4.8-10.8) K/ul RBC 3.60 L (4.70-6.10) M/uL Hgb 11.1 L (14.0-18.0) g/dl Hct 34.1 L (42.0-52.0) % MCV 94.7 (80.0-100.0) fL MCH 30.8 (25.0-34.0) pg MCHC 32.6 (32.0-36.0) g/dL RDW Std Deviation 51.6 H (36.4-46.3) fL RDW Coeff of Edith 14.8 H (11.5-14.5) % Plt Count 204 (130-400) K/uL MPV 9.7 (9.4-12.4) fL Immature Gran % (Auto) 0.5 % Neut % (Auto) 80.2 % Lymph % (Auto) 11.3 % [place] % (Auto) 5.9 % Eos % (Auto) 1.6 % Baso % (Auto) 0.5 % Neut # (Auto) 8.77 H (1.40-6.50) K/uL Lymph # (Auto) 1.23 (1.20-3.40) K/uL [place] # (Auto) 0.65 H (0.11-0.59) K/uL Eos # (Auto) 0.18 (0.00-0.50) K/uL Baso # (Auto) 0.05 (0.00-0.20) K/uL Immature Gran # (Auto) 0.05 (0.01-0.20) K/uL Sodium 142 (136-145) mmol/L Potassium 3.6 (3.5-5.1) mmol/L Chloride 108 H (98-107) mmol/L Carbon Dioxide 29 (21-32) mmol/L Anion Gap 5 (3-11) BUN 19 (6-23) mg/dl Creatinine 1.06 (0.6-1.4) mg/dl Est Cr Clr Drug Dosing 50.0 ml/min Est GFR ( Amer) 73.3 ml/min Est GFR (Non-Af Amer) 63.2 ml/min BUN/Creatinine Ratio 17.9 (10-20) Glucose 166 H (70-99(Fasting)) mg/dl Lactate 1.7 (0.4-2.0) mmol/L Calcium 10.5 H (8.6-10.3) mg/dl Magnesium 1.8 (1.7-2.4) mg/dl Total Bilirubin 1.0 (0.2-1.0) mg/dl Direct Bilirubin 0.2 (0-0.2) mg/dl AST 10 L (13-39) U/L ALT 5 L (7-52) U/L Alkaline Phosphatase 108 H (34-104) U/L Troponin I High Sens 12.3 (0-20) pg/ml Total Protein 7.3 (6.0-8.3) gm/dl Albumin 3.8 (3.4-5.0) gm/dl Procalcitonin < 0.02 (0-0.5) ng/ml Urine Color Yellow Urine Appearance Clear (Clear) Urine pH 8.5 H (4.5-7.5) Ur Specific [place] 1.010 (1.000-1.030) Urine Protein Negative (Negative) Urine Glucose (UA) Negative (Negative) Urine Ketones Negative (Negative) Urine Blood 1+ H (Negative) Urine Nitrite Negative (Negative) Urine Bilirubin Negative (Negative) Urine Urobilinogen Negative (Negative) Ur Leukocyte Esterase Trace H (Negative) Urine WBC (Auto) 6-10 H (0-5) /hpf Urine RBC (Auto) 11-20 H (0-2) /hpf U Hyaline Cast (Auto) 0-2 (0-2) /lpf U Epithel Cells (Auto) 0-2 (0-2) /hpf Urine Bacteria (Auto) None Seen (None Seen) SARS-CoV-2 (PCR) NEGATIVE (Negative) Influenza Type A (PCR) Negative (Neg) Influenza Type B (PCR) Negative (Neg) RSV (RT-PCR) Negative (Neg) Administered Medications Lactated Ringer's (Lr) 1,000 mls @ 80 mls/hr IV [id number] [facility] Stop: 07/29/23 11:59 Last Admin: 07/28/23 11:30 Dose: 80 mls/hr Documented By: MARCOS Discontinued Medications Aspirin (Aspirin 300 Mg Supp) 300 mg GA ONE ONE Stop: 07/28/23 10:26 Last Admin: 07/28/23 11:03 Dose: 300 mg Documented By: ERIK Sodium Chloride (Nss) 1,000 mls @ 999 mls/hr IV .Q1H1M [facility] Stop: 07/28/23 09:00 Last Infusion: 07/28/23 09:32 Dose: Infused Documented By: Admin: 07/28/23 07:58 Dose: 999 mls/hr Documented By: MA Imaging Data Radiologist's Impression: Chest X-Ray 07/28/23 07:51 XR chest 1V portable CLINICAL HISTORY: Sepsis. COMPARISON STUDY: Chest radiograph July 06, 2023. FINDINGS: Lung volumes are normal. Lungs are clear. There is no pneumothorax or pleural effusion. Moderate cardiomegaly is unchanged. Mediastinal contours are normal. There is pulmonary vascular congestion without overt pulmonary edema. IMPRESSION: Cardiomegaly with pulmonary vascular congestion. ACT 112: Negative or not required by law. Electronically signed by: Zach Abreu M.D. 07/28/2023 8:[address] 07/28/23 08:32 CT OF THE HEAD WITHOUT CONTRAST CLINICAL HISTORY: Altered mental status. COMPARISON STUDY: Head CT April 30, 2023. MRI of the brain May 16, 2023. CT DOSE: 703.85 mGy.cm TECHNIQUE: Helical axial images of the head were obtained without IV contrast. Automated exposure control was utilized for the study. A dose lowering technique was utilized adhering to the principles of ALARA. FINDINGS: No acute intracranial hemorrhage, midline shift or mass effect is present. Ventricular system is stable. Basal cisterns are patent. There are no extra-axial collections. White matter hypodensity suggests small vessel disease. A hypodense focus within the left cerebellar hemisphere on image 9 of 36 remains unchanged. 2 cm hypodense focus within the left occipital lobe on image 16 of 36 is new since prior CT. No acute calvarial fractures. IMPRESSION: 1. No acute intracranial hemorrhage. 2. 2 cm hypodense focus within the left occipital lobe. This could reflect a subacute to acute infarct. ACT 112: Negative or not required by law. Electronically signed by: Zach Abreu M.D. 07/28/2023 9:26 AM Carotid Doppler Study 07/28/23 10:43 CAROTID ARTERY ULTRASOUND CLINICAL HISTORY: stroke workup COMPARISON STUDY: None. TECHNIQUE: Real-time, grayscale, and color Doppler sonography of the carotid and vertebral arteries was performed. Images were viewed in the transverse and longitudinal planes. FINDINGS: There is moderate atherosclerotic plaque. Velocity measurements are listed below. COMMON CAROTID PEAK SYSTOLIC VELOCITY (CM/S): RIGHT 76 LEFT 54 ICA PEAK SYSTOLIC VELOCITY (CM/S): RIGHT 104 LEFT 69 Systolic ratios between the internal to common carotid arteries were normal. Antegrade flow is seen in the vertebral arteries. The external carotid arteries are patent. IMPRESSION: No evidence for a hemodynamically significant stenosis. ACT 112: Negative or not required by law. Electronically signed by: Zach Abreu M.D. 07/28/2023 12:38 PM Discharge Plan Visit Data Chief Complaint: Altered Mental Status ED Provider: Phillip Henderson Discharge Problem: Stroke, A-fib, Acute confusion Patient Disposition: Admitted As Inpatient Discharge Instructions Interventions: ED Discharge Assessment Last Done: 07/28/23 12:12 Discharge Problem: Stroke Qualifiers: CVA mechanism: other Qualified Code(s): I63.89 - Other cerebral infarction A-fib Qualifiers: Atrial fibrillation type: longstanding persistent Qualified Code(s): I48.11 - Longstanding persistent atrial fibrillation
[2023-07-28] MEDS: SODIUM CHLORIDE 0.9% 1,000 ML IV SCH (07:58)
[2023-07-28 08:26] LABS: Basophils # (auto) 0.05 K/uL (0.00-0.20); Basophils % (auto) 0.5 %; Eosinophils # (auto) 0.18 K/uL (0.00-0.50); Eosinophils % (auto) 1.6 %; Hematocrit (blood only) 34.1 % (42.0-52.0); Hemoglobin 11.1 g/dl (14.0-18.0); Immature Granulocytes # (auto) 0.05 K/uL (0.01-0.20); Immature Granulocytes % (auto) 0.5 %; Lymphocytes # (auto) 1.23 K/uL (1.20-3.40); Lymphocytes % (auto) 11.3 %; Mean Corpuscular Hemoglobin 30.8 pg (25.0-34.0); Mean Corpuscular Hgb Conc 32.6 g/dL (32.0-36.0); Mean Corpuscular Volume 94.7 fL (80.0-100.0); Mean Platelet Volume 9.7 fL (9.4-12.4); Monocytes # (auto) 0.65 K/uL (0.11-0.59); Monocytes % (auto) 5.9 %; Neutrophils # (auto) 8.77 K/uL (1.40-6.50); Neutrophils % (auto) 80.2 %; Platelet Count 204 K/uL (130-400); RDW Coefficient of Variation 14.8 % (11.5-14.5); RDW Standard Deviation 51.6 fL (36.4-46.3); White Blood Count 10.93 K/ul (4.8-10.8)
--- NOTE | 2023-07-28 08:34 | XRay Report ---
XR chest 1V portable CLINICAL HISTORY: Sepsis. COMPARISON STUDY: Chest radiograph July 06, 2023. FINDINGS: Lung volumes are normal. Lungs are clear. There is no pneumothorax or pleural effusion. Mod erate cardiomegaly is unchanged. Mediastinal contours are normal. There is pulmonary vascular congest ion without overt pulmonary edema. IMPRESSION: Cardiomegaly with pulmonary vascular congestion. ACT 112: Negative or not required by law. Electronically signed by: Zach Abreu M.D. 07/28/2023 8:33 AM
[2023-07-28 08:38] LABS: Albumin Level 3.8 gm/dl (3.4-5.0); BUN Creatinine Ratio 17.9 (10-20); Bilirubin Direct 0.2 mg/dl (0-0.2); Calcium 10.5 mg/dl (8.6-10.3); Est GFR (African American) 73.3 ml/min; Est GFR (Non-African American) 63.2 ml/min; Magnesium 1.8 mg/dl (1.7-2.4); Potassium 3.6 mmol/L (3.5-5.1); Total Protein 7.3 gm/dl (6.0-8.3)
[2023-07-28 08:41] LABS: Appearance Urine Clear (Clear); Bacteria Urine Automated None Seen (None Seen); Bilirubin Urine Negative (Negative); Blood Urine 1+ (Negative); Cast Urine Automated 0-2 /lpf (0-2); Color Urine Yellow; Epithelial Cell Urine Auto 0-2 /hpf (0-2); Glucose Urine UA Negative (Negative); Ketones Urine Negative (Negative); Leukocyte Esterase Urine Trace (Negative); Nitrite Urine Negative (Negative); Protein Urine Negative (Negative); Urobilinogen Urine Negative (Negative); pH Urine 8.5 (4.5-7.5)
[2023-07-28 08:45] LABS: Troponin I High Sensitivity 12.3 pg/ml (0-20)
[2023-07-28 09:03] LABS: Influenza A virus by PCR Negative (Neg); Influenza B virus by PCR Negative (Neg); RSV by PCR Negative (Neg); SARS CoV2 RNA(COVID-19) Ceph NEGATIVE (Negative)
--- NOTE | 2023-07-28 09:29 | CT Scan Report ---
CT OF THE HEAD WITHOUT CONTRAST CLINICAL HISTORY: Altered mental status. COMPARISON STUDY: Head CT April 30, 2023. MRI of the brain May 16, 2023. CT DOSE: 703.85 mGy.cm TECHNIQUE: Helical axial images of the head were obtained without IV contrast. Automated exposure con trol was utilized for the study. A dose lowering technique was utilized adhering to the principles o f ALARA. FINDINGS: No acute intracranial hemorrhage, midline shift or mass effect is present. Ventricular syst em is stable. Basal cisterns are patent. There are no extra-axial collections. White matter hypodensi ty suggests small vessel disease. A hypodense focus within the left cerebellar hemisphere on image 9 of 36 remains unchanged. 2 cm hypodense focus within the left occipital lobe on image 16 of 36 is new since prior CT. No acute calvarial fractures. IMPRESSION: 1. No acute intracranial hemorrhage. 2. 2 cm hypodense focus within the left occipital lobe. This could reflect a subacute to acute infarc t. ACT 112: Negative or not required by law. Electronically signed by: Zach Abreu M.D. 07/28/2023 9:26 AM
--- NOTE | 2023-07-28 10:24 | History & Physical Report ---
Date of Service July 28, 2023 Assessment & Plan (1) AMS (altered mental status): Plan: Admit to the PCU/telemetry Patient is currently stable, nontoxic-appearing, but with expressive aphasia and unable to follow some commands due to possible confusion. Patient presented to the emergency department this a.m., from his personal fci, due to approximately 24+ hours of increased confusion compared to his baseline which is normally alert and oriented completely. At this time the patient's increased confusion is most consistent with acute/subacute CVA noted on CT of the brain without contrast obtained in the ER. Patient is without signs/symptoms of acute infection, and does not appear to have other findings consistent with acute metabolic encephalopathy. Patient does have a history of atrial fibrillation, he is status post Watchman procedure, and not on anticoagulation due to this procedure and history of previous GI bleed and intracranial hemorrhage. Will ensure patient receives 300 mg rectal aspirin ordered in the ER, as he failed his bedside dysphagia screen due to not being able to follow commands safely. Will obtain MRI/MRA of the brain without contrast and bilateral carotid Dopplers for further evaluation. Will obtain echocardiogram to monitor for possible blood clots. Will allow for permissive hypertension over the following 24 hours, but will have as needed IV labetalol for excessive hypertension. Fall precautions, aspiration precautions, speech therapy evaluation, neurology evaluation/consult, physical therapy/Occupational Therapy consults Will obtain a.m. fasting lipid panel and hemoglobin A1c tomorrow. N.p.o. until he is evaluated by speech therapy, will order maintenance lactated Ringer's while strict n.p.o. Bilateral DIANA stockings for DVT prophylaxis. -AM CBC, CMP, mag, PT/INR. (2) Atrial fibrillation: Plan: -Patient is status post Watchman procedure, he is not on systemic anticoagulation. Currently in atrial fibrillation today, will obtain echocardiogram to monitor for possible blood clot. He is not on rate controlling medications outpatient, continue to monitor monitor on telemetry. (3) Gout: Plan: -Resume allopurinol when able to take p.o. medications. (4) Hypertension: Plan: -Currently stable. Will hold patient's amlodipine, lisinopril for now as we are allowing permissive hypertension. Can resume antihypertensives after 24 hours if stable. As needed IV labetalol has been ordered for excessive hypertension, see communication order for details. (5) BPH NOS w ur obs/LUTS: Plan: Monitor intake/output every shift. Will order every shift bladder scan with as needed straight cath for postvoid residual of 350 cc or greater. Does have a history of chronic Gold catheters in the past Plan The patient was discussed with Dr. Hugo at the time of the admission. History of Present Illness Chief Complaint: altered mental status Primary Care Provider: Demetrice Guidry MD Abhay is an 87-year-old male with a past medical history significant for permanent atrial fibrillation (s/p Watchman procedure), gout, BPH, urinary retention, and hypertension, who presented to [facility] emergency department on 07/28/2023 from [facility] with a chief complaint of altered mental status over approximately the past 24 hours. He remained stable while in the emergency department. Labs were significant for a leukocytosis of 10.9, glucose within normal limits, UA not consistent with infection, and COVID-19/influenza/RSV screens negative. Chest x-ray was read as cardiomegaly with pulmonary vascular congestion. CT of the head/brain without contrast was read as no acute intracranial hemorrhage, but did note a 2 cm hypodense focus within the left occipital lobe. This could reflect a subacute to acute infarct. Prior to admission the patient was given 1 L of normal saline and was ordered 300 mg of rectal aspirin. The patient was sitting comfortably in bed at the time of the exam in no acute distress. The patient was by himself at the time of the exam. When asked if he has any complaints he states no he cannot tell me why he is here at the hospital. He is currently only oriented to himself, he is unable to provide any additional history at this time. When asked,he denies chest pain, of his, shortness of breath, abdominal pain, nausea, vomiting, changes in vision, hearing, taste, smell, new paresthesias, new unilateral weakness, and pain of any kind. I was able to get in contact with the patient's daughter, Allison Major, who was aware that her father was in the ER with altered mental status. She was able to confirm that the patient is a DNR/DNI. Please refer to Dr. Hugo's Attestation for any changes to the treatment plan. Allergies Allergy/AdvReac Type Severity Reaction Status Date / Time Thiazides AdvReac Intermediate Hypercalcem Verified 04/08/23 15:45 ia Home Medications Medication Instructions Recorded Confirmed Type fluoride (sodium) 1.1 % dental 1 applic dental DIRECTED 09/13/21 05/21/23 History cream (Denta 5000 Plus) allopurinol 100 mg tablet 100 mg PO QAM #90 tabs 03/18/22 05/21/23 Rx metronidazole 1 % topical gel 1 applic topical DAILY #60 grams 05/21/22 05/21/23 Rx alfuzosin 10 mg tablet,extended 10 mg PO DAILY #30 tabs 12/10/22 05/21/23 Rx release 24 hr amlodipine 5 mg tablet 5 mg PO DAILY #90 tabs 12/27/22 05/21/23 Rx escitalopram oxalate 10 mg tablet 10 mg PO DAILY #90 tabs 01/31/23 05/21/23 Rx ferrous sulfate 325 mg (65 mg 325 mg PO 3XWK 04/08/23 05/21/23 History iron) tablet,delayed release Saccharomyces boulardii 250 mg 250 mg PO BID 05/21/23 05/21/23 History capsule (Florastor) lisinopril 20 mg tablet 20 mg PO DAILY #30 tabs 05/21/23 05/21/23 Rx Past Med/Surg History Problem List (Updated 07/28/23 @ 10:58 by Monster Doan PA-C) AMS (altered mental status) UTI (urinary tract infection) due to urinary indwelling Gold catheter Hypomagnesemia (Acute) Anemia (Acute) History of intracranial hemorrhage (Acute) Weakness (Acute) Urinary retention Abrasion of right arm (Acute) Elevated PSA H/O tooth extraction 3 weeks ago, then put in partial Weight loss BPH (benign prostatic hyperplasia) Anemia (Acute) GI bleed (Acute) Acute diverticulitis (Acute) Lower GI bleed (Acute) Gout Atrial fibrillation Gout Rosacea Permanent atrial fibrillation (Acute) Mild mitral regurgitation Hypertension BPH NOS w ur obs/LUTS Gross hematuria Diverticulosis Carpal tunnel syndrome of right wrist Benign prostatic hyperplasia with urinary obstruction Closed fracture of medial condyle of femur H/O total knee replacement Anticoagulant long-term use Nephrolithiasis Diverticular hemorrhage Current use of detention anticoagulation (Acute) Lab test negative for COVID-19 virus (Acute) Rectal bleeding (Acute) Vitamin D deficiency Hyperparathyroidism B12 deficiency Prediabetes Hematochezia Hypercalcemia (Acute) Medical History Fall ELISE (acute kidney injury) Prediabetes A-fib Benign prostatic hyperplasia with 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 Diverticulosis Gross hematuria History of SCC (squamous cell carcinoma) of skin History of basal cell carcinoma BPH NOS w ur obs/LUTS Mild mitral regurgitation Permanent atrial fibrillation Rosacea Swelling of eyelid Gout BPH (benign prostatic hyperplasia) Kidney stones Hematuria GI bleed Diverticular disease On anticoagulant therapy Atrial fibrillation Hypertension Surgical History H/O tooth extraction History of tonsillectomy History of lithotripsy History of cataract surgery History of surgery on arm History of total knee replacement Status post Mohs surgery History of colonoscopy Family History Father Cancer Prostate cancer Denies family history of Ovarian cancer Myocardial infarction Breast cancer Colorectal cancer Social History Smoking Status: Never smoker Second Hand Exposure: No; Do You Dip or Chew Tobacco: No; Hx Alcohol Use: No Hx Substance Use: No Preferred Language: Thai Communication Ability: Effective Visual Impairment: Limited Hearing Ability: Normal 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: No Beliefs That Will Affect Care: None marital status: Current Living Situation: Spouse Current Living Situation Comment: Lives at home with current occupational status: retired Feels Safe at Home: Yes Childhood Exposure to Second-Hand Smoke: No Dental Care, Regularly: Yes Physical Activity Frequency: 3-4 Times per Week Seatbelt Use: always Sunscreen Use: Yes Assistive Devices: Cane, Raised Toilet Seat and Walker Physical Exam Physical Exam: Physical Exam: General: In no acute distress, stated age, well-nourished, non-toxic appearing HEENT: Normocephalic, atraumatic, no scleral icterus, pupils around round, symmetrical, and reactive to light, dry mucus membranes, trachea midline, no thyromegaly Chest/Pulm: No respiratory distress, symmetrical chest expansion, clear breath sounds throughout Cardiac: irregular rate and rhythm, 3/6 systolic murmurs noted Abdomen: Negative for ascites and bruising, normoactive bowel sounds, soft, non-tender to palpation throughout Musculoskeletal: Symmetrical and without signs of acute trauma Extremities: Radial, dorsalis pedis, and posterior tibial pulses are intact and symmetrical, no edema noted in the BL LE's Skin: Warm, dry, no rashes , lesions, or scars noted Neuro: Alert and oriented to person only. patient with expressive aphasia, CN II-XII tested and intact, unable to follow commands for strength and cerebellar testing, no tremors noted Psych: No acute distress, calm and cooperative during the exam Results & Data Results & Data Vital Signs (Past 12 Hours) Vital Signs Temp Pulse Resp BP Pulse Ox O2 Del Method 07/28/23 08:51 66 20 07/28/23 08:21 71 20 95 Room Air 07/28/23 08:15 69 20 95 Room Air 07/28/23 08:09 73 22 98 Room Air 07/28/23 07:58 69 07/28/23 07:57 98 Room Air 07/28/23 07:54 66 24 97 Room Air 07/28/23 07:51 36.8 C 76 21 146/107 H 97 Room Air Laboratory Results Abnormal lab results 07/28/23 07/28/23 Range/Units 07:50 08:05 WBC 10.93 H (4.8-10.8) K/ul RBC 3.60 L (4.70-6.10) M/uL Hgb 11.1 L (14.0-18.0) g/dl Hct 34.1 L (42.0-52.0) % RDW Std Deviation 51.6 H (36.4-46.3) fL RDW Coeff of Edith 14.8 H (11.5-14.5) % Neut # (Auto) 8.77 H (1.40-6.50) K/uL Major # (Auto) 0.65 H (0.11-0.59) K/uL Chloride 108 H (98-107) mmol/L Glucose 166 H (70-99(Fasting)) mg/dl Calcium 10.5 H (8.6-10.3) mg/dl AST 10 L (13-39) U/L ALT 5 L (7-52) U/L Alkaline Phosphatase 108 H (34-104) U/L Urine pH 8.5 H (4.5-7.5) Urine Blood 1+ H (Negative) Ur Leukocyte Esterase Trace H (Negative) Urine WBC (Auto) 6-10 H (0-5) /hpf Urine RBC (Auto) 11-20 H (0-2) /hpf Diagnostic Findings Chest X-Ray 07/28/23 07:51 XR chest 1V portable CLINICAL HISTORY: Sepsis. COMPARISON STUDY: Chest radiograph July 06, 2023. FINDINGS: Lung volumes are normal. Lungs are clear. There is no pneumothorax or pleural effusion. Moderate cardiomegaly is unchanged. Mediastinal contours are normal. There is pulmonary vascular congestion without overt pulmonary edema. IMPRESSION: Cardiomegaly with pulmonary vascular congestion. ACT 112: Negative or not required by law. Electronically signed by: Zach Abreu M.D. 07/28/2023 8:[address] 07/28/23 08:32 CT OF THE HEAD WITHOUT CONTRAST CLINICAL HISTORY: Altered mental status. COMPARISON STUDY: Head CT April 30, 2023. MRI of the brain May 16, 2023. CT DOSE: 703.85 mGy.cm TECHNIQUE: Helical axial images of the head were obtained without IV contrast. Automated exposure control was utilized for the study. A dose lowering technique was utilized adhering to the principles of ALARA. FINDINGS: No acute intracranial hemorrhage, midline shift or mass effect is present. Ventricular system is stable. Basal cisterns are patent. There are no extra-axial collections. White matter hypodensity suggests small vessel disease. A hypodense focus within the left cerebellar hemisphere on image 9 of 36 remains unchanged. 2 cm hypodense focus within the left occipital lobe on image 16 of 36 is new since prior CT. No acute calvarial fractures. IMPRESSION: 1. No acute intracranial hemorrhage. 2. 2 cm hypodense focus within the left occipital lobe. This could reflect a subacute to acute infarct. ACT 112: Negative or not required by law. Electronically signed by: Zach Abreu M.D. 07/28/2023 9:26 AM ECG Additional Comments: Atrial fibrillation with premature ventricular or aberrantly conducted complexes Left axis deviation Septal infarct (cited on or before 31-AUG-2022) Abnormal ECG When compared with ECG of 06-JUL-2023 03:28, Vent. rate has increased BY 24 BPM Nonspecific T wave abnormality, worse in Lateral leads QT has lengthened Code Status & VTE Plan Code Status DNR/DNI VTE Prophylaxis Plan VTE Prophylaxis will be ordered: Yes Supervising Physician Co-Signing Physician Notes Patient seen and examined, chart reviewed, case discussed with Monster Doan PA-C and I agree with the assessment and plan as above except as otherwise noted Labs and images reviewed 87-year-old male with a history of A-fib s/p Watchman, BPH, hypertension, urinary retention who presented from [facility] with altered mental status BMP did not show any focal weakness on exam. Patient is oriented to self only, is a limited historian, was unable to provide significant details regarding his history at time of HPI. He is oriented to name but not place/year. Follows some one-step commands intermittently, is not able to follow two-step commands. Strength sensation testing is somewhat limited by engagement however moves upper and lower extremities equally on command and endorses sensation to soft touch in hands and feet. Reportedly onset of confusion 24 hours ago, CThead shows a 2 cm hypodense focus within the left occipital lobe suspicious for acute to subacute infarct. Because patient's symptoms were onset more than 24 hours ago and he did not have any focal territorial CVA symptoms, TNKase was not indicated. Due to time of onset of symptoms CT angiography was deferred by ER. Patient not able to safely pass swallow eval, on admission full dose aspirin x 1 ordered. MRI ordered for stroke evaluation, to be completed with MRI Noncon angio and carotid Dopplers for vascular evaluation. Unclear timeframe of CVA onset, continue permissive hypertension for 24 hours with goal SBP less than 220 per protocol. Labetalol on-call. Patient is normotensive at time of admission. Quad screen is negative, UA is noninfected appearing. Patient has a mild leukocytosis without left shift, no evidence of, and no evidence of pneumonia on chest x-ray. Suspect stress demargination. Follow fever curve overnight. Agree with assessment and management above PG Care Time/CCT Total # of Minutes Spent Total Time Spent with Patient: Total time spent is greater than 50% in coordination of care (as documented) at patient's floor/unit and/or counseling patient: Coding [place] [address] INT INP/OBS CARE 3/75MIN Patient Type Established History Comprehensive Exam Comprehensive Medical Decision Making High Complexity Diagnoses AMS (altered mental status) R41.82 Permanent atrial fibrillation I48.2 Atrial fibrillation type: permanent Gout M10.9 Essential hypertension I10 Hypertension type: essential hypertension BPH NOS w ur obs/LUTS N40.1 (2) Atrial fibrillation Atrial fibrillation type: permanent Qualified Code(s): I48.2 - Chronic atrial fibrillation (4) Hypertension Hypertension type: essential hypertension Qualified Code(s): I10 - Essential (primary) hypertension
[2023-07-28] MEDS ORDERED: PHARMACIST DISCHARGE MED REC CONSULT PRN ×2 (10:25→10:41)
[2023-07-28] MEDS ORDERED: LABETALOL HCL IV 5 MG/ML 20ML IV PRN (10:52)
[2023-07-28] MEDS ORDERED: ACETAMINOPHEN 1,000 MG/100 ML VIAL IV PRN (10:55)
[2023-07-28] MEDS: ASPIRIN 300 MG SUPP PR ONE (11:03)
[2023-07-28] MEDS: LACTATED RINGER'S 1,000 ML IV SCH (11:30)
--- NOTE | 2023-07-28 11:30 | Electrocardiogram Report ---
Test Reason : Blood Pressure : / mmHG Vent. Rate : 074 BPM Atrial Rate : 000 BPM P-R Int : 000 ms QRS Dur : 090 ms QT Int : 384 ms P-R-T Axes : 000 -34 079 degrees QTc Int : 426 ms Atrial fibrillation with premature ventricular or aberrantly conducted complexes Left axis deviation Abnormal ECG When compared with ECG of 06-JUL-2023 03:28, Vent. rate has increased BY 24 BPM Nonspecific T wave abnormality, worse in Lateral leads QT has lengthened Confirmed by Jose Antonio Cadena ([id number]) on 07/28/2023 11:30:09 AM Referred By: Confirmed By:Michael Cadena
--- NOTE | 2023-07-28 12:39 | Ultrasound Report ---
CAROTID ARTERY ULTRASOUND CLINICAL HISTORY: stroke workup COMPARISON STUDY: None. TECHNIQUE: Real-time, grayscale, and color Doppler sonography of the carotid and vertebral arteries w as performed. Images were viewed in the transverse and longitudinal planes. FINDINGS: There is moderate atherosclerotic plaque. Velocity measurements are listed below. COMMON CAROTID PEAK SYSTOLIC VELOCITY (CM/S): RIGHT 76 LEFT 54 ICA PEAK SYSTOLIC VELOCITY (CM/S): RIGHT 104 LEFT 69 Systolic ratios between the internal to common carotid arteries were normal. Antegrade flow is seen in the vertebral arteries. The external carotid arteries are patent. IMPRESSION: No evidence for a hemodynamically significant stenosis. ACT 112: Negative or not required by law. Electronically signed by: Zach Abreu M.D. 07/28/2023 12:38 PM
--- NOTE | 2023-07-28 15:41 | XCELERA ---
[id number]
--- NOTE | 2023-07-28 16:44 | XRay Report ---
XR KUB pre MRI CLINICAL HISTORY: clearance for MRI TECHNIQUE: 1 view of the abdomen was obtained. Comparison: None available at the time of this dictation. FINDINGS: Calcific densities compatible with nephrolithiasis are noted. No ureteral or pelvic stones are seen. Degenerative changes are seen in the visualized skeleton. Right femoral nail is seen. No metallic for eign bodies. The bowel gas pattern is nonobstructive. A moderate amount of stool is noted within the large bowel. IMPRESSION: No metallic foreign bodies are seen apart from a right femoral. ACT 112: Negative or not required by law. Electronically signed by: Chapin Arora M.D. 07/28/2023 4:42 PM
--- NOTE | 2023-07-28 19:22 | Magnetic Resonance Report ---
MR brain wo con, MR angio head wo con HISTORY: 87 years-old Male stroke workup acute strokelike symptoms COMPARISON: Head CT of same day, brain MRI 05/16/2023 TECHNIQUE: Multiplanar multisequence MRI of the brain was obtained without IV contrast. MRA of the he ad also obtained utilizing 3-D [id number]-dp-ghlnve sequencing with MIP reformats. All measurements were ob tained according to NASCET criteria. FINDINGS: BRAIN: Numerous areas of restricted diffusion noted within the cortical and subcortical predominate distribu tions of the left frontal and parieto-occipital lobes including a 2 cm focus in the left occipital lo be on image 8 series 5. Restricted diffusion within left frontal lobe measures up to 2.67 m on image 19 series 5. Areas demonstrate decreased signal on ADC map with increased T2/FLAIR signal. 1.5 cm foc us of T2/FLAIR prolongation redemonstrated within the mid left cerebellum, image 19 series 6. Involut ional changes with mild to moderate T2/FLAIR hyperintense foci again noted throughout the white matte r. Motion degraded exam. No acute intracranial hemorrhage, midline shift, abnormal extra-axial collec tion, hydrocephalus or definite intracranial mass. Cerebral venous sinuses and major arterial flow voids appear patent. Prior bilateral lens repair. MRA: Motion degraded exam. No aneurysm, dissection, high-grade stenosis or to occlusion identified. IMPRESSION: 1. Numerous areas of acute infarction noted throughout the left cerebral hemisphere involving the fro ntoparietal and occipital lobes measuring less than 3 cm. 2. Unchanged indeterminate 1.5 cm T2 hyperintense focus seen within the left cerebellar white matter. 3. Unremarkable MRA. ACT 112: Negative or not required by law. The above report was generated using voice recognition software. It may contain grammatical, syntax o r spelling errors. Electronically signed by: Shaquille Villafuerte M.D. 07/28/2023 7:19 PM
[2023-07-28] MEDS: POTASSIUM CHLORIDE / WTR 10 MEQ/100 ML PLCT IV SCH (22:41)
[2023-07-28] MEDS: MAGNESIUM SULFATE / D5W 1 GM/100 ML BAG IV SCH (22:41)
[2023-07-29 06:34] LABS: Basophils # (auto) 0.04 K/uL (0.00-0.20); Basophils % (auto) 0.5 %; Eosinophils # (auto) 0.36 K/uL (0.00-0.50); Eosinophils % (auto) 4.6 %; Hematocrit (blood only) 34.4 % (42.0-52.0); Hemoglobin 11.3 g/dl (14.0-18.0); Immature Granulocytes # (auto) 0.03 K/uL (0.01-0.20); Immature Granulocytes % (auto) 0.4 %; Lymphocytes % (auto) 17.9 %; Mean Corpuscular Hemoglobin 31.3 pg (25.0-34.0); Mean Corpuscular Hgb Conc 32.8 g/dL (32.0-36.0); Mean Corpuscular Volume 95.3 fL (80.0-100.0); Mean Platelet Volume 9.7 fL (9.4-12.4); Neutrophils # (auto) 5.27 K/uL (1.40-6.50); Neutrophils % (auto) 67.6 %; Platelet Count 168 K/uL (130-400); RDW Coefficient of Variation 14.6 % (11.5-14.5); RDW Standard Deviation 51.5 fL (36.4-46.3); Red Blood Count 3.61 M/uL (4.70-6.10)
[2023-07-29 06:46] LABS: BUN Creatinine Ratio 17.6 (10-20); Calcium 10.1 mg/dl (8.6-10.3); Chol HDL Ratio 2.4 (0-5); Creatinine Clr Calc Pharmacy 62.4 ml/min; Est GFR (African American) 91.4 ml/min; Est GFR (Non-African American) 78.9 ml/min; Magnesium 2.2 mg/dl (1.7-2.4); Potassium 3.7 mmol/L (3.5-5.1)
[2023-07-29 06:53] LABS: INR 1.2 (0.9-1.1); Prothrombin Time 12.4 Seconds (9.0-12.0)
[2023-07-29 06:56] LABS: Estimated Average Glucose 126 mg/dl
[2023-07-29] MEDS: D5W AND 1/2NSS + 20MEQ KCL 20 MEQ/1,000 ML BAG IV SCH (09:30)
[2023-07-29] MEDS: ATORVASTATIN 20 MG TAB PO SCH (09:30)
[2023-07-29] MEDS: ASPIRIN 81 MG ECTAB PO SCH (09:30)
--- NOTE | 2023-07-29 09:45 | Neurology Consultation ---
Date of Consultation July 29, 2023 Assessment & Plan (1) Stroke: (2) A-fib: Plan 87-year-old male with a history of atrial fibrillation, Watchman procedure, not on aspirin or anticoagulants, history of left cerebellar stroke, presenting with mixed aphasia, right visual field deficit with confrontation testing, and evidence of acute infarcts within the left occipital lobe, left frontal and left parietal lobes. Stroke distribution consistent with cardioembolism. No evidence of arterial stenosis or occlusion on carotid ultrasound or MRA of the brain. No thrombus on echocardiogram. He had previously been prescribed Eliquis although this medication was discontinued in the context of a GI bleed. He has a history of fall complicated by right hip fracture and intraventricular hemorrhage this past March. Agree with aspirin and atorvastatin as ordered. 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 Therefore, the risk of long-term anticoagulation in this patient would probably exceed its benefit. Allow for permissive hypertension acutely, systolic blood pressure 140 mmHg to 160 mmHg. Consultations with PT/OT/speech therapy. Consider outpatient ophthalmology assessment for full evaluation of his visual park. Please call with any questions. History of Present Illness Reason for Consultation: stroke Requesting Physician: Olimpia Attending Physician: Dona Moon MD History of Present Illness The patient is an 87-year-old male with a past medical history of permanent atr ial fibrillation, Watchman procedure, not on anticoagulation, chronic left cerebellar infarct, who presented to the emergency department yesterday morning with altered mental status. He is an unreliable historian due to a mixed aphasia. Initial CT of the head revealed a possible subacute left occipital lobe infarct. A follow-up brain MRI revealed multiple embolic infarcts within the left cerebral hemisphere involving the left frontal, parietal, and occipital lobes. No hemorrhage. A carotid ultrasound and MRA of the brain were unremarkable. He was not taking aspirin or a statin at the time of presentation. Aspirin and atorvastatin have been started. An echocardiogram reveals moderate dilatation of the left atrium, severe dilatation of the right atrium, no interatrial shunt. An electrocardiogram reveals atrial fibrillation. I note he had previously been prescribed Eliquis, although this medication was discontinued due to GI bleeding. He had presented to the emergency department April 08, 2023 in the context of a fall complicated by small acute intraventricular hemorrhage within the right lateral, third, and fourth ventricles, right hip fracture, was transferred to [facility] at that time. Allergies Allergy/AdvReac Type Severity Reaction Status Date / Time Thiazides AdvReac Intermediate Hypercalcem Verified 04/08/23 15:45 ia Home Medications Medication Instructions Recorded Confirmed Type allopurinol 100 mg tablet 100 mg PO QAM #90 tabs 03/18/22 07/28/23 Rx amlodipine 5 mg tablet 5 mg PO DAILY #90 tabs 12/27/22 07/28/23 Rx escitalopram oxalate 10 mg tablet 10 mg PO DAILY #90 tabs 01/31/23 07/28/23 Rx ferrous sulfate 325 mg (65 mg 325 mg PO 3XWK 04/08/23 07/28/23 History iron) tablet,delayed release Saccharomyces boulardii 250 mg 250 mg PO BID 05/21/23 07/28/23 History capsule (Florastor) lisinopril 20 mg tablet 20 mg PO DAILY #30 tabs 05/21/23 07/28/23 Rx acetaminophen 500 mg tablet 1,000 mg PO Q8H PRN pain/fever 07/28/23 07/28/23 History alfuzosin 10 mg tablet,extended 10 mg PO QAM 07/28/23 07/28/23 History release 24 hr Patient History Medical History Fall ELISE (acute kidney injury) Prediabetes A-fib Benign prostatic hyperplasia with 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 Diverticulosis Gross hematuria History of SCC (squamous cell carcinoma) of skin History of basal cell carcinoma BPH NOS w ur obs/LUTS Mild mitral regurgitation Permanent atrial fibrillation Rosacea Swelling of eyelid Gout BPH (benign prostatic hyperplasia) Kidney stones Hematuria GI bleed Diverticular disease On anticoagulant therapy Atrial fibrillation Hypertension Surgical History H/O tooth extraction History of tonsillectomy History of lithotripsy History of cataract surgery History of surgery on arm History of total knee replacement Status post Mohs surgery History of colonoscopy Family History Father Cancer Prostate cancer Denies family history of Ovarian cancer Myocardial infarction Breast cancer Colorectal cancer Social History Smoking Status: Unknown if ever smoked Second Hand Exposure: No; Do You Dip or Chew Tobacco: No; Hx Alcohol Use: No Hx Substance Use: No Preferred Language: Vietnamese Communication Ability: Impaired Visual Impairment: Limited Hearing Ability: Normal 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 Beliefs That Will Affect Care: None marital status: Current Living Situation: Personal Care Facility Current Living Situation Comment: [facility] current occupational status: retired Feels Safe at Home: Yes Childhood Exposure to Second-Hand Smoke: No Dental Care, Regularly: Yes Physical Activity Frequency: 3-4 Times per Week Seatbelt Use: always Sunscreen Use: Yes Assistive Devices: Cane, Raised Toilet Seat and Walker Review of Systems Review of Systems: Unobtainable due to cognitive status Exam (Neuro) Constitutional: well developed; no acute distress Eyes: PERRL and EOM intact bilaterally; + abnormal visual field confrontation (There is a right visual field deficit with confrontation testing) and no nystagmus Neurologic: Oriented to:: Person; negative Place or Time Memory: negative Short Term Intact or Remote Intact Attention: Span Intact; negative Concentration Intact Language: negative Naming Objects or Repeating Phrases Speech Fluency: negative Dysarthria Speech Aphasia: Aphasia Fund of Knowledge: negative Current Events, Past History or Vocabulary Cranial Nerves: Normal III, IV, , V, VII, VIII, IX, X, XI and XII; Abnorm II Motor Strength: Normal Lower Extremities and Normal Upper Extremities Motor Tone: Normal Lower Extremities and Normal Upper Extremities Muscle Bulk/Involuntary Movements: No Involuntary Movements; negative Muscle Atrophy Coordination: negative Finger-Nose Abnormal Deep Tendon Reflexes: Rt Triceps: 2+, Lt Triceps: 2+, Rt Biceps: 2+, Lt Biceps: 2+, Rt Brachioradialis: 2+, Lt Brachioradialis: 2+, Rt Patellar: 2+, Lt Patellar: 2+, Rt Ankle: 1+ and Lt Ankle: 1+ Details: Sensory examination unreliable due to aphasia, confusion Results & Data Vital Signs (Past 12 Hours) Vital Signs Temp Pulse Pulse Resp BP BP Pulse Ox 07/29/23 07:33 36.6 C 78 20 172/92 H 94 07/29/23 02:57 51 L 07/29/23 02:42 36.7 C 71 18 145/90 H 96 07/28/23 22:21 36.8 C 67 18 161/95 H 97 O2 Del Method 07/29/23 07:33 Room Air 07/29/23 02:57 07/29/23 02:42 Room Air 07/28/23 22:21 Room Air Laboratory Results WBC 7.80, hemoglobin 11.3, hematocrit 34.4, platelet count 168, sodium 141, potassium 3.7, BUN 15, creatinine 0.85, glucose 93, hemoglobin A1c 6.0, calcium 10.1, magnesium 2.2, AST 10, ALT 5, triglycerides 63, cholesterol 120, LDL 57, HDL [address] of the head, brain MRI, MRA of the brain, and carotid ultrasound are as described in the history of present illness. I independently reviewed these images. Coding Level of Care Code 10495 INT INP/OBS CARE 375MIN Diagnoses Stroke I63.89 CVA mechanism: other A-fib I48.11 Atrial fibrillation type: longstanding persistent Time Spent (min) 90 Comment Total time includes patient contact, chart review, counseling, note preparation (1) Stroke CVA mechanism: other Qualified Code(s): I63.89 - Other cerebral infarction (2) A-fib Atrial fibrillation type: longstanding persistent Qualified Code(s): I48.11 - Longstanding persistent atrial fibrillation
--- NOTE | 2023-07-29 10:29 | Pharmacy Report ---
- Date of Service July 29, 2023 - Pharmacy CVA/TIA Medication Review Medications to Prevent Stroke handout has been added to the patients discharge packet. Antiplatelet(s) * aspirin 81mg PO daily Cholesterol * High intensity statin deferred due to age >75 DVT Prophylaxis * BL DIANA stockings Therapeutic Anticoagulation * Hx Afib/Aflutter noted ((+) Watchman), but anticoagulation is being deferred due to bleeding risk (history GIB on apixaban, falls) per provider documentation Type 2 Diabetes * Patient does not have T2DM
--- NOTE | 2023-07-29 12:34 | Electrocardiogram Report ---
Test Reason : Blood Pressure : / mmHG Vent. Rate : 051 BPM Atrial Rate : 047 BPM P-R Int : 000 ms QRS Dur : 104 ms QT Int : 468 ms P-R-T Axes : 000 -21 -44 degrees QTc Int : 431 ms Atrial fibrillation with slow ventricular response with premature ventricular or aberrantly conducted complexes Low voltage QRS Abnormal ECG When compared with ECG of 28-JUL-2023 07:48, Inverted T waves have replaced nonspecific T wave abnormality in Inferior leads Nonspecific T wave abnormality, improved in Lateral leads Confirmed by Jose Antonio Cadena ([id number]) on 07/29/2023 12:34:31 PM Referred By: REFERRED SELF Confirmed By:Michael Cadena
--- NOTE | 2023-07-29 16:40 | Hospitalist Progress Note ---
Date of Service July 29, 2023 Assessment & Plan (1) Stroke: Plan: 87 y/o presented with aphasia and right visual field deficit, found to have multiple strokes - L occipital and frontoparietal consistent with cardioembolic source -MRI brain reviewed and MRA head/neck and carotid duplex negative for significant stenosis -History of permanent afib and Watchman procedure, had bleeding difficulties on anticoagulation. TTE with EF 55-60% no thrombus, mod MR, no shunt -A1c 6.0%, LDL 57 -consulted neurologist, reviewed recs in Dr. Rdz's note -permissive HTN -continue ASA and atorvastatin. consider risks:benefits of apixaban -PT/OT/ST consults -outpatient opthalmology follow up for visual field testing -follow up with neurology (2) Atrial fibrillation: Plan: -Patient is status post Watchman procedure, he is not on systemic anticoagulation. intrinsically rate controlled, avoid AV linwood blocking agents. stopped PRN labetalol (no doses given). -had asymptomatic bradycardia during the night into the 30s at times, however, rates are 50s-70s when awake -discussed with cardiology (3) Gout: Plan: -Resume allopurinol (4) Hypertension: Plan: -Currently stable. Will hold patient's amlodipine, lisinopril for now as we are allowing permissive hypertension. (5) BPH NOS w ur obs/LUTS: Plan: Monitor intake/output every shift. Will order every shift bladder scan with as needed straight cath for postvoid residual of 350 cc or greater. Does have a history of chronic Gold catheters in the past - resume alfluzosin Plan gout - resume allopurinol address constipation DVT ppx - enoxaparin 40 mg subcu daily dispositionanticipate rehab stay Admission and Anticipated Discharge Date Admission Date: July 28, 2023 Physical Exam 2 Physical Exam: PHYSICAL EXAMINATION Last 24h vital signs reviewed, see documentation in flowsheet General: frail elderly gentleman sitting in the chair,comfortable appearing, no distress HEENT: Normocephalic, atraumatic, pupils round and equal, sclerae anicteric, no conjunctival injection, moist mucus membranes Lungs: Normal respiratory effort. Clear to auscultation bilaterally. No RRW Heart: irregularly irregular rate and rhythm, systolic murmur. No JVD Abdomen: Soft, nontender, nondistended. Bowel sounds present. Extremities: Warm, dry, well-perfused. No extremity edema. Neuro: Alert and with expressive and receptive aphasia, speaking in phrases with some word finding difficulty and paraphasic errors, right visual field deficit present by description, difficult to assess by visual field testing with confrontation because he cannot consistently follow these commands, face symmetric, upper and lower extremity strength 5 out of 5 Psych: Normal affect and behavior Results & Data Results & Data Vital Signs (Past 12 Hours) Vital Signs Temp Pulse Pulse Pulse Resp BP BP 07/29/23 15:59 36.9 C 61 16 150/87 H 07/29/23 11:26 36.5 C 73 19 129/87 07/29/23 08:00 70 07/29/23 08:00 07/29/23 07:33 36.6 C 78 20 172/92 H Pulse Ox O2 Del Method 07/29/23 15:59 98 Room Air 07/29/23 11:26 99 Room Air 07/29/23 08:00 07/29/23 08:00 Room Air 07/29/23 07:33 94 Room Air Laboratory Results 07/29/23 06:02 07/29/23 06:02 Diagnostic Findings Brain MRI 07/28/23 10:41 MR brain wo con, MR angio head wo con HISTORY: 87 years-old Male stroke workup acute strokelike symptoms COMPARISON: Head CT of same day, brain MRI 05/16/2023 TECHNIQUE: Multiplanar multisequence MRI of the brain was obtained without IV contrast. MRA of the head also obtained utilizing 3-D [id number] sequencing with MIP reformats. All measurements were obtained according to NASCET criteria. FINDINGS: BRAIN: Numerous areas of restricted diffusion noted within the cortical and subcortical predominate distributions of the left frontal and parieto-occipital lobes including a 2 cm focus in the left occipital lobe on image 8 series 5. Restricted diffusion within left frontal lobe measures up to 2.67 m on image 19 series 5. Areas demonstrate decreased signal on ADC map with increased T2/FLAIR signal. 1.5 cm focus of T2/FLAIR prolongation redemonstrated within the mid left cerebellum, image 19 series 6. Involutional changes with mild to moderate T2/FLAIR hyperintense foci again noted throughout the white matter. Motion degraded exam. No acute intracranial hemorrhage, midline shift, abnormal extra- axial collection, hydrocephalus or definite intracranial mass. Cerebral venous sinuses and major arterial flow voids appear patent. Prior bilateral lens repair. MRA: Motion degraded exam. No aneurysm, dissection, high-grade stenosis or to occlusion identified. IMPRESSION: 1. Numerous areas of acute infarction noted throughout the left cerebral hemisphere involving the frontoparietal and occipital lobes measuring less than 3 cm. 2. Unchanged indeterminate 1.5 cm T2 hyperintense focus seen within the left cerebellar white matter. 3. Unremarkable MRA. ACT 112: Negative or not required by law. The above report was generated using voice recognition software. It may contain grammatical, syntax or spelling errors. Electronically signed by: Shaquille Villafuerte M.D. 07/28/2023 7:19 PM Head MRA 07/28/23 10:43 MR brain wo con, MR angio head wo con HISTORY: 87 years-old Male stroke workup acute strokelike symptoms COMPARISON: Head CT of same day, brain MRI 05/16/2023 TECHNIQUE: Multiplanar multisequence MRI of the brain was obtained without IV contrast. MRA of the head also obtained utilizing 3-D [id number] sequencing with MIP reformats. All measurements were obtained according to NASCET criteria. FINDINGS: BRAIN: Numerous areas of restricted diffusion noted within the cortical and subcortical predominate distributions of the left frontal and parieto-occipital lobes including a 2 cm focus in the left occipital lobe on image 8 series 5. Restricted diffusion within left frontal lobe measures up to 2.67 m on image 19 series 5. Areas demonstrate decreased signal on ADC map with increased T2/FLAIR signal. 1.5 cm focus of T2/FLAIR prolongation redemonstrated within the mid left cerebellum, image 19 series 6. Involutional changes with mild to moderate T2/FLAIR hyperintense foci again noted throughout the white matter. Motion degraded exam. No acute intracranial hemorrhage, midline shift, abnormal extra- axial collection, hydrocephalus or definite intracranial mass. Cerebral venous sinuses and major arterial flow voids appear patent. Prior bilateral lens repair. MRA: Motion degraded exam. No aneurysm, dissection, high-grade stenosis or to occlusion identified. IMPRESSION: 1. Numerous areas of acute infarction noted throughout the left cerebral hemisphere involving the frontoparietal and occipital lobes measuring less than 3 cm. 2. Unchanged indeterminate 1.5 cm T2 hyperintense focus seen within the left cerebellar white matter. 3. Unremarkable MRA. ACT 112: Negative or not required by law. The above report was generated using voice recognition software. It may contain grammatical, syntax or spelling errors. Electronically signed by: Shaquille Villafuerte M.D. 07/28/2023 7:19 PM KUB X-Ray 07/28/23 15:09 XR KUB pre MRI CLINICAL HISTORY: clearance for MRI TECHNIQUE: 1 view of the abdomen was obtained. Comparison: None available at the time of this dictation. FINDINGS: Calcific densities compatible with nephrolithiasis are noted. No ureteral or pelvic stones are seen. Degenerative changes are seen in the visualized skeleton. Right femoral nail is seen. No metallic foreign bodies. The bowel gas pattern is nonobstructive. A moderate amount of stool is noted within the large bowel. IMPRESSION: No metallic foreign bodies are seen apart from a right femoral. ACT 112: Negative or not required by law. Electronically signed by: Chapin Arora M.D. 07/28/2023 4:42 PM PG Care Time/CCT Total # of Minutes Spent Total Time Spent with Patient: Total time spent is greater than 50% in coordination of care (as documented) at patient's floor/unit and/or counseling patient: Coding Level of Care Code 95495 SUB INP/OBS CARE 3/50MIN Diagnoses Stroke I63.89 CVA mechanism: other Permanent atrial fibrillation I48.2 Atrial fibrillation type: permanent Gout M10.9 Essential hypertension I10 Hypertension type: essential hypertension BPH NOS w ur obs/LUTS N40.1 (1) Stroke CVA mechanism: other Qualified Code(s): I63.89 - Other cerebral infarction (2) Atrial fibrillation Atrial fibrillation type: permanent Qualified Code(s): I48.2 - Chronic atrial fibrillation (4) Hypertension Hypertension type: essential hypertension Qualified Code(s): I10 - Essential (primary) hypertension
[2023-07-29] MEDS: ENOXAPARIN INJ 40 MG/0.4 ML SYR SQ SCH (17:41)
[2023-07-29] MEDS: POLYETHYLENE (MIRALAX) 17 GM PACK PO SCH (17:46)
[2023-07-30 07:13] LABS: Basophils # (auto) 0.03 K/uL (0.00-0.20); Basophils % (auto) 0.3 %; Eosinophils # (auto) 0.86 K/uL (0.00-0.50); Eosinophils % (auto) 9.4 %; Hematocrit (blood only) 35.7 % (42.0-52.0); Hemoglobin 11.9 g/dl (14.0-18.0); Immature Granulocytes # (auto) 0.02 K/uL (0.01-0.20); Immature Granulocytes % (auto) 0.2 %; Lymphocytes # (auto) 1.53 K/uL (1.20-3.40); Lymphocytes % (auto) 16.7 %; Mean Corpuscular Hemoglobin 31.1 pg (25.0-34.0); Mean Corpuscular Hgb Conc 33.3 g/dL (32.0-36.0); Mean Corpuscular Volume 93.2 fL (80.0-100.0); Mean Platelet Volume 9.9 fL (9.4-12.4); Monocytes # (auto) 0.85 K/uL (0.11-0.59); Monocytes % (auto) 9.3 %; Neutrophils # (auto) 5.87 K/uL (1.40-6.50); Neutrophils % (auto) 64.1 %; Platelet Count 183 K/uL (130-400); RDW Coefficient of Variation 14.6 % (11.5-14.5); RDW Standard Deviation 49.3 fL (36.4-46.3); Red Blood Count 3.83 M/uL (4.70-6.10); White Blood Count 9.16 K/ul (4.8-10.8)
[2023-07-30 07:27] LABS: BUN Creatinine Ratio 19.6 (10-20); Calcium 10.4 mg/dl (8.6-10.3); Creatinine Clr Calc Pharmacy 57.6 ml/min; Potassium 3.8 mmol/L (3.5-5.1)
[2023-07-30 07:49] LABS: INR 1.1 (0.9-1.1); Prothrombin Time 12.1 Seconds (9.0-12.0)
[2023-07-30] MEDS: ESCITALOPRAM OXALATE 10 MG TAB PO SCH (08:47)
[2023-07-30] MEDS: TAMSULOSIN HCL 0.4 MG CAP PO SCH (08:47)
[2023-07-30] MEDS: allopurinoL 100 MG TAB PO SCH (08:47)
[2023-07-30] MEDS: SENNA 8.6 MG TAB PO SCH (08:49)
--- NOTE | 2023-07-30 15:30 | Hospitalist Progress Note ---
Date of Service July 30, 2023 Assessment & Plan (1) Stroke: Plan: 87 y/o presented with aphasia and right visual field deficit, found to have multiple strokes - L occipital and frontoparietal consistent with cardioembolic source -MRI brain as above and MRA head/neck and carotid duplex negative for significant stenosis -History of permanent afib and Watchman procedure, had bleeding difficulties on anticoagulation. TTE with EF 55-60% no thrombus, mod MR, no shunt -A1c 6.0%, LDL 57 -consulted neurologist, reviewed recs in Dr. Rdz's note -permissive HTN -continue ASA and atorvastatin. consider risks:benefits of apixaban -PT/OT/ST consults completedrecommend rehab -outpatient opthalmology follow up for visual field testing -follow up with neurology (2) Atrial fibrillation: Plan: -Patient is status post Watchman procedure, he is not on systemic anticoagulation. intrinsically rate controlled, avoid AV linwood blocking agents. stopped PRN labetalol (no doses given). -has asymptomatic bradycardia during the night into the 30s at times, however, rates are 50s-70s when awake and asymptomatic -discussed with cardiology (3) Hypertension: Plan: -Currently stable. Will hold patient's amlodipine, lisinopril for now as we are allowing permissive hypertension. - start to normalize blood pressures soon (4) BPH NOS w ur obs/LUTS: Plan: Ususally on alfluzosin (replaced with tamsulosin per formulary), history of needing catheter in past -acute on chronic urinary retention has required multiple I/O caths with apx 800 mL UOP. Placed argueta 07/29 -assess for argueta removal in 3-5 days once mobility and cognition improved -reviewed medlist no culprits -continue urology follow up Plan address constipation - bowel regimen started gout - cont allopurinol DVT ppx - enoxaparin 40 mg subcu daily dispositionPT/OT/ST rec rehab stay Admission and Anticipated Discharge Date Admission Date: July 28, 2023 Subjective doing well today and no complaints thought the date was 1913 however he feels like his speech has improved with respect to fluency right-sided visual field deficit is unchanged Physical Exam 2 Physical Exam: PHYSICAL EXAMINATION Last 24h vital signs reviewed, see documentation in flowsheet General: sitting in bed awake and alert has just worked with physical therapy HEENT: Normocephalic, atraumatic, pupils round and equal, sclerae anicteric, no conjunctival injection, moist mucus membranes Lungs: Normal respiratory effort. Clear to auscultation bilaterally. No RRW Heart: irregularly irregular rate and rhythm, systolic murmur. No JVD Abdomen: Soft, nontender, nondistended. Bowel sounds present. Extremities: Warm, dry, well-perfused. No extremity edema. Neuro: Alert and with expressive and receptive aphasia, speaking in phrases with some word finding difficulty and paraphasic errors, speech output seems about the same to me today, right visual field deficit present, face symmetric, upper and lower extremity strength 5 out of 5 Psych: Normal affect and behavior Results & Data Results & Data Vital Signs (Past 12 Hours) Vital Signs Temp Pulse Pulse Resp BP Pulse Ox O2 Del Method 07/30/23 14:54 36.5 C 61 18 145/84 H 95 Room Air 07/30/23 12:07 36.9 C 76 18 154/95 H 100 Room Air 07/30/23 12:00 07/30/23 07:43 63 07/30/23 07:28 36.8 C 69 17 176/87 H 99 Room Air O2 Del Method 07/30/23 14:54 07/30/23 12:07 07/30/23 12:00 Room Air 07/30/23 07:43 07/30/23 07:28 Laboratory Results 07/30/23 06:40 07/30/23 06:40 PG Care Time/CCT Total # of Minutes Spent Total Time Spent with Patient: Total time spent is greater than 50% in coordination of care (as documented) at patient's floor/unit and/or counseling patient: Coding Level of Care Code 17171 SUB INP/OBS CARE 2/35MIN Diagnoses Stroke I63.89 CVA mechanism: other Permanent atrial fibrillation I48.2 Atrial fibrillation type: permanent Essential hypertension I10 Hypertension type: essential hypertension BPH NOS w ur obs/LUTS N40.1 (1) Stroke CVA mechanism: other Qualified Code(s): I63.89 - Other cerebral infarction (2) Atrial fibrillation Atrial fibrillation type: permanent Qualified Code(s): I48.2 - Chronic atrial fibrillation (3) Hypertension Hypertension type: essential hypertension Qualified Code(s): I10 - Essential (primary) hypertension
[2023-07-30 19:47] VITALS: TEMP 98.4
[2023-07-31 06:35] LABS: Basophils # (auto) 0.04 K/uL (0.00-0.20); Basophils % (auto) 0.4 %; Eosinophils % (auto) 8.1 %; Hematocrit (blood only) 31.6 % (42.0-52.0); Hemoglobin 10.5 g/dl (14.0-18.0); Immature Granulocytes # (auto) 0.03 K/uL (0.01-0.20); Immature Granulocytes % (auto) 0.3 %; Lymphocytes # (auto) 1.34 K/uL (1.20-3.40); Lymphocytes % (auto) 13.6 %; Mean Corpuscular Hemoglobin 30.8 pg (25.0-34.0); Mean Corpuscular Hgb Conc 33.2 g/dL (32.0-36.0); Mean Corpuscular Volume 92.7 fL (80.0-100.0); Mean Platelet Volume 9.8 fL (9.4-12.4); Monocytes # (auto) 0.96 K/uL (0.11-0.59); Monocytes % (auto) 9.7 %; Neutrophils # (auto) 6.69 K/uL (1.40-6.50); Neutrophils % (auto) 67.9 %; Platelet Count 186 K/uL (130-400); RDW Coefficient of Variation 14.6 % (11.5-14.5); Red Blood Count 3.41 M/uL (4.70-6.10); White Blood Count 9.86 K/ul (4.8-10.8)
[2023-07-31 06:51] LABS: Calcium 10.2 mg/dl (8.6-10.3); Creatinine Clr Calc Pharmacy 50.5 ml/min; Est GFR (African American) 74.1 ml/min; Magnesium 1.8 mg/dl (1.7-2.4); Potassium 3.6 mmol/L (3.5-5.1)
[2023-07-31 07:00] LABS: INR 1.1 (0.9-1.1); Prothrombin Time 11.9 Seconds (9.0-12.0)
--- NOTE | 2023-07-31 11:31 | Discharge Summary ---
Date of Service July 31, 2023 Admission HPI Per Admitting Provider Abhay is an 87-year-old male with a past medical history significant for permanent atrial fibrillation (s/p Watchman procedure), gout, BPH, urinary retention, and hypertension, who presented to the [facility] emergency department on 07/28/2023 from [facility] with a chief complaint of altered mental status over approximately the past 24 hours. He remained stable while in the emergency department. Labs were significant for a leukocytosis of 10.9, glucose within normal limits, UA not consistent with infection, and COVID-19/influenza/RSV screens negative. Chest x-ray was read as cardiomegaly with pulmonary vascular congestion. CT of the head/brain without contrast was read as no acute intracranial hemorrhage, but did note a 2 cm hypodense focus within the left occipital lobe. This could reflect a subacute to acute infarct. Prior to admission the patient was given 1 L of normal saline and was ordered 300 mg of rectal aspirin. The patient was sitting comfortably in bed at the time of the exam in no acute distress. The patient was by himself at the time of the exam. When asked if he has any complaints he states no he cannot tell me why he is here at the hospital. He is currently only oriented to himself, he is unable to provide any additional history at this time. When asked,he denies chest pain, of his, shortness of breath, abdominal pain, nausea, vomiting, changes in vision, hearing, taste, smell, new paresthesias, new unilateral weakness, and pain of any kind. I was able to get in contact with the patient's daughter, Allison Major, who was aware that her father was in the ER with altered mental status. She was able to confirm that the patient is a DNR/DNI. Principal Diagnosis multiple left sided acute to subacute strokes, suspected embolic source, aphasia and visual field deficit Discharge Exam PHYSICAL EXAMINATION Last 24h vital signs reviewed, see documentation in flowsheet General: sitting up in chair HEENT: Normocephalic, atraumatic, pupils round and equal, sclerae anicteric, no conjunctival injection, moist mucus membranes Lungs: Normal respiratory effort. Clear to auscultation bilaterally. No RRW Heart: irregularly irregular rate and rhythm, systolic murmur. No JVD Abdomen: Soft, nontender, nondistended. Bowel sounds present. Extremities: Warm, dry, well-perfused. No extremity edema. Neuro: Alert and with expressive and receptive aphasia, speaking in phrases with some word finding difficulty, speech output decreased seems about the same to me today, right visual field deficit present, face symmetric, upper and lower extremity strength 5 out of 5 Psych: Normal affect and behavior Discharge Data Allergies Allergy/AdvReac Type Severity Reaction Status Date / Time Thiazides AdvReac Intermediate Hypercalcem Verified 04/08/23 15:45 ia Consultations 07/28/23 09:55 ED Decision to Admit Stat 07/28/23 11:13 Consult Neurology Routine 07/29/23 04:11 Consult Cardiology Routine Ordered Studies 07/28/23 08:32 CT head/brain wo con Stat 07/28/23 10:41 MRI Brain [MR brain wo con] Urgent 07/28/23 10:43 MR angio head wo con Urgent US carotid doppler BI Routine Chest X-Ray 07/28/23 07:51 XR chest 1V portable CLINICAL HISTORY: Sepsis. COMPARISON STUDY: Chest radiograph July 06, 2023. FINDINGS: Lung volumes are normal. Lungs are clear. There is no pneumothorax or pleural effusion. Moderate cardiomegaly is unchanged. Mediastinal contours are normal. There is pulmonary vascular congestion without overt pulmonary edema. IMPRESSION: Cardiomegaly with pulmonary vascular congestion. ACT 112: Negative or not required by law. Electronically signed by: Zach Abreu M.D. 07/28/2023 8:[address] 07/28/23 08:32 CT OF THE HEAD WITHOUT CONTRAST CLINICAL HISTORY: Altered mental status. COMPARISON STUDY: Head CT April 30, 2023. MRI of the brain May 16, 2023. CT DOSE: 703.85 mGy.cm TECHNIQUE: Helical axial images of the head were obtained without IV contrast. Automated exposure control was utilized for the study. A dose lowering technique was utilized adhering to the principles of ALARA. FINDINGS: No acute intracranial hemorrhage, midline shift or mass effect is present. Ventricular system is stable. Basal cisterns are patent. There are no extra-axial collections. White matter hypodensity suggests small vessel disease. A hypodense focus within the left cerebellar hemisphere on image 9 of 36 remains unchanged. 2 cm hypodense focus within the left occipital lobe on image 16 of 36 is new since prior CT. No acute calvarial fractures. IMPRESSION: 1. No acute intracranial hemorrhage. 2. 2 cm hypodense focus within the left occipital lobe. This could reflect a subacute to acute infarct. ACT 112: Negative or not required by law. Electronically signed by: Zach Abreu M.D. 07/28/2023 9:26 AM Brain MRI 07/28/23 10:41 MR brain wo con, MR angio head wo con HISTORY: 87 years-old Male stroke workup acute strokelike symptoms COMPARISON: Head CT of same day, brain MRI 05/16/2023 TECHNIQUE: Multiplanar multisequence MRI of the brain was obtained without IV contrast. MRA of the head also obtained utilizing 3-D [id number] sequencing with MIP reformats. All measurements were obtained according to NASCET criteria. FINDINGS: BRAIN: Numerous areas of restricted diffusion noted within the cortical and subcortical predominate distributions of the left frontal and parieto-occipital lobes including a 2 cm focus in the left occipital lobe on image 8 series 5. Restricted diffusion within left frontal lobe measures up to 2.67 m on image 19 series 5. Areas demonstrate decreased signal on ADC map with increased T2/FLAIR signal. 1.5 cm focus of T2/FLAIR prolongation redemonstrated within the mid left cerebellum, image 19 series 6. Involutional changes with mild to moderate T2/FLAIR hyperintense foci again noted throughout the white matter. Motion degraded exam. No acute intracranial hemorrhage, midline shift, abnormal extra- axial collection, hydrocephalus or definite intracranial mass. Cerebral venous sinuses and major arterial flow voids appear patent. Prior bilateral lens repair. MRA: Motion degraded exam. No aneurysm, dissection, high-grade stenosis or to occlusion identified. IMPRESSION: 1. Numerous areas of acute infarction noted throughout the left cerebral hemisphere involving the frontoparietal and occipital lobes measuring less than 3 cm. 2. Unchanged indeterminate 1.5 cm T2 hyperintense focus seen within the left cerebellar white matter. 3. Unremarkable MRA. ACT 112: Negative or not required by law. The above report was generated using voice recognition software. It may contain grammatical, syntax or spelling errors. Electronically signed by: Shaquille Villafuerte M.D. 07/28/2023 7:19 PM Carotid Doppler Study 07/28/23 10:43 CAROTID ARTERY ULTRASOUND CLINICAL HISTORY: stroke workup COMPARISON STUDY: None. TECHNIQUE: Real-time, grayscale, and color Doppler sonography of the carotid and vertebral arteries was performed. Images were viewed in the transverse and longitudinal planes. FINDINGS: There is moderate atherosclerotic plaque. Velocity measurements are listed below. COMMON CAROTID PEAK SYSTOLIC VELOCITY (CM/S): RIGHT 76 LEFT 54 ICA PEAK SYSTOLIC VELOCITY (CM/S): RIGHT 104 LEFT 69 Systolic ratios between the internal to common carotid arteries were normal. Antegrade flow is seen in the vertebral arteries. The external carotid arteries are patent. IMPRESSION: No evidence for a hemodynamically significant stenosis. ACT 112: Negative or not required by law. Electronically signed by: Zach Abreu M.D. 07/28/2023 12:38 PM Head MRA 07/28/23 10:43 MR brain wo con, MR angio head wo con HISTORY: 87 years-old Male stroke workup acute strokelike symptoms COMPARISON: Head CT of same day, brain MRI 05/16/2023 TECHNIQUE: Multiplanar multisequence MRI of the brain was obtained without IV contrast. MRA of the head also obtained utilizing 3-D [id number]-[id number] sequencing with MIP reformats. All measurements were obtained according to NASCET criteria. FINDINGS: BRAIN: Numerous areas of restricted diffusion noted within the cortical and subcortical predominate distributions of the left frontal and parieto-occipital lobes including a 2 cm focus in the left occipital lobe on image 8 series 5. Restricted diffusion within left frontal lobe measures up to 2.67 m on image 19 series 5. Areas demonstrate decreased signal on ADC map with increased T2/FLAIR signal. 1.5 cm focus of T2/FLAIR prolongation redemonstrated within the mid left cerebellum, image 19 series 6. Involutional changes with mild to moderate T2/FLAIR hyperintense foci again noted throughout the white matter. Motion degraded exam. No acute intracranial hemorrhage, midline shift, abnormal extra- axial collection, hydrocephalus or definite intracranial mass. Cerebral venous sinuses and major arterial flow voids appear patent. Prior bilateral lens repair. MRA: Motion degraded exam. No aneurysm, dissection, high-grade stenosis or to occlusion identified. IMPRESSION: 1. Numerous areas of acute infarction noted throughout the left cerebral hemisphere involving the frontoparietal and occipital lobes measuring less than 3 cm. 2. Unchanged indeterminate 1.5 cm T2 hyperintense focus seen within the left cerebellar white matter. 3. Unremarkable MRA. ACT 112: Negative or not required by law. The above report was generated using voice recognition software. It may contain grammatical, syntax or spelling errors. Electronically signed by: Shaquille Villafuerte M.D. 07/28/2023 7:19 PM KUB X-Ray 07/28/23 15:09 XR KUB pre MRI CLINICAL HISTORY: clearance for MRI TECHNIQUE: 1 view of the abdomen was obtained. Comparison: None available at the time of this dictation. FINDINGS: Calcific densities compatible with nephrolithiasis are noted. No ureteral or pelvic stones are seen. Degenerative changes are seen in the visualized skeleton. Right femoral nail is seen. No metallic foreign bodies. The bowel gas pattern is nonobstructive. A moderate amount of stool is noted within the large bowel. IMPRESSION: No metallic foreign bodies are seen apart from a right femoral. ACT 112: Negative or not required by law. Electronically signed by: Chapin Arora M.D. 07/28/2023 4:42 PM 07/31/23 05:58 07/31/23 05:58 Hospital Course (1) Stroke: 87 y/o presented with aphasia and right visual field deficit, found to have multiple strokes - L occipital and frontoparietal consistent with cardioembolic source -MRI brain as above and MRA head/neck and carotid duplex negative for significant stenosis -History of permanent afib and Watchman procedure, had bleeding difficulties on anticoagulation. TTE with EF 55-60% no thrombus, mod MR, no shunt -A1c 6.0%, LDL 57 -consulted neurologist, reviewed recs in Dr. Rdz's note -permissive HTN - begin normalizing BP over next 1-2 weeks -continue ASA and atorvastatin. consider risks:benefits of apixaban - had IVH after a fall last year per Dr. Rdz's neurology consult note: "Agree with aspirin and atorvastatin as ordered. 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 Therefore, the risk of long-term anticoagulation in this patient would probably exceed its benefit." -PT/OT/ST consults completedrecommend rehab -outpatient opthalmology follow up for visual field testing -follow up with neurology (2) Atrial fibrillation: -Patient is status post Watchman procedure, he is not on systemic anticoagulation. intrinsically rate controlled, avoid AV linwood blocking agents. stopped PRN labetalol (no doses given). -has asymptomatic bradycardia during the night into the 30s at times, however, rates are 50s-70s when awake and asymptomatic -discussed with cardiology (3) Hypertension: -Currently stable. amlodipine, lisinopril held for permissive hypertension. -start to normalize blood pressures -resumed amlodipine on discharge (4) BPH NOS w ur obs/LUTS: Ususally on alfluzosin (replaced with tamsulosin per formulary), history of needing catheter in past -acute on chronic urinary retention has required multiple I/O caths with apx 800 mL UOP. Placed argueta 07/29 -assess for argueta removal in 3-5 days once mobility and cognition improved -reviewed medlist no culprits -continue urology follow up Plan address constipation - bowel regimen started gout - cont allopurinol dispositionPT/OT/ST rec rehab stay - discharged to [facility] I updated his son by phone evening of 07/29 Total Time Total Time Spent Total Time Spent (In Minutes): I personally spent: 40 minutes today on clinical care activities including: reviewing chart notes and vital signs discussion with career placement services counselor examining and counseling the patient writing orders, discharge medications and instructions documentation Discharge Plan Discharge Items Patient Disposition: Transfer Inpatient Rehab Fac Reason For Visit: AMS, ACUTE/SUBACUTE STROKE Discharge Diagnosis: acute left sided strokes with aphasia and visual field deficit Activity: Resume your previous activity Non-emergency contact: Primary Care Provider Call non-emergency contact if: you have any medication questions Follow-up/Referrals: Demetrice Guidry MD [Primary Care Provider] - Diet: Heart Healthy Addtl Attending Provider Instructions: PT OT and ST evaluate and treat May begin normalizing BP - one of his antihypertensives was resumed on this discharge Please schedule follow up with [facility] [place] Argueta catheter in place for acute on chronic urinary retention (800 mL x 3 in hospital). Has history of needing argueta in past. -voiding trial in 3-5 days when cognition and mobility improved -please schedule follow up with his urologist Dr. Varma Pending Studies at Discharge: No Stand-Alone Forms: My [employer], Medications to Prevent Stroke Skilled Items Patient informed of condition?: Yes DNR: Yes Discharge Level of Care: Acute rehab Communicable Disease: No Discharge Prognosis: Stable Lines: None Urinary Catheter: Yes Medications and DC Order Prescriptions: New sennosides [Senokot] 8.6 mg Tablet 17.2 mg PO QAM Qty: 0 0RF atorvastatin 20 mg Tablet 20 mg PO QAM Qty: 0 0RF polyethylene glycol 3350 [Miralax] 17 gram Powder In Packet 17 g PO DAILY Qty: 0 0RF aspirin 81 mg Tablet,Delayed Release (Dr/Ec) 81 mg PO DAILY Qty: 0 0RF Continued allopurinol 100 mg tablet 100 mg PO QAM Qty: 90 3RF amlodipine 5 mg tablet 5 mg PO DAILY Qty: 90 3RF escitalopram oxalate 10 mg tablet 10 mg PO DAILY Qty: 90 1RF acetaminophen 500 mg Tablet 1,000 mg PO Q8H PRN (Reason: pain/fever) alfuzosin 10 mg tablet extended release 24 hr 10 mg PO QAM Rx Instructions: administer after the same meal each day ferrous sulfate 325 mg (65 mg iron) tablet,delayed release (DR/EC) 325 mg PO [id number] Rx Instructions: Take one tablet once a day Friday, Friday and Friday Held lisinopril 20 mg tablet 20 mg PO DAILY Qty: 30 0RF Hold Instructions: Resume on 08/07/23. normalize BP over 1-2 weeks Rx Instructions: CONFIRMED CHANGED DOSE OF 20MG DAILY WITH NURSE SHANE AT [facility] 05/21/23. Discontinued Saccharomyces boulardii [Florastor] 250 mg capsule 250 mg PO BID Patient Comments: CONFIRMED W/ NURSE AT [facility] 05/21/23 Discharge Orders: Discharge Order (Routine); Ordered 07/31/23 Ordered By: Dona Moon Admission Data Admit Date/Time: 07/28/23 10:24 Attending Provider: Dona Moon Admit Provider: Buster Hugo Primary Care Provider: Demetrice Guidry Other Providers: Feliberto Castillo; Nawaf Rdz; Jose Antonio Cadena; [facility] F[facility]; [facility] Other Interventions: Discharge Summary Assessment (RN) Last Done: 07/31/23 15:29 Coding Level of Care Code 61039 INP/OBS DISCH >30 MIN Diagnoses Stroke I63.89 CVA mechanism: other Permanent atrial fibrillation I48.2 Atrial fibrillation type: permanent Essential hypertension I10 Hypertension type: essential hypertension BPH NOS w ur obs/LUTS N40.1
[2023-07-31 11:45] VITALS: O2SAT 98
[2023-07-31 14:46] VITALS: RESP 17
[2023-07-31 15:34] VITALS: BP 129/87; PULSE 78
== END 2023-07-31 16:16 | DRG 65 ==
LOC: ED 07:43 → SUATTDRO 12:01 → EDINP 12:01 → 2E 12:12

== ENCOUNTER 2024-02-15 18:34 | Inpatient (IN) ==
--- NOTE | 2024-02-15 19:07 | Emergency Department Note ---
Impression & Plan Generalized weakness, Fever ED Provider Note HISTORY OF PRESENT ILLNESS: Patient is an 88-year-old male presenting with fever and weakness. Patient presents from [facility]. He reportedly had a fever today at their facility and seem more confused than normal. He had a fever of 102 at their facility and was given a gram of Tylenol around 5:30 PM. He had a temperature of 101.3 with EMS and was given 4 cc of fluid and route. Patient reportedly was very unsteady on his feet while walking to dinner this evening at his personal care facility, and they called 911 given his fever and confusion. Patient denies any chest pain or shortness of breath. Denies any abdominal pain, nausea or vomiting. Denies any dysuria or hematuria. Daughter at bedside reports the patient seems at his baseline mental status. Patient denies any complaints on arrival to the ER. ROS: as above PHYSICAL EXAM: Constitutional: Patient appears in no acute distress. HENT: Head: Normocephalic and atraumatic. Eyes: EOMI, PERRL Mouth/Throat: Mucous membranes moist. Neck: Trachea midline. Neck supple. Cardiovascular: Irregular rhythm. No murmurs, rubs or gallops. Intact distal pulses. Pulmonary/Chest: No respiratory distress. Breath sounds clear and equal bilaterally. No wheezes or rales. Abdominal: Abdomen soft, no tenderness, rebound or guarding. Musculoskeletal: No edema, tenderness or deformity noted. Skin: Warm and dry. No rash, erythema, pallor or cyanosis Psychiatric: Appropriate mood and affect for situation. Neurological: Alert and keenly responsive. CN II-XII grossly intact, moving all extremities equally and fully. MDM: - Vitals signs showed hypertension. - History obtained via patient and EMS. History as above. - Chronic conditions affecting care: Afib; HTN - Differential diagnoses include, but are not limited to: ACS; pneumonia; viral syndrome; UTI - Order placed for continuous cardiac monitoring. At this time, monitor showed rate of 61 bpm with irregular rhythm, per my interpretation. - External medical records reviewed. Discharge summary dated 07/31/2023 was reviewed. Patient was admitted to the hospital for multiple left-sided acute to subacute strokes. - EKG interpreted by myself showed atrial fibrillation. Rate 67 bpm. QT 396. No acute ischemic changes. - Laboratory workup interpreted by myself showed leukocytosis (WBC 14.39) with neutrophil predominance; normal INR; stable electrolytes; normal troponin; normal lipase; normal lactate; normal procalcitonin - Viral respiratory panel negative - CXR negative for pneumonia, per my interpretation - UA negative for infection - Patient given 2g IV rocephin empirically. He has not had a fever in the ER. - Discussion was had with piano case maker about patient's case and need for admission - Hospitalist consulted for admission - Patient admitted to [facility] for further evaluation and management. ASSESSMENT AND PLAN: Diagnosis: Generalized weakness; fever Plan: Admit Past Med/Surg History Problem List (Updated 02/15/24 @ 23:01 by Louise Parra MD) Fever (Acute) Generalized weakness (Acute) History of cardioembolic stroke Right-sided visual neglect A-fib (Acute) Stroke (Acute) UTI (urinary tract infection) due to urinary indwelling Gold catheter Hypomagnesemia (Acute) Anemia (Acute) History of intracranial hemorrhage (Acute) Weakness (Acute) Urinary retention Abrasion of right arm (Acute) Elevated PSA H/O tooth extraction 3 weeks ago, then put in partial Weight loss BPH (benign prostatic hyperplasia) Anemia (Acute) GI bleed (Acute) Acute diverticulitis (Acute) Lower GI bleed (Acute) Gout Atrial fibrillation Gout Rosacea Permanent atrial fibrillation (Acute) Mild mitral regurgitation Hypertension BPH NOS w ur obs/LUTS Gross hematuria Diverticulosis Carpal tunnel syndrome of right wrist Benign prostatic hyperplasia with urinary obstruction Closed fracture of medial condyle of femur H/O total knee replacement Anticoagulant long-term use Nephrolithiasis Diverticular hemorrhage Current use of fci anticoagulation (Acute) Lab test negative for COVID-19 virus (Acute) Rectal bleeding (Acute) Vitamin D deficiency Hyperparathyroidism B12 deficiency Prediabetes Hematochezia Hypercalcemia (Acute) Medical History Fall ELISE (acute kidney injury) Prediabetes A-fib Benign prostatic hyperplasia with 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 Diverticulosis Gross hematuria History of SCC (squamous cell carcinoma) of skin History of basal cell carcinoma BPH NOS w ur obs/LUTS Mild mitral regurgitation Permanent atrial fibrillation Rosacea Swelling of eyelid Gout BPH (benign prostatic hyperplasia) Kidney stones Hematuria GI bleed Diverticular disease On anticoagulant therapy Atrial fibrillation Hypertension Surgical History H/O tooth extraction History of tonsillectomy History of lithotripsy History of cataract surgery History of surgery on arm History of total knee replacement Status post Mohs surgery History of colonoscopy Family History Father Cancer Prostate cancer Denies family history of Ovarian cancer Myocardial infarction Breast cancer Colorectal cancer Social History Smoking Status: Never smoker Second Hand Exposure: No; Do You Dip or Chew Tobacco: No; Hx Alcohol Use: No Hx Substance Use: No Preferred Language: [place] Communication Ability: Impaired Visual Impairment: Limited Hearing Ability: Normal Nutritionist Required: No Beliefs That Will Affect Care: None marital status: Current Living Situation: Personal Care Facility Current Living Situation Comment: [facility] current occupational status: retired Feels Safe at Home: Yes Childhood Exposure to Second-Hand Smoke: No Dental Care, Regularly: Yes Physical Activity Frequency: 3-4 Times per Week Seatbelt Use: always Sunscreen Use: Yes Assistive Devices: Walker and Wheelchair Allergies Allergies Allergy/AdvReac Type Severity Reaction Status Date / Time Thiazides AdvReac Intermediate Hypercalcem Verified 01/26/24 10:32 ia Home Meds Home Medications Medication Instructions Recorded Confirmed ferrous sulfate 325 mg (65 mg 325 mg PO 3XWK 04/08/23 01/26/24 iron) tablet,delayed release acetaminophen 500 mg tablet 1,000 mg PO Q8H PRN pain/fever 07/28/23 09/04/23 Saccharomyces boulardii 250 mg 250 mg PO BID 08/20/23 01/26/24 capsule alfuzosin 10 mg tablet,extended 10 mg PO DAILY 09/04/23 01/26/24 release 24 hr Previous Rx's Medication Instructions Recorded allopurinol 100 mg tablet 100 mg PO QAM #90 tabs 03/18/22 amlodipine 5 mg tablet 5 mg PO DAILY #90 tabs 12/27/22 escitalopram oxalate 10 mg tablet 10 mg PO DAILY #90 tabs 01/31/23 lisinopril 20 mg tablet 20 mg PO DAILY #30 tabs 05/21/23 aspirin 81 mg tablet,delayed 81 mg PO DAILY #0 tabs 07/31/23 release atorvastatin 20 mg tablet 20 mg PO QAM #0 tabs 07/31/23 polyethylene glycol 3350 17 gram 17 g PO DAILY #0 ea 07/31/23 oral powder packet (Miralax) Results & Data (ED) Vital Signs Vital Signs - 24 hr 02/15/24 18:51 02/15/24 19:04 02/15/24 19:16 Temperature 37.3 C Temperature Source Oral Pulse Rate 62 61 Pulse Rate [Apical] Respiratory Rate 17 Respiratory Effort / Characteristics Non-Labored Spontaneous Respiratory Depth Normal Respiratory Pattern Regular Blood Pressure 152/79 H Blood Pressure [Right Arm] Blood Pressure Mean 103 Blood Pressure Mean [Right Arm] Pulse Oximetry 94 95 Oxygen Delivery Method Room Air Room Air Sepsis Recent Fever Within 48 Hours Yes Sepsis New/Unexplained Change in Mental Status N/A Sepsis Action Taken by Nursing No Action Required 02/15/24 21:00 02/15/24 22:00 02/15/24 22:00 Temperature 36.9 C Temperature Source Oral Pulse Rate Pulse Rate [Apical] 58 L 54 L Respiratory Rate 19 18 Respiratory Effort / Characteristics Non-Labored Spontaneous Non-Labored Spontaneous Respiratory Depth Normal Normal Respiratory Pattern Regular Regular Blood Pressure Blood Pressure [Right Arm] 119/73 120/75 Blood Pressure Mean Blood Pressure Mean [Right Arm] 88 90 Pulse Oximetry 93 92 Oxygen Delivery Method Room Air Room Air Sepsis Recent Fever Within 48 Hours Sepsis New/Unexplained Change in Mental Status Sepsis Action Taken by Nursing Laboratory Data 02/15/24 18:47 02/15/24 18:47 Lab Results 02/15/24 02/15/24 Range/Units 18:47 20:50 WBC 14.39 H (4.8-10.8) K/ul RBC 3.73 L (4.70-6.10) M/uL Hgb 11.7 L (14.0-18.0) g/dl Hct 35.6 L (42.0-52.0) % MCV 95.4 (80.0-100.0) fL MCH 31.4 (25.0-34.0) pg MCHC 32.9 (32.0-36.0) g/dL RDW Std Deviation 50.7 H (36.4-46.3) fL RDW Coeff of Edith 14.6 H (11.5-14.5) % Plt Count 164 (130-400) K/uL MPV 10.0 (9.4-12.4) fL Immature Gran % (Auto) 0.4 % Neut % (Auto) 85.8 % Lymph % (Auto) 5.6 % [place] % (Auto) 6.9 % Eos % (Auto) 1.0 % Baso % (Auto) 0.3 % Neut # (Auto) 12.36 H (1.40-6.50) K/uL Lymph # (Auto) 0.80 L (1.20-3.40) K/uL [place] # (Auto) 0.99 H (0.11-0.59) K/uL Eos # (Auto) 0.14 (0.00-0.50) K/uL Baso # (Auto) 0.04 (0.00-0.20) K/uL Immature Gran # (Auto) 0.06 (0.01-0.20) K/uL PT 12.2 H (9.0-12.0) Seconds INR 1.1 (0.9-1.1) Sodium 141 (136-145) mmol/L Potassium 3.8 (3.5-5.1) mmol/L Chloride 109 H (98-107) mmol/L Carbon Dioxide 26 (21-32) mmol/L Anion Gap 6 (3-11) BUN 20 (6-23) mg/dl Creatinine 0.96 (0.6-1.4) mg/dl Est Cr Clr Drug Dosing 60.7 ml/min eGFR 76.50 BUN/Creatinine Ratio 20.8 H (10-20) Glucose 176 H (70-99(Fasting)) mg/dl Lactate 1.6 (0.4-2.0) mmol/L Calcium 10.3 (8.6-10.3) mg/dl Total Bilirubin 1.1 H (0.2-1.0) mg/dl AST 12 L (13-39) U/L ALT 8 (7-52) U/L Alkaline Phosphatase 152 H (34-104) U/L Troponin I High Sens 11.3 (0-20) pg/ml Total Protein 6.9 (6.0-8.3) gm/dl Albumin 3.8 (3.4-5.0) gm/dl Globulin 3.1 (2.5-4.0) gm/dl Albumin/Globulin Ratio 1.2 (0.9-2) Lipase 18 (11-82) U/L Procalcitonin 0.07 (0-0.5) ng/ml Urine Color Yellow Urine Appearance Clear (Clear) Urine pH 6.5 (4.5-7.5) Ur Specific [place] 1.013 (1.000-1.030) Urine Protein Negative (Negative) Urine Glucose (UA) Negative (Negative) Urine Ketones Negative (Negative) Urine Blood 2+ H (Negative) Urine Nitrite Negative (Negative) Urine Bilirubin Negative (Negative) Urine Urobilinogen Negative (Negative) Ur Leukocyte Esterase Trace H (Negative) Urine WBC (Auto) 11-20 H (0-5) /hpf Urine RBC (Auto) >20 H (0-2) /hpf U Hyaline Cast (Auto) 0-2 (0-2) /lpf U Epithel Cells (Auto) 0-2 (0-2) /hpf Urine Bacteria (Auto) None Seen (None Seen) Adenovirus (PCR) Not Detected (NotDetected) B. pertussis DNA (PCR) Not Detected (NotDetected) B.parapertussis DNA PCR Not Detected (NotDetected) C. pneumoniae DNA (PCR) Not Detected (NotDetected) Coronavirus OC43 (PCR) Not Detected (NotDetected) Coronavirus HKU1 (PCR) Not Detected (NotDetected) Coronavirus 229E (PCR) Not Detected (NotDetected) SARS-CoV-2 (PCR) Not Detected (NotDetected) Coronavirus NL63 (PCR) Not Detected (NotDetected) Human Metapneumovir PCR Not Detected (NotDetected) Influenza Type A (PCR) Not Detected (NotDetected) Influenza Type B (PCR) Not Detected (NotDetected) M. pneumoniae (PCR) Not Detected (NotDetected) Parainfluenza 1 (PCR) Not Detected (NotDetected) Parainfluenza 2 (PCR) Not Detected (NotDetected) Parainfluenza 3 (PCR) Not Detected (NotDetected) Parainfluenza 4 (PCR) Not Detected (NotDetected) RSV (PCR) Not Detected (NotDetected) Entero/Rhino (PCR) Not Detected (NotDetected) Imaging Data Radiologist's Impression: Chest X-Ray 02/15/24 19:04 Exam(s): XR CXR 1 VIEW EXAM: XR Chest, 1 View CLINICAL HISTORY: Reason for exam: fever. TECHNIQUE: Frontal view of the chest. COMPARISON: 07/28/2023 FINDINGS: Lungs: Unremarkable. No consolidation. Pleural space: Unremarkable. No pneumothorax. Heart: Cardiomegaly. Mediastinum: Unremarkable. Normal mediastinal contour. Bones/joints: Unremarkable. No acute fracture. IMPRESSION: No acute findings in the chest. Electronically signed by: Derrick Waller MD 02/15/24 21:51 PM Discharge Plan Visit Data Chief Complaint: Illness Stated Complaint: illness ED Provider: Louise Parra Discharge Problem: Generalized weakness, Fever Forms Stand Alone Forms: [facility] [employer] Prescriptions Prescriptions: No Action allopurinol 100 mg tablet 100 mg PO QAM Qty: 90 3RF lisinopril 20 mg tablet 20 mg PO DAILY Qty: 30 0RF Hold Instructions: Resume on 08/07/23. normalize BP over 1-2 weeks Rx Instructions: CONFIRMED CHANGED DOSE OF 20MG DAILY WITH NURSE SHANE AT [facility] 05/21/23. Saccharomyces boulardii 250 mg capsule 250 mg PO BID Patient Comments: CONFIRMED W/ NURSE AT [facility]-08/19 amlodipine 5 mg tablet 5 mg PO DAILY Qty: 90 3RF escitalopram oxalate 10 mg tablet 10 mg PO DAILY Qty: 90 1RF alfuzosin 10 mg tablet extended release 24 hr 10 mg PO DAILY Rx Instructions: administer after the same meal each day acetaminophen 500 mg Tablet 1,000 mg PO Q8H PRN (Reason: pain/fever) atorvastatin 20 mg Tablet 20 mg PO QAM Qty: 0 0RF polyethylene glycol 3350 [Miralax] 17 gram Powder In Packet 17 g PO DAILY Qty: 0 0RF aspirin 81 mg Tablet,Delayed Release (Dr/Ec) 81 mg PO DAILY Qty: 0 0RF ferrous sulfate 325 mg (65 mg iron) tablet,delayed release (DR/EC) 325 mg PO 3XWK Rx Instructions: Take one tablet once a day Friday, Friday and Friday Referrals Referrals: Tae Montez DO [Primary Care Provider] -
[2024-02-15 19:35] LABS: Albumin Globulin Ratio 1.2 (0.9-2); Albumin Level 3.8 gm/dl (3.4-5.0); BUN Creatinine Ratio 20.8 (10-20); Basophils # (auto) 0.04 K/uL (0.00-0.20); Basophils % (auto) 0.3 %; Bilirubin,Total 1.1 mg/dl (0.2-1.0); Calcium 10.3 mg/dl (8.6-10.3); Creatinine Clr Calc Pharmacy 60.7 ml/min; Eosinophils # (auto) 0.14 K/uL (0.00-0.50); Globulin 3.1 gm/dl (2.5-4.0); Hematocrit (blood only) 35.6 % (42.0-52.0); Hemoglobin 11.7 g/dl (14.0-18.0); Immature Granulocytes # (auto) 0.06 K/uL (0.01-0.20); Immature Granulocytes % (auto) 0.4 %; Lymphocytes % (auto) 5.6 %; Mean Corpuscular Hemoglobin 31.4 pg (25.0-34.0); Mean Corpuscular Hgb Conc 32.9 g/dL (32.0-36.0); Mean Corpuscular Volume 95.4 fL (80.0-100.0); Monocytes # (auto) 0.99 K/uL (0.11-0.59); Monocytes % (auto) 6.9 %; Neutrophils # (auto) 12.36 K/uL (1.40-6.50); Neutrophils % (auto) 85.8 %; Platelet Count 164 K/uL (130-400); Potassium 3.8 mmol/L (3.5-5.1); RDW Coefficient of Variation 14.6 % (11.5-14.5); RDW Standard Deviation 50.7 fL (36.4-46.3); Red Blood Count 3.73 M/uL (4.70-6.10); Total Protein 6.9 gm/dl (6.0-8.3); White Blood Count 14.39 K/ul (4.8-10.8)
[2024-02-15 19:41] LABS: Troponin I High Sensitivity 11.3 pg/ml (0-20)
[2024-02-15 20:01] LABS: INR 1.1 (0.9-1.1); Prothrombin Time 12.2 Seconds (9.0-12.0)
[2024-02-15 20:27] LABS: Adenovirus PCR Not Detected (NotDetected); Bordetella parapertussis PCR Not Detected (NotDetected); Bordetella pertussis PCR Not Detected (NotDetected); Chlamydia pneumoniae PCR Not Detected (NotDetected); Coronavirus 229E PCR Not Detected (NotDetected); Coronavirus CoV-2 (COVID19)PCR Not Detected (NotDetected); Coronavirus HKU1 PCR Not Detected (NotDetected); Coronavirus NL63 PCR Not Detected (NotDetected); Coronavirus OC43PCR Not Detected (NotDetected); Human Metapneumovirus PCR Not Detected (NotDetected); Influenza A PCR Not Detected (NotDetected); Influenza B PCR Not Detected (NotDetected); Mycoplasma pneumoniae PCR Not Detected (NotDetected); Parainfluenza Virus 1 PCR Not Detected (NotDetected); Parainfluenza Virus 2 PCR Not Detected (NotDetected); Parainfluenza Virus 3 PCR Not Detected (NotDetected); Parainfluenza Virus 4 PCR Not Detected (NotDetected); Respiratory Syncytial VirusPCR Not Detected (NotDetected); Rhinovirus/Enterovirus PCR Not Detected (NotDetected)
--- NOTE | 2024-02-15 21:52 | XRay Report ---
Exam(s): XR CXR 1 VIEW EXAM: XR Chest, 1 View CLINICAL HISTORY: Reason for exam: fever. TECHNIQUE: Frontal view of the chest. COMPARISON: 07/28/2023 FINDINGS: Lungs: Unremarkable. No consolidation. Pleural space: Unremarkable. No pneumothorax. Heart: Cardiomegaly. Mediastinum: Unremarkable. Normal mediastinal contour. Bones/joints: Unremarkable. No acute fracture. IMPRESSION: No acute findings in the chest. Electronically signed by: Derrick Waller MD 02/15/24 21:51 PM
[2024-02-15 22:10] LABS: Appearance Urine Clear (Clear); Bacteria Urine Automated None Seen (None Seen); Bilirubin Urine Negative (Negative); Blood Urine 2+ (Negative); Cast Urine Automated 0-2 /lpf (0-2); Color Urine Yellow; Epithelial Cell Urine Auto 0-2 /hpf (0-2); Glucose Urine UA Negative (Negative); Ketones Urine Negative (Negative); Leukocyte Esterase Urine Trace (Negative); Nitrite Urine Negative (Negative); Protein Urine Negative (Negative); RBC Urine Automated >20 /hpf (0-2); Specific Gravity Urine 1.013 (1.000-1.030); Urobilinogen Urine Negative (Negative); pH Urine 6.5 (4.5-7.5)
--- NOTE | 2024-02-15 23:23 | History & Physical Report ---
Date of Service February 15, 2024 Assessment & Plan (1) Fever: (2) Generalized weakness: (3) UTI (urinary tract infection) due to urinary indwelling Gold catheter: (4) Permanent atrial fibrillation: (5) Bradycardia: Plan The patient is an 88-year-old male with past medical history including history of cardioembolic stroke, right-sided visual neglect, atrial fibrillation, UTI due to indwelling Gold catheter, history of intracranial hemorrhage, BPH with LUTS, hypertension, hyperparathyroidism, B12 deficiency, and prediabetes. He was noted by staff at [facility] to have a temperature of 102 F, and symptoms of generalized fatigue, confusion and weakness. He was noted to have difficulty walking to dinner this evening, being unsteady on his feet, and at that point was sent to the emergency department for assessment #UTI associated with indwelling Gold catheter- Urine culture from 05/01/2023 growing Pseudomonas aeruginosa and Enterococcus faecalis Patient was given ceftriaxone 2 g IV by the ED Cipro 400 mg IV every 12 hours will cover both organisms Follow urine culture and sensitivity Place on NSS + KCl 20 mill equivalents 80 mL/h x 1 L #Paroxysmal atrial fibrillation/bradycardia- Possibility of developing tachybradycardia syndrome The patient will be admitted to telemetry for serial cardiac enzymes, serial EKG's, cardiac rhythm monitoring and a 2-D echocardiogram with Dopplers Continue amlodipine 5 mg every morning and aspirin Hold lisinopril #Hyperlipidemia- Continue atorvastatin #Hyperglycemia/prediabetes- Glucose 176 on admission Check hemoglobin A1c Placed on Accu-Cheks with NovoLog SSI #CODE STATUS: DNR/DNI History of Present Illness Chief Complaint: Patient presents to the emergency department with fever to 102 F at [facility], and symptoms of generalized weakness, confusion and fatigue. Patient reportedly was walking to dinner this evening, and was unsteady on his feet, but did not fall. Primary Care Provider: Tae Montez DO The patient is an 88-year-old male with past medical history including history of cardioembolic stroke, right-sided visual glide, atrial fibrillation, UTI due to indwelling Gold catheter, history of intracranial hemorrhage, BPH with LUTS, hypertension, long-term anticoagulant use, hyperparathyroidism, B12 deficiency and prediabetes. He was noted by staff at [facility] to have a temperature of 102 F, and symptoms of generalized fatigue, confusion and weakness. He was noted to have difficulty walking dinner this evening, being unsteady on his feet, and at that point was to the emergency department for assessment Allergies Allergy/AdvReac Type Severity Reaction Status Date / Time Thiazides AdvReac Intermediate Hypercalcem Verified 02/15/24 23:37 ia Home Medications Medication Instructions Recorded Confirmed Type allopurinol 100 mg tablet 100 mg PO QAM #90 tabs 03/18/22 02/16/24 Rx amlodipine 5 mg tablet 5 mg PO DAILY #90 tabs 12/27/22 02/16/24 Rx escitalopram oxalate 10 mg tablet 10 mg PO DAILY #90 tabs 01/31/23 02/16/24 Rx ferrous sulfate 325 mg (65 mg 325 mg PO 3XWK 04/08/23 02/16/24 History iron) tablet,delayed release lisinopril 20 mg tablet 20 mg PO DAILY #30 tabs 05/21/23 02/16/24 Rx aspirin 81 mg tablet,delayed 81 mg PO DAILY #0 tabs 07/31/23 02/16/24 Rx release atorvastatin 20 mg tablet 20 mg PO QAM #0 tabs 07/31/23 02/16/24 Rx polyethylene glycol 3350 17 gram 17 g PO DAILY #0 ea 07/31/23 02/16/24 Rx oral powder packet (Miralax) Saccharomyces boulardii 250 mg 250 mg PO BID 08/20/23 02/16/24 History capsule alfuzosin 10 mg tablet,extended 10 mg PO DAILY 09/04/23 02/16/24 History release 24 hr hydrocortisone 1 % topical cream 1 applic topical BID PRN Rash 02/16/24 02/16/24 History nystatin 100,000 unit/gram topical 1 applic topical TID PRN YEAST 02/16/24 02/16/24 History powder Past Med/Surg History Problem List (Updated 02/16/24 @ 03:48 by Juan Haji MD) Bradycardia Fever (Acute) Generalized weakness (Acute) History of cardioembolic stroke Right-sided visual neglect A-fib (Acute) Stroke (Acute) UTI (urinary tract infection) due to urinary indwelling Gold catheter Hypomagnesemia (Acute) Anemia (Acute) History of intracranial hemorrhage (Acute) Weakness (Acute) Urinary retention Abrasion of right arm (Acute) Elevated PSA H/O tooth extraction 3 weeks ago, then put in partial Weight loss BPH (benign prostatic hyperplasia) Anemia (Acute) GI bleed (Acute) Acute diverticulitis (Acute) Lower GI bleed (Acute) Gout Atrial fibrillation Gout Rosacea Permanent atrial fibrillation (Acute) Mild mitral regurgitation Hypertension BPH NOS w ur obs/LUTS Gross hematuria Diverticulosis Carpal tunnel syndrome of right wrist Benign prostatic hyperplasia with urinary obstruction Closed fracture of medial condyle of femur H/O total knee replacement Anticoagulant long-term use Nephrolithiasis Diverticular hemorrhage Current use of halfway anticoagulation (Acute) Lab test negative for COVID-19 virus (Acute) Rectal bleeding (Acute) Vitamin D deficiency Hyperparathyroidism B12 deficiency Prediabetes Hematochezia Hypercalcemia (Acute) Medical History Fall ELISE (acute kidney injury) Prediabetes A-fib Benign prostatic hyperplasia with 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 Diverticulosis Gross hematuria History of SCC (squamous cell carcinoma) of skin History of basal cell carcinoma BPH NOS w ur obs/LUTS Mild mitral regurgitation Permanent atrial fibrillation Rosacea Swelling of eyelid Gout BPH (benign prostatic hyperplasia) Kidney stones Hematuria GI bleed Diverticular disease On anticoagulant therapy Atrial fibrillation Hypertension Surgical History H/O tooth extraction History of tonsillectomy History of lithotripsy History of cataract surgery History of surgery on arm History of total knee replacement Status post Mohs surgery History of colonoscopy Family History Father Cancer Prostate cancer Denies family history of Ovarian cancer Myocardial infarction Breast cancer Colorectal cancer Social History Smoking Status: Never smoker Second Hand Exposure: No; Do You Dip or Chew Tobacco: No; Hx Alcohol Use: No Hx Substance Use: No Preferred Language: Belgian Communication Ability: Impaired Visual Impairment: Limited Hearing Ability: Normal 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 Beliefs That Will Affect Care: None marital status: Current Living Situation: Spouse and Personal Care Facility Current Living Situation Comment: [facility] current occupational status: retired Feels Safe at Home: Yes Safety Concerns: Feels Safe At This Time Childhood Exposure to Second-Hand Smoke: No Dental Care, Regularly: Yes Physical Activity Frequency: 3-4 Times per Week Seatbelt Use: always Sunscreen Use: Yes Assistive Devices: Cane, Denture - Upper, Glasses and Walker Review of Systems Review of Systems: The patient denies chest pain, palpitations, shortness of breath, dyspnea on exertion, cough, lower extremity swelling, sore throat, fevers, chills, sweats, nausea, vomiting, diarrhea , constipation, abdominal pain, pelvic pain, blood in urine or stool, dysuria, urinary frequency or urgency, loss of consciousness, rash, abnormal bruising or bleeding, focal weakness, numbness or tingling in arms or legs, generalized arthralgias or myalgias, back or neck pain, or night sweats. The review of systems is otherwise negative other than for that already noted above, and at least 10 systems have been reviewed. Physical Exam Physical Exam: The patient is awake, alert and oriented 3, well developed and well nourished, normocephalic and atraumatic, lying in bed and in no acute distress. HEENT--PERRL, EOMI, mucous membranes and oropharynx mildly dry. Neck--supple. No JVD. No bruits. Thyroid normal, trachea midline, no adenopathy. Heart--normal S1 and S2. No murmurs, rubs or gallops. Lungs--clear bilaterally, no respiratory distress, no accessory muscle use. Abdomen--normal bowel sounds and soft. Nontender. Nondistended, no hernias or masses, no organomegaly. Extremities--no cyanosis or clubbing. No edema. There are good distal pulses b/l. Dermatologic--normal skin turgor, normal color, no abnormal lymph nodes, no rash. Neurologic--cranial nerves II through XII grossly intact. Rheumatologic--normal range of motion. Psychiatric--normal affect. Results & Data Results & Data Vital Signs (Past 12 Hours) Vital Signs Temp Pulse Pulse Resp BP BP Pulse Ox 02/15/24 23:17 57 L 02/15/24 22:00 54 L 18 120/75 92 02/15/24 22:00 36.9 C 02/15/24 21:00 58 L 19 119/73 93 02/15/24 19:16 61 02/15/24 19:04 95 02/15/24 18:51 37.3 C 62 17 152/79 H 94 O2 Del Method 02/15/24 23:17 02/15/24 22:00 Room Air 02/15/24 22:00 02/15/24 21:00 Room Air 02/15/24 19:16 02/15/24 19:04 Room Air 02/15/24 18:51 Room Air Laboratory Results Laboratory Results WBC 14.39 K/ul (4.8-10.8) H 02/15/24 18:47 RBC 3.73 M/uL (4.70-6.10) L 02/15/24 18:47 Hgb 11.7 g/dl (14.0-18.0) L 02/15/24 18:47 Hct 35.6 % (42.0-52.0) L 02/15/24 18:47 MCV 95.4 fL (80.0-100.0) 02/15/24 18:47 MCH 31.4 pg (25.0-34.0) 02/15/24 18:47 MCHC 32.9 g/dL (32.0-36.0) 02/15/24 18:47 RDW Std Deviation 50.7 fL (36.4-46.3) H 02/15/24 18:47 RDW Coeff of Edith 14.6 % (11.5-14.5) H 02/15/24 18:47 Plt Count 164 K/uL (130-400) 02/15/24 18:47 MPV 10.0 fL (9.4-12.4) 02/15/24 18:47 Immature Gran % (Auto) 0.4 % 02/15/24 18:47 Neut % (Auto) 85.8 % 02/15/24 18:47 Lymph % (Auto) 5.6 % 02/15/24 18:47 [place] % (Auto) 6.9 % 02/15/24 18:47 Eos % (Auto) 1.0 % 02/15/24 18:47 Baso % (Auto) 0.3 % 02/15/24 18:47 Neut # (Auto) 12.36 K/uL (1.40-6.50) H 02/15/24 18:47 Lymph # (Auto) 0.80 K/uL (1.20-3.40) L 02/15/24 18:47 [place] # (Auto) 0.99 K/uL (0.11-0.59) H 02/15/24 18:47 Eos # (Auto) 0.14 K/uL (0.00-0.50) 02/15/24 18:47 Baso # (Auto) 0.04 K/uL (0.00-0.20) 02/15/24 18:47 Immature Gran # (Auto) 0.06 K/uL (0.01-0.20) 02/15/24 18:47 PT 12.2 Seconds (9.0-12.0) H 02/15/24 18:47 INR 1.1 (0.9-1.1) 02/15/24 18:47 Sodium 141 mmol/L (136-145) 02/15/24 18:47 Potassium 3.8 mmol/L (3.5-5.1) 02/15/24 18:47 Chloride 109 mmol/L (98-107) H 02/15/24 18:47 Carbon Dioxide 26 mmol/L (21-32) 02/15/24 18:47 Anion Gap 6 (3-11) 02/15/24 18:47 BUN 20 mg/dl (6-23) 02/15/24 18:47 Creatinine 0.96 mg/dl (0.6-1.4) 02/15/24 18:47 Est Cr Clr Drug Dosing 60.7 ml/min 02/15/24 18:47 eGFR 76.50 02/15/24 18:47 BUN/Creatinine Ratio 20.8 (10-20) H 02/15/24 18:47 Glucose 176 mg/dl (70-99(Fasting)) H 02/15/24 18:47 Lactate 1.6 mmol/L (0.4-2.0) 02/15/24 18:47 Calcium 10.3 mg/dl (8.6-10.3) 02/15/24 18:47 Total Bilirubin 1.1 mg/dl (0.2-1.0) H 02/15/24 18:47 AST 12 U/L (13-39) L 02/15/24 18:47 ALT 8 U/L (7-52) 02/15/24 18:47 Alkaline Phosphatase 152 U/L (34-104) H 02/15/24 18:47 Troponin I High Sens 11.3 pg/ml (0-20) 02/15/24 18:47 Total Protein 6.9 gm/dl (6.0-8.3) 02/15/24 18:47 Albumin 3.8 gm/dl (3.4-5.0) 02/15/24 18:47 Globulin 3.1 gm/dl (2.5-4.0) 02/15/24 18:47 Albumin/Globulin Ratio 1.2 (0.9-2) 02/15/24 18:47 Triglycerides Cancelled 02/15/24 18:47 Cholesterol Cancelled 02/15/24 18:47 LDL Cholesterol, Calc Cancelled 02/15/24 18:47 VLDL Cholesterol, Calc Cancelled 02/15/24 18:47 HDL Cholesterol Cancelled 02/15/24 18:47 Cholesterol/HDL Ratio Cancelled 02/15/24 18:47 Lipase 18 U/L (11-82) 02/15/24 18:47 Procalcitonin 0.07 ng/ml (0-0.5) 02/15/24 18:47 Urine Color Yellow 02/15/24 20:50 Urine Appearance Clear (Clear) 02/15/24 20:50 Urine pH 6.5 (4.5-7.5) 02/15/24 20:50 Ur Specific [place] 1.013 (1.000-1.030) 02/15/24 20:50 Urine Protein Negative (Negative) 02/15/24 20:50 Urine Glucose (UA) Negative (Negative) 02/15/24 20:50 Urine Ketones Negative (Negative) 02/15/24 20:50 Urine Blood 2+ (Negative) H 02/15/24 20:50 Urine Nitrite Negative (Negative) 02/15/24 20:50 Urine Bilirubin Negative (Negative) 02/15/24 20:50 Urine Urobilinogen Negative (Negative) 02/15/24 20:50 Ur Leukocyte Esterase Trace (Negative) H 02/15/24 20:50 Urine WBC (Auto) 11-20 /hpf (0-5) H 02/15/24 20:50 Urine RBC (Auto) >20 /hpf (0-2) H 02/15/24 20:50 U Hyaline Cast (Auto) 0-2 /lpf (0-2) 02/15/24 20:50 U Epithel Cells (Auto) 0-2 /hpf (0-2) 02/15/24 20:50 Urine Bacteria (Auto) None Seen (None Seen) 02/15/24 20:50 Adenovirus (PCR) Not Detected (NotDetected) 02/15/24 18:47 B. pertussis DNA (PCR) Not Detected (NotDetected) 02/15/24 18:47 B.parapertussis DNA PCR Not Detected (NotDetected) 02/15/24 18:47 C. pneumoniae DNA (PCR) Not Detected (NotDetected) 02/15/24 18:47 Coronavirus OC43 (PCR) Not Detected (NotDetected) 02/15/24 18:47 Coronavirus HKU1 (PCR) Not Detected (NotDetected) 02/15/24 18:47 Coronavirus 229E (PCR) Not Detected (NotDetected) 02/15/24 18:47 SARS-CoV-2 (PCR) Not Detected (NotDetected) 02/15/24 18:47 Coronavirus NL63 (PCR) Not Detected (NotDetected) 02/15/24 18:47 Human Metapneumovir PCR Not Detected (NotDetected) 02/15/24 18:47 Influenza Type A (PCR) Not Detected (NotDetected) 02/15/24 18:47 Influenza Type B (PCR) Not Detected (NotDetected) 02/15/24 18:47 M. pneumoniae (PCR) Not Detected (NotDetected) 02/15/24 18:47 Parainfluenza 1 (PCR) Not Detected (NotDetected) 02/15/24 18:47 Parainfluenza 2 (PCR) Not Detected (NotDetected) 02/15/24 18:47 Parainfluenza 3 (PCR) Not Detected (NotDetected) 02/15/24 18:47 Parainfluenza 4 (PCR) Not Detected (NotDetected) 02/15/24 18:47 RSV (PCR) Not Detected (NotDetected) 02/15/24 18:47 Entero/Rhino (PCR) Not Detected (NotDetected) 02/15/24 18:47 Impressions Chest X-Ray 02/15/24 19:04 Exam(s): XR CXR 1 VIEW EXAM: XR Chest, 1 View CLINICAL HISTORY: Reason for exam: fever. TECHNIQUE: Frontal view of the chest. COMPARISON: 07/28/2023 FINDINGS: Lungs: Unremarkable. No consolidation. Pleural space: Unremarkable. No pneumothorax. Heart: Cardiomegaly. Mediastinum: Unremarkable. Normal mediastinal contour. Bones/joints: Unremarkable. No acute fracture. IMPRESSION: No acute findings in the chest. Electronically signed by: Derrick Waller MD 02/15/24 21:51 PM Code Status & VTE Plan Code Status DNR/DNI PG Care Time/CCT Total # of Minutes Spent Total Time Spent with Patient: Total time spent is greater than 50% in coordination of care (as documented) at patient's floor/unit and/or counseling patient: Coding Level of Care Code 90680 INT INP/OBS CARE 3/75MIN Diagnoses Fever R50.9 Generalized weakness R53.1 UTI (urinary tract infection) due to urinary indwelling Gold catheter T83.511A; N39.0 Permanent atrial fibrillation I48.2 Bradycardia R00.1
[2024-02-16] MEDS: cefTRIAXone SODIUM 2,000 MG/50 ML BAG IV STA (00:02)
[2024-02-16] MEDS: CIPROFLOXACIN / D5W 400 MG/200 ML BAG IV STA (00:40)
[2024-02-16] MEDS ORDERED: CARBOHYDRATES FOR HYPOGLYCEMIA PO PRN (01:33)
[2024-02-16] MEDS ORDERED: DEXTROSE 50% 50 ML SYRINGE IV PRN (01:33)
[2024-02-16] MEDS ORDERED: GLUCAGON FOR INJ 1 MG VIAL SQ PRN (01:33)
[2024-02-16] MEDS ORDERED: ACETAMINOPHEN 325 MG TAB PO PRN (01:33)
[2024-02-16] MEDS ORDERED: GLUCOSE 40% GEL 15 GM TUBE PO PRN (01:33)
[2024-02-16] MEDS ORDERED: GLUCOSE 10 TAB/TUBE PO PRN (01:33)
[2024-02-16] MEDS: NSS + 20MEQ KCL 20 MEQ/1,000 ML BAG IV SCH (01:48)
[2024-02-16 05:34] LABS: Basophils # (auto) 0.03 K/uL (0.00-0.20); Basophils % (auto) 0.2 %; Eosinophils # (auto) 0.19 K/uL (0.00-0.50); Eosinophils % (auto) 1.4 %; Hematocrit (blood only) 34.8 % (42.0-52.0); Hemoglobin 11.5 g/dl (14.0-18.0); Immature Granulocytes # (auto) 0.05 K/uL (0.01-0.20); Immature Granulocytes % (auto) 0.4 %; Lymphocytes # (auto) 1.32 K/uL (1.20-3.40); Mean Corpuscular Hemoglobin 31.7 pg (25.0-34.0); Mean Corpuscular Volume 95.9 fL (80.0-100.0); Mean Platelet Volume 9.9 fL (9.4-12.4); Monocytes % (auto) 9.1 %; Neutrophils # (auto) 10.37 K/uL (1.40-6.50); Neutrophils % (auto) 78.9 %; Platelet Count 146 K/uL (130-400); RDW Coefficient of Variation 14.6 % (11.5-14.5); RDW Standard Deviation 51.1 fL (36.4-46.3); Red Blood Count 3.63 M/uL (4.70-6.10); White Blood Count 13.16 K/ul (4.8-10.8)
[2024-02-16 05:44] LABS: Albumin Level 3.6 gm/dl (3.4-5.0); BUN Creatinine Ratio 20.4 (10-20); Calcium 10.1 mg/dl (8.6-10.3); Creatinine Clr Calc Pharmacy 62.6 ml/min; Magnesium 1.7 mg/dl (1.7-2.4); Phosphorus 2.7 mg/dl (2.5-4.9); Potassium 3.9 mmol/L (3.5-5.1)
[2024-02-16 07:31] LABS: Estimated Average Glucose 131 mg/dl; Hemoglobin A1C 6.2 % (4.5-5.6)
[2024-02-16] MEDS: HEPARIN SOD 5,000 UNIT/0.5 ML VIAL SQ SCH (08:20)
[2024-02-16] MEDS: SACCHAROMYCES BOULARDII 250 MG CAP PO SCH (08:20)
[2024-02-16] MEDS: ATORVASTATIN 20 MG TAB PO SCH (08:20)
[2024-02-16] MEDS: amLODIPine BESYLATE 5 MG TAB PO SCH (08:20)
[2024-02-16] MEDS: ESCITALOPRAM OXALATE 10 MG TAB PO SCH (08:20)
[2024-02-16] MEDS ORDERED: lisinopril 20 MG TAB PO SCH (09:00)
--- NOTE | 2024-02-16 09:22 | Electrocardiogram Report ---
Test Reason : Blood Pressure : */* mmHG Vent. Rate : 67 BPM Atrial Rate : * BPM P-R Int : * ms QRS Dur : 98 ms QT Int : 396 ms P-R-T Axes : * 0 -48 degrees QTcB Int : 418 ms Atrial fibrillation with premature ventricular or aberrantly conducted complexes Low voltage QRS Cannot rule out Anterior infarct (cited on or before 30-Apr-2023) Abnormal ECG When compared with ECG of 29-Jul-2023 00:21, No significant change was found Confirmed by Anabel Flowers ([id number]) on 02/16/2024 9:22:10 AM Referred By: [employer] [facility] Confirmed By: Anabel Flowers
[2024-02-16] MEDS: INSULIN ASPART PER UNIT CHARGE SC SCH (09:39)
[2024-02-16] MEDS: CIPROFLOXACIN / D5W 400 MG/200 ML BAG IV SCH (12:00)
--- NOTE | 2024-02-16 13:29 | XCELERA ---
[id number]
--- NOTE | 2024-02-16 19:04 | Hospitalist Progress Note ---
Date of Service February 16, 2024 Assessment & Plan (1) Fever: (2) Generalized weakness: (3) UTI (urinary tract infection) due to urinary indwelling Gold catheter: (4) Permanent atrial fibrillation: (5) Bradycardia: Plan The patient is an 88-year-old male with past medical history including history of cardioembolic stroke, right-sided visual neglect, atrial fibrillation, UTI due to indwelling Gold catheter, history of intracranial hemorrhage, BPH with LUTS, hypertension, hyperparathyroidism, B12 deficiency, and prediabetes. He was noted by staff at [facility] to have a temperature of 102 F, and symptoms of generalized fatigue, confusion and weakness. He was noted to have difficulty walking to dinner this evening, being unsteady on his feet, and at that point was sent to the emergency department for assessment #UTI associated with indwelling Gold catheter- Urine culture from 05/01/2023 growing Pseudomonas aeruginosa and Enterococcus faecalis Patient was given ceftriaxone 2 g IV by the ED Cipro 400 mg IV every 12 hours will cover both organisms Follow urine culture and sensitivity Place on NSS + KCl 20 mill equivalents 80 mL/h x 1 L #Paroxysmal atrial fibrillation/bradycardia- Possibility of developing tachybradycardia syndrome The patient will be admitted to telemetry for serial cardiac enzymes, serial EKG's, cardiac rhythm monitoring and a 2-D echocardiogram with Dopplers Continue amlodipine 5 mg every morning and aspirin Hold lisinopril #Hyperlipidemia- Continue atorvastatin #Hyperglycemia/prediabetes- Glucose 176 on admission Check hemoglobin A1c Placed on Accu-Cheks with NovoLog SSI #CODE STATUS: DNR/DNI Admission and Anticipated Discharge Date Admission Date: February 15, 2024 Subjective sitting in the bed, pulling various cords and wires, knows that he is at [facility], denies pain complaints Physical Exam Physical Exam: AAo#2, non focal Lungs clear to auscultation Heart RRR PA Soft, NT, ND, BS+ Results & Data Results & Data Vital Signs (Past 12 Hours) Vital Signs Temp Pulse Pulse Resp BP BP Pulse Ox 02/16/24 15:52 60 02/16/24 15:25 36.2 C L 65 20 151/85 H 93 02/16/24 14:37 36.8 C 68 23 119/78 93 02/16/24 09:45 36.8 C 02/16/24 09:06 78 23 134/97 94 02/16/24 08:06 62 22 155/83 H 96 02/16/24 07:15 58 L O2 Del Method 02/16/24 15:52 02/16/24 15:25 Room Air 02/16/24 14:37 Room Air 02/16/24 09:45 02/16/24 09:06 Room Air 02/16/24 08:06 Room Air 02/16/24 07:15 PG Care Time/CCT Total # of Minutes Spent Total Time Spent with Patient: Total time spent is greater than 50% in coordination of care (as documented) at patient's floor/unit and/or counseling patient: Coding Level of Care Code 26323 SUB INP/OBS CARE 2/35MIN Diagnoses Fever R50.9 Generalized weakness R53.1 UTI (urinary tract infection) due to urinary indwelling Gold catheter T83.511A; N39.0 Permanent atrial fibrillation I48.2 Bradycardia R00.1
[2024-02-17 06:34] LABS: Basophils # (auto) 0.03 K/uL (0.00-0.20); Basophils % (auto) 0.3 %; Eosinophils # (auto) 0.19 K/uL (0.00-0.50); Eosinophils % (auto) 1.8 %; Hematocrit (blood only) 34.3 % (42.0-52.0); Hemoglobin 11.1 g/dl (14.0-18.0); Immature Granulocytes # (auto) 0.04 K/uL (0.01-0.20); Immature Granulocytes % (auto) 0.4 %; Lymphocytes # (auto) 1.03 K/uL (1.20-3.40); Lymphocytes % (auto) 9.8 %; Mean Corpuscular Hemoglobin 31.2 pg (25.0-34.0); Mean Corpuscular Hgb Conc 32.4 g/dL (32.0-36.0); Mean Corpuscular Volume 96.3 fL (80.0-100.0); Mean Platelet Volume 9.9 fL (9.4-12.4); Monocytes # (auto) 0.85 K/uL (0.11-0.59); Monocytes % (auto) 8.1 %; Neutrophils # (auto) 8.38 K/uL (1.40-6.50); Neutrophils % (auto) 79.6 %; Platelet Count 154 K/uL (130-400); RDW Coefficient of Variation 14.7 % (11.5-14.5); RDW Standard Deviation 51.8 fL (36.4-46.3); Red Blood Count 3.56 M/uL (4.70-6.10); White Blood Count 10.52 K/ul (4.8-10.8)
[2024-02-17 06:47] LABS: Albumin Level 3.5 gm/dl (3.4-5.0); BUN Creatinine Ratio 23.4 (10-20); Calcium 10.2 mg/dl (8.6-10.3); Creatinine Clr Calc Pharmacy 60.3 ml/min; Magnesium 1.7 mg/dl (1.7-2.4); Phosphorus 2.6 mg/dl (2.5-4.9); Potassium 3.9 mmol/L (3.5-5.1)
--- NOTE | 2024-02-17 18:12 | Hospitalist Progress Note ---
Date of Service February 17, 2024 Assessment & Plan (1) Fever: (2) Generalized weakness: (3) UTI (urinary tract infection) due to urinary indwelling Gold catheter: (4) Permanent atrial fibrillation: (5) Bradycardia: Plan The patient is an 88-year-old male with past medical history including history of cardioembolic stroke, right-sided visual neglect, atrial fibrillation, UTI due to indwelling Gold catheter, history of intracranial hemorrhage, BPH with LUTS, hypertension, hyperparathyroidism, B12 deficiency, and prediabetes. He was noted by staff at [facility] to have a temperature of 102 F, and symptoms of generalized fatigue, confusion and weakness. He was noted to have difficulty walking to dinner this evening, being unsteady on his feet, and at that point was sent to the emergency department for assessment #UTI associated with indwelling Gold catheter- Urine culture from 05/01/2023 growing Pseudomonas aeruginosa and Enterococcus faecalis Patient was given ceftriaxone 2 g IV by the ED Cipro 400 mg IV every 12 hours will cover both organisms Follow urine culture and sensitivity #Paroxysmal atrial fibrillation/bradycardia- Possibility of developing tachybradycardia syndrome The patient will be admitted to telemetry for serial cardiac enzymes, serial EKG's, cardiac rhythm monitoring and a 2-D echocardiogram with Dopplers Continue amlodipine 5 mg every morning and aspirin Hold lisinopril #Hyperlipidemia- Continue atorvastatin #Hyperglycemia/prediabetes- Glucose 176 on admission Check hemoglobin A1c Placed on Accu-Cheks with NovoLog SSI #CODE STATUS: DNR/DNI Admission and Anticipated Discharge Date Admission Date: February 15, 2024 Physical Exam Physical Exam: AAo#2, non focal Lungs clear to auscultation Heart RRR PA Soft, NT, ND, BS+ Results & Data Results & Data Vital Signs (Past 12 Hours) Vital Signs Temp Pulse Pulse Resp BP Pulse Ox O2 Del Method 02/17/24 15:36 36.9 C 75 20 137/69 94 Room Air 02/17/24 14:36 65 02/17/24 11:19 36.4 C L 51 L 18 144/81 H 96 Room Air 02/17/24 07:28 36.6 C 72 18 149/80 H 94 Room Air Laboratory Results reviewed PG Care Time/CCT Total # of Minutes Spent Total Time Spent with Patient: Total time spent is greater than 50% in coordination of care (as documented) at patient's floor/unit and/or counseling patient: Coding Level of Care Code 55282 SUB INP/OBS CARE 235MIN Diagnoses Fever R50.9 Generalized weakness R53.1 UTI (urinary tract infection) due to urinary indwelling Gold catheter T83.511A; N39.0 Permanent atrial fibrillation I48.2 Bradycardia R00.1
[2024-02-17] MEDS: MAGNESIUM SULFATE / D5W 1 GM/100 ML BAG IV ONE (18:35)
[2024-02-17] MEDS: POTASSIUM CHLORIDE 10 MEQ TABCR PO STA (18:35)
[2024-02-18 06:40] LABS: Basophils # (auto) 0.03 K/uL (0.00-0.20); Basophils % (auto) 0.3 %; Eosinophils # (auto) 0.37 K/uL (0.00-0.50); Immature Granulocytes # (auto) 0.05 K/uL (0.01-0.20); Immature Granulocytes % (auto) 0.5 %; Lymphocytes # (auto) 1.21 K/uL (1.20-3.40); Lymphocytes % (auto) 13.1 %; Mean Corpuscular Hgb Conc 32.4 g/dL (32.0-36.0); Mean Corpuscular Volume 95.6 fL (80.0-100.0); Monocytes # (auto) 1.08 K/uL (0.11-0.59); Monocytes % (auto) 11.7 %; Neutrophils # (auto) 6.53 K/uL (1.40-6.50); Neutrophils % (auto) 70.4 %; Platelet Count 157 K/uL (130-400); RDW Coefficient of Variation 14.8 % (11.5-14.5); Red Blood Count 3.87 M/uL (4.70-6.10); White Blood Count 9.27 K/ul (4.8-10.8)
[2024-02-18 07:01] LABS: Albumin Level 3.6 gm/dl (3.4-5.0); Calcium 10.4 mg/dl (8.6-10.3); Creatinine Clr Calc Pharmacy 56.6 ml/min; Magnesium 1.9 mg/dl (1.7-2.4); Phosphorus 2.5 mg/dl (2.5-4.9); Potassium 3.9 mmol/L (3.5-5.1)
--- NOTE | 2024-02-18 19:47 | Hospitalist Progress Note ---
Date of Service February 18, 2024 Assessment & Plan (1) Fever: (2) Generalized weakness: (3) UTI (urinary tract infection) due to urinary indwelling Gold catheter: (4) Permanent atrial fibrillation: (5) Bradycardia: Plan The patient is an 88-year-old male with past medical history including history of cardioembolic stroke, right-sided visual neglect, atrial fibrillation, UTI due to indwelling Gold catheter, history of intracranial hemorrhage, BPH with LUTS, hypertension, hyperparathyroidism, B12 deficiency, and prediabetes. He was noted by staff at [facility] to have a temperature of 102 F, and symptoms of generalized fatigue, confusion and weakness. He was noted to have difficulty walking to dinner this evening, being unsteady on his feet, and at that point was sent to the emergency department for assessment #UTI associated with indwelling Gold catheter- Urine culture from 05/01/2023 growing Pseudomonas aeruginosa and Enterococcus faecalis Patient was given ceftriaxone 2 g IV by the ED Cipro 400 mg IV every 12 hours will cover both organisms Follow urine culture and sensitivity #Paroxysmal atrial fibrillation/bradycardia improved Possibility of developing tachybradycardia syndrome Continue amlodipine 5 mg every morning and aspirin #Hyperlipidemia- Continue atorvastatin #Hyperglycemia/prediabetes Placed on Accu-Cheks with NovoLog SSI #CODE STATUS: DNR/DNI Discharge to rehab when bed available pending PT/OT eval Admission and Anticipated Discharge Date Admission Date: February 15, 2024 Subjective resting comfortably, no complaints Physical Exam Physical Exam: AAo#2, non focal Lungs clear to auscultation Heart RRR PA Soft, NT, ND, BS+ Results & Data Results & Data Vital Signs (Past 12 Hours) Vital Signs Temp Pulse Pulse Resp BP Pulse Ox O2 Del Method 02/18/24 16:12 36.5 C 61 18 141/70 H 95 Room Air 02/18/24 14:07 76 02/18/24 11:22 36.7 C 55 L 18 151/78 H 93 Room Air PG Care Time/CCT Total # of Minutes Spent Total Time Spent with Patient: Total time spent is greater than 50% in coordination of care (as documented) at patient's floor/unit and/or counseling patient: Coding Level of Care Code 52943 SUB INP/OBS CARE 2/35MIN Diagnoses Fever R50.9 Generalized weakness R53.1 UTI (urinary tract infection) due to urinary indwelling Gold catheter T83.511 A; N39.0 Permanent atrial fibrillation I48.2 Bradycardia R00.1
[2024-02-19] MEDS: MAGNESIUM SULFATE / D5W 1 GM/100 ML BAG IV SCH (02:09)
[2024-02-19] MEDS: POTASSIUM CHLORIDE CRTAB 20 MEQ TABCR PO STA (02:10)
[2024-02-19 07:58] LABS: Hematocrit (blood only) 35.4 % (42.0-52.0); Hemoglobin 11.8 g/dl (14.0-18.0); Mean Corpuscular Hemoglobin 31.8 pg (25.0-34.0); Mean Corpuscular Hgb Conc 33.3 g/dL (32.0-36.0); Mean Corpuscular Volume 95.4 fL (80.0-100.0); Mean Platelet Volume 9.8 fL (9.4-12.4); Platelet Count 200 K/uL (130-400); RDW Coefficient of Variation 14.6 % (11.5-14.5); RDW Standard Deviation 51.4 fL (36.4-46.3); Red Blood Count 3.71 M/uL (4.70-6.10); White Blood Count 9.19 K/ul (4.8-10.8)
[2024-02-19 08:24] LABS: Calcium 10.2 mg/dl (8.6-10.3); Magnesium 2.3 mg/dl (1.7-2.4); Potassium 3.8 mmol/L (3.5-5.1)
[2024-02-19 08:30] LABS: BUN Creatinine Ratio 26.1 (10-20); Creatinine Clr Calc Pharmacy 46.9 ml/min
--- NOTE | 2024-02-19 14:23 | Hospitalist Progress Note ---
Date of Service February 19, 2024 Assessment & Plan (1) Fever: (2) Generalized weakness: (3) UTI (urinary tract infection) due to urinary indwelling Gold catheter: (4) Permanent atrial fibrillation: (5) Bradycardia: Plan The patient is an 88-year-old male with past medical history including history of cardioembolic stroke, right-sided visual neglect, atrial fibrillation, UTI due to indwelling Gold catheter, history of intracranial hemorrhage, BPH with LUTS, hypertension, hyperparathyroidism, B12 deficiency, and prediabetes. He was noted by staff at [facility] to have a temperature of 102 F, and symptoms of generalized fatigue, confusion and weakness. He was noted to have difficulty walking to dinner this evening, being unsteady on his feet, and at that point was sent to the emergency department for assessment Acute metabolic encephalopathy suspected due to catheter associated UTI Patient put on Cipro due to history of Pseudomonas, was given Rocephin in the ER. Clinically has progressed well, will transition to oral ciprofloxacin Anticipate 7-day course. Paroxysmal A-fib High risk for tachybradycardia. No symptomatic bradycardia overnight. Lowest heart rate in the 50s. Ranges 50s70s Continue amlodipine Patient is not on anticoagulation due to prior discussions regarding this. Held. Did have an 12 run of NSVT and scattered PVCs overnight. Beta-julito is limited by bradycardia. Clinically without chest pain or any concerns at the bedside electrolytes optimized. Hyperlipidemia Continue statin Placement pending. Has been recommended for SNF by OT, declined PT today. CM following and reviewing for that he will be appropriate to return to [facility]. Remains medically stable for discharge today Admission and Anticipated Discharge Date Admission Date: February 15, 2024 Subjective Seen at the bedside. No acute questions or concerns. Oriented to name and hospital, not oriented to date. Denies chest pain, chest pressure, weakness, fatigue, fever/chills today Physical Exam Physical Exam: General: Oriented to name and place. NAD. Cooperative. HEENT: Atraumatic, normocephalic. Pulm: CTAB A&P. -wheezes, -rales, -rhonchi. Symmetrical chest rise. No increased work of breathing. No respiratory distress. Cardiac: RRR, -mrg. Radial pulses intact and symmetrical. Abdominal: Nontender, nondistended, soft. BS present. Results & Data Results & Data Vital Signs (Past 12 Hours) Vital Signs Temp Pulse Pulse Resp BP Pulse Ox O2 Del Method 02/19/24 11:18 36.6 C 62 18 138/93 95 Room Air 02/19/24 09:00 59 L 02/19/24 09:00 Room Air 02/19/24 07:12 36.7 C 63 19 169/84 H 93 Room Air PG Care Time/CCT Total # of Minutes Spent Total Time Spent with Patient: Total time spent is greater than 50% in coordination of care (as documented) at patient's floor/unit and/or counseling patient: Coding Level of Care Code 03389 SUB INP/OBS CARE 03/13MIN Diagnoses Fever R50.9 Generalized weakness R53.1 UTI (urinary tract infection) due to urinary indwelling Gold catheter T83.511A; N39.0 Permanent atrial fibrillation I48.2 Bradycardia R00.1
[2024-02-19] MEDS: CIPROFLOXACIN 500 MG TAB PO SCH (21:35)
[2024-02-20 07:26] LABS: BUN Creatinine Ratio 25.5 (10-20); Calcium 10.3 mg/dl (8.6-10.3); Potassium 3.8 mmol/L (3.5-5.1)
[2024-02-20 11:53] VITALS: RESP 18
[2024-02-20 12:23] VITALS: PULSE 76; TEMP 98.2; O2SAT 96
--- NOTE | 2024-02-20 12:46 | Discharge Summary ---
Discharge Summary Date of Service February 20, 2024 Principal Dx & Hospital Course #1 = Principal Diagnosis (1) Fever: (2) Generalized weakness: (3) UTI (urinary tract infection) due to urinary indwelling Gold catheter: (4) Permanent atrial fibrillation: (5) Bradycardia: Plan The patient is an 88-year-old male with past medical history including history of cardioembolic stroke, right-sided visual neglect, atrial fibrillation, UTI due to indwelling Gold catheter, history of intracranial hemorrhage, BPH with LUTS, hypertension, hyperparathyroidism, B12 deficiency, and prediabetes. He was noted by staff at [facility] to have a temperature of 102 F, and symptoms of generalized fatigue, confusion and weakness. He was noted to have difficulty walking to dinner this evening, being unsteady on his feet, and at that point was sent to the emergency department for assessment Due to as outpatient: 1. Continue ciprofloxacin for 2 additional days to complete 7-day course for UTI 2. Follow-up with cardiology for PVCs and 2 episodes of approximately 12 beats of NSVT. Beta-julito not recommended, see below. Mobile aquatic biologist was set up by nurse navigator and will be reviewed at cardiology follow-up. 3. Follow-up on final Lyme serologies. These were pending at time of discharge. Patient did not have a bull's-eye rash or tick exposure, did have some contact dermatitis overlying seborrhea of his back but otherwise denied rashes, tick exposures. Heart rate was normal at time of discharge, MD cannot be assessed due to A-fib. If Lyme testing is positive, recommend treatment with doxycycline 100 mg twice daily x 10-14-day course. Acute metabolic encephalopathy suspected due to catheter associated UTI Patient put on Cipro due to history of Pseudomonas, was given Rocephin in the ER. Clinically has progressed well, will transition to oral ciprofloxacin Continue Cipro for 2 additional days to complete a total 7-day course Paroxysmal A-fib, NSVT, PVCs High risk for tachybradycardia. No symptomatic bradycardia overnight. Lowest heart rate in the 50s. Ranges 50s70s Continue amlodipine Patient is not on anticoagulation due to prior discussions regarding this. Held. Did have an 12 run of NSVT. A night of 02/17 and and scattered PVCs overnight. Beta-julito is limited by bradycardia. No evidence of heart block clinically without chest pain or any concerns at the bedside electrolytes optimized. Did discuss with cardiology/Dr. Phillips. Given that patient was hemodynamically stable, is a low overall burden,Echo from 01/29 with EF 55 to 60% and no significant abnormality reasonable to monitor at this time. Beta- julito was not recommended at this time due to concerns for potential tachybradycardia syndrome and his borderline bradycardia, although this is improved day of discharge and could consider a trial in the future if it remains greater than 60. Did agree with obtaining a mobile aquatic biologist to quantify burden and have outpatient follow-up. Hyperlipidemia Continue statin Admission HPI Per Admitting Provider The patient is an 88-year-old male with past medical history including history of cardioembolic stroke, right-sided visual glide, atrial fibrillation, UTI due to indwelling Gold catheter, history of intracranial hemorrhage, BPH with LUTS, hypertension, long-term anticoagulant use, hyperparathyroidism, B12 deficiency and prediabetes. He was noted by staff at [facility] to have a temperature of 102 F, and symptoms of generalized fatigue, confusion and weakness. He was noted to have difficulty walking dinner this evening, being unsteady on his feet, and at that point was to the emergency department for assessment Discharge Exam General: Patient is alert, pleasant and answers questions appropriately. He is oriented to name and place. NAD. Cooperative. HEENT: Atraumatic, normocephalic. Vision and hearing grossly intact Pulm: CTAB A&P. -wheezes, -rales, -rhonchi. Symmetrical chest rise. No increased work of breathing. No respiratory distress. Cardiac: RRR. -mrg. Radial pulses intact and symmetrical. Abdominal: Nontender, nondistended, soft. BS present. Discharge Plan Discharge Items Patient Disposition: Personal Alf Reason For Visit: CONFUSION, UTI, BRADYCARDIA Discharge Diagnosis: UTI Activity: Resume your previous activity Non-emergency contact: Primary Care Provider and Rf Test Technician Call non-emergency contact if: you have any medication questions, your symptoms worsen and your pain is not controlled Follow-up/Referrals: Abhay Christianson MD [Physician] - Tae Montez DO [Primary Care Provider] - Diet: Heart Healthy Addtl Attending Provider Instructions: You were seen in the hospital for a urinary tract infection. You improved on antibiotics and were discharged to complete 2 additional days of ciprofloxacin as noted below. During your admission you had some extra beats called PVCs and 2 episodes of nonsustained ventricular tachycardia (NSVT) which lasted for approximately 12 beats. This was discussed with cardiology and follow-up was recommended after a mobile aquatic biologist which has been arranged by the nurse navigator. Please continue take ciprofloxacin 500 mg by mouth twice daily for 2 additional days as noted below. You had a Lyme test which was pending at time of discharge. If this is positive you should be prescribed doxycycline twice daily, please have the final results of this followed up on at [facility] If you develop any new or worsening symptoms including fever, chills, sweats, chest pain, chest pressure, difficulty breathing, uncontrolled nausea/vomiting, rash, wheezing, passing out or nearly passing out, bleeding, black/bloody bowel movements, or other new or concerning symptoms please call your primary care physician, or call 911 for re-evaluation in the emergency department if you are very concerned. Pending Studies at Discharge: Yes (Mobile Telemetry) Stand-Alone Forms: My [facility] [employer], Smoking Cessation Skilled Items Patient informed of condition?: Yes DNR: Yes Discharge Level of Care: Other Communicable Disease: No Discharge Prognosis: Stable Lines: None Urinary Catheter: No Medications and DC Order Prescriptions: New ciprofloxacin HCl 500 mg Tablet 500 mg PO Q12H 2 Days Qty: 4 0RF Continued allopurinol 100 mg tablet 100 mg PO QAM Qty: 90 3RF lisinopril 20 mg tablet 20 mg PO DAILY Qty: 30 0RF Hold Instructions: Resume on 08/07/23. normalize BP over 1-2 weeks Rx Instructions: CONFIRMED CHANGED DOSE OF 20MG DAILY WITH NURSE LYNN AT [facility] 05/21/23. Saccharomyces boulardii 250 mg capsule 250 mg PO BID Patient Comments: CONFIRMED W/ NURSE AT [facility]-08/19 amlodipine 5 mg tablet 5 mg PO DAILY Qty: 90 3RF escitalopram oxalate 10 mg tablet 10 mg PO DAILY Qty: 90 1RF alfuzosin 10 mg tablet extended release 24 hr 10 mg PO DAILY Rx Instructions: administer after the same meal each day atorvastatin 20 mg Tablet 20 mg PO QAM Qty: 0 0RF polyethylene glycol 3350 [Miralax] 17 gram Powder In Packet 17 g PO DAILY Qty: 0 0RF aspirin 81 mg Tablet,Delayed Release (Dr/Ec) 81 mg PO DAILY Qty: 0 0RF hydrocortisone 1 % Cream 1 applic TOPICAL BID PRN (Reason: Rash) Rx Instructions: APPLY TO RASH ON BACK NEEDED nystatin 100,000 unit/gram Powder 1 applic TOPICAL TID PRN (Reason: YEAST) ferrous sulfate 325 mg (65 mg iron) tablet,delayed release (DR/EC) 325 mg PO 3XWK Rx Instructions: Take one tablet once a day Friday, Friday and Friday Admission Data Admit Date/Time: 02/15/24 23:35 Attending Provider: Buster Hugo Admit Provider: Juan Haji Primary Care Provider: Tae Montez Other Providers: Juan Haji Hospital Stay Data Consultations 02/15/24 22:34 ED Decision to Admit Stat Discharge Instructions Given to Patient (Per Discharging Provider) You were seen in the hospital for a urinary tract infection. You improved on antibiotics and were discharged to complete 2 additional days of ciprofloxacin as noted below. During your admission you had some extra beats called PVCs and 2 episodes of nonsustained ventricular tachycardia (NSVT) which lasted for approximately 12 beats. This was discussed with cardiology and follow-up was recommended after a mobile aquatic biologist which has been arranged by the nurse navigator. Please continue take ciprofloxacin 500 mg by mouth twice daily for 2 additional days as noted below. You had a Lyme test which was pending at time of discharge. If this is positive you should be prescribed doxycycline twice daily, please have the final results of this followed up on at [facility] If you develop any new or worsening symptoms including fever, chills, sweats, chest pain, chest pressure, difficulty breathing, uncontrolled nausea/vomiting, rash, wheezing, passing out or nearly passing out, bleeding, black/bloody bowel movements, or other new or concerning symptoms please call your primary care physician, or call 911 for re-evaluation in the emergency department if you are very concerned. Total Time Total Time Spent Total Time Spent (In Minutes): Time spend day of discharge 40 minutes including direct patient care, documentation, review of labs and images, and coordination of care. Coding Level of Care Code 75320 INP/OBS DISCH >30 MIN Diagnoses Fever R50.9 Generalized weakness R53.1 UTI (urinary tract infection) due to urinary indwelling Gold catheter T83.511A; N39.0 Permanent atrial fibrillation I48.2 Bradycardia R00.1
[2024-02-20 14:20] VITALS: BP 138/70
== END 2024-02-20 14:43 | disposition home or self-care (01) | DRG 698 ==
LOC: ED 18:34 → SUATTDRO 23:35 → EDINP 23:35 → 2S 02-16 01:34

== ENCOUNTER 2024-03-28 07:42 | Observation (INO) ==
[2024-03-28 08:30] LABS: Basophils # (auto) 0.02 K/uL (0.00-0.20); Basophils % (auto) 0.3 %; Eosinophils # (auto) 0.07 K/uL (0.00-0.50); Hematocrit (blood only) 42.4 % (42.0-52.0); Hemoglobin 13.9 g/dl (14.0-18.0); Immature Granulocytes # (auto) 0.04 K/uL (0.01-0.20); Immature Granulocytes % (auto) 0.6 %; Lymphocytes # (auto) 0.96 K/uL (1.20-3.40); Lymphocytes % (auto) 13.2 %; Mean Corpuscular Hemoglobin 31.1 pg (25.0-34.0); Mean Corpuscular Hgb Conc 32.8 g/dL (32.0-36.0); Mean Corpuscular Volume 94.9 fL (80.0-100.0); Mean Platelet Volume 10.1 fL (9.4-12.4); Monocytes # (auto) 0.92 K/uL (0.11-0.59); Monocytes % (auto) 12.7 %; Neutrophils # (auto) 5.25 K/uL (1.40-6.50); Neutrophils % (auto) 72.2 %; Platelet Count 160 K/uL (130-400); Red Blood Count 4.47 M/uL (4.70-6.10); White Blood Count 7.26 K/ul (4.8-10.8)
[2024-03-28 08:31] LABS: Appearance Urine Clear (Clear); Bacteria Urine Automated None Seen (None Seen); Bilirubin Urine Negative (Negative); Blood Urine 2+ (Negative); Cast Urine Automated 0-2 /lpf (0-2); Color Urine Yellow; Epithelial Cell Urine Auto 0-2 /hpf (0-2); Glucose Urine UA Negative (Negative); Ketones Urine Negative (Negative); Leukocyte Esterase Urine Trace (Negative); Nitrite Urine Negative (Negative); Protein Urine Trace (Negative); RBC Urine Automated >20 /hpf (0-2); Specific Gravity Urine 1.015 (1.000-1.030); Urobilinogen Urine Negative (Negative); pH Urine 6.5 (4.5-7.5)
[2024-03-28 08:45] LABS: Albumin Globulin Ratio 1.1 (0.9-2); Albumin Level 4.2 gm/dl (3.4-5.0); BUN Creatinine Ratio 17.6 (10-20); Bilirubin,Total 1.5 mg/dl (0.2-1.0); Calcium 11.1 mg/dl (8.6-10.3); Creatinine Clr Calc Pharmacy 53.9 ml/min; Globulin 3.7 gm/dl (2.5-4.0); Potassium 3.9 mmol/L (3.5-5.1); Total Protein 7.9 gm/dl (6.0-8.3)
[2024-03-28 09:09] LABS: Adenovirus PCR Not Detected (NotDetected); Bordetella parapertussis PCR Not Detected (NotDetected); Bordetella pertussis PCR Not Detected (NotDetected); Chlamydia pneumoniae PCR Not Detected (NotDetected); Coronavirus 229E PCR Not Detected (NotDetected); Coronavirus CoV-2 (COVID19)PCR Not Detected (NotDetected); Coronavirus HKU1 PCR Not Detected (NotDetected); Coronavirus NL63 PCR Not Detected (NotDetected); Coronavirus OC43PCR Not Detected (NotDetected); Human Metapneumovirus PCR Not Detected (NotDetected); Influenza A (H3) PCR DETECTED (NotDetected); Influenza B PCR Not Detected (NotDetected); Mycoplasma pneumoniae PCR Not Detected (NotDetected); Parainfluenza Virus 1 PCR Not Detected (NotDetected); Parainfluenza Virus 2 PCR Not Detected (NotDetected); Parainfluenza Virus 3 PCR Not Detected (NotDetected); Parainfluenza Virus 4 PCR Not Detected (NotDetected); Respiratory Syncytial VirusPCR Not Detected (NotDetected); Rhinovirus/Enterovirus PCR Not Detected (NotDetected)
--- NOTE | 2024-03-28 10:10 | Emergency Department Note ---
Impression & Plan Influenza A, Acute encephalopathy, UTI (urinary tract infection) ED Provider Note NAME: ALEJANDRO LOPEZ Jr AGE: 88 SEX: M : 1935 ARRIVES VIA: Ambulance INFORMANT: Patient, ED PROVIDER(S): Kishor Almanza MD CHIEF COMPLAINT: Confusion HPI: This an 88-year-old male presenting for confusion. Patient is with his who provides a history. She states that over the past 1 to 2 days he has had new cough, worsening confusion. He is here previously with UTI symptoms but was less confused than he is today. He is somewhat lethargic. He has had no current falls as per the . He does live at a facility. ROS: See above HPI for pertinent positives & negatives. A total of 10 systems reviewed and were otherwise negative. PAST MEDICAL HISTORY: See Below PAST SURGICAL HISTORY: See Below FAMILY HISTORY: See Below SOCIAL HISTORY: See Below HOME MEDICATIONS: See Below ALLERGIES: See Below VITALS: See Below PHYSICAL EXAMINATION: General: Chronically unwell appearing Head: Normocephalic and atraumatic Eyes: Normal inspection, extraocular muscles intact Ear, nose, throat: Normal external exam Neck: Normal range of motion Respiratory: Rhonchi Cardiovascular: Regular rate/rhythm, no murmur GI: soft, nontender, no guarding or rebound Extremities: nontender, moves all extremities Neuro: The patient awake and alert, appropriately conversive, no focal deficits, symmetric faces Skin: Warm, dry, and intact MEDICAL DECISION MAKING: This is an 88-year-old male presenting for confusion. Will do screening workup to assess for infection versus intracranial process. Currently patient does follow commands as no neurologic deficits. No signs of external trauma -Bloodwork is reviewed showing no significant leukocytosis, anemia, electrolyte or creatinine abnormality -Patient's urinalysis is positive for UTI -Patient is positive for influenza A -Patient given ceftriaxone for UTI at this time -Chest Xray independently interpreted by me showing no pneumothorax, focal opacity, or pleural effusions. -CT head currently negative for acute process -Discussed workup with who states patient is still fairly confused and she is concerned about his wellbeing and request admission. -Discussed Dr. Ryan, who states patient can go home and request discharge. -Discussed again with and her options. She does still think patient will be best served in the hospital. -Patient admitted to medical service Differential diagnosis: Stroke, UTI, upper respiratory infection, dehydration, sepsis Independent History obtained from: Diagnostics interpreted by me: ECG: None Cardiac Monitoring: An order was placed for continuous cardiac monitoring. The monitor shows a rate of 74 with sinus rhythm. Past Med/Surg History Problem List (Updated 03/28/24 @ 16:20 by Kishor Almanza MD) UTI (urinary tract infection) (Acute) Acute encephalopathy (Acute) Influenza A (Acute) Generalized weakness (Acute) History of cardioembolic stroke Right-sided visual neglect A-fib (Acute) Stroke (Acute) Hypomagnesemia (Acute) Anemia (Acute) History of intracranial hemorrhage (Acute) Weakness (Acute) Urinary retention Abrasion of right arm (Acute) Elevated PSA H/O tooth extraction 3 weeks ago, then put in partial Weight loss BPH (benign prostatic hyperplasia) Anemia (Acute) GI bleed (Acute) Acute diverticulitis (Acute) Lower GI bleed (Acute) Gout Atrial fibrillation Gout Rosacea Permanent atrial fibrillation (Acute) Mild mitral regurgitation Hypertension BPH NOS w ur obs/LUTS Gross hematuria Diverticulosis Carpal tunnel syndrome of right wrist Benign prostatic hyperplasia with urinary obstruction Closed fracture of medial condyle of femur H/O total knee replacement Anticoagulant long-term use Nephrolithiasis Diverticular hemorrhage Current use of usp anticoagulation (Acute) Lab test negative for COVID-19 virus (Acute) Rectal bleeding (Acute) Vitamin D deficiency Hyperparathyroidism B12 deficiency Prediabetes Hematochezia Hypercalcemia (Acute) Medical History Fall ELISE (acute kidney injury) Prediabetes A-fib Benign prostatic hyperplasia with 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 Diverticulosis Gross hematuria History of SCC (squamous cell carcinoma) of skin History of basal cell carcinoma BPH NOS w ur obs/LUTS Mild mitral regurgitation Permanent atrial fibrillation Rosacea Swelling of eyelid Gout BPH (benign prostatic hyperplasia) Kidney stones Hematuria GI bleed Diverticular disease On anticoagulant therapy Atrial fibrillation Hypertension Surgical History H/O tooth extraction History of tonsillectomy History of lithotripsy History of cataract surgery History of surgery on arm History of total knee replacement Status post Mohs surgery History of colonoscopy Family History Father Cancer Prostate cancer Denies family history of Ovarian cancer Myocardial infarction Breast cancer Colorectal cancer Social History Smoking Status: Never smoker Second Hand Exposure: No; Do You Dip or Chew Tobacco: No; Hx Alcohol Use: No Hx Substance Use: No Preferred Language: Spanish Communication Ability: Impaired Visual Impairment: Limited Hearing Ability: Normal Commercial Reporter Required: No Beliefs That Will Affect Care: None marital status: Current Living Situation: Spouse and Personal Care Facility Current Living Situation Comment: [facility] current occupational status: retired Feels Safe at Home: Yes Childhood Exposure to Second-Hand Smoke: No Dental Care, Regularly: Yes Physical Activity Frequency: 3-4 Times per Week Seatbelt Use: always Sunscreen Use: Yes Assistive Devices: Cane and Walker Allergies Allergies Allergy/AdvReac Type Severity Reaction Status Date / Time Thiazides AdvReac Intermediate Hypercalcem Verified 03/28/24 12:50 ia Home Meds Home Medications Medication Instructions Recorded Confirmed ferrous sulfate 325 mg (65 mg 325 mg PO 3XWK 04/08/23 03/28/24 iron) tablet,delayed release Saccharomyces boulardii 250 mg 250 mg PO BID 08/20/23 03/28/24 capsule alfuzosin 10 mg tablet,extended 10 mg PO DAILY 09/04/23 03/28/24 release 24 hr acetaminophen 500 mg tablet 500 mg PO Q8H PRN Pain/Fever 03/28/24 03/28/24 clotrimazole-betamethasone 1 1 applic topical BID 03/28/24 03/28/24 %-0.05 % topical cream polyethylene glycol 3350 17 gram 17 g PO DAILY 03/28/24 03/28/24 oral powder packet (Miralax) Previous Rx's Medication Instructions Recorded allopurinol 100 mg tablet 100 mg PO QAM #90 tabs 03/18/22 amlodipine 5 mg tablet 5 mg PO DAILY #90 tabs 12/27/22 escitalopram oxalate 10 mg tablet 10 mg PO DAILY #90 tabs 01/31/23 lisinopril 20 mg tablet 20 mg PO DAILY #30 tabs 05/21/23 aspirin 81 mg tablet,delayed 81 mg PO DAILY #0 tabs 07/31/23 release atorvastatin 20 mg tablet 20 mg PO QAM #0 tabs 07/31/23 Results & Data (ED) Vital Signs Vital Signs - 24 hr 03/28/24 07:50 03/28/24 08:07 03/28/24 08:22 Temperature 37.5 C Temperature Source Oral Pulse Rate 72 78 Pulse Rate [Apical] 82 Pulse Rhythm Irregular Pulse Rhythm [Apical] Irregular Pulse Strength Normal Pulse Strength [Apical] Normal Respiratory Rate 19 22 Respiratory Effort / Characteristics Non-Labored Spontaneous Non-Labored Spontaneous Respiratory Depth Normal Normal Respiratory Pattern Regular Regular Blood Pressure 143/89 H Blood Pressure [Right Arm] 143/69 H Blood Pressure Mean 107 Blood Pressure Mean [Right Arm] 93 Pulse Oximetry 99 93 Oxygen Delivery Method Room Air Room Air Sepsis Recent Fever Within 48 Hours Yes Sepsis New/Unexplained Change in Mental Status Yes Sepsis Action Taken by Nursing No Action Required 03/28/24 10:06 03/28/24 11:10 03/28/24 12:01 Temperature 37.2 C Temperature Source Oral Pulse Rate 79 Pulse Rate [Apical] 71 80 Pulse Rhythm Pulse Rhythm [Apical] Pulse Strength Pulse Strength [Apical] Normal Normal Respiratory Rate 18 19 Respiratory Effort / Characteristics Non-Labored Spontaneous Non-Labored Spontaneous Respiratory Depth Normal Normal Respiratory Pattern Regular Blood Pressure Blood Pressure [Right Arm] 146/89 H 146/84 H Blood Pressure Mean Blood Pressure Mean [Right Arm] 108 104 Pulse Oximetry 93 Oxygen Delivery Method Room Air Room Air Sepsis Recent Fever Within 48 Hours Sepsis New/Unexplained Change in Mental Status Sepsis Action Taken by Nursing Laboratory Data 03/28/24 08:00 03/28/24 08:00 Lab Results 03/28/24 Range/Units 08:00 WBC 7.26 (4.8-10.8) K/ul RBC 4.47 L (4.70-6.10) M/uL Hgb 13.9 L (14.0-18.0) g/dl Hct 42.4 (42.0-52.0) % MCV 94.9 (80.0-100.0) fL MCH 31.1 (25.0-34.0) pg MCHC 32.8 (32.0-36.0) g/dL RDW Std Deviation 52.0 H (36.4-46.3) fL RDW Coeff of Edith 15.0 H (11.5-14.5) % Plt Count 160 (130-400) K/uL MPV 10.1 (9.4-12.4) fL Immature Gran % (Auto) 0.6 % Neut % (Auto) 72.2 % Lymph % (Auto) 13.2 % Weber % (Auto) 12.7 % Eos % (Auto) 1.0 % Baso % (Auto) 0.3 % Neut # (Auto) 5.25 (1.40-6.50) K/uL Lymph # (Auto) 0.96 L (1.20-3.40) K/uL Weber # (Auto) 0.92 H (0.11-0.59) K/uL Eos # (Auto) 0.07 (0.00-0.50) K/uL Baso # (Auto) 0.02 (0.00-0.20) K/uL Immature Gran # (Auto) 0.04 (0.01-0.20) K/uL Sodium 140 (136-145) mmol/L Potassium 3.9 (3.5-5.1) mmol/L Chloride 106 (98-107) mmol/L Carbon Dioxide 28 (21-32) mmol/L Anion Gap 6 (3-11) BUN 18 (6-23) mg/dl Creatinine 1.02 (0.6-1.4) mg/dl Est Cr Clr Drug Dosing 53.9 ml/min eGFR 71.13 BUN/Creatinine Ratio 17.6 (10-20) Glucose 108 H (70-99(Fasting)) mg/dl Calcium 11.1 H (8.6-10.3) mg/dl Total Bilirubin 1.5 H (0.2-1.0) mg/dl AST 16 (13-39) U/L ALT 11 (7-52) U/L Alkaline Phosphatase 166 H (34-104) U/L Total Protein 7.9 (6.0-8.3) gm/dl Albumin 4.2 (3.4-5.0) gm/dl Globulin 3.7 (2.5-4.0) gm/dl Albumin/Globulin Ratio 1.1 (0.9-2) Procalcitonin 0.08 (0-0.5) ng/ml Adenovirus (PCR) Not Detected (NotDetected) B. pertussis DNA (PCR) Not Detected (NotDetected) B.parapertussis DNA PCR Not Detected (NotDetected) C. pneumoniae DNA (PCR) Not Detected (NotDetected) Coronavirus OC43 (PCR) Not Detected (NotDetected) Coronavirus HKU1 (PCR) Not Detected (NotDetected) Coronavirus 229E (PCR) Not Detected (NotDetected) SARS-CoV-2 (PCR) Not Detected (NotDetected) Coronavirus NL63 (PCR) Not Detected (NotDetected) Human Metapneumovir PCR Not Detected (NotDetected) Influenza A (H3) PCR DETECTED A (NotDetected) Influenza Type B (PCR) Not Detected (NotDetected) M. pneumoniae (PCR) Not Detected (NotDetected) Parainfluenza 1 (PCR) Not Detected (NotDetected) Parainfluenza 2 (PCR) Not Detected (NotDetected) Parainfluenza 3 (PCR) Not Detected (NotDetected) Parainfluenza 4 (PCR) Not Detected (NotDetected) RSV (PCR) Not Detected (NotDetected) Entero/Rhino (PCR) Not Detected (NotDetected) Administered Medications Discontinued Medications Guaifenesin (Guaifenesin 600 Mg Tabcr) 1,200 mg PO ONE STA Stop: 03/28/24 12:54 Last Admin: 03/28/24 13:06 Dose: 1,200 mg Documented By: DONTE Ceftriaxone Sodium (Rocephin) 2,000 mg in 50 mls @ 100 mls/hr IV NOW STA Stop: 03/28/24 11:20 Last Infusion: 03/28/24 11:44 Dose: Infused Documented By: Admin: 03/28/24 11:09 Dose: 100 mls/hr Documented By: DONTE Oseltamivir Phosphate (Oseltamivir Phosphate 75 Mg Cap) 75 mg PO NOW STA; Protocol Stop: 03/28/24 12:51 Last Admin: 03/28/24 13:06 Dose: 75 mg Documented By: DONTE Imaging Data Radiologist's Impression: Head CT 03/28/24 09:22 CT head/brain wo con CLINICAL HISTORY: 88 years-old Male with confusion, previous stroke. Acutely altered mental status TECHNIQUE: Multiple axial CT images of the head were obtained without contrast. A dose lowering technique was utilized adhering to the principles of ALARA. CT DOSE: 1325.14 mGy.cm COMPARISON: Brain MRI 07/28/2023, CT 07/28/2023 FINDINGS: No acute intracranial hemorrhage, midline shift, intracranial mass, hydrocephalus, territorial ischemia or abnormal extra-axial collection. Involutional changes with chronic microvascular ischemic disease. Small chronic left cerebral infarcts with encephalomalacia. Unchanged hypodensity of the left mid cerebellar hemisphere. The calvarium is intact. Mild mucosal thickening of the ethmoid air cells. Mastoid air cells are clear. IMPRESSION: 1. No acute intracranial abnormality. 2. Chronic findings as above. ACT 112: Negative or not required by law. The above report was generated using voice recognition software. It may contain grammatical, syntax or spelling errors. Electronically signed by: Shaquille Villafuerte M.D. 03/28/2024 10:28 AM Chest X-Ray 03/28/24 11:45 XR chest 1V portable HISTORY: 88 years-old Male confusion, influenza A acute shortness of breath COMPARISON: 02/15/2024 TECHNIQUE: AP view of the chest FINDINGS: Cardiac silhouette is enlarged. Occlusion device projects over the left heart border. Atherosclerosis of the aorta. No pneumothorax, pleural effusion or airspace consolidation. Mild chronic interstitial coarsening. Loose bodies of the left glenohumeral joint are again noted. IMPRESSION: Cardiomegaly without acute process. ACT 112: Negative or not required by law. The above report was generated using voice recognition software. It may contain grammatical, syntax or spelling errors. Electronically signed by: Shaquille Villafuerte M.D. 03/28/2024 12:00 PM Discharge Plan Visit Data Chief Complaint: Altered Mental Status Stated Complaint: ALTERED MENTAL STATUS ED Provider: Kishor Almanza Discharge Problem: Influenza A, Acute encephalopathy, UTI (urinary tract infection) Patient Disposition: Admitted As Inpatient Discharge Instructions Interventions: ED Discharge Assessment Last Done: 03/28/24 14:48
--- NOTE | 2024-03-28 10:30 | CT Scan Report ---
CT head/brain wo con CLINICAL HISTORY: 88 years-old Male with confusion, previous stroke. Acutely altered mental status TECHNIQUE: Multiple axial CT images of the head were obtained without contrast. A dose lowering tech nique was utilized adhering to the principles of ALARA. CT DOSE: 1325.14 mGy.cm COMPARISON: Brain MRI 07/28/2023, CT 07/28/2023 FINDINGS: No acute intracranial hemorrhage, midline shift, intracranial mass, hydrocephalus, territorial ischem ia or abnormal extra-axial collection. Involutional changes with chronic microvascular ischemic disea se. Small chronic left cerebral infarcts with encephalomalacia. Unchanged hypodensity of the left mid cerebellar hemisphere. The calvarium is intact. Mild mucosal thickening of the ethmoid air cells. Mastoid air cells are glenn ar. IMPRESSION: 1. No acute intracranial abnormality. 2. Chronic findings as above. ACT 112: Negative or not required by law. The above report was generated using voice recognition software. It may contain grammatical, syntax o r spelling errors. Electronically signed by: Shaquille Villafuerte M.D. 03/28/2024 10:28 AM
[2024-03-28] MEDS: cefTRIAXone SODIUM 2,000 MG/50 ML BAG IV STA (11:09)
--- NOTE | 2024-03-28 12:01 | XRay Report ---
XR chest 1V portable HISTORY: 88 years-old Male confusion, influenza A acute shortness of breath COMPARISON: 02/15/2024 TECHNIQUE: AP view of the chest FINDINGS: Cardiac silhouette is enlarged. Occlusion device projects over the left heart border. Atherosclerosis of the aorta. No pneumothorax, pleural effusion or airspace consolidation. Mild chronic interstitial coarsening. Loose bodies of the left glenohumeral joint are again noted. IMPRESSION: Cardiomegaly without acute process. ACT 112: Negative or not required by law. The above report was generated using voice recognition software. It may contain grammatical, syntax o r spelling errors. Electronically signed by: Shaquille Villafuerte M.D. 03/28/2024 12:00 PM
[2024-03-28] MEDS: guaiFENesin 600 MG TABCR PO STA (13:06)
[2024-03-28] MEDS: OSELTAMIVIR PHOSPHATE 75 MG CAP PO STA (13:06)
--- NOTE | 2024-03-28 13:27 | History & Physical Report ---
Date of Service March 28, 2024 Assessment & Plan (1) Influenza A: Plan: Tamiflu 75 mg p.o. BID (renally dosed) Hypertonic saline BID, DuoNebs, flutter valve, guaifenesin Procalcitonin negative and chest x-ray without consolidation to suggest secondary bacterial pneumonia Patient is not hypoxic however currently requiring too much assistance to return to personal care therefore will need PT OT evals for consideration of higher level of care (2) Acute encephalopathy: Plan: Suspected secondary to influenza, historically becomes more confused in the hospital setting, baseline patient is a 1 person assist but currently not following directions Plan No change to his chronic hypertension, gout, BPH, hypercholesterolemia treatment Not on anticoagulation for atrial fibrillation due to prior GI bleeding VTE prophylaxis - Lovenox 40mg SQ HS Diet - regular Disposition - admit to med/surg Admission and Anticipated Discharge Date Admission Date: March 28, 2024 History of Present Illness Chief Complaint: Cough and fever Primary Care Provider: Sonam Cabrera Abhay Major is an 88 year old male with 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 Unable to get any history from the patient. History obtained from [facility] and reports they are unable to care for him in his current state as not following commands and he needs to be a 1 person assist. His is also concerned they are unable to care for him at the personal correction as he is more confused than usual. No urinary symptoms, no longer has indwelling argueta catheter. Allergies Allergy/AdvReac Type Severity Reaction Status Date / Time Thiazides AdvReac Intermediate Hypercalcem Verified 03/28/24 12:50 ia Home Medications Medication Instructions Recorded Confirmed Type allopurinol 100 mg tablet 100 mg PO QAM #90 tabs 03/18/22 03/28/24 Rx amlodipine 5 mg tablet 5 mg PO DAILY #90 tabs 12/27/22 03/28/24 Rx escitalopram oxalate 10 mg tablet 10 mg PO DAILY #90 tabs 01/31/23 03/28/24 Rx ferrous sulfate 325 mg (65 mg 325 mg PO 3XWK 04/08/23 03/28/24 History iron) tablet,delayed release lisinopril 20 mg tablet 20 mg PO DAILY #30 tabs 05/21/23 03/28/24 Rx aspirin 81 mg tablet,delayed 81 mg PO DAILY #0 tabs 07/31/23 03/28/24 Rx release atorvastatin 20 mg tablet 20 mg PO QAM #0 tabs 07/31/23 03/28/24 Rx Saccharomyces boulardii 250 mg 250 mg PO BID 08/20/23 03/28/24 History capsule alfuzosin 10 mg tablet,extended 10 mg PO DAILY 09/04/23 03/28/24 History release 24 hr acetaminophen 500 mg tablet 500 mg PO Q8H PRN Pain/Fever 03/28/24 03/28/24 History clotrimazole-betamethasone 1 1 applic topical BID 03/28/24 03/28/24 History %-0.05 % topical cream polyethylene glycol 3350 17 gram 17 g PO DAILY 03/28/24 03/28/24 History oral powder packet (Miralax) Past Med/Surg History Problem List (Updated 03/28/24 @ 16:20 by Kishor Almanza MD) UTI (urinary tract infection) (Acute) Acute encephalopathy (Acute) Influenza A (Acute) Generalized weakness (Acute) History of cardioembolic stroke Right-sided visual neglect A-fib (Acute) Stroke (Acute) Hypomagnesemia (Acute) Anemia (Acute) History of intracranial hemorrhage (Acute) Weakness (Acute) Urinary retention Abrasion of right arm (Acute) Elevated PSA H/O tooth extraction 3 weeks ago, then put in partial Weight loss BPH (benign prostatic hyperplasia) Anemia (Acute) GI bleed (Acute) Acute diverticulitis (Acute) Lower GI bleed (Acute) Gout Atrial fibrillation Gout Rosacea Permanent atrial fibrillation (Acute) Mild mitral regurgitation Hypertension BPH NOS w ur obs/LUTS Gross hematuria Diverticulosis Carpal tunnel syndrome of right wrist Benign prostatic hyperplasia with urinary obstruction Closed fracture of medial condyle of femur H/O total knee replacement Anticoagulant long-term use Nephrolithiasis Diverticular hemorrhage Current use of assisted anticoagulation (Acute) Lab test negative for COVID-19 virus (Acute) Rectal bleeding (Acute) Vitamin D deficiency Hyperparathyroidism B12 deficiency Prediabetes Hematochezia Hypercalcemia (Acute) Medical History Fall ELISE (acute kidney injury) Prediabetes A-fib Benign prostatic hyperplasia with 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 Diverticulosis Gross hematuria History of SCC (squamous cell carcinoma) of skin History of basal cell carcinoma BPH NOS w ur obs/LUTS Mild mitral regurgitation Permanent atrial fibrillation Rosacea Swelling of eyelid Gout BPH (benign prostatic hyperplasia) Kidney stones Hematuria GI bleed Diverticular disease On anticoagulant therapy Atrial fibrillation Hypertension Surgical History H/O tooth extraction History of tonsillectomy History of lithotripsy History of cataract surgery History of surgery on arm History of total knee replacement Status post Mohs surgery History of colonoscopy Family History Father Cancer Prostate cancer Denies family history of Ovarian cancer Myocardial infarction Breast cancer Colorectal cancer Social History Smoking Status: Never smoker Do You Dip or Chew Tobacco: No; Hx Substance Use: No (Unknown, pt poor historian, family member not present.) Preferred Language: Cypriot Communication Ability: Effective Visual Impairment: Limited Hearing Ability: Normal Bath Steward Required: No Beliefs That Will Affect Care: None marital status: Current Living Situation: Spouse Current Living Situation Comment: [facility] current occupational status: retired Other Information That Helps Us Care for You: No Feels Safe at Home: Declines to Answer Childhood Exposure to Second-Hand Smoke: No Dental Care, Regularly: Yes Physical Activity Frequency: 3-4 Times per Week Seatbelt Use: always Sunscreen Use: Yes Assistive Devices: Cane and Walker Assistive Devices Comment: Unknown, pt poor historian. No assistive devices pr esent with pt. Review of Systems Review of Systems: All systems reviewed & are unremarkable except as noted in HPI & below Physical Exam Constitutional: WD/WN, vitals as above ENMT: Mouth: oral mucous membranes not dry Respiratory: normal respiratory effort; no respiratory distress Auscultation: + rhonchi (throughout) Cardiovascular: Rate/Rhythm: regular rate and + irregularly irregular Heart Sounds: no murmur Extremities: normal capillary refill; no calf tenderness and no pedal edema Gastrointestinal (Abdomen): normal bowel sounds, soft, nontender, no hepatosplenomegaly Neurologic: moves all extremities, awake and + confused Psychiatric: Orientation: alert; + not oriented x 3 Results & Data Results & Data Vital Signs (Past 12 Hours) Vital Signs Temp Pulse Pulse Resp BP BP Pulse Ox 03/28/24 13:14 37 C 72 19 149/83 H 93 03/28/24 12:01 79 03/28/24 11:10 37.2 C 80 19 146/84 H 03/28/24 10:06 71 18 146/89 H 93 03/28/24 08:22 82 22 143/69 H 93 03/28/24 08:07 78 03/28/24 07:50 37.5 C 72 19 143/89 H 99 O2 Del Method 03/28/24 13:14 Room Air 03/28/24 12:01 03/28/24 11:10 Room Air 03/28/24 10:06 Room Air 03/28/24 08:22 Room Air 03/28/24 08:07 03/28/24 07:50 Room Air Laboratory Results Abnormal lab results 03/28/24 03/28/24 Range/Units 08:00 Unknown RBC 4.47 L (4.70-6.10) M/uL Hgb 13.9 L (14.0-18.0) g/dl RDW Std Deviation 52.0 H (36.4-46.3) fL RDW Coeff of Edith 15.0 H (11.5-14.5) % Lymph # (Auto) 0.96 L (1.20-3.40) K/uL Taylor # (Auto) 0.92 H (0.11-0.59) K/uL Glucose 108 H (70-99(Fasting)) mg/dl Calcium 11.1 H (8.6-10.3) mg/dl Total Bilirubin 1.5 H (0.2-1.0) mg/dl Alkaline Phosphatase 166 H (34-104) U/L Urine Protein Trace H (Negative) Urine Blood 2+ H (Negative) Ur Leukocyte Esterase Trace H (Negative) Urine WBC (Auto) 11-20 H (0-5) /hpf Urine RBC (Auto) >20 H (0-2) /hpf Influenza A (H3) PCR DETECTED A (NotDetected) Diagnostic Findings CT head/brain wo con CLINICAL HISTORY: 88 years-old Male with confusion, previous stroke. Acutely altered mental status TECHNIQUE: Multiple axial CT images of the head were obtained without contrast. A dose lowering technique was utilized adhering to the principles of ALARA. CT DOSE: 1325.14 mGy.cm COMPARISON: Brain MRI 07/28/2023, CT 07/28/2023 FINDINGS: No acute intracranial hemorrhage, midline shift, intracranial mass, hydrocephalus, territorial ischemia or abnormal extra-axial collection. Involutional changes with chronic microvascular ischemic disease. Small chronic left cerebral infarcts with encephalomalacia. Unchanged hypodensity of the left mid cerebellar hemisphere. The calvarium is intact. Mild mucosal thickening of the ethmoid air cells. Mastoid air cells are clear. IMPRESSION: 1. No acute intracranial abnormality. 2. Chronic findings as above. XR chest 1V portable HISTORY: 88 years-old Male confusion, influenza A acute shortness of breath COMPARISON: 02/15/2024 TECHNIQUE: AP view of the chest FINDINGS: Cardiac silhouette is enlarged. Occlusion device projects over the left heart border. Atherosclerosis of the aorta. No pneumothorax, pleural effusion or airspace consolidation. Mild chronic interstitial coarsening. Loose bodies of the left glenohumeral joint are again noted. IMPRESSION: Cardiomegaly without acute process. Medications Administered ER medications given: Ceftriaxone 2000 mg IV ECG Rate (beats per minute): 76 Rhythm: atrial fibrillation Findings: + nonspecific-ST abn and + PVC Comparison ECG Date: from (February 15, 2024) Change: no significant change Code Status & VTE Plan Code Status DNR/DNI VTE Prophylaxis Plan VTE Prophylaxis will be ordered: Yes PG Care Time/CCT Total # of Minutes Spent Total Time Spent with Patient: Total time spent is greater than 50% in coordination of care (as documented) at patient's floor/unit and/or counseling patient: Coding Level of Care Code 74280 INT INP/OBS CARE 2/55MIN Diagnoses Influenza A J10.1 Acute encephalopathy G93.40
[2024-03-28] MEDS ORDERED: ACETAMINOPHEN 500 MG TAB PO PRN (15:52)
[2024-03-28] MEDS: TAMSULOSIN HCL 0.4 MG CAP PO ONE (17:46)
[2024-03-28] MEDS: amLODIPine BESYLATE 5 MG TAB PO ONE (17:46)
[2024-03-28] MEDS: lisinopril 20 MG TAB PO STA (17:46)
[2024-03-28] MEDS: ALBUT/IPRATROP 3MG/0.5MG NEB 3 ML VIAL NEB SCH (19:42)
[2024-03-28] MEDS: SODIUM CHLOR 7% 4 ML NEB NEB SCH (19:42)
[2024-03-28] MEDS: CLOTRIMAZOLE/BETAMETHASONE CR 15 GM TUBE EXT SCH (21:21)
[2024-03-28] MEDS: ENOXAPARIN INJ 40 MG/0.4 ML SYR SQ SCH (21:21)
[2024-03-28] MEDS: SACCHAROMYCES BOULARDII 250 MG CAP PO SCH (21:22)
[2024-03-28] MEDS: OSELTAMIVIR PHOSPHATE SUSP 30 MG/5 ML UDP PO SCH (21:22)
[2024-03-28] MEDS: guaiFENesin 600 MG TABCR PO SCH (21:23)
[2024-03-29] MEDS: POLYETHYLENE (MIRALAX) 17 GM PACK PO SCH (08:08)
[2024-03-29] MEDS: lisinopril 20 MG TAB PO SCH (08:09)
[2024-03-29] MEDS: TAMSULOSIN HCL 0.4 MG CAP PO SCH (08:09)
[2024-03-29] MEDS: amLODIPine BESYLATE 5 MG TAB PO SCH (08:09)
[2024-03-29] MEDS: FERROUS SULFATE 325 MG TAB PO SCH (08:10)
[2024-03-29] MEDS: allopurinoL 100 MG TAB PO SCH (08:10)
[2024-03-29] MEDS: ESCITALOPRAM OXALATE 10 MG TAB PO SCH (08:10)
[2024-03-29] MEDS: ASPIRIN 81 MG ECTAB PO SCH (08:10)
[2024-03-29] MEDS: ATORVASTATIN 20 MG TAB PO SCH (08:10)
[2024-03-29 12:49] VITALS: O2SAT 96
[2024-03-29 15:05] VITALS: BP 114/69; PULSE 72; RESP 16; TEMP 99
--- NOTE | 2024-03-29 15:33 | Communication Note ---
Date of Service: March 29, 2024 By CMS guidelines, a determination that the admission or continued stay is not medically necessary has been made by a member of the UR committee and a physician for this hospital stay, therefore a Code 44 will be completed and the Inpatient admission will be changed to outpatient.
--- NOTE | 2024-03-29 15:37 | Discharge Summary ---
Discharge Summary Date of Service March 29, 2024 Principal Dx & Hospital Course #1 = Principal Diagnosis (1) Influenza A: Stable on room air - continue tamiflu 30mg BID (renally dosed) and mucinex continue nebs prn Procalcitonin negative and chest x-ray without consolidation to suggest secondary bacterial pneumonia PT/OT recommended return to [facility], but family has asked for [facility] and can accept today, plan for return to [facility] afterwards (2) Acute encephalopathy: has improved and can follow directions Plan No change to his chronic hypertension, gout, BPH, hypercholesterolemia treatment Not on anticoagulation for atrial fibrillation due to prior GI bleeding dispo: discharge to [facility] today Notes For Next Care Provider influenza a - tamiflu and mucinex for 4 more days Admission HPI Per Admitting Provider Abhay Major is an 88 year old male with 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 Unable to get any history from the patient. History obtained from [facility] and reports they are unable to care for him in his current state as not following commands and he needs to be a 1 person assist. His is also concerned they are unable to care for him [facility] the [facility] as he is more confused than usual. No urinary symptoms, no longer has indwelling argueta catheter. Discharge Exam General: NAD, VS as above Resp: normal respiratory effort, diminished in bases, on room air CV: RRR, no murmur, Abd: normal bowel sounds, non tender, no hepatosplenomegaly Extremities: Moves all extremities, no edema Neuro: A&O x2, follows commands, able to demonstrate use of FV without prompting Discharge Plan Discharge Items Patient Disposition: Transfer Inpatient Rehab Fac Reason For Visit: INFLUENZA A Discharge Diagnosis: influenza A Activity: Resume your previous activity Weightbearing: Full weightbearing Non-emergency contact: Primary Care Provider Call non-emergency contact if: you have any medication questions, your symptoms worsen, your pain is not controlled and your pain is unusual for you Follow-up/Referrals: Sonam Cabrera [Primary Care Provider] - (follow up after discharge from rehab) Diet: Regular Addtl Attending Provider Instructions: Mr. Major You were hospitalized after having cough and fever found to have influenza A and were started on tamiflu and mucinex. You are going to rehab to get stronger before returning to [facility]. Please follow up with your PCP after discharge from rehab. Take Care Pending Studies at Discharge: No Stand-Alone Forms: My [facility] Skilled Items Patient informed of condition?: Yes DNR: Yes Discharge Level of Care: Acute rehab Communicable Disease: Yes Discharge Prognosis: Stable Lines: None Urinary Catheter: No Medications and DC Order Prescriptions: New oseltamivir [Tamiflu] 6 mg/mL Suspension For Reconstitution 30 mg PO BID 4 Days Qty: 40 0RF guaifenesin [Mucinex] 600 mg Tablet Extended Release 12hr 1,200 mg PO Q12 4 Days Qty: 16 0RF ipratropium-albuterol 0.5 mg-3 mg(2.5 mg base)/3 mL Solution For Nebulization 3 ml NEB Q6R PRN (Reason: wheezing) Qty: 30 0RF Continued allopurinol 100 mg tablet 100 mg PO QAM Qty: 90 3RF lisinopril 20 mg tablet 20 mg PO DAILY Qty: 30 0RF Hold Instructions: Resume on 08/07/23. normalize BP over 1-2 weeks Rx Instructions: CONFIRMED CHANGED DOSE OF 20MG DAILY WITH NURSE SHANE AT [facility] 05/21/23. Saccharomyces boulardii 250 mg capsule 250 mg PO BID Patient Comments: CONFIRMED W/ NURSE AT [facility]-08/19 amlodipine 5 mg tablet 5 mg PO DAILY Qty: 90 3RF escitalopram oxalate 10 mg tablet 10 mg PO DAILY Qty: 90 1RF alfuzosin 10 mg tablet extended release 24 hr 10 mg PO DAILY Rx Instructions: administer after the same meal each day atorvastatin 20 mg Tablet 20 mg PO QAM Qty: 0 0RF aspirin 81 mg Tablet,Delayed Release (Dr/Ec) 81 mg PO DAILY Qty: 0 0RF ferrous sulfate 325 mg (65 mg iron) tablet,delayed release (DR/EC) 325 mg PO 3XWK Rx Instructions: Take one tablet once a day Friday, Friday and Friday polyethylene glycol 3350 [Miralax] 17 gram Powder In Packet 17 g PO DAILY acetaminophen [Tylenol Ex Str Rapid Release] 500 mg Tablet 500 mg PO Q8H MDD 3gm/24hr PRN (Reason: Pain/Fever) clotrimazole-betamethasone 1-0.05 % Cream 1 applic TOPICAL BID Discharge Orders: Discharge Order (Routine); Ordered 03/29/24 Ordered By: Breanna Sevilla Admission Data Admit Date/Time: 03/28/24 13:04 Attending Provider: Dona Moon Admit Provider: Sabino Ryan Primary Care Provider: Sonam Cabrera Other Providers: Sabino Ryan; [facility]; [facility] Hospital Stay Data Consultations 03/28/24 13:08 ED Decision to Admit Stat Diagnostic Imagining Performed 03/28/24 09:22 CT head/brain wo con Stat Pending Results Patient Have Any Pending Studies at Discharge: No Discharge Instructions Given to Patient (Per Discharging Provider) Mr. Major You were hospitalized after having cough and fever found to have influenza A and were started on tamiflu and mucinex. You are going to rehab to get stronger before returning to [facility]. Please follow up with your PCP after discharge from rehab. Take Care Total Time Total Time Spent Total Time Spent (In Minutes): Time spent day of discharge 35 minutes including direct patient care, medication reconciliation, documentation, review of labs and images, and coordination of care. discussed with case management Coding Level of Care Code 03454 INP/OBS DISCH >30 MIN Diagnoses Influenza A J10.1 Acute encephalopathy G93.40
== END 2024-03-29 17:08 | DRG 194 ==
LOC: ED 07:42 → INTOOBSV 13:04 → 3E 13:04 → SUATTDRO 13:04 → 3E 14:48

== ENCOUNTER 2024-11-20 12:58 | Inpatient (IN) ==
--- NOTE | 2024-11-20 13:14 | Emergency Department Note ---
Impression & Plan Encephalopathy acute, Acute UTI (urinary tract infection), Bradycardia ED Provider Note Name: ALEJANDRO LOPEZ Jr Age: 89 Sex: Male Arrives Via: Ambulance Informant: Patient (poor historian), EMS, nursing staff, patient's son ED Provider: Phillip Henderson MD Chief Complaint: Altered mental status Impression: As per impressions above Medical Decision Makin-year-old gentleman arrives from local assisted living facility after being found increasingly confused in the bathroom. Arrives in no distress breathing comfortably with good vital signs. Reportedly prior to arrival he was bradycardic into the 20s and received IV atropine via EMS with heart rate improvement. Throughout his stay in the ER fortunately no further bradycardic episodes. Given the episode of confusion with unclear whether it had truly improved a CT of the head was obtained along with extensive other workup. Urinalysis does show some white blood cells but no clear evidence of infection, however this was done via straight cath thus even some whites is a bit concerning. Patient per my evaluation and workup I do not feel is truly severe sepsis though may have a metabolic encephalopathy secondary to UTI. The patient son eventually was able to make it into the ER. We discussed at length at bedside the patient's mental status. He very much feels that the patient is not acting himself and seems a bit more confused than typical. Will proceed with treating UTI and hospitalizing given the encephalopathy and addition to the reported bradycardia by EMS. Triage/Nursing Notes reviewed by Me External Chart Review by me: I did review discharge transition of care visit note from 04/08/2024 discussing patient's past medical history. Differential:Infection, hypoglycemia, electrolyte abnormalities, overdose, toxicologic, cardiac sources, intracerebral event, neurologic, trauma, as well as other pathologies. Vital Signs: reviewed and remarkable for no significant abnormalities Interventions: Normal saline bolus IV, Rocephin IV Labs:ED labs Reviewed by me and remarkable for UA somewhat concerning for UTI. Imaging:CT of the head without contrast no intracranial hemorrhage or mass effect appreciated as per my informal interpretation. Confirmed by radiologist. 1 view chest x-ray as per my interpretation no infiltrate or effusion appreciated. EKG:As per my interpretation. Indication altered mental status. Atrial fibrillation at 75 bpm with a QTc of 435. There is no ischemia. PVCs are noted. Similar EKG to September 03, 2024. Cardiac/Tele Monitoring: Cardiac Monitoring: An Order was placed for continuous cardiac monitoring. The monitor shows a rate of 70 with a afib rhythm. Consults:Discussed with [facility] service who will further manage the patient. Plan: Disposition:Hospitalization. Condition: fair History of Present Illness: 89-year-old gentleman arrives for evaluation of altered mental status. Patient to be quite confused as well as stumbling in the bathroom over the last hour. Was not answering things correctly and thus no. No falls or injuries reported. Patient denies any symptoms. EMS reports that on arrival bradycardic. He was given 1 mg IV atropine with improvement in his heart rate. No significant hypotension was ever noted. No real change in his mental status with the atropine either. No reported fevers, vomiting, diarrhea, urinary symptoms. Patient is quite poor historian though this is difficult to get full history. Past Medical History:See Below Home Medications:See Below Allergies:See Below Vitals:Blood Pressure: 140/90, Pulse 82, RR 21, T 36.5C, O2 96% on RA Physical Exam: GENERAL: Patient is elderly/frail appearing and in no acute distress. RESPIRATORY: No dyspnea. Clear to auscultation and equal bilaterally. CARDIOVASCULAR: Regular rate and rhythm.No murmur appreciated. GASTROINTESTINAL: Abdomen soft, non-tender, no peritonitis. BACK: No midline tenderness, no CVA tenderness EXTREMITIES: Normal motion all extremities, no cyanosis, pretty severe edema bilateral lower legs with areas of deep depressions where compression stockings had rolled into a 2 areas. No significant distal discoloration and pulses are intact. NEUROLOGIC: Patient is awake though not oriented to time or place. No focal neurologic deficits appreciated SKIN: No rash, no jaundice, no diaphoresis. PSYCH: Appropriate GCS: 15 ED Course: Times/Reassessments: Stable breathing comfortably in no distress Phillip Henderson MD Past Med/Surg History Problem List (Updated 11/21/24 @ 11:02 by Guanakito Phillips MD) Episode of confusion Bradycardia (Acute) Acute UTI (urinary tract infection) (Acute) Encephalopathy acute (Acute) COVID-19 (Acute) Generalized weakness (Acute) Right-sided visual neglect A-fib (Acute) Stroke (Acute) Hypomagnesemia (Acute) Anemia (Acute) History of intracranial hemorrhage (Acute) Weakness (Acute) Urinary retention Abrasion of right arm (Acute) Elevated PSA H/O tooth extraction 3 weeks ago, then put in partial Weight loss BPH (benign prostatic hyperplasia) Anemia (Acute) GI bleed (Acute) Acute diverticulitis (Acute) Lower GI bleed (Acute) Gout Atrial fibrillation Gout Rosacea Permanent atrial fibrillation (Acute) Mild mitral regurgitation Hypertension BPH NOS w ur obs/LUTS Gross hematuria Diverticulosis Carpal tunnel syndrome of right wrist Benign prostatic hyperplasia with urinary obstruction Closed fracture of medial condyle of femur H/O total knee replacement Anticoagulant long-term use Nephrolithiasis Diverticular hemorrhage Current use of fdc anticoagulation (Acute) Lab test negative for COVID-19 virus (Acute) Rectal bleeding (Acute) Vitamin D deficiency Hyperparathyroidism B12 deficiency Prediabetes Hematochezia Hypercalcemia (Acute) Medical History (Updated 11/21/24 @ 11:02 by Guanakito Phillips MD) History of cardioembolic stroke Influenza A Bradycardia Fever UTI (urinary tract infection) due to urinary indwelling Gold catheter Fall ELISE (acute kidney injury) A-fib History of SCC (squamous cell carcinoma) of skin History of basal cell carcinoma Swelling of eyelid Kidney stones Hematuria FOLLOWING WITH DR. POLANCO. AWAITING CT AND CYSTOSCOPY GI bleed 4-5 YEARS AGO --> 2/2 DIVERTICULITIS Diverticular disease On anticoagulant therapy Atrial fibrillation Hypertension Surgical History History of tonsillectomy History of lithotripsy History of cataract surgery History of surgery on arm History of total knee replacement RIGHT Status post Mohs surgery MULTIPLE TIMES History of colonoscopy Family History Father Cancer Prostate cancer Denies family history of Ovarian cancer Myocardial infarction Breast cancer Colorectal cancer Social History Smoking Status: Unknown if ever smoked Hx Substance Use: No (Unknown, pt poor historian, family member not present.) Communication Ability: Impaired Visual Impairment: Limited Hearing Ability: Normal Monitoring Manager Required: No Beliefs That Will Affect Care: None marital status: Current Living Situation: Other Current Living Situation Comment: [facility] current occupational status: retired Feels Safe at Home: Yes Childhood Exposure to Second-Hand Smoke: No Dental Care, Regularly: Yes Physical Activity Frequency: 3-4 Times per Week Seatbelt Use: always Sunscreen Use: Yes Assistive Devices: Walker Allergies Allergies Allergy/AdvReac Type Severity Reaction Status Date / Time Thiazides AdvReac Intermediate Hypercalcem Verified 11/20/24 15:36 ia Home Meds Home Medications Medication Instructions Recorded Confirmed ferrous sulfate 325 mg (65 mg 325 mg PO 3XWK 04/08/23 11/20/24 iron) tablet,delayed release Saccharomyces boulardii 250 mg 250 mg PO BID 08/20/23 11/20/24 capsule alfuzosin 10 mg tablet,extended 10 mg PO QAM 09/04/23 11/20/24 release 24 hr acetaminophen 500 mg tablet 1,000 mg PO Q8H PRN Pain/Fever 03/28/24 11/20/24 clotrimazole-betamethasone 1 1 applic topical BID PRN Rash 03/28/24 11/20/24 %-0.05 % topical cream polyethylene glycol 3350 17 gram 17 g PO DAILY PRN Constipation 03/28/24 11/20/24 oral powder packet (Miralax) lisinopril 20 mg tablet 20 mg PO QAM 11/20/24 11/20/24 psyllium 1 - 2 tsp PO DAILY 11/20/24 11/20/24 Previous Rx's Medication Instructions Recorded allopurinol 100 mg tablet 100 mg PO QAM #90 tabs 03/18/22 amlodipine 5 mg tablet 5 mg PO DAILY #90 tabs 12/27/22 escitalopram oxalate 10 mg tablet 10 mg PO DAILY #90 tabs 01/31/23 aspirin 81 mg tablet,delayed 81 mg PO DAILY #0 tabs 07/31/23 release atorvastatin 20 mg tablet 20 mg PO QAM #0 tabs 07/31/23 Results & Data (ED) Vital Signs Vital Signs - 24 hr 11/20/24 13:08 11/20/24 13:25 11/20/24 13:37 Temperature 36.5 C Temperature Source Oral Pulse Rate 80 82 Pulse Rate [Apical] Respiratory Rate 21 Respiratory Effort / Characteristics Non-Labored Spontaneous Respiratory Depth Normal Respiratory Pattern Regular Blood Pressure 140/90 Blood Pressure [Right Arm] Blood Pressure Mean 106 Blood Pressure Mean [Right Arm] Pulse Oximetry 94 96 Oxygen Delivery Method Room Air Room Air Sepsis Recent Fever Within 48 Hours No Sepsis New/Unexplained Change in Mental Status Yes Sepsis Action Taken by Nursing Physician Notified 11/20/24 15:00 Temperature Temperature Source Pulse Rate Pulse Rate [Apical] 69 Respiratory Rate 16 Respiratory Effort / Characteristics Non-Labored Spontaneous Respiratory Depth Normal Respiratory Pattern Regular Blood Pressure Blood Pressure [Right Arm] 154/95 H Blood Pressure Mean Blood Pressure Mean [Right Arm] 114 Pulse Oximetry 95 Oxygen Delivery Method Room Air Sepsis Recent Fever Within 48 Hours Sepsis New/Unexplained Change in Mental Status Sepsis Action Taken by Nursing Laboratory Data 11/22/24 06:34 11/22/24 06:34 Lab Results 11/20/24 11/20/24 11/20/24 Range/Units 13:04 13:36 14:03 WBC 6.91 (4.8-10.8) K/ul RBC 4.13 L (4.70-6.10) M/uL Hgb 12.9 L (14.0-18.0) g/dl Hct 40.3 L (42.0-52.0) % MCV 97.6 (80.0-100.0) fL MCH 31.2 (25.0-34.0) pg MCHC 32.0 (32.0-36.0) g/dL RDW Std Deviation 50.6 H (36.4-46.3) fL RDW Coeff of Edith 14.1 (11.5-14.5) % Plt Count 173 (130-400) K/uL MPV 9.8 (9.4-12.4) fL Immature Gran % (Auto) 0.3 % Neut % (Auto) 65.2 % Lymph % (Auto) 18.8 % Gregg % (Auto) 9.7 % Eos % (Auto) 5.4 % Baso % (Auto) 0.6 % Neut # (Auto) 4.51 (1.40-6.50) K/uL Lymph # (Auto) 1.30 (1.20-3.40) K/uL Gregg # (Auto) 0.67 H (0.11-0.59) K/uL Eos # (Auto) 0.37 (0.00-0.50) K/uL Baso # (Auto) 0.04 (0.00-0.20) K/uL Immature Gran # (Auto) 0.02 (0.01-0.20) K/uL PT 11.6 (9.0-12.0) Seconds INR 1.1 (0.9-1.1) Sodium 142 (136-145) mmol/L Potassium 4.2 (3.5-5.1) mmol/L Chloride 108 H (98-107) mmol/L Carbon Dioxide 28 (21-32) mmol/L Anion Gap 6 (3-11) BUN 20 (6-23) mg/dl Creatinine 1.15 (0.6-1.4) mg/dl Est Cr Clr Drug Dosing 49.2 ml/min eGFR 61.21 BUN/Creatinine Ratio 17.4 (10-20) Glucose 108 H (70-99(Fasting)) mg/dl Lactate 1.2 (0.4-2.0) mmol/L Calcium 10.2 (8.6-10.3) mg/dl Magnesium 1.9 (1.7-2.4) mg/dl Total Bilirubin 0.8 (0.2-1.0) mg/dl Direct Bilirubin 0.2 (0-0.2) mg/dl AST 12 L (13-39) U/L ALT 8 (7-52) U/L Alkaline Phosphatase 122 H (34-104) U/L Troponin I High Sens 11.0 (0-20) pg/ml Total Protein 7.2 (6.0-8.3) gm/dl Albumin 4.0 (3.4-5.0) gm/dl Lipase 27 (11-82) U/L Procalcitonin 0.03 (0-0.5) ng/ml TSH 3.097 (0.300-4.500) uIu/ml Urine Color Urine Appearance (Clear) Urine pH (4.5-7.5) Ur Specific [place] (1.000-1.030) Urine Protein (Negative) Urine Glucose (UA) (Negative) Urine Ketones (Negative) Urine Blood (Negative) Urine Nitrite (Negative) Urine Bilirubin (Negative) Urine Urobilinogen (Negative) Ur Leukocyte Esterase (Negative) Urine WBC (Auto) (0-5) /hpf Urine RBC (Auto) (0-2) /hpf U Hyaline Cast (Auto) (0-2) /lpf U Epithel Cells (Auto) (0-2) /hpf Urine Bacteria (Auto) (None Seen) Urine Comment SARS-CoV-2 (PCR) NEGATIVE (Negative) Influenza Type A (PCR) Negative (Neg) Influenza Type B (PCR) Negative (Neg) RSV (RT-PCR) Negative (Neg) 11/20/24 Range/Units 14:27 WBC (4.8-10.8) K/ul RBC (4.70-6.10) M/uL Hgb (14.0-18.0) g/dl Hct (42.0-52.0) % MCV (80.0-100.0) fL MCH (25.0-34.0) pg MCHC (32.0-36.0) g/dL RDW Std Deviation (36.4-46.3) fL RDW Coeff of Edith (11.5-14.5) % Plt Count (130-400) K/uL MPV (9.4-12.4) fL Immature Gran % (Auto) % Neut % (Auto) % Lymph % (Auto) % Gregg % (Auto) % Eos % (Auto) % Baso % (Auto) % Neut # (Auto) (1.40-6.50) K/uL Lymph # (Auto) (1.20-3.40) K/uL Gregg # (Auto) (0.11-0.59) K/uL Eos # (Auto) (0.00-0.50) K/uL Baso # (Auto) (0.00-0.20) K/uL Immature Gran # (Auto) (0.01-0.20) K/uL PT (9.0-12.0) Seconds INR (0.9-1.1) Sodium (136-145) mmol/L Potassium (3.5-5.1) mmol/L Chloride (98-107) mmol/L Carbon Dioxide (21-32) mmol/L Anion Gap (3-11) BUN (6-23) mg/dl Creatinine (0.6-1.4) mg/dl Est Cr Clr Drug Dosing ml/min eGFR BUN/Creatinine Ratio (10-20) Glucose (70-99(Fasting)) mg/dl Lactate (0.4-2.0) mmol/L Calcium (8.6-10.3) mg/dl Magnesium (1.7-2.4) mg/dl Total Bilirubin (0.2-1.0) mg/dl Direct Bilirubin (0-0.2) mg/dl AST (13-39) U/L ALT (7-52) U/L Alkaline Phosphatase (34-104) U/L Troponin I High Sens (0-20) pg/ml Total Protein (6.0-8.3) gm/dl Albumin (3.4-5.0) gm/dl Lipase (11-82) U/L Procalcitonin (0-0.5) ng/ml TSH (0.300-4.500) uIu/ml Urine Color Yellow Urine Appearance Clear (Clear) Urine pH 6.0 (4.5-7.5) Ur Specific [place] 1.015 (1.000-1.030) Urine Protein Negative (Negative) Urine Glucose (UA) Negative (Negative) Urine Ketones Negative (Negative) Urine Blood 2+ H (Negative) Urine Nitrite Negative (Negative) Urine Bilirubin Negative (Negative) Urine Urobilinogen Negative (Negative) Ur Leukocyte Esterase 2+ H (Negative) Urine WBC (Auto) 21-50 H (0-5) /hpf Urine RBC (Auto) >20 H (0-2) /hpf U Hyaline Cast (Auto) 0-2 (0-2) /lpf U Epithel Cells (Auto) 0-2 (0-2) /hpf Urine Bacteria (Auto) None Seen (None Seen) Urine Comment SARS-CoV-2 (PCR) (Negative) Influenza Type A (PCR) (Neg) Influenza Type B (PCR) (Neg) RSV (RT-PCR) (Neg) Administered Medications Allopurinol (Allopurinol 100 Mg Tab) 100 mg PO [facility] Stop: 12/21/24 08:59 Last Admin: 11/22/24 08:14 Dose: 100 mg Documented By: [facility] Admin: 11/21/24 08:05 Dose: 100 mg Documented By: [facility] Aspirin (Aspirin 81 Mg Ectab) 81 mg PO DAILY [facility] Stop: 12/21/24 08:59 Last Admin: 11/22/24 08:14 Dose: 81 mg Documented By: [facility] Admin: 11/21/24 08:06 Dose: 81 mg Documented By: [facility] Atorvastatin Calcium (Atorvastatin 20 Mg Tab) [facility] [place] [place] Stop: 12/21/24 08:59 Last Admin: 10/06/25 08:14 Dose: 20 mg Documented By: Admin: 11/21/24 08:05 Dose: 20 mg Documented By: DARIELA Atropine Sulfate (Atropine Sulfate 0.1 Mg/Ml 10ml Syr) 1 mg IV Q3M PRN PRN Reason: symptomatic bradycardia Stop: 12/20/24 23:09 Last Admin: 11/21/24 00:53 Dose: 1 mg Documented By: JOHNNY Escitalopram Oxalate (Escitalopram Oxalate 10 Mg Tab) 10 mg PO DAILY [facility] Stop: 12/21/24 08:59 Last Admin: 11/22/24 08:14 Dose: 10 mg Documented By: Admin: 11/21/24 08:05 Dose: 10 mg Documented By: DARIELA Ferrous Sulfate (Ferrous Sulfate 325 Mg Tab) 325 mg PO MoWeFr@[id number] [facility] Stop: 12/22/24 08:59 Last Admin: 11/22/24 08:14 Dose: 325 mg Documented By: [facility] Piperacillin Sod/Tazobactam Sod (Zosyn) 4.5 gm in 100 mls @ 25 mls/hr IV Q8H [facility]; Protocol Stop: 12/01/24 05:59 Last Admin: 11/22/24 05:53 Dose: 25 mls/hr Documented By: Infusion: 11/22/24 01:29 Dose: Infused Documented By: Admin: 11/21/24 21:29 Dose: 25 mls/hr Documented By: Infusion: 11/21/24 17:48 Dose: Infused Documented By: Admin: 11/21/24 13:47 Dose: 25 mls/hr Documented By: Infusion: 11/21/24 09:37 Dose: Infused Documented By: Admin: 11/21/24 05:29 Dose: 25 mls/hr Documented By: JOHNNY Sodium Chloride (Nss) 1,000 mls @ 60 mls/hr IV .[id number] [facility] Stop: 11/23/24 16:44 Last Admin: 11/22/24 04:58 Dose: 60 mls/hr Documented By: Infusion: 11/22/24 04:39 Dose: Infused Documented By: Admin: 11/21/24 11:58 Dose: 60 mls/hr Documented By: Infusion: 11/21/24 10:35 Dose: Infused Documented By: Admin: 11/20/24 17:54 Dose: 60 mls/hr Documented By: DARIELA Lactobacillus Acidophilus (Advanced Probiotic 625 Mg Capsule) 1,250 mg PO DAILY [facility] Stop: 12/20/24 08:59 Last Admin: 11/22/24 08:14 Dose: 1,250 mg Documented By: Admin: 11/21/24 09:36 Dose: Not Given Documented By: Admin: 11/21/24 08:06 Dose: 1,250 mg Documented By: DARIELA Psyllium Hydrophilic Mucilloid (Psyllium Husk 4gm Packet) 4 gm PO DAILY [facility] Stop: 12/21/24 08:59 Last Admin: 11/22/24 08:13 Dose: 4 gm Documented By: Admin: 11/21/24 08:06 Dose: 4 gm Documented By: DARIELA Saccharomyces Boulardii (Saccharomyces Boulardii 250 Mg Cap) 250 mg PO BID [facility] Stop: 12/20/24 20:59 Last Admin: 11/22/24 08:13 Dose: 250 mg Documented By: Admin: 11/21/24 21:31 Dose: 250 mg Documented By: Admin: 11/21/24 08:07 Dose: 250 mg Documented By: Admin: 11/20/24 21:35 Dose: 250 mg Documented By: JOHNNY Tamsulosin HCl (Tamsulosin Hcl 0.4 Mg Cap) 0.4 mg PO QAM [facility] Stop: 12/21/24 08:59 Last Admin: 11/22/24 08:14 Dose: 0.4 mg Documented By: Admin: 11/21/24 08:05 Dose: 0.4 mg Documented By: DARIELA Discontinued Medications Sodium Chloride (Nss) 500 mls @ 999 mls/hr IV .Q31M ONE Stop: 11/20/24 13:45 Last Infusion: 11/20/24 14:47 Dose: Infused Documented By: Admin: 11/20/24 13:35 Dose: 999 mls/hr Documented By: NONI Ceftriaxone Sodium (Rocephin) 2,000 mg in 50 mls @ 100 mls/hr IV NOW STA Stop: 11/20/24 15:57 Last Infusion: 11/20/24 17:17 Dose: Infused Documented By: Admin: 11/20/24 15:34 Dose: 100 mls/hr Documented By: NONI Piperacillin Sod/Tazobactam Sod (Zosyn) 4.5 gm in 100 mls @ 200 mls/hr IV NOW ONE; Protocol Stop: 11/20/24 22:29 Last Infusion: 11/20/24 23:00 Dose: Infused Documented By: Admin: 11/20/24 22:30 Dose: 200 mls/hr Documented By: JOHNNY Magnesium Sulfate/Dextrose (Magnesium Sulfate / D5w) 1 gm in 100 mls @ 50 mls/hr IV ONE ONE Stop: 11/21/24 01:12 Last Infusion: 11/21/24 01:38 Dose: Infused Documented By: Admin: 11/20/24 23:38 Dose: 50 mls/hr Documented By: JOHNNY Imaging Data Radiologist's Impression: Head CT 11/20/24 13:10 Exam: CT head/brain without contrast. Reason the for exam: Increasing confusion. Previous studies: CT head 09/03/2024. FINDINGS: Some diffuse atrophy and scattered symmetric lucency again seen in the matter similar to the previous study. There is a elliptical area of lucency centrally in the left cerebellar hemisphere unchanged since the previous study which may indicate that area of chronic ischemia. This would be better evaluated with MRI study if indicated. At this time no intracranial mass, hemorrhage or edema is found. No extra-axial blood or fluid collection. No midline shift. The mastoids and visualized sinuses remain clear and there are. No acute process in the bony calvarium. IMPRESSION: 1. Negative for acute intracranial process. 2. 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 3. Central lucency in the left cerebellar hemisphere unchanged since previous study. Possibility of previous ischemia is considered. If indicated, this would be better evaluated with MRI study of the brain. Electronically signed by Justin Mercado 11-20-2024 3:22 PM Chest X-Ray 11/20/24 13:11 Exam: Portable one view chest. Reason for exam: Altered mental status. Previous study: 09/03/2024. FINDINGS: Heart remains enlarged. Chronic pulmonary venous hypertension is seen without jamar edema or active lung infiltrate at this time. IMPRESSION: Stable moderate cardiomegaly with pulmonary venous hypertension. No acute change since previous study. Electronically signed by uJstin Mercado 11-20-2024 2:09 PM Discharge Plan Visit Data Chief Complaint: Bradycardia ED Provider: Phillip Henderson Discharge Problem: Encephalopathy acute, Acute UTI (urinary tract infection), Bradycardia Patient Disposition: Admitted As Inpatient Condition: Fair Discharge Instructions Interventions: ED Discharge Assessment Last Done: 11/20/24 17:16
[2024-11-20 13:20] LABS: Hematocrit (blood only) 40.3 % (42.0-52.0); Hemoglobin 12.9 g/dl (14.0-18.0); Immature Granulocytes # (auto) 0.02 K/uL (0.01-0.20); Immature Granulocytes % (auto) 0.3 %; Mean Corpuscular Hemoglobin 31.2 pg (25.0-34.0); Mean Corpuscular Volume 97.6 fL (80.0-100.0); Platelet Count 173 K/uL (130-400); RDW Standard Deviation 50.6 fL (36.4-46.3); Red Blood Count 4.13 M/uL (4.70-6.10); White Blood Count 6.91 K/ul (4.8-10.8)
[2024-11-20] MEDS: SODIUM CHLORIDE 0.9% 500 ML IV ONE (13:35)
[2024-11-20 13:43] LABS: Alanine Aminotransferase 8.0 U/L (7-52); Albumin Level 4.0 gm/dl (3.4-5.0); Alkaline Phosphatase 122.0 U/L (34-104); Anion Gap 6.0 (3-11); Bilirubin,Total 0.8 mg/dl (0.2-1.0); Blood Urea Nitrogen 20.0 mg/dl (6-23); Calcium 10.2 mg/dl (8.6-10.3); Carbon Dioxide 28.0 mmol/L (21-32); Chloride 108.0 mmol/L (98-107); Creatinine Clr Calc Pharmacy 49.2 ml/min; Glucose 108.0 mg/dl (70-99(Fasting)); Lipase 27.0 U/L (11-82); Magnesium 1.9 mg/dl (1.7-2.4); Potassium 4.2 mmol/L (3.5-5.1); Sodium 142.0 mmol/L (136-145); Total Protein 7.2 gm/dl (6.0-8.3)
[2024-11-20 13:51] LABS: INR 1.1 (0.9-1.1); Prothrombin Time 11.6 Seconds (9.0-12.0)
[2024-11-20 13:59] LABS: Thyroid Stimulating Hormone 3.097 uIu/ml (0.300-4.500)
--- NOTE | 2024-11-20 14:10 | XRay Report ---
Exam: Portable one view chest. Reason for exam: Altered mental status. Previous study: 09/03/2024. FINDINGS: Heart remains enlarged. Chronic pulmonary venous hypertension is seen without jamar edema or active lung infiltrate at this time. IMPRESSION: Stable moderate cardiomegaly with pulmonary venous hypertension. No acute change since previous study. Electronically signed by Justin Mercado 11-20-2024 2:09 PM
[2024-11-20 14:19] LABS: Influenza A virus by PCR Negative (Neg); Influenza B virus by PCR Negative (Neg); SARS CoV2 RNA(COVID-19) Ceph NEGATIVE (Negative)
[2024-11-20 14:39] LABS: Appearance Urine Clear (Clear); Bacteria Urine Automated None Seen (None Seen); Cast Urine Automated 0-2 /lpf (0-2); Epithelial Cell Urine Auto 0-2 /hpf (0-2); Glucose Urine UA Negative (Negative); RBC Urine Automated >20 /hpf (0-2); WBC Urine Automated 21-50 /hpf (0-5)
--- NOTE | 2024-11-20 15:22 | CT Scan Report ---
Exam: CT head/brain without contrast. Reason the for exam: Increasing confusion. Previous studies: CT head 09/03/2024. FINDINGS: Some diffuse atrophy and scattered symmetric lucency again seen in the matter similar to the previous study. There is a elliptical area of lucency centrally in the left cerebellar hemisphere unchanged since the previous study which may indicate that area of chronic ischemia. This would be better evaluated with MRI study if indicated. At this time no intracranial mass, hemorrhage or edema is found. No extra-axial blood or fluid collection. No midline shift. The mastoids and visualized sinuses remain clear and there are. No acute process in the bony calvarium. IMPRESSION: 1. Negative for acute intracranial process. 2. 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 3. Central lucency in the left cerebellar hemisphere unchanged since previous study. Possibility of previous ischemia is considered. If indicated, this would be better evaluated with MRI study of the brain. Electronically signed by Justin Mercado 11-20-2024 3:22 PM
[2024-11-20] MEDS: cefTRIAXone SODIUM 2,000 MG/50 ML BAG IV STA (15:34)
--- NOTE | 2024-11-20 16:34 | History & Physical Report ---
Date of Service November 20, 2024 Assessment & Plan (1) Encephalopathy acute: (2) Acute UTI (urinary tract infection): Plan: 89 year old male with history of Atrial fibrillation on aspirin, history of CVA with right visual neglect, hypertension Presenting with an episode of confusion earlier today. Acute episode of confusion, possible acute encephalopathy secondary to underlying UTI rule out TIA versus acute CVA in the setting of chronic atrial fibrillation Patient appears to be mostly back to his baseline mental status: He is alert x 1-2, with some forgetfulness Follow-up urine and blood cultures He has a history of Pseudomonas and Enterococcus faecalis UTI in the past, start empiric IV Zosyn no other signs of infection identified at this time CT head: No acute CVA, check brain MRI Right lower leg edema Check Doppler ultrasound to rule out DVT Suspected Episode of Bradycardia given Atropine by EMS as EKG interpreted to he HR 20-30s EMS EKG strip reviewed showing a fib with PVCs, HR 60s monitor in telemetry TSH normal electrolytes ok Other chronic medical problems: Atrial fibrillation- only on aspirin as patient not deemed a good long-term anticoagulation candidate in light of GI bleeding History of CVA-continue aspirin, statin Hypertension-continue amlodipine, lisinopril DVT prophylaxis SCDs for now given history of GI bleed CODE STATUS Full code as Verified with [facility] staff Disposition Admit to MedSur telemetry Total time spent 60 minutes including discussion with ER physician, [facility] staff, review of records, providing care for patient, etc. History of Present Illness Chief Complaint: confusion noted today Primary Care Provider: Tae Montez, 89 year old male with history of Atrial fibrillation on aspirin, history of CVA with right visual neglect, hypertension Presenting with an episode of confusion earlier today. History obtained from RN at [facility], ER physician, and records. At baseline, patient is oriented x 2, with some forgetfulness, ambulatory with a walker. Apparently patient was doing fine for the past few days until after breakfast this morning when he was found to be confused in his bathroom, with his clothes off, and was trying to flush his briefs. he was not following any commands and in his behavior history unusual of him according to staff. EMS was called and apparently patient was found to be bradycardic hence atropine was given en route to the ER. As per RN at the [facility], the patient also had a brief episode of confusion last November 13 which resolved by itself. Upon arrival to the ER, blood pressure is 140/90, heart rate 80, respiratory 21, temperature 38.5, 94% on room air. EKG showing atrial fibrillation EKG strip from the EMS showing atrial fibrillation with PVCs, heart rate 60s. CT head: No acute CVA UA suggestive of UTI Chest x-ray no signs of pneumonia Patient was given IV ceftriaxone. On exam, patient seen resting in bed, comfort able, not in distress. Awake and alert, Oriented x 1-2, does not remember why he was brought to the ER, denies having episodes of confusion earlier today. States he feels fine overall denies headache, dizziness, blurring of vision, focal weakness or numbness or any other neurologic deficits, denies urinary symptoms, nausea vomiting, abdominal pain, fevers or chills. Allergies Allergy/AdvReac Type Severity Reaction Status Date / Time Thiazides AdvReac Intermediate Hypercalcem Verified 11/20/24 15:36 ia Home Medications Medication Instructions Recorded Confirmed Type allopurinol 100 mg tablet 100 mg PO QAM #90 tabs 03/18/22 11/20/24 Rx amlodipine 5 mg tablet 5 mg PO DAILY #90 tabs 12/27/22 11/20/24 Rx escitalopram oxalate 10 mg tablet 10 mg PO DAILY #90 tabs 01/31/23 11/20/24 Rx ferrous sulfate 325 mg (65 mg 325 mg PO 3XWK 04/08/23 11/20/24 History iron) tablet,delayed release aspirin 81 mg tablet,delayed 81 mg PO DAILY #0 tabs 07/31/23 11/20/24 Rx release atorvastatin 20 mg tablet 20 mg PO QAM #0 tabs 07/31/23 11/20/24 Rx Saccharomyces boulardii 250 mg 250 mg PO BID 08/20/23 11/20/24 History capsule alfuzosin 10 mg tablet,extended 10 mg PO QAM 09/04/23 11/20/24 History release 24 hr acetaminophen 500 mg tablet 1,000 mg PO Q8H PRN Pain/Fever 03/28/24 11/20/24 History clotrimazole-betamethasone 1 1 applic topical BID PRN Rash 03/28/24 11/20/24 History %-0.05 % topical cream polyethylene glycol 3350 17 gram 17 g PO DAILY PRN Constipation 03/28/24 11/20/24 History oral powder packet (Miralax) lisinopril 20 mg tablet 20 mg PO QAM 11/20/24 11/20/24 History psyllium 1 - 2 tsp PO DAILY 11/20/24 11/20/24 History Past Med/Surg History Problem List (Updated 11/20/24 @ 16:38 by Odilon Wood MD) Episode of confusion Bradycardia (Acute) Acute UTI (urinary tract infection) (Acute) Encephalopathy acute (Acute) COVID-19 (Acute) Generalized weakness (Acute) History of cardioembolic stroke Right-sided visual neglect A-fib (Acute) Stroke (Acute) Hypomagnesemia (Acute) Anemia (Acute) History of intracranial hemorrhage (Acute) Weakness (Acute) Urinary retention Abrasion of right arm (Acute) Elevated PSA H/O tooth extraction 3 weeks ago, then put in partial Weight loss BPH (benign prostatic hyperplasia) Anemia (Acute) GI bleed (Acute) Acute diverticulitis (Acute) Lower GI bleed (Acute) Gout Atrial fibrillation Gout Rosacea Permanent atrial fibrillation (Acute) Mild mitral regurgitation Hypertension BPH NOS w ur obs/LUTS Gross hematuria Diverticulosis Carpal tunnel syndrome of right wrist Benign prostatic hyperplasia with urinary obstruction Closed fracture of medial condyle of femur H/O total knee replacement Anticoagulant long-term use Nephrolithiasis Diverticular hemorrhage Current use of care home anticoagulation (Acute) Lab test negative for COVID-19 virus (Acute) Rectal bleeding (Acute) Vitamin D deficiency Hyperparathyroidism B12 deficiency Prediabetes Hematochezia Hypercalcemia (Acute) Medical History Influenza A Bradycardia Fever UTI (urinary tract infection) due to urinary indwelling Gold catheter Fall ELISE (acute kidney injury) A-fib History of SCC (squamous cell carcinoma) of skin History of basal cell carcinoma Swelling of eyelid Kidney stones Hematuria GI bleed Diverticular disease On anticoagulant therapy Atrial fibrillation Hypertension Surgical History History of tonsillectomy History of lithotripsy History of cataract surgery History of surgery on arm History of total knee replacement Status post Mohs surgery History of colonoscopy Family History Father Cancer Prostate cancer Denies family history of Ovarian cancer Myocardial infarction Breast cancer Colorectal cancer Social History Smoking Status: Never smoker Do You Dip or Chew Tobacco: No; Hx Substance Use: No (Unknown, pt poor historian, family member not present.) Preferred Language: American Communication Ability: Unable Visual Impairment: Limited Hearing Ability: Normal Machine Wiper Required: No Beliefs That Will Affect Care: None marital status: Current Living Situation: Spouse Current Living Situation Comment: [facility] current occupational status: retired Feels Safe at Home: Yes Childhood Exposure to Second-Hand Smoke: No Dental Care, Regularly: Yes Physical Activity Frequency: 3-4 Times per Week Seatbelt Use: always Sunscreen Use: Yes Assistive Devices: Walker Review of Systems Review of Systems: all noted and negative except for above Physical Exam Physical Exam: General- oriented x 1-2, not in distress, speaks in sentences with no effort or accessory muscle use Head- atraumatic Eyes- PERRL, EOMI, anicteric ENT- Dry oral mucosa, oropharynx clear Neck- supple, no JVD, no adenopathy, no thyromegaly; carotids +2/2, no bruits appreciated Lungs- clear to auscultation bilaterally, no rales/wheezes Heart- normal rate, Irregularly irregular rhythm; no murmur, no gallop, no rub appreciated Abdomen- normal bowel sounds, nondistended, soft, nontender, no masses or hepatosplenomegaly Extremities- no pretibial edema, no calf tenderness; peripheral pulses intact Neuro- alert, oriented x 1-2; CN 2-12 grossly intact; motor 5/5 bilaterally;sensation 100% on all extremities; no other gross focal neurologic deficits Skin- warm & dry Results & Data Results & Data Vital Signs (Past 12 Hours) Vital Signs Temp Pulse Pulse Resp BP BP Pulse Ox 11/20/24 15:00 69 16 154/95 H 95 11/20/24 13:37 82 11/20/24 13:25 96 11/20/24 13:08 36.5 C 80 21 140/90 94 O2 Del Method 11/20/24 15:00 Room Air 11/20/24 13:37 11/20/24 13:25 Room Air 11/20/24 13:08 Room Air all noted and reviewed including below
[2024-11-20] MEDS ORDERED: ACETAMINOPHEN 500 MG TAB PO PRN (16:52)
[2024-11-20] MEDS ORDERED: POLYETHYLENE (MIRALAX) 17 GM PACK PO PRN (16:52)
[2024-11-20] MEDS ORDERED: ACETAMINOPHEN 325 MG TAB PO PRN (17:49)
[2024-11-20] MEDS: SODIUM CHLORIDE 0.9% 1,000 ML IV SCH (17:54)
--- NOTE | 2024-11-20 19:24 | Magnetic Resonance Report ---
MRI of the brain performed without IV contrast History: Confusion Comparison: 07/28/2023 Technique: Sagittal T1-weighted and axial T2-weighted, T2/FLAIR and diffusion-weighted with ADC map images of the brain were obtained without IV contrast. Findings: No evidence for intracranial mass lesion, mass-effect, midline shift, or abnormal extra-axial fluid collection. There is advanced cerebral atrophy. Moderate chronic microvascular ischemic changes. Scattered small foci of acute infarct, seen with diffusion restriction involving the high left frontal lobe, as well as a few tiny punctate foci in the left centrum semiovale, the anterior left insular cortex, and the left occipital lobe. Normal intravascular flow voids. Impression: Scattered small foci of acute infarct throughout the left cerebral hemisphere, as above. "ACT 112: Positive. There are findings on this exam that require communication between the performing entity and the patient following Patient Test Result Information Act ([place] ACT 112) guidelines." Electronically signed by Jose Antonio Byran 11-20-2024 7:24 PM
[2024-11-20] MEDS ORDERED: PHARMACIST DISCHARGE MED REC CONSULT PRN (19:30)
[2024-11-20] MEDS: SACCHAROMYCES BOULARDII 250 MG CAP PO SCH (21:35)
[2024-11-20] MEDS: PIPERACILLIN/TAZOBACTAM 4.5 GM/100 ML BAG IV ONE (22:30)
--- NOTE | 2024-11-20 23:27 | Communication Note ---
Date of Service: November 20, 2024 Patient with episodic bradycardia as per RN, heart rate 20s. Patient sleeping. SBP currently 130s, heart rate 50s. AP Episodic bradycardia History AF, history sinus pauses [facility] Possible SSS Atropine as needed symptomatic bradycardia Patient daughter (Ms. Allison Major) updated of issue over the phone. DNR CODE STATUS reaffirmed from prior admissions. Patient family okay with cardiology input regarding PPM if with recurrent, symptomatic episodes.
[2024-11-20] MEDS: MAGNESIUM SULFATE / D5W 1 GM/100 ML BAG IV ONE (23:38)
[2024-11-21] MEDS: ATROPINE SULFATE 0.1 MG/ML 10ML SYR IV PRN (00:53)
[2024-11-21] MEDS: PIPERACILLIN/TAZOBACTAM 4.5 GM/100 ML BAG IV SCH (05:29)
[2024-11-21 06:51] LABS: Hematocrit (blood only) 37.7 % (42.0-52.0); Hemoglobin 12.0 g/dl (14.0-18.0); Immature Granulocytes # (auto) 0.01 K/uL (0.01-0.20); Immature Granulocytes % (auto) 0.1 %; Mean Corpuscular Hemoglobin 30.8 pg (25.0-34.0); Mean Corpuscular Volume 96.7 fL (80.0-100.0); Platelet Count 153 K/uL (130-400); RDW Standard Deviation 49.5 fL (36.4-46.3); Red Blood Count 3.90 M/uL (4.70-6.10); White Blood Count 8.02 K/ul (4.8-10.8)
[2024-11-21 07:12] LABS: Alanine Aminotransferase 5.0 U/L (7-52); Albumin Globulin Ratio 1.3 (0.9-2); Albumin Level 3.5 gm/dl (3.4-5.0); Alkaline Phosphatase 107.0 U/L (34-104); Anion Gap 5.0 (3-11); Bilirubin,Total 1.0 mg/dl (0.2-1.0); Blood Urea Nitrogen 18.0 mg/dl (6-23); Calcium 9.9 mg/dl (8.6-10.3); Carbon Dioxide 26.0 mmol/L (21-32); Chloride 111.0 mmol/L (98-107); Cholesterol 89.0 mg/dl (0-200); Creatinine Clr Calc Pharmacy 60.0 ml/min; Globulin 2.8 gm/dl (2.5-4.0); Glucose 98.0 mg/dl (70-99(Fasting)); HDL Cholesterol 40.0 mg/dl; Potassium 4.3 mmol/L (3.5-5.1); Sodium 142.0 mmol/L (136-145); Total Protein 6.3 gm/dl (6.0-8.3); Triglycerides 77.0 mg/dl (0-150)
[2024-11-21 07:53] LABS: Hemoglobin A1C 6.1 % (4.5-5.6)
[2024-11-21] MEDS: ESCITALOPRAM OXALATE 10 MG TAB PO SCH (08:05)
[2024-11-21] MEDS: TAMSULOSIN HCL 0.4 MG CAP PO SCH (08:05)
[2024-11-21] MEDS: ATORVASTATIN 20 MG TAB PO SCH (08:05)
[2024-11-21] MEDS: ASPIRIN 81 MG ECTAB PO SCH (08:06)
[2024-11-21] MEDS: ADVANCED PROBIOTIC 625 MG CAPSULE PO SCH (08:06)
[2024-11-21] MEDS: PSYLLIUM HUSK 4GM PACKET PO SCH (08:06)
--- NOTE | 2024-11-21 10:34 | Hospitalist Progress Note ---
Date of Service November 21, 2024 Assessment & Plan (1) Encephalopathy acute: (2) Acute UTI (urinary tract infection): Plan: 89 yo M w/ PMH of Atrial fibrillation on aspirin, CVA with right visual neglect, hypertension was brought in from [facility] d/t an episode of confusion in the AM of presentation. After breakfast, he was found to be confused in his bathroom, with his clothes off and trying to flush his briefs. He is being managed for the following: Acute stroke pt presents w/ confusion admitting mri brain - Scattered small foci of acute infarct throughout the left cerebral hemisphere a1c 6.1, LDL 34, 07/27 ECHO w/ bubble study showing no interatrial shunt. c/w home aspirin, atorvastatin. Pt has ho chronic afib. Per OP chart review (Cards note from July 2024): "patient developed GI bleed while on Eliquis in 2021, leading to placement of a Watchman device. he also had GI bleeding on aspirin alone, therefore not on antiplatelet therapy for period of time. Unfortunately suffered a cardioembolic stroke in July 2023, hence aspirin was restarted. He has been felt to be too high risk for anticoagulation therapy given prior GI bleeding and history of intraventricular hemorrhage. No bleeding issues since being back on aspirin therapy" Admitting physician d/w neurology, c/w aspirin, consideration for resuming Eliquis if no contraindication. Will further d/w family. d/w pt's dtr isa, pt is high risk for resuming anticoagulation and would want cardio opinion on it as well. Will resume home bp meds gradually. Will benefit from eliquis but he is very high risk, will wait formal cardio and neuro eval. Neuro consult, await recs. Acute episode of confusion, possible acute encephalopathy secondary to underlying UTI vs acute stroke vs both. Patient appears to be mostly back to his baseline mental status: He is alert x 1-2, with some forgetfulness Follow-up urine and blood cultures - pending so far. He has a history of Pseudomonas and Enterococcus faecalis UTI in the past, c/w iv zosyn 11/20. Right lower leg edema: Check Doppler ultrasound to rule out DVT Bradycardia: given Atropine by EMS as EKG interpreted to he HR 20-30s. EMS EKG strip reviewed showing a fib with PVCs, HR 60s monitor in telemetry, TSH normal, electrolytes ok Episode of oj in 20s overnight 11/20-11/21, received atropine. Cardio consult, await recs. - Patient family okay with cardiology input regarding PPM if with recurrent, symptomatic episodes. Other chronic medical problems: Atrial fibrillation- only on aspirin as patient not deemed a good long-term anticoagulation candidate in light of GI bleeding History of CVA-continue aspirin, statin Hypertension-continue amlodipine, lisinopril DVT prophylaxis: SCDs for now given history of GI bleed CODE STATUS: Full code as Verified with [facility] staff Disposition: pt/ot, cm to assist w/ dc plan Admission and Anticipated Discharge Date Admission Date: November 20, 2024 Subjective Pt was seen and examined at bedside. Pt was sitting up in bed, eating breakfast. Pt is Ox1, denies pain/sob/chest pain. Per RN, eating ok and bowels ok Overnight, pt was bradycardic in 20s needing atropine, now HR has improved, avoid beta blockers. Physical Exam Physical Exam: General- oriented x 1, not in distress , on RA Head- atraumatic Eyes- PERRL, EOMI, anicteric ENT- moist oral mucosa, oropharynx clear Neck- supple, no JVD, no adenopathy, no thyromegaly; carotids +2/2, no bruits appreciated Lungs- clear to auscultation bilaterally, no rales/wheezes Heart- normal rate, Irregularly irregular rhythm; no murmur, no gallop, no rub appreciated Abdomen- normal bowel sounds, nondistended, soft, nontender, no masses or hepatosplenomegaly Extremities- rle edema 1-2+, lle no edema, no calf tenderness; peripheral pulses intact Neuro- alert, oriented x 1; CN 2-12 grossly intact; motor 5/5 bilaterally;sensation 100% on all extremities; no other gross focal neurologic deficits Skin- warm & dry Results & Data Results & Data Vital Signs (Past 12 Hours) Vital Signs Temp Pulse Pulse Resp BP Pulse Ox O2 Del Method 11/21/24 08:30 36.7 C 53 L 20 148/76 H 95 Room Air 11/21/24 08:01 36.5 C 63 18 149/78 H 94 Room Air 11/21/24 07:40 57 L 11/21/24 02:35 36.7 C 51 L 18 142/79 H 97 Room Air 11/20/24 22:45 29 L
--- NOTE | 2024-11-21 11:05 | Cardiology Consultation ---
Date of Consultation November 21, 2024 Assessment & Plan (1) Permanent atrial fibrillation: -Ventricular response well-controlled without medications. -Demonstrated some bradycardic episodes while sleeping. -Would continue to monitor closely. -Would try to follow conservative measures. -s/p Watchman device, November 2021. -Significant GI bleeding and and intracerebral hemorrhage while on long- term anticoagulation. (2) History of cardioembolic stroke: -Brain MRI suggests cardioembolic strokes despite the Watchman device. -Considered too high risk for long-term anticoagulation therapy previously. -Currently on aspirin alone. History of Present Illness Attending Physician: Evette Costa MD History of Present Illness Mr. Major is an 89-year-old male admitted yesterday with mental status changes and a urinary tract infection. This consultation was ordered to assist in the patient's cardiac management. Of note, the patient follows with Dr. Christianson in the outpatient setting. The patient is a resident at [facility] and was noted to be confused by the nursing staff. He was sent to the emergency room for further care. MRI performed in the emergency room noted several acute infarctions throughout the left cerebral hemisphere suggesting a cardioembolic source. He does carry history of permanent atrial fibrillation. He had a watchman device placed in November 2021 as he was experiencing significant GI bleeding on anticoagulation therapy. He also had a history of an intracerebral hemorrhage while on anticoagulation therapy. Despite the occluder device, the patient had a cardioembolic CVA back in July 2023. His atrial fibrillation is asymptomatic. He does not require rate controlling medications. Allergies Allergy/AdvReac Type Severity Reaction Status Date / Time Thiazides AdvReac Intermediate Hypercalcem Verified 11/20/24 15:36 ia Home Medications Medication Instructions Recorded Confirmed Type allopurinol 100 mg tablet 100 mg PO QAM #90 tabs 03/18/22 11/20/24 Rx amlodipine 5 mg tablet 5 mg PO DAILY #90 tabs 12/27/22 11/20/24 Rx escitalopram oxalate 10 mg tablet 10 mg PO DAILY #90 tabs 01/31/23 11/20/24 Rx ferrous sulfate 325 mg (65 mg 325 mg PO 3XWK 04/08/23 11/20/24 History iron) tablet,delayed release aspirin 81 mg tablet,delayed 81 mg PO DAILY #0 tabs 07/31/23 11/20/24 Rx release atorvastatin 20 mg tablet 20 mg PO QAM #0 tabs 07/31/23 11/20/24 Rx Saccharomyces boulardii 250 mg 250 mg PO BID 08/20/23 11/20/24 History capsule alfuzosin 10 mg tablet,extended 10 mg PO QAM 09/04/23 11/20/24 History release 24 hr acetaminophen 500 mg tablet 1,000 mg PO Q8H PRN Pain/Fever 03/28/24 11/20/24 History clotrimazole-betamethasone 1 1 applic topical BID PRN Rash 03/28/24 11/20/24 History %-0.05 % topical cream polyethylene glycol 3350 17 gram 17 g PO DAILY PRN Constipation 03/28/24 11/20/24 History oral powder packet (Miralax) lisinopril 20 mg tablet 20 mg PO QAM 11/20/24 11/20/24 History psyllium 1 - 2 tsp PO DAILY 11/20/24 11/20/24 History Patient History Medical History (Updated 11/21/24 @ 11:02 by Guanakito Phillips MD) History of cardioembolic stroke Influenza A Bradycardia Fever UTI (urinary tract infection) due to urinary indwelling Gold catheter Fall ELISE (acute kidney injury) A-fib History of SCC (squamous cell carcinoma) of skin History of basal cell carcinoma Swelling of eyelid Kidney stones Hematuria FOLLOWING WITH DR. POLANCO. AWAITING CT AND CYSTOSCOPY GI bleed 4-5 YEARS AGO --> 2/2 DIVERTICULITIS Diverticular disease On anticoagulant therapy Atrial fibrillation Hypertension Surgical History History of tonsillectomy History of lithotripsy History of cataract surgery History of surgery on arm History of total knee replacement RIGHT Status post Mohs surgery MULTIPLE TIMES History of colonoscopy Family History Father Cancer Prostate cancer Denies family history of Ovarian cancer Myocardial infarction Breast cancer Colorectal cancer Social History Smoking Status: Unknown if ever smoked Hx Substance Use: No (Unknown, pt poor historian, family member not present.) Visual Impairment: Limited Hearing Ability: Normal Forklift Operator Required: No Beliefs That Will Affect Care: None marital status: Current Living Situation: Other Current Living Situation Comment: [facility] current occupational status: retired Feels Safe at Home: Yes Childhood Exposure to Second-Hand Smoke: No Dental Care, Regularly: Yes Physical Activity Frequency: 3-4 Times per Week Seatbelt Use: always Sunscreen Use: Yes Assistive Devices: Walker Physical Exam Physical Exam: In general is well-developed well-nourished male in no acute distress. HEENT exam is negative. Neck is supple with full carotid upstrokes. There are no carotid bruits. Jugular venous pressure is flat at 90 degrees. No thyromegaly. Cardiovascular exam reveals a irregularly irregular rhythm with distant heart sounds. No obvious murmurs. Lungs are clear without rales, rhonchi, or wheezes. Abdomen is soft without bruits. Extremities reveal intact radial pulse bilaterally. Trace pretibial edema is noted. Results & Data Vital Signs (Past 12 Hours) Vital Signs Temp Pulse Pulse Resp BP Pulse Ox O2 Del Method 11/21/24 08:30 36.7 C 53 L 20 148/76 H 95 Room Air 11/21/24 08:01 36.5 C 63 18 149/78 H 94 Room Air 11/21/24 07:40 57 L 11/21/24 02:35 36.7 C 51 L 18 142/79 H 97 Room Air Diagnostic Findings awake overnight monitor notes rate controlled atrial fibrillation. He was bradycardic during the sleeping hours. PG Care Time/CCT Total # of Minutes Spent Total Time Spent with Patient: Total time spent is greater than 50% in coordination of care (as documented) at patient's floor/unit and/or counseling patient: Coding Level of Care Code 91143 INT INP/OBS CARE 3/75MIN Diagnoses Permanent atrial fibrillation I48.2 History of cardioembolic stroke Z86.73
--- NOTE | 2024-11-21 11:49 | Electrocardiogram Report ---
Test Reason : Blood Pressure : */* mmHG Vent. Rate : 75 BPM Atrial Rate : * BPM P-R Int : * ms QRS Dur : 94 ms QT Int : 390 ms P-R-T Axes : * 14 1 degrees QTcB Int : 435 ms Atrial fibrillation with premature ventricular or aberrantly conducted complexes Low voltage QRS Abnormal ECG When compared with ECG of 03-Sep-2024 13:10, QRS axis Shifted left QT has lengthened Confirmed by Guanakito Phillips ([id number]) on 11/21/2024 11:49:38 AM Referred By: [employer] [facility] Confirmed By: Guanakito Phillips
--- NOTE | 2024-11-21 15:05 | Ultrasound Report ---
Examination: Doppler venous ultrasound of the lower extremity Comparison: None Technique: Grayscale evaluation with compression, spectral flow, and color Doppler assessment of the deep venous system of the leg, from the groin to the knee, as well as the lower leg Findings: The external iliac, common femoral, femoral, popliteal, peroneal and anterior and posterior tibial veins demonstrate normal compressibility and blood flow. Impression: No evidence for DVT of the right lower extremity Electronically signed by Jose Antonio Bryan 11-21-2024 3:05 PM
[2024-11-22] MEDS ORDERED: PROMETHAZINE 6.25 MG/50.25 ML BAG IV PRN (05:55)
[2024-11-22 06:55] LABS: Hematocrit (blood only) 38.3 % (42.0-52.0); Hemoglobin 12.6 g/dl (14.0-18.0); Mean Corpuscular Hemoglobin 31.8 pg (25.0-34.0); Mean Corpuscular Volume 96.7 fL (80.0-100.0); Platelet Count 154 K/uL (130-400); RDW Standard Deviation 49.1 fL (36.4-46.3); Red Blood Count 3.96 M/uL (4.70-6.10); White Blood Count 12.35 K/ul (4.8-10.8)
[2024-11-22 07:14] LABS: Anion Gap 8.0 (3-11); Blood Urea Nitrogen 16.0 mg/dl (6-23); Calcium 10.1 mg/dl (8.6-10.3); Carbon Dioxide 24.0 mmol/L (21-32); Chloride 108.0 mmol/L (98-107); Creatinine Clr Calc Pharmacy 53.4 ml/min; Glucose 131.0 mg/dl (70-99(Fasting)); Magnesium 1.8 mg/dl (1.7-2.4); Potassium 3.9 mmol/L (3.5-5.1); Sodium 140.0 mmol/L (136-145)
[2024-11-22] MEDS: FERROUS SULFATE 325 MG TAB PO SCH (08:14)
--- NOTE | 2024-11-22 09:50 | Pharmacy Report ---
- Date of Service November 22, 2024 - Pharmacy CVA/TIA Medication Review Medications to Prevent Stroke handout has been added to the patients discharge packet. Antiplatelet(s) * Aspirin 81mg daily Cholesterol * statin: atorvastatin 20 mg daily * High intensity statin deferred due to age >75 DVT Prophylaxis * SCD knee Therapeutic Anticoagulation * Hx Afib/Aflutter noted, but anticoagulation is being deferred -Significant GI bleeding and and intracerebral hemorrhage while on long- term anticoagulation Type 2 Diabetes * Patient does not have T2DM
--- NOTE | 2024-11-22 14:46 | Neurology Consultation ---
Date of Consultation November 22, 2024 Assessment & Plan (1) Stroke: Abhay Major is an 89 yo M presenting with recurrent L hemispheric embolic stroke despite watchman device and aspirin. Not a candidate for anticoagulation due to prior hemorrhage. Would ensure complete vessel imaging is obtained as this could be the mechanism beyond cardioembolism. If negative I agree that his risk factors are maximally optimized and we unfortunately do not have additional management options. He would continue to benefit from therapy otherwise. -- CTA head and neck -- If negative would continue aspirin -- Ongoing therapy -- Ongoing goals of care discussion should he worsen -- Can follow-up with neurology as an outpatient. Telehealth Consultation Telehealth Information Telehealth Information: I performed this visit using a real-time telehealth connection between my location and the patients location ([facility]). After connecting through interactive tele-video, patient was identified by name and date of and/or wristband check.Patient (or authorized healthcare human resources hr representative) was informed that this was a telemedicine visit and it was being conducted confidentially over secure lines. My office door was closed and no one else was present in the room with me.Patient (or authorized healthcare human resources hr representative) provided consent to proceed with the visit, expressed an understanding of privacy and security of the telemedicine visit, and gave permission to have a hospital human resources hr representative in the room in order to assist with the visit and to conduct portions of the visit, as needed. I informed the patient (or authorized healthcare human resources hr representative) that I reviewed their record and presented the opportunity for them to ask any questions regarding the visit today. The patient agreed to participate. History of Present Illness Reason for Consultation: Stroke Requesting Physician: Dr. Costa Attending Physician: Evette Costa MD History of Present Illness Abhay Major is an 89 yo M presenting with aphasia and confusion found to have new L hemispheric stroke. He is unable to contribute to the history due to his disorientation and aphasia. Prior left hemispheric stroke in the setting of afib, with watchman device. Cardiology note also reviewed. Not a candidate for anticoagulation. Allergies Allergy/AdvReac Type Severity Reaction Status Date / Time Thiazides AdvReac Intermediate Hypercalcem Verified 11/20/24 15:36 ia Home Medications Medication Instructions Recorded Confirmed Type allopurinol 100 mg tablet 100 mg PO QAM #90 tabs 03/18/22 11/20/24 Rx amlodipine 5 mg tablet 5 mg PO DAILY #90 tabs 12/27/22 11/20/24 Rx escitalopram oxalate 10 mg tablet 10 mg PO DAILY #90 tabs 01/31/23 11/20/24 Rx ferrous sulfate 325 mg (65 mg 325 mg PO 3XWK 04/08/23 11/20/24 History iron) tablet,delayed release aspirin 81 mg tablet,delayed 81 mg PO DAILY #0 tabs 07/31/23 11/20/24 Rx release atorvastatin 20 mg tablet 20 mg PO QAM #0 tabs 07/31/23 11/20/24 Rx Saccharomyces boulardii 250 mg 250 mg PO BID 08/20/23 11/20/24 History capsule alfuzosin 10 mg tablet,extended 10 mg PO QAM 09/04/23 11/20/24 History release 24 hr acetaminophen 500 mg tablet 1,000 mg PO Q8H PRN Pain/Fever 03/28/24 11/20/24 History clotrimazole-betamethasone 1 1 applic topical BID PRN Rash 03/28/24 11/20/24 History %-0.05 % topical cream polyethylene glycol 3350 17 gram 17 g PO DAILY PRN Constipation 03/28/24 11/20/24 History oral powder packet (Miralax) lisinopril 20 mg tablet 20 mg PO QAM 11/20/24 11/20/24 History psyllium 1 - 2 tsp PO DAILY 11/20/24 11/20/24 History Patient History Medical History (Updated 11/21/24 @ 11:02 by Guanakito Phillips MD) History of cardioembolic stroke Influenza A Bradycardia Fever UTI (urinary tract infection) due to urinary indwelling Gold catheter Fall ELISE (acute kidney injury) A-fib History of SCC (squamous cell carcinoma) of skin History of basal cell carcinoma Swelling of eyelid Kidney stones Hematuria FOLLOWING WITH DR. POLANCO. AWAITING CT AND CYSTOSCOPY GI bleed 4-5 YEARS AGO --> 2/2 DIVERTICULITIS Diverticular disease On anticoagulant therapy Atrial fibrillation Hypertension Surgical History History of tonsillectomy History of lithotripsy History of cataract surgery History of surgery on arm History of total knee replacement RIGHT Status post Mohs surgery MULTIPLE TIMES History of colonoscopy Family History Father Cancer Prostate cancer Denies family history of Ovarian cancer Myocardial infarction Breast cancer Colorectal cancer Social History Smoking Status: Unknown if ever smoked Hx Substance Use: No (Unknown, pt poor historian, family member not present.) Communication Ability: Impaired Visual Impairment: Limited Hearing Ability: Normal Business Intelligence Analyst Required: No Beliefs That Will Affect Care: None marital status: Current Living Situation: Other Current Living Situation Comment: [facility] current occupational status: retired Feels Safe at Home: Yes Childhood Exposure to Second-Hand Smoke: No Dental Care, Regularly: Yes Physical Activity Frequency: 3-4 Times per Week Seatbelt Use: always Sunscreen Use: Yes Assistive Devices: Walker Review of Systems unable to obtain, aphasia Physical Exam Awake and alert, speech slow but fluent and nondysarthric. Mild expressive aphasia. No facial or appendicular weakness, no pronator drift. No abnormal movements. Results & Data Vital Signs (Past 12 Hours) Vital Signs Temp Pulse Resp BP BP BP Pulse Ox 11/22/24 11:25 37.1 C 78 18 152/86 H 91 11/22/24 07:57 36.8 C 79 18 138/72 94 11/22/24 07:45 11/22/24 03:33 36.6 C 82 18 155/82 H 93 O2 Del Method 11/22/24 11:25 Room Air 11/22/24 07:57 Room Air 11/22/24 07:45 Room Air 11/22/24 03:33 Room Air Laboratory Results Abnormal lab results 11/22/24 Range/Units 06:34 WBC 12.35 H (4.8-10.8) K/ul RBC 3.96 L (4.70-6.10) M/uL Hgb 12.6 L (14.0-18.0) g/dl Hct 38.3 L (42.0-52.0) % RDW Std Deviation 49.1 H (36.4-46.3) fL Chloride 108 H (98-107) mmol/L Glucose 131 H (70-99(Fasting)) mg/dl Diagnostic Findings Venous Doppler Study 10/05/25 10:53 Examination: Doppler venous ultrasound of the lower extremity Comparison: None Technique: Grayscale evaluation with compression, spectral flow, and color Doppler assessment of the deep venous system of the leg, from the groin to the knee, as well as the lower leg Findings: The external iliac, common femoral, femoral, popliteal, peroneal and anterior and posterior tibial veins demonstrate normal compressibility and blood flow. Impression: No evidence for DVT of the right lower extremity Electronically signed by Jose Antonio Bryan 11-21-2024 3:05 PM (1) Stroke CVA mechanism: other Qualified Code(s): I63.89 - Other cerebral infarction
--- NOTE | 2024-11-22 16:06 | Hospitalist Progress Note ---
Date of Service November 22, 2024 Assessment & Plan (1) Encephalopathy acute: (2) Acute UTI (urinary tract infection): Plan: 89 yo M w/ PMH of Atrial fibrillation on aspirin, CVA with right visual neglect, hypertension was brought in from [facility] d/t an episode of confusion in the AM of presentation. After breakfast, he was found to be confused in his bathroom, with his clothes off and trying to flush his briefs. He is being managed for the following: Acute stroke pt presents w/ confusion admitting mri brain - Scattered small foci of acute infarct throughout the left cerebral hemisphere a1c 6.1, LDL 34, 07/27 ECHO w/ bubble study showing no interatrial shunt. c/w home aspirin, atorvastatin. Pt has ho chronic afib. Per OP chart review (Cards note from July 2024): "patient developed GI bleed while on Eliquis in 2021, leading to placement of a Watchman device. he also had GI bleeding on aspirin alone, therefore not on antiplatelet therapy for period of time. Unfortunately suffered a cardioembolic stroke in July 2023, hence aspirin was restarted. He has been felt to be too high risk for anticoagulation therapy given prior GI bleeding and history of intraventricular hemorrhage. No bleeding issues since being back on aspirin therapy" Neuro evaled, recs are CTA head and neck, c/w aspirin. Not a candidate for anticoagulation. Scans ordered. Pt's dtr isa updated again, and discussed pros and cons of anticoagulation use along w/ cardio and neuro's opinion, she opts for no anticoagulation and understands the patient might have higher risk of stroke when on aspirin alone. Await imagings, neuro checks. Acute episode of confusion, possible acute encephalopathy secondary to underlying UTI vs acute stroke vs both. Patient appears to be mostly back to his baseline mental status: He is alert x 1-2, with some forgetfulness Follow-up urine and blood cultures - pending so far. no growth in U Cx and Bl Cx neg for 48 hours, dc antibiotic. Right lower leg edema: Check Doppler ultrasound to rule out DVT - neg for dvt. Bradycardia: given Atropine by EMS as EKG interpreted to he HR 20-30s. EMS EKG strip reviewed showing a fib with PVCs, HR 60s monitor in telemetry, TSH normal, electrolytes ok Episode of oj in 20s overnight 11/20-11/21, received atropine. Cardio consult, appreciate recs. - Patient family okay with cardiology input regarding PPM if with recurrent, symptomatic episodes. f/u w/ cardio upon dc. Other chronic medical problems: Atrial fibrillation- only on aspirin as patient not deemed a good long-term anticoagulation candidate in light of GI bleeding History of CVA-continue aspirin, statin Hypertension-continue amlodipine, lisinopril DVT prophylaxis: SCDs for now given history of GI bleed CODE STATUS: Full code as Verified with [facility] staff Disposition: pt/ot, cm to assist w/ dc plan, likely dc armani if no acute issues in head and neck imagings. Pt's dtr isa update 11/21 and 11/22 over the phone. Admission and Anticipated Discharge Date Admission Date: November 20, 2024 Subjective Pt was seen and examined at bedside. Pt was sitting up in bed, eating breakfast. Pt is Ox1-2, denies pain/sob/chest pain. Pt denies velazquez. Physical Exam Physical Exam: General- oriented x 1, not in distress , on RA Head- atraumatic Eyes- PERRL, EOMI, anicteric ENT- moist oral mucosa, oropharynx clear Neck- supple, no JVD, no adenopathy, no thyromegaly; carotids +2/2, no bruits appreciated Lungs- clear to auscultation bilaterally, no rales/wheezes Heart- normal rate, Irregularly irregular rhythm; no murmur, no gallop, no rub a ppreciated Abdomen- normal bowel sounds, nondistended, soft, nontender, no masses or hepatosplenomegaly Extremities- rle edema 1-2+, lle no edema, no calf tenderness; peripheral pulses intact Neuro- alert, oriented x 1; CN 2-12 grossly intact; motor 5/5 bilaterally;sensation 100% on all extremities; no other gross focal neurologic deficits Skin- warm & dry Results & Data Results & Data Vital Signs (Past 12 Hours) Vital Signs Temp Pulse Resp BP BP Pulse Ox O2 Del Method 11/22/24 14:44 36.9 C 73 18 130/91 96 Room Air 11/22/24 11:25 37.1 C 78 18 152/86 H 91 Room Air 11/22/24 07:57 36.8 C 79 18 138/72 94 Room Air 11/22/24 07:45 Room Air
[2024-11-22] MEDS: LORazepam 0.5 MG TAB PO PRN (18:43)
[2024-11-22] MEDS: OPTIRAY 320 125ml IV ONE (20:00)
--- NOTE | 2024-11-22 20:47 | CT Scan Report ---
Exam(s): CTA NECK With Contrast IV Amt: 115 ml optitray 320 EXAM: CT Angiography Neck With Intravenous Contrast CLINICAL HISTORY: Reason for exam: stroke hodges. TECHNIQUE: Routine carotid CT angiography protocol was performed with intravenous contrast. NASCET criteria using the distal ICAs for comparison were used for evaluation of stenoses. CTDI is 31 mGy and DLP is 462 mGy-cm. Automated exposure control was utilized for the study. A dose lowering technique was utilized adhering to the principles of ALARA. MIP reconstructed images were created and reviewed. CONTRAST: Patient received 115 ml optitray 320 of IV contrast COMPARISON: None. FINDINGS: VASCULATURE: Right common carotid artery: Unremarkable. No occlusion or significant stenosis. No dissection. Right internal carotid artery: Mild to moderate low attenuation plaque in the proximal ICA.. Extracranial segment is patent with no occlusion or significant stenosis. No dissection. Right external carotid artery: Unremarkable. No occlusion. Right vertebral artery: Unremarkable. No occlusion or significant stenosis. No dissection. Left common carotid artery: Unremarkable. No occlusion or significant stenosis. No dissection. Left internal carotid artery: Mild to moderate low attenuation plaque in the proximal ICA. Extracranial segment is patent with no occlusion or significant stenosis. No dissection. Left external carotid artery: Unremarkable. No occlusion. Left vertebral artery: Unremarkable. No occlusion or significant stenosis. No dissection. NECK: Bones/joints: Unremarkable. No acute fracture. Soft tissues: Unremarkable. Lung apices: Clear. CAROTID STENOSIS REFERENCE USING NASCET CRITERIA: % ICA stenosis = (1 - narrowest ICA diameter/diameter of distal cervical ICA) x 100. Mild - <50% stenosis. Moderate - 50-69% stenosis. Severe - 70-94% stenosis. Near occlusion - 95-99% stenosis. Occluded - 100% stenosis. IMPRESSION: Negative CTA neck. Electronically signed by: Sheela Adorno MD 11/22/24 20:46 PM
--- NOTE | 2024-11-22 20:56 | CT Scan Report ---
Exam(s): CTA HEAD With Contrast IV Amt: 115 ml optiray 320 EXAM: CT Angiography Head With Intravenous Contrast CLINICAL HISTORY: Reason for exam: stroke w/u. TECHNIQUE: Axial computed tomographic angiography images of the head with intravenous contrast. CTDI is 31 mGy and DLP is 462 mGy-cm. Automated exposure control was utilized for the study. A dose lowering technique was utilized adhering to the principles of ALARA. MIP reconstructed images were created and reviewed. CONTRAST: Patient received 115 ml optiray 320 of IV contrast COMPARISON: No relevant prior studies available. FINDINGS: The dural venous sinuses are patent. Right internal carotid artery: No acute findings. Intracranial segment is patent with no significant stenosis. No aneurysm. Right anterior cerebral artery: Unremarkable. No occlusion or significant stenosis. No aneurysm. Right middle cerebral artery: Unremarkable. No occlusion or significant stenosis. No aneurysm. Right posterior cerebral artery: Unremarkable. No occlusion or significant stenosis. No aneurysm. Right vertebral artery: Unremarkable as visualized. Left internal carotid artery: No acute findings. Intracranial segment is patent with no significant stenosis. No aneurysm. Left anterior cerebral artery: Unremarkable. No occlusion or significant stenosis. No aneurysm. Left middle cerebral artery: Unremarkable. No occlusion or significant stenosis. No aneurysm. Left posterior cerebral artery: Unremarkable. No occlusion or significant stenosis. No aneurysm. Left vertebral artery: Unremarkable as visualized. Basilar artery: Unremarkable. No occlusion or significant stenosis. No aneurysm. IMPRESSION: Negative CT angiogram of the head. Electronically signed by: Sheela Adorno MD 11/22/24 20:55 PM
[2024-11-23] MEDS ORDERED: PHA DELIRIUM CONSULT PRN ×2 (01:11→21:10)
[2024-11-23 07:36] LABS: Anion Gap 9.0 (3-11); Blood Urea Nitrogen 15.0 mg/dl (6-23); Calcium 10.2 mg/dl (8.6-10.3); Carbon Dioxide 23.0 mmol/L (21-32); Chloride 108.0 mmol/L (98-107); Creatinine Clr Calc Pharmacy 58.9 ml/min; Glucose 113.0 mg/dl (70-99(Fasting)); Potassium 3.6 mmol/L (3.5-5.1); Sodium 140.0 mmol/L (136-145)
[2024-11-23] MEDS: INFLUENZA VACC TS2025-26(65y+)/PF (IIV3) 0.5mL Syr IM ONE (09:29)
--- NOTE | 2024-11-23 14:28 | Hospitalist Progress Note ---
Date of Service November 23, 2024 Assessment & Plan (1) Encephalopathy acute: (2) Acute UTI (urinary tract infection): Plan: 89 yo M w/ PMH of Atrial fibrillation on aspirin, CVA with right visual neglect, hypertension was brought in from [facility] d/t an episode of confusion in the AM of presentation. After breakfast, he was found to be confused in his bathroom, with his clothes off and trying to flush his briefs. He is being managed for the following: Acute stroke pt presents w/ confusion admitting mri brain - Scattered small foci of acute infarct throughout the left cerebral hemisphere a1c 6.1, LDL 34, 07/27 ECHO w/ bubble study showing no interatrial shunt. c/w home aspirin, atorvastatin. Pt has ho chronic afib. Per OP chart review (Cards note from July 2024): "patient developed GI bleed while on Eliquis in 2021, leading to placement of a Watchman device. he also had GI bleeding on aspirin alone, therefore not on antiplatelet therapy for period of time. Unfortunately suffered a cardioembolic stroke in July 2023, hence aspirin was restarted. He has been felt to be too high risk for anticoagulation therapy given prior GI bleeding and history of intraventricular hemorrhage. No bleeding issues since being back on aspirin therapy" Neuro evaled, c/w aspirin. Not a candidate for anticoagulation. CTA head and neck w/ no acute findings. Discussed pros and cons of anticoagulation use along w/ cardio and neuro's opinion with both pt's dtr Isa and pt's Sherly, she opts for no anticoagulation and understands/accepts the patient might have higher risk of stroke when on aspirin alone. c/w neuro checks. delirium precaution. Acute episode of confusion, possible acute encephalopathy secondary to underlying UTI vs acute stroke vs both. UTI ruled out. Patient appears to be mostly back to his baseline mental status: He is alert x 1-2, with some forgetfulness Follow-up urine and blood cultures - pending so far. no growth in U Cx and Bl Cx neg for 48 hours, dc'd antibiotic. Right lower leg edema: Check Doppler ultrasound to rule out DVT - neg for dvt. Bradycardia: given Atropine by EMS as EKG interpreted to he HR 20-30s. EMS EKG strip reviewed showing a fib with PVCs, HR 60s monitor in telemetry, TSH normal, electrolytes ok Episode of oj in 20s overnight 11/20-11/21, received atropine. Cardio consult, appreciate recs. - Patient family okay with cardiology input regarding PPM if with recurrent, symptomatic episodes. f/u w/ cardio upon dc. f/u cardio 1 week on dc, zio patch as OP Other chronic medical problems: Atrial fibrillation- only on aspirin as patient not deemed a good long-term anticoagulation candidate in light of GI bleeding History of CVA-continue aspirin, statin Hypertension-continue amlodipine, lisinopril DVT prophylaxis: SCDs for now given history of GI bleed CODE STATUS: Full code as Verified with [facility] staff Disposition: pt/ot, cm to assist w/ dc plan, likely dc armani Pt's dtr isa update 11/21 and 11/22 over the phone. Pt's updated at bedside 11/23. Pt's wants she be updated rather than her dtr. Admission and Anticipated Discharge Date Admission Date: November 20, 2024 Subjective Pt was seen and examined at bedside. Pt was lying in breakfast, oriented to self and place Per RN, more confused and not eating today. Pt appears confused, ivf if w/ poor po intake. Pt denies velazquez. Physical Exam Physical Exam: General- oriented x 1, not in distress , on RA Head- atraumatic Eyes- PERRL, EOMI, anicteric ENT- moist oral mucosa, oropharynx clear Neck- supple, no JVD, no adenopathy, no thyromegaly; carotids +2/2, no bruits appreciated Lungs- clear to auscultation bilaterally, no rales/wheezes Heart- normal rate, Irregularly irregular rhythm; no murmur, no gallop, no rub appreciated Abdomen- normal bowel sounds, nondistended, soft, nontender, no masses or hepatosplenomegaly Extremities- rle edema 1-2+, lle no edema, no calf tenderness; peripheral pulses intact Neuro- alert, oriented x 1; CN 2-12 grossly intact; motor 5/5 bilaterally;sensation 100% on all extremities; no other gross focal neurologic deficits Skin- warm & dry Results & Data Results & Data Vital Signs (Past 12 Hours) Vital Signs Temp Pulse Pulse Resp BP Pulse Ox O2 Del Method 11/23/24 11:16 36.3 C L 81 18 132/97 91 Room Air 11/23/24 10:05 Room Air 11/23/24 07:18 37.3 C 61 18 161/94 H 95 Room Air 11/23/24 07:06 72 11/23/24 02:34 36.6 C 70 18 179/97 H 96 Room Air
[2024-11-23] MEDS: POTASSIUM CHLORIDE CRTAB 20 MEQ TABCR PO STA (18:20)
[2024-11-23] MEDS: MAGNESIUM SULFATE / D5W 1 GM/100 ML BAG IV SCH (18:20)
[2024-11-23] MEDS: MELATONIN 3 MG TAB PO SCH (20:04)
[2024-11-24 07:58] VITALS: RESP 20; O2SAT 96
[2024-11-24 10:39] LABS: Hematocrit (blood only) 36.7 % (42.0-52.0); Hemoglobin 12.4 g/dl (14.0-18.0); Immature Granulocytes # (auto) 0.04 K/uL (0.01-0.20); Immature Granulocytes % (auto) 0.5 %; Mean Corpuscular Hemoglobin 32.6 pg (25.0-34.0); Mean Corpuscular Volume 96.6 fL (80.0-100.0); Platelet Count 154 K/uL (130-400); RDW Standard Deviation 49.6 fL (36.4-46.3); Red Blood Count 3.80 M/uL (4.70-6.10); White Blood Count 8.75 K/ul (4.8-10.8)
--- NOTE | 2024-11-24 10:58 | Hospitalist Progress Note ---
Date of Service November 24, 2024 Assessment & Plan (1) Encephalopathy acute: (2) Acute UTI (urinary tract infection): Plan: 89 yo M w/ PMH of Atrial fibrillation on aspirin, CVA with right visual neglect, hypertension was brought in from [facility] d/t an episode of confusion in the AM of presentation. After breakfast, he was found to be confused in his bathroom, with his clothes off and trying to flush his briefs. He is being managed for the following: Acute stroke Pt presents w/ confusion Admitting mri brain - Scattered small foci of acute infarct throughout the left cerebral hemisphere HbA1c 6.1, LDL 34, 07/27 ECHO w/ bubble study showing no interatrial shunt. c/w home aspirin, atorvastatin. Pt has ho chronic afib. Per OP chart review (Cards note from July 2024): "patient developed GI bleed while on Eliquis in 2021, leading to placement of a Watchman device. he also had GI bleeding on aspirin alone, therefore not on antiplatelet therapy for period of time. Unfortunately suffered a cardioembolic stroke in July 2023, hence aspirin was restarted. He has been felt to be too high risk for anticoagulation therapy given prior GI bleeding and history of intraventricular hemorrhage. No b leeding issues since being back on aspirin therapy" Appreciate neurology input and recommendation- c/w aspirin. Not a candidate for anticoagulation. CTA head and neck w/ no acute findings. Discussed pros and cons of anticoagulation use along w/ cardio and neuro's opinion with both pt's dtr Isa and pt's Sherly, she opts for no anticoagulation and understands/accepts the patient might have higher risk of stroke when on aspirin alone. He remains stable with weakness but no other significant symptoms He is being accepted to [facility] Acute episode of confusion, possible acute encephalopathy secondary to underlying UTI vs acute stroke vs both. UTI ruled out. Patient appears to be mostly back to his baseline mental status: He is alert x 1-2, with some forgetfulness Follow-up urine and blood cultures - pending so far. no growth in U Cx and Bl Cx neg for 48 hours, dc'd antibiotic. No signs and or symptoms of infection and the white count is normalized Right lower leg edema: Check Doppler ultrasound to rule out DVT - neg for dvt. Bradycardia: given Atropine by EMS as EKG interpreted to he HR 20-30s. EMS EKG strip reviewed showing a fib with PVCs, HR 60s monitor in telemetry, TSH normal, electrolytes ok Episode of oj in 20s overnight 11/20-11/21, received atropine. Cardio consult, appreciate recs. - Patient family okay with cardiology input regarding PPM if with recurrent, symptomatic episodes. f/u w/ cardio upon dc. f/u cardio 1 week on dc, zio patch as OP Heart rate is stable and does not have any more bradycardia Other chronic medical problems: Atrial fibrillation- only on aspirin as patient not deemed a good long-term anticoagulation candidate in light of GI bleeding History of CVA-continue aspirin, statin Hypertension-continue amlodipine, lisinopril DVT prophylaxis: SCDs for now given history of GI bleed CODE STATUS: Full code as Verified with [facility] staff Disposition: pt/ot, cm to assist w/ dc plan, likely dc armani Pt's dtr isa update 11/21 and 11/22 over the phone. Pt's updated at bedside 11/23. Pt's wants she be updated rather than her dtr. Tried to call the but no response x 2 Admission and Anticipated Discharge Date Admission Date: November 20, 2024 Subjective 11/24/2024 The patient was seen and examined in medical telemetry unit He has been feeling much better and conversing almost normally Except weakness denies any other significant symptoms He is ready to be discharged Review of Systems Review of Systems: All systems reviewed and are unremarkable except as noted below Physical Exam Physical Exam: Lying in bed without any acute distress Constitutional: + ill appearing and average body habitus Eyes: PERRL, conjunctivae normal, anicteric sclerae ENMT: external ear and nose normal, oropharynx normal Neck: trachea midline, no thyromegaly Respiratory: no respiratory distress Auscultation: lungs clear to auscultation bilaterally and + crackles ( minimal crackles at the bases) Cardiovascular: Rate/Rhythm: regular rate and regular rhythm; not tachycardic Heart Sounds: normal S1 and normal S2; no murmur Extremities: no edema Gastrointestinal (Abdomen): Inspection/Auscultation: normal bowel sounds; abdomen not distended Percussion/Palpation: abdomen soft; abdomen nontender Musculoskeletal: No acute arthritis involving any of the joint Neurologic: normal touch/pain/proprioception and moves all extremities; no focal motor deficits Generally weak Lymphatic: no cervical or axillary lymphadenopathy Results & Data Results & Data Vital Signs (Past 12 Hours) Vital Signs Temp Pulse Pulse Resp BP Pulse Ox O2 Del Method 11/24/24 07:57 36.4 C L 79 20 134/96 96 Room Air 11/24/24 07:46 64 11/24/24 03:35 36.6 C 60 16 131/74 95 Room Air 11/23/24 23:12 36.6 C 61 16 124/75 96 Room Air Laboratory Results Short CBC 11/24/24 Range/Units 10:12 WBC 8.75 (4.8-10.8) K/ul Hgb 12.4 L (14.0-18.0) g/dl Hct 36.7 L (42.0-52.0) % Plt Count 154 (130-400) K/uL Medications Administered Current Inpatient Medications Acetaminophen (Acetaminophen 325 Mg Tab) 650 mg PO Q4H PRN PRN Reason: Pain or Fever Stop: 12/20/24 17:48 Allopurinol (Allopurinol 100 Mg Tab) 100 mg PO QAM [facility] Stop: 12/21/24 08:59 Last Admin: 11/24/24 10:39 Dose: 100 mg Aspirin (Aspirin 81 Mg Ectab) 81 mg PO DAILY [facility] Stop: 12/21/24 08:59 Last Admin: 11/24/24 10:39 Dose: 81 mg Atorvastatin Calcium (Atorvastatin 20 Mg Tab) 20 mg PO QAM [facility] Stop: 12/21/24 08:59 Last Admin: 11/24/24 10:39 Dose: 20 mg Atropine Sulfate (Atropine Sulfate 0.1 Mg/Ml 10ml Syr) 1 mg IV Q3M PRN PRN Reason: symptomatic bradycardia Stop: 12/20/24 23:09 Last Admin: 11/21/24 00:53 Dose: 1 mg Escitalopram Oxalate (Escitalopram Oxalate 10 Mg Tab) 10 mg PO DAILY [facility] Stop: 12/21/24 08:59 Last Admin: 11/24/24 10:39 Dose: 10 mg Ferrous Sulfate (Ferrous Sulfate 325 Mg Tab) 325 mg PO MoWeFr@0900 [facility] Stop: 12/22/24 08:59 Last Admin: 11/24/24 10:39 Dose: 325 mg Lactobacillus Acidophilus (Advanced Probiotic 625 Mg Capsule) 1,250 mg PO DAILY [facility] Stop: 12/20/24 08:59 Last Admin: 11/24/24 10:38 Dose: 1,250 mg Lorazepam (Lorazepam 0.5 Mg Tab) 0.5 mg PO ONE PRN PRN Reason: for ct scan Stop: 12/22/24 18:17 Last Admin: 11/22/24 18:43 Dose: 0.5 mg Melatonin (Melatonin 3 Mg Tab) 3 mg PO HS [facility] Stop: 12/23/24 20:59 Last Admin: 11/23/24 20:04 Dose: 3 mg Miscellaneous (Pha Delirium Consult) 1 ea N/A PRN PRN PRN Reason: Consult Stop: 12/23/24 21:09 Miscellaneous Information (Pharmacist Discharge Med Rec Consult) 1 each N/A UD PRN PRN Reason: Consult Stop: 12/20/24 19:29 Polyethylene Glycol (Polyethylene (Miralax) 17 Gm Pack) 17 gm PO DAILY PRN PRN Reason: Constipation Stop: 12/20/24 16:51 Psyllium Hydrophilic Mucilloid (Psyllium Husk 4gm Packet) 4 gm PO DAILY [facility] Stop: 12/21/24 08:59 Last Admin: 11/24/24 10:37 Dose: 4 gm Saccharomyces Boulardii (Saccharomyces Boulardii 250 Mg Cap) 250 mg PO BID [facility] Stop: 12/20/24 20:59 Last Admin: 11/24/24 10:38 Dose: 250 mg Tamsulosin HCl (Tamsulosin Hcl 0.4 Mg Cap) 0.4 mg PO QAM [facility] Stop: 12/21/24 08:59 Last Admin: 11/24/24 10:39 Dose: 0.4 mg
[2024-11-24 11:22] VITALS: PULSE 75; TEMP 97.3
[2024-11-24] MEDS ORDERED: STROKE PATIENT DISCHARGE STA (14:23)
[2024-11-24 14:31] VITALS: BP 122/78
--- NOTE | 2024-11-24 16:38 | Discharge Summary ---
Date of Service November 24, 2024 Admission HPI Per Admitting Provider 89 year old male with history of Atrial fibrillation on aspirin, history of CVA with right visual neglect, hypertension Presenting with an episode of confusion earlier today. History obtained from RN at [facility], ER physician, and records. At baseline, patient is oriented x 2, with some forgetfulness, ambulatory with a walker. Apparently patient was doing fine for the past few days until after breakfast this morning when he was found to be confused in his bathroom, with his clothes off, and was trying to flush his briefs. he was not following any commands and in his behavior history unusual of him according to staff. EMS was called and apparently patient was found to be bradycardic hence atropine was given en route to the ER. As per RN at the [facility], the patient also had a brief episode of confusion last November 13 which resolved by itself. Upon arrival to the ER, blood pressure is 140/90, heart rate 80, respiratory 21, temperature 38.5, 94% on room air. EKG showing atrial fibrillation EKG strip from the EMS showing atrial fibrillation with PVCs, heart rate 60s. CT head: No acute CVA UA suggestive of UTI Chest x-ray no signs of pneumonia Patient was given IV ceftriaxone. On exam, patient seen resting in bed, comfortable, not in distress. Awake and alert, Oriented x 1-2, does not remember why he was brought to the ER, denies having episodes of confusion earlier today. States he feels fine overall denies headache, dizziness, blurring of vision, focal weakness or numbness or any other neurologic deficits, denies urinary symptoms, nausea vomiting, abdominal pain, fevers or chills. Admission Exam Per Admitting Provider Physical Exam: General- oriented x 1-2, not in distress, speaks in sentences with no effort or accessory muscle use Head- atraumatic Eyes- PERRL, EOMI, anicteric ENT- Dry oral mucosa, oropharynx clear Neck- supple, no JVD, no adenopathy, no thyromegaly; carotids +2/2, no bruits appreciated Lungs- clear to auscultation bilaterally, no rales/wheezes Heart- normal rate, Irregularly irregular rhythm; no murmur, no gallop, no rub appreciated Abdomen- normal bowel sounds, nondistended, soft, nontender, no masses or hepatosplenomegaly Extremities- no pretibial edema, no calf tenderness; peripheral pulses intact Neuro- alert, oriented x 1-2; CN 2-12 grossly intact; motor 5/5 bilaterally;sensation 100% on all extremities; no other gross focal neurologic deficits Skin- warm & dry Principal Diagnosis Acute metabolic and cephalopathy- resolved, acute stroke Discharge Exam Lying in bed without any acute distress Constitutional + ill appearing and average body habitus Eyes PERRL, conjunctivae normal, anicteric sclerae ENMT external ear and nose normal, oropharynx normal Neck trachea midline, no thyromegaly Respiratory no respiratory distress Auscultation: lungs clear to auscultation bilaterally and + crackles ( minimal crackles at the bases) Cardiovascular Rate/Rhythm: regular rate and regular rhythm; not tachycardic Heart Sounds: normal S1 and normal S2; no murmur Extremities: no edema Gastrointestinal (Abdomen) Inspection/Auscultation: normal bowel sounds; abdomen not distended Percussion/Palpation: abdomen soft; abdomen nontender Neurologic normal touch/pain/proprioception and moves all extremities; no focal motor deficits Lymphatic no cervical or axillary lymphadenopathy Discharge Data Allergies Allergy/AdvReac Type Severity Reaction Status Date / Time Thiazides AdvReac Intermediate Hypercalcem Verified 11/20/24 15:36 ia Consultations 11/20/24 15:50 ED Decision to Admit Stat 11/20/24 19:40 Consult Cardiology Routine Consult Neurology Routine Ordered Studies 11/20/24 13:10 CT head/brain wo con Stat 11/20/24 16:45 MRI Brain [MR brain wo con] Routine 11/21/24 10:53 US venous doppler LE RT Routine 11/22/24 13:16 CTA head w con [CT angio head w con] Routine CTA neck with con [CT angio neck with con] Routine Hospital Course (1) Encephalopathy acute: (2) Acute UTI (urinary tract infection): 89 yo M w/ PMH of Atrial fibrillation on aspirin, CVA with right visual neglect, hypertension was brought in from [facility] d/t an episode of confusion in the AM of presentation. After breakfast, he was found to be confused in his bathroom, with his clothes off and trying to flush his briefs. He is being managed for the following: Acute stroke Pt presents w/ confusion Admitting mri brain - Scattered small foci of acute infarct throughout the left cerebral hemisphere HbA1c 6.1, LDL 34, 6/10 ECHO w/ bubble study showing no interatrial shunt. c/w home aspirin, atorvastatin. Pt has ho chronic afib. Per OP chart review (Cards note from July 2024): "patient developed GI bleed while on Eliquis in 2021, leading to placement of a Watchman device. he also had GI bleeding on aspirin alone, therefore not on antiplatelet therapy for period of time. Unfortunately suffered a cardioembolic stroke in July 2023, hence aspirin was restarted. He has been felt to be too high risk for anticoagulation therapy given prior GI bleeding and history of intraventricular hemorrhage. No bleeding issues since being back on aspirin therapy" Appreciate neurology input and recommendation- c/w aspirin. Not a candidate for anticoagulation. CTA head and neck w/ no acute findings. Discussed pros and cons of anticoagulation use along w/ cardio and neuro's opinion with both pt's dtr Isa and pt's Sherly, she opts for no anticoagulation and understands/accepts the patient might have higher risk of stroke when on aspirin alone. He remains stable with weakness but no other significant symptoms [facility] Acute episode of confusion, possible acute encephalopathy secondary to underlying UTI vs acute stroke vs both. UTI ruled out. Patient appears to be mostly back to his baseline mental status: He is alert x 1-2, with some forgetfulness Follow-up urine and blood cultures - pending so far. no growth in U Cx and Bl Cx neg for 48 hours, dc'd antibiotic. No signs and or symptoms of infection and the white count is normalized Right lower leg edema: Check Doppler ultrasound to rule out DVT - neg for dvt. Bradycardia: given Atropine by EMS as EKG interpreted to he HR 20-30s. EMS EKG strip reviewed showing a fib with PVCs, HR 60s monitor in telemetry, TSH normal, electrolytes ok Episode of oj in 20s overnight 11/20-11/21, received atropine. Cardio consult, appreciate recs. - Patient family okay with cardiology input regarding PPM if with recurrent, symptomatic episodes. f/u w/ cardio upon dc. f/u cardio 1 week on dc, zio patch as OP Heart rate is stable and does not have any more bradycardia Other chronic medical problems: Atrial fibrillation- only on aspirin as patient not deemed a good long-term anticoagulation candidate in light of GI bleeding History of CVA-continue aspirin, statin Hypertension-continue amlodipine, lisinopril DVT prophylaxis: SCDs for now given history of GI bleed CODE STATUS: Full code as Verified with [facility] staff Disposition: pt/ot, cm to assist w/ dc plan, likely dc armani Pt's dtr isa update 11/21 and 11/22 over the phone. Pt's updated at bedside 11/23. Pt's wants she be updated rather than her dtr. Tried to call the but no response x 2 Total Time Total Time Spent Total Time Spent (In Minutes): 35 Minutes Discharge Plan Discharge Items Patient Disposition: Transfer Inpatient Rehab Fac Reason For Visit: CONFUSION, UTI Discharge Diagnosis: Acute metabolic and cephalopathy- resolved, acute stroke Condition on Discharge: Fair Activity: Resume your previous activity Activity Comment: continue PT and OT Non-emergency contact: Primary Care Provider Call non-emergency contact if: you have any medication questions and your symptoms worsen Follow-up/Referrals: Tae Montez, DO [Outside Practitioners] - ( Please make an appointment with your PCP within 7 days following discharge from the facility) Diet: Heart Healthy Diet Texture: Easy to Chew Addtl Attending Provider Instructions: please take precautions to avoid falls Continue with aggressive PT and OT Take your medications as advised Please make and keep follow-up appointments with your healthcare providers Pending Studies at Discharge: No Stand-Alone Forms: My [facility] [employer], Medications to Prevent Stroke Skilled Items Patient informed of condition?: Yes DNR: Yes Discharge Level of Care: Acute rehab Communicable Disease: No Discharge Prognosis: Stable Lines: None Urinary Catheter: Yes Medications and DC Order Prescriptions: Continued allopurinol 100 mg tablet 100 mg PO QAM Qty: 90 3RF Saccharomyces boulardii 250 mg capsule 250 mg PO BID Patient Comments: CONFIRMED W/ NURSE AT [facility]-08/19 amlodipine 5 mg tablet 5 mg PO DAILY Qty: 90 3RF escitalopram oxalate 10 mg tablet 10 mg PO DAILY Qty: 90 1RF alfuzosin 10 mg tablet extended release 24 hr 10 mg PO QAM Rx Instructions: administer after the same meal each day atorvastatin 20 mg Tablet 20 mg PO QAM Qty: 0 0RF aspirin 81 mg Tablet,Delayed Release (Dr/Ec) 81 mg PO DAILY Qty: 0 0RF ferrous sulfate 325 mg (65 mg iron) tablet,delayed release (DR/EC) 325 mg PO [id number] Rx Instructions: Take one tablet once a day Friday, Friday and Friday polyethylene glycol 3350 [Miralax] 17 gram Powder In Packet 17 g PO DAILY PRN (Reason: Constipation) acetaminophen 500 mg Tablet 1,000 mg PO Q8H MDD 3gm/24hr PRN (Reason: Pain/Fever) clotrimazole-betamethasone 1-0.05 % Cream 1 applic TOPICAL BID PRN (Reason: Rash) psyllium Powder 1 - 2 tsp PO DAILY Rx Instructions: mix into at least 4 oz water or juice before administering lisinopril 20 mg tablet 20 mg PO QAM Discharge Orders: Discharge Order (Routine); Ordered 11/24/24 Ordered By: Cyrus Branch/Jannette Patient Handouts: A1C Admission Data Admit Date/Time: 11/20/24 16:49 Attending Provider: Cyrus Sanders Admit Provider: Odilon Wood Primary Care Provider: Demetrice Guidry Other Providers: Odilon Wood; Michael Olguin; Guanakito Phillips; Amandeep Leal; Abhay Christianson; Dorian Bae Jr; Brady Vlades; Cha Cheek; Michelle Flores; Jose Antonio Correa; Jose Antonio Cadena; Sharla Downing; Tae Francisco; Melanie Irving; Tae Velasquez; Hunter Turner; Kevin No; Chaz Grayson; Miguelangel Dunaway; Fahad Brito; Rossi Wilkinson; Arabella Mcclellan; Carolyn Alicea; Daniel Musa; Carolyn Deal; Justin Arredondo; Demond Ontiveros; Jeferson Koo; Lito Lopez; Destini Tamayo; Mike Uriostegui; Yomi Fall; Altagracia Cabzeas; Edwin Navarrete; Renee Hargrove; Lito Nelson; Ariana Bryan; Iqra Braga; Evette Costa Other Interventions: Discharge Summary Assessment (RN) Last Done: 11/24/24 14:29
== END 2024-11-24 15:31 | DRG 64 ==
LOC: ED 12:58 → 2N 16:49 → SUATTDRO 16:49 → 2N 17:16

== ENCOUNTER 2025-01-09 07:14 | Inpatient (IN) ==
[2025-01-09] MEDS: OPTIRAY 320 125ml IV ONE (07:27)
--- NOTE | 2025-01-09 07:27 | Emergency Department Note ---
Impression & Plan Stroke-like symptoms, Right arm weakness, Bradycardia ED Provider Note NAME: ALEJANDRO LOPEZ Jr AGE: 89 SEX: M : 1935 ARRIVES VIA: Ambulance INFORMANT: Patient, EMS ED PROVIDER(S): Guanakito Castillo DO CHIEF COMPLAINT: Stroke alert HPI: The patient is an 89-year-old male who presented to the emergency department for an evaluation of strokelike symptoms. The patient does not give much history. He does have a history of encephalopathy and confusion in the past. The patient has a history of atrial fibrillation but it does not appear that he is on any oral anticoagulation. The patient normally ambulates with a walker. The staff [facility] [facility] found the patient to be weak on his right side. The prehospital personnel did call for medic command. The patient was bradycardic sometimes into the 20s and 30s. He was also experiencing right upper and right lower extremity weakness. The patient complained of a headache initially but at this time he offers no complaints of headache. The patient does have a history of a stroke in the past but according to the prehospital personnel he did not have any deficits from that stroke. ROS: See above HPI for pertinent positives & negatives. A total of 10 systems reviewed and were otherwise negative. PAST MEDICAL HISTORY: See Below PAST SURGICAL HISTORY: See Below FAMILY HISTORY: See Below SOCIAL HISTORY: See Below HOME MEDICATIONS: See Below ALLERGIES: See Below VITALS: See Below PHYSICAL EXAMINATION: GENERAL: The patient is awake to verbal commands. Answers questions slowly. Speech is soft but understandable. EYES: The conjunctivae are clear. The pupils are round and reactive. EARS, NOSE, MOUTH AND THROAT: The nose is without any evidence of any deformity. NECK: The neck is nontender and supple. RESPIRATORY: Diminished breath sounds are noted throughout. Shallow respirations were noted. CARDIOVASCULAR: Irregular heart sounds were noted to auscultation. There is no definite murmur. GASTROINTESTINAL: The abdomen is soft. Abdomen is nontender. MUSCULOSKELETAL/EXTREMITIES: There is no evidence of gross deformity full range of motion is noted in the hips and shoulders. SKIN: Skin was warm and dry. Pedal edema was noted bilaterally. NEUROLOGIC: Patient is awake and oriented to person and place. The patient was not oriented to time. The patient has diminished strength in the right upper extremity. There is a drift in the right upper extremity. The patient is able to hold each leg off the bed for greater than 5 seconds. There is no obvious facial droop noted. The patient does have some issues with following commands for the evaluation. MEDICAL DECISION MAKING: The patient is an 89-year-old male who presented to the emergency department for an evaluation of strokelike symptoms. I did receive a prehospital notification about the patient. The patient appears to be a wake-up stroke. The patient was taken directly to CAT scan. He was made a stroke alert upon arrival. The patient was evaluated in CAT scan. He did have right upper extremity weakness. He had reported right lower extremity weakness prior to arrival. This is significantly improved. I discussed the patient's laboratory and radiographic studies with him. I did discuss patient's condition with the telestroke neurologist from [facility]. They made recommendations as far as antiplatelet medication. The patient will likely require another workup as an inpatient for this presentation today. I discussed the patient's condition with the on-call [facility] hospitalist. They have agreed to evaluate the patient in the emergency department. Triage Nursing notes reviewed. Prior medical records reviewed Vital Signs: reviewed and remarkable for no significant abnormalities Differential diagnosis: Infection, dehydration, metabolic abnormality, hypo/hyperglycemia, electrolyte disturbance, anemia, hypoxia, cardiac sources, intracerebral event, toxicologic, neurologic, as well as other pathologies. ER treatment provided: See below Diagnostics interpreted by me: ECG: EKG obtained in the emergency department. My interpretation is atrial fibrillation at 64 bpm. Frequent PVCs were noted. Nonspecific ST abnormalities were appreciated. This was compared to a tracing from November 20, 2024. The ectopy is new otherwise no changes are noted. Cardiac Monitoring: An order was placed for continuous cardiac monitoring. The monitor shows a rate of 68 bpm with atrial fibrillation. Laboratory studies: As stated above and show below. Imaging studies: See below. Radiographic imaging was reviewed by myself Consultation(s): I discussed this case with Dr. Burnett who is on-call for the telestroke neurology group at [facility]. I discussed this case with Dr. Mcneal who is on-call for the [facility]. Past Med/Surg History Problem List (Updated 01/09/25 @ 08:36 by Guanakito Castillo DO) Bradycardia (Acute) Right arm weakness (Acute) Stroke-like symptoms (Acute) Episode of confusion Bradycardia (Acute) Encephalopathy acute (Acute) COVID-19 (Acute) Generalized weakness (Acute) Right-sided visual neglect A-fib (Acute) Stroke (Acute) Hypomagnesemia (Acute) Anemia (Acute) History of intracranial hemorrhage (Acute) Weakness (Acute) Urinary retention Abrasion of right arm (Acute) Elevated PSA H/O tooth extraction 3 weeks ago, then put in partial Weight loss BPH (benign prostatic hyperplasia) Anemia (Acute) GI bleed (Acute) Acute diverticulitis (Acute) Lower GI bleed (Acute) Gout Atrial fibrillation Gout Rosacea Permanent atrial fibrillation (Acute) Mild mitral regurgitation Hypertension BPH NOS w ur obs/LUTS Gross hematuria Diverticulosis Carpal tunnel syndrome of right wrist Benign prostatic hyperplasia with urinary obstruction Closed fracture of medial condyle of femur H/O total knee replacement Anticoagulant long-term use Nephrolithiasis Diverticular hemorrhage 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 POLANCO. AWAITING CT AND CYSTOSCOPY GI bleed 4-5 YEARS AGO --> 2/2 DIVERTICULITIS Diverticular disease On anticoagulant therapy Atrial fibrillation Hypertension Surgical History History of tonsillectomy History of lithotripsy History of cataract surgery History of surgery on arm History of total knee replacement RIGHT Status post Mohs surgery MULTIPLE TIMES History of colonoscopy Family History Father Cancer PROSTATE CANCER Prostate cancer Denies family history of Ovarian cancer Myocardial infarction Breast cancer Colorectal cancer Social History Smoking Status: Unknown if ever smoked Hx Substance Use: No (Unknown, pt poor historian, family member not present.) Preferred Language: Gibraltarian Communication Ability: Impaired Visual Impairment: Limited Hearing Ability: Normal 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 Beliefs That Will Affect Care: None marital status: Current Living Situation: Other Current Living Situation Comment: [facility] current occupational status: retired Feels Safe at Home: Yes Childhood Exposure to Second-Hand Smoke: No Dental Care, Regularly: Yes Physical Activity Frequency: 3-4 Times per Week Seatbelt Use: always Sunscreen Use: Yes Assistive Devices: Walker Allergies Allergies Allergy/AdvReac Type Severity Reaction Status Date / Time Thiazides AdvReac Intermediate Hypercalcem Verified 11/20/24 15:36 ia Home Meds Home Medications Medication Instructions Recorded Confirmed ferrous sulfate 325 mg (65 mg 325 mg PO 3XWK 04/08/23 11/20/24 iron) tablet,delayed release Saccharomyces boulardii 250 mg 250 mg PO BID 08/20/23 11/20/24 capsule alfuzosin 10 mg tablet,extended 10 mg PO QAM 09/04/23 11/20/24 release 24 hr acetaminophen 500 mg tablet 1,000 mg PO Q8H PRN Pain/Fever 03/28/24 11/20/24 clotrimazole-betamethasone 1 1 applic topical BID PRN Rash 03/28/24 11/20/24 %-0.05 % topical cream polyethylene glycol 3350 17 gram 17 g PO DAILY PRN Constipation 03/28/24 11/20/24 oral powder packet (Miralax) lisinopril 20 mg tablet 20 mg PO QAM 11/20/24 11/20/24 psyllium 1 - 2 tsp PO DAILY 11/20/24 11/20/24 Previous Rx's Medication Instructions Recorded allopurinol 100 mg tablet 100 mg PO QAM #90 tabs 03/18/22 amlodipine 5 mg tablet 5 mg PO DAILY #90 tabs 12/27/22 escitalopram oxalate 10 mg tablet 10 mg PO DAILY #90 tabs 01/31/23 aspirin 81 mg tablet,delayed 81 mg PO DAILY #0 tabs 07/31/23 release atorvastatin 20 mg tablet 20 mg PO QAM #0 tabs 07/31/23 Results & Data (ED) Vital Signs Vital Signs - 24 hr 01/09/25 07:30 01/09/25 07:33 01/09/25 08:00 Temperature 36.5 C Temperature Source Oral Pulse Rate 61 70 63 Pulse Rate [Apical] Pulse Rate from SpO2 Sensor 65 Respiratory Rate 17 21 23 Respiratory Effort / Characteristics Non-Labored Spontaneous Respiratory Depth Normal Blood Pressure 138/93 138/93 164/79 H Blood Pressure [Left Arm] Blood Pressure Mean 108 104 107 Blood Pressure Mean [Left Arm] Blood Pressure Position Semi-fowlers Blood Pressure Position [Left Arm] Pulse Oximetry 96 96 96 Oxygen Delivery Method Room Air Room Air Nasal Cannula Oxygen Flow Rate 2 Sepsis Recent Fever Within 48 Hours No Sepsis New/Unexplained Change in Mental Status N/A Sepsis Action Taken by Nursing No Action Required 01/09/25 08:06 01/09/25 08:07 01/09/25 08:30 Temperature Temperature Source Pulse Rate 68 Pulse Rate [Apical] 68 Pulse Rate from SpO2 Sensor Respiratory Rate 18 Respiratory Effort / Characteristics Non-Labored Spontaneous Respiratory Depth Normal Blood Pressure Blood Pressure [Left Arm] 161/94 H Blood Pressure Mean Blood Pressure Mean [Left Arm] 116 Blood Pressure Position Blood Pressure Position [Left Arm] Lying Pulse Oximetry 96 100 Oxygen Delivery Method Nasal Cannula Nasal Cannula Oxygen Flow Rate 2 2 Sepsis Recent Fever Within 48 Hours Sepsis New/Unexplained Change in Mental Status Sepsis Action Taken by [place] Medications Current Medication List: was personally reviewed by me Laboratory Data Attestation: I reviewed the patient's lab results. 01/09/25 07:30 01/09/25 07:30 Lab Results 01/09/25 Range/Units 07:30 WBC 7.41 (4.8-10.8) K/ul RBC 3.79 L (4.70-6.10) M/uL Hgb 12.1 L (14.0-18.0) g/dL Hct 37.4 L (42.0-52.0) % MCV 98.7 (80.0-100.0) fL MCH 31.9 (25.0-34.0) pg MCHC 32.4 (32.0-36.0) g/dL RDW Std Deviation 51.8 H (36.4-46.3) fL RDW Coeff of Edith 14.3 (11.5-14.5) % Plt Count 145 (130-400) K/uL MPV 9.9 (9.4-12.4) fL Immature Gran % (Auto) 0.4 % Neut % (Auto) 64.2 % Lymph % (Auto) 21.2 % [place] % (Auto) 9.2 % Eos % (Auto) 4.6 % Baso % (Auto) 0.4 % Neut # (Auto) 4.76 (1.40-6.50) K/uL Lymph # (Auto) 1.57 (1.20-3.40) K/uL [place] # (Auto) 0.68 H (0.11-0.59) K/uL Eos # (Auto) 0.34 (0.00-0.50) K/uL Baso # (Auto) 0.03 (0.00-0.20) K/uL Immature Gran # (Auto) 0.03 (0.01-0.20) K/uL PT 12.0 (9.0-12.0) Seconds INR 1.1 (0.9-1.1) APTT 26 (21-31) Seconds PTT Ratio 1.0 Sodium 140 (136-145) mmol/L Potassium 4.0 (3.5-5.1) mmol/L Chloride 108 H (98-107) mmol/L Carbon Dioxide 29 (21-32) mmol/L Anion Gap 3 (3-11) BUN 18 (6-23) mg/dl Creatinine 1.04 (0.6-1.4) mg/dl Est Cr Clr Drug Dosing 56.8 ml/min eGFR 69.06 BUN/Creatinine Ratio 17.3 (10-20) Glucose 107 H (70-99(Fasting)) mg/dl POC Glucose 102 H (70-99) mg/dl Calcium 9.7 (8.6-10.3) mg/dl Magnesium 1.9 (1.7-2.4) mg/dl Total Bilirubin 0.9 (0.2-1.0) mg/dl AST 11 L (13-39) U/L ALT 6 L (7-52) U/L Alkaline Phosphatase 114 H (34-104) U/L Troponin I High Sens 12.9 (0-20) pg/ml Total Protein 6.6 (6.0-8.3) gm/dl Albumin 3.7 (3.4-5.0) gm/dl Globulin 2.9 (2.5-4.0) gm/dl Albumin/Globulin Ratio 1.3 (0.9-2) Administered Medications Discontinued Medications Ioversol (Optiray 320 125ml) 120 ml IV ONCE ONE Stop: 01/09/25 07:28 Last Admin: 01/09/25 07:27 Dose: 120 ml Documented By: SHMUEL Imaging Data Attestation: I personally reviewed and interpreted this imaging study as follows: My Impression: CT of the brain was obtained in the emergency department. My interpretation is no intracranial hemorrhage or mass effect, final report below. Radiologist's Impression: Head CT 01/09/25 07:00 CR Exam(s): CT HEAD Without Contrast EXAM: CT Head Without Intravenous Contrast CLINICAL HISTORY: Reason for exam: neuro deficit, acute stroke suspected. TECHNIQUE: Axial computed tomography images of the head/brain without intravenous contrast. CTDI is 35.79 mGy and DLP is 702.46 mGy-cm. Automated exposure control was utilized for the study. A dose lowering technique was utilized adhering to the principles of ALARA. COMPARISON: 11/20/24. FINDINGS: Brain: No evidence of acute intracranial hemorrhage. No mass-effect or midline shift. No abnormal extra-axial fluid collections. Mild small vessel ischemic disease. Again seen are chronic left frontal, left occipital and left cerebellar infarcts. Ventricles: Unremarkable. No ventriculomegaly. Bones/joints: Unremarkable. No acute fracture. Soft tissues: Unremarkable. Sinuses: Unremarkable as visualized. No acute sinusitis. Mastoid air cells: Unremarkable as visualized. No mastoid effusion. IMPRESSION: No evidence of acute intracranial abnormality. Mild small vessel ischemic disease. Chronic left cortical and left cerebellar infarcts. Communications: Call Doctor Stroke Electronically signed by: Lukasz Monet M.D. 01/09/25 08:02 AM Head CTA 01/09/25 07:00 CR Exam(s): CTA HEAD With Contrast IV Amt: 120ml EXAM: CT Head With Intravenous Contrast CLINICAL HISTORY: Reason for exam: neuro deficit, acute stroke suspected. TECHNIQUE: Axial computed tomographic images of the head with intravenous contrast. CTDI is 35.79 mGy and DLP is 702.46 mGy-cm. Automated exposure control was utilized for the study. A dose lowering technique was utilized adhering to the principles of ALARA. CONTRAST: Patient received 120ml of IV contrast COMPARISON: 11/22/24 FINDINGS: Right internal carotid artery: No acute findings. Intracranial segment is patent with no significant stenosis. No aneurysm. Right anterior cerebral artery: No occlusion or significant stenosis. No aneurysm. Right middle cerebral artery: No occlusion or significant stenosis. No aneurysm. Right posterior cerebral artery: No occlusion or significant stenosis. No aneurysm. Right vertebral artery: No occlusion or stenosis. Left internal carotid artery: No acute findings. Intracranial segment is patent with no significant stenosis. No aneurysm. Left anterior cerebral artery: No occlusion or significant stenosis. No aneurysm. Left middle cerebral artery: No occlusion or significant stenosis. No aneurysm. Left posterior cerebral artery: . No occlusion or significant stenosis. No aneurysm. Left vertebral artery: No occlusion or stenosis. Basilar artery: No occlusion or significant stenosis. No aneurysm. IMPRESSION: There is no evidence of intracranial large vessel occlusion or significant stenosis. No evidence of intracranial aneurysm. Communications: Call Doctor Stroke Electronically signed by: Lukasz Monet M.D. 01/09/25 08:05 AM Neck CTA 01/09/25 07:00 CR Exam(s): CTA NECK With Contrast IV Amt: 120ml EXAM: CT Neck With Intravenous Contrast CLINICAL HISTORY: Reason for exam: neuro deficit, acute stroke suspected. TECHNIQUE: Axial computed tomographic images of the neck with intravenous contrast. CTDI is 13.1 mGy and DLP is 514.71 mGy-cm. Automated exposure control was utilized for the study. A dose lowering technique was utilized adhering to the principles of ALARA. CONTRAST: Patient received 120ml of IV contrast COMPARISON: 11/22/24 FINDINGS: VASCULATURE: Right common carotid artery: No occlusion or significant stenosis. No dissection. Right internal carotid artery: Mild luminal narrowing of the proximal right internal carotid artery, with less than 50% stenosis. Extracranial segment is otherwise normally patent with no occlusion or significant stenosis. No dissection. Right external carotid artery: Unremarkable. No occlusion. Right vertebral artery: Unremarkable. No occlusion or significant stenosis. No dissection. Left common carotid artery: Unremarkable. No occlusion or significant stenosis. No dissection. Left internal carotid artery: Unremarkable. Extracranial segment is patent with no occlusion or significant stenosis. No dissection. Left external carotid artery: Unremarkable. No occlusion. Left vertebral artery: Unremarkable. No occlusion or significant stenosis. No dissection. NECK: Bones/joints: Again seen are mild to moderate multilevel degenerative changes of the cervical spine. No acute osseous abnormality. Soft tissues: Unremarkable. Lung apices: Clear. CAROTID STENOSIS REFERENCE USING NASCET CRITERIA: % ICA stenosis = (1 - narrowest ICA diameter/diameter of distal cervical ICA) x 100. Mild - <50% stenosis. Moderate - 50-69% stenosis. Severe - 70-94% stenosis. Near occlusion - 95-99% stenosis. Occluded - 100% stenosis. IMPRESSION: No evidence of extracranial arterial occlusion or significant stenosis. No arterial dissection. Communications: Call Doctor Stroke Electronically signed by: Lukasz Monet M.D. 01/09/25 08:10 AM Discharge Plan Visit Data Chief Complaint: Stroke Alert Stated Complaint: STROKE ALERT ED Provider: Guanakito Castillo Discharge Problem: Stroke-like symptoms, Right arm weakness, Bradycardia Patient Disposition: Being Evaluated by Hospitalist Condition: Fair Forms Stand Alone Forms: My [facility] Prescriptions Prescriptions: No Action allopurinol 100 mg tablet 100 mg PO QAM Qty: 90 3RF Saccharomyces boulardii 250 mg capsule 250 mg PO BID Patient Comments: CONFIRMED W/ NURSE AT [facility]-08/19 amlodipine 5 mg tablet 5 mg PO DAILY Qty: 90 3RF escitalopram oxalate 10 mg tablet 10 mg PO DAILY Qty: 90 1RF alfuzosin 10 mg tablet extended release 24 hr 10 mg PO QAM Rx Instructions: administer after the same meal each day atorvastatin 20 mg Tablet 20 mg PO QAM Qty: 0 0RF aspirin 81 mg Tablet,Delayed Release (Dr/Ec) 81 mg PO DAILY Qty: 0 0RF ferrous sulfate 325 mg (65 mg iron) tablet,delayed release (DR/EC) 325 mg PO 3XWK Rx Instructions: Take one tablet once a day Friday, Friday and Friday polyethylene glycol 3350 [Miralax] 17 gram Powder In Packet 17 g PO DAILY PRN (Reason: Constipation) acetaminophen 500 mg Tablet 1,000 mg PO Q8H MDD 3gm/24hr PRN (Reason: Pain/Fever) clotrimazole-betamethasone 1-0.05 % Cream 1 applic TOPICAL BID PRN (Reason: Rash) psyllium Powder 1 - 2 tsp PO DAILY Rx Instructions: mix into at least 4 oz water or juice before administering lisinopril 20 mg tablet 20 mg PO QAM Referrals Referrals: Demetrice Guidry [Other]
[2025-01-09 07:45] LABS: Hematocrit (blood only) 37.4 % (42.0-52.0); Hemoglobin 12.1 g/dL (14.0-18.0); Immature Granulocytes # (auto) 0.03 K/uL (0.01-0.20); Immature Granulocytes % (auto) 0.4 %; Mean Corpuscular Hemoglobin 31.9 pg (25.0-34.0); Mean Corpuscular Volume 98.7 fL (80.0-100.0); Platelet Count 145 K/uL (130-400); RDW Standard Deviation 51.8 fL (36.4-46.3); Red Blood Count 3.79 M/uL (4.70-6.10); White Blood Count 7.41 K/ul (4.8-10.8)
--- NOTE | 2025-01-09 08:02 | CT Scan Report ---
Exam(s): CT HEAD Without Contrast EXAM: CT Head Without Intravenous Contrast CLINICAL HISTORY: Reason for exam: neuro deficit, acute stroke suspected. TECHNIQUE: Axial computed tomography images of the head/brain without intravenous contrast. CTDI is 35.79 mGy and DLP is 702.46 mGy-cm. Automated exposure control was utilized for the study. A dose lowering technique was utilized adhering to the principles of ALARA. COMPARISON: 11/20/24. FINDINGS: Brain: No evidence of acute intracranial hemorrhage. No mass-effect or midline shift. No abnormal extra-axial fluid collections. Mild small vessel ischemic disease. Again seen are chronic left frontal, left occipital and left cerebellar infarcts. Ventricles: Unremarkable. No ventriculomegaly. Bones/joints: Unremarkable. No acute fracture. Soft tissues: Unremarkable. Sinuses: Unremarkable as visualized. No acute sinusitis. Mastoid air cells: Unremarkable as visualized. No mastoid effusion. IMPRESSION: No evidence of acute intracranial abnormality. Mild small vessel ischemic disease. Chronic left cortical and left cerebellar infarcts. Communications: Call Doctor Stroke Electronically signed by: Lukasz Monet M.D. 01/09/25 08:02 AM
[2025-01-09 08:03] LABS: Alanine Aminotransferase 6.0 U/L (7-52); Albumin Globulin Ratio 1.3 (0.9-2); Albumin Level 3.7 gm/dl (3.4-5.0); Alkaline Phosphatase 114.0 U/L (34-104); Anion Gap 3.0 (3-11); Bilirubin,Total 0.9 mg/dl (0.2-1.0); Blood Urea Nitrogen 18.0 mg/dl (6-23); Calcium 9.7 mg/dl (8.6-10.3); Carbon Dioxide 29.0 mmol/L (21-32); Chloride 108.0 mmol/L (98-107); Creatinine Clr Calc Pharmacy 56.8 ml/min; Globulin 2.9 gm/dl (2.5-4.0); Glucose 107.0 mg/dl (70-99(Fasting)); Magnesium 1.9 mg/dl (1.7-2.4); Potassium 4.0 mmol/L (3.5-5.1); Sodium 140.0 mmol/L (136-145); Total Protein 6.6 gm/dl (6.0-8.3)
--- NOTE | 2025-01-09 08:05 | CT Scan Report ---
Exam(s): CTA HEAD With Contrast IV Amt: 120ml EXAM: CT Head With Intravenous Contrast CLINICAL HISTORY: Reason for exam: neuro deficit, acute stroke suspected. TECHNIQUE: Axial computed tomographic images of the head with intravenous contrast. CTDI is 35.79 mGy and DLP is 702.46 mGy-cm. Automated exposure control was utilized for the study. A dose lowering technique was utilized adhering to the principles of ALARA. CONTRAST: Patient received 120ml of IV contrast COMPARISON: 11/22/24 FINDINGS: Right internal carotid artery: No acute findings. Intracranial segment is patent with no significant stenosis. No aneurysm. Right anterior cerebral artery: No occlusion or significant stenosis. No aneurysm. Right middle cerebral artery: No occlusion or significant stenosis. No aneurysm. Right posterior cerebral artery: No occlusion or significant stenosis. No aneurysm. Right vertebral artery: No occlusion or stenosis. Left internal carotid artery: No acute findings. Intracranial segment is patent with no significant stenosis. No aneurysm. Left anterior cerebral artery: No occlusion or significant stenosis. No aneurysm. Left middle cerebral artery: No occlusion or significant stenosis. No aneurysm. Left posterior cerebral artery: . No occlusion or significant stenosis. No aneurysm. Left vertebral artery: No occlusion or stenosis. Basilar artery: No occlusion or significant stenosis. No aneurysm. IMPRESSION: There is no evidence of intracranial large vessel occlusion or significant stenosis. No evidence of intracranial aneurysm. Communications: Call Doctor Stroke Electronically signed by: Lukasz Monet M.D. 01/09/25 08:05 AM
--- NOTE | 2025-01-09 08:11 | CT Scan Report ---
Exam(s): CTA NECK With Contrast IV Amt: 120ml EXAM: CT Neck With Intravenous Contrast CLINICAL HISTORY: Reason for exam: neuro deficit, acute stroke suspected. TECHNIQUE: Axial computed tomographic images of the neck with intravenous contrast. CTDI is 13.1 mGy and DLP is 514.71 mGy-cm. Automated exposure control was utilized for the study. A dose lowering technique was utilized adhering to the principles of ALARA. CONTRAST: Patient received 120ml of IV contrast COMPARISON: 11/22/24 FINDINGS: VASCULATURE: Right common carotid artery: No occlusion or significant stenosis. No dissection. Right internal carotid artery: Mild luminal narrowing of the proximal right internal carotid artery, with less than 50% stenosis. Extracranial segment is otherwise normally patent with no occlusion or significant stenosis. No dissection. Right external carotid artery: Unremarkable. No occlusion. Right vertebral artery: Unremarkable. No occlusion or significant stenosis. No dissection. Left common carotid artery: Unremarkable. No occlusion or significant stenosis. No dissection. Left internal carotid artery: Unremarkable. Extracranial segment is patent with no occlusion or significant stenosis. No dissection. Left external carotid artery: Unremarkable. No occlusion. Left vertebral artery: Unremarkable. No occlusion or significant stenosis. No dissection. NECK: Bones/joints: Again seen are mild to moderate multilevel degenerative changes of the cervical spine. No acute osseous abnormality. Soft tissues: Unremarkable. Lung apices: Clear. CAROTID STENOSIS REFERENCE USING NASCET CRITERIA: % ICA stenosis = (1 - narrowest ICA diameter/diameter of distal cervical ICA) x 100. Mild - <50% stenosis. Moderate - 50-69% stenosis. Severe - 70-94% stenosis. Near occlusion - 95-99% stenosis. Occluded - 100% stenosis. IMPRESSION: No evidence of extracranial arterial occlusion or significant stenosis. No arterial dissection. Communications: Call Doctor Stroke Electronically signed by: Lukasz Monet M.D. 01/09/25 08:10 AM
[2025-01-09 08:15] LABS: INR 1.1 (0.9-1.1); Partial Thromboplastin Time 26 Seconds (21-31); Prothrombin Time 12.0 Seconds (9.0-12.0)
--- NOTE | 2025-01-09 08:48 | XRay Report ---
EXAM: XR chest 1V portable CLINICAL HISTORY: neuro deficit, acute stroke suspected TECHNIQUE: An X-ray image of the chest was obtained in AP projection. COMPARISON: Comparison with the previous CR study dated 11/20/2024. FINDINGS: Pulmonary Parenchyma: No evidence of consolidation, collapse, or focal opacities. No pulmonary nodules are identified. The left lower lung lobe is seen masked by the cardiac shadow. Features suggest pulmonary congestion seen as prominent bronchovascular markings and dariel. No evidence of pleural effusion or pleural thickening. Heart and Mediastinum: Increased cardiac size. No mediastinal widening or masses. No hilar or mediastinal lymphadenopathy. Prominent thoracic aorta shadow with atheromatous calcification. Bony Thorax: Bony thorax appears intact without fractures or deformities. Soft Tissues: Soft tissues overlying the chest wall are unremarkable. Elevated right diaphragmatic hump noted. IMPRESSION: - No acute cardiopulmonary abnormalities are identified. - Cardiomegaly and features suggest pulmonary congestion seen as prominent bronchovascular markings and dariel. - No interval changes Electronically signed by Wyatt Gonzalez 01-09-2025 08:47 AM
--- NOTE | 2025-01-09 08:51 | History & Physical Report ---
Date of Service January 09, 2025 Assessment & Plan (1) Stroke-like symptoms: Plan Assessment/plan Possible acute CVA vs Recrudescence of previous stroke History of recent cardioembolic stroke History of atrial fibrillation status post Watchman device, not on anti coagulation Patient presented to the hospital with weakness on right side CT head did not show any acute intracranial abnormality, mild small vessel ischemic disease, chronic left cortical and left cerebral infarct. CTA head and neck did not show significant stenosis Permissive hypertension for next 24 hours Plan to obtain MRI brain without contrast Increase Lipitor to 80 mg once a day Will continue on aspirin; per review of note from last admission; discussion of pros and cons of the anticoagulation was done with the patient's family; opted for no anticoagulation. They understood that patient might have high risk of stroke when on aspirin alone; will continue aspirin for now. Will await MRI brain. 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 Time spent evaluating patient, direct bedside care, chart review, placing orders, interpretation of diagnostic studies, discussion with consultants, patient, and family members, as well as other required patient management activities is 75 minutes Please note the above document was generated using voice recognition software. It may contain grammatical, syntax or spelling errors. Any formal questions or concerns about the content, text or information contained within the body of this dictation should be directly addressed to the provider for clarification History of Present Illness Chief Complaint: Stroke alert Primary Care Provider: Demetrice Guidry History obtained from chart review, interview with the patient and discussion with ED provider. Past medical history of atrial fibrillation status post Watchman device, history of CVA with right visual neglect, hypertension. History of GI bleed while on Eliquis in 2021 leading to placement of Watchman device; also had GI bleeding on aspirin alone; therefore not on antiplatelet therapy for period of time. He suffered stroke in July 2023; aspirin was restarted. He was last admitted in November for 2 November 24, 2024 with acute stroke. He was found to have scattered foci of acute infarct throughout the left cerebral hemisphere. He was not thought to be a candidate for anticoagulation due to history of prior hemorrhage. He also had episode of bradycardia for which she was given atropine last admission. He was brought to the hospital for concern of stroke. Last well-known was 11:30 PM last night. Patient was reported to be weaker on the right side. Stroke alert was called; CT head did not show any acute intracranial abnormality, mild small vessel ischemic disease, chronic left cortical and left cerebral infarct. CTA head and neck did not show significant stenosis. Teleneurology recommended admission to the hospital; permissive hypertension, recommended aspirin/Plavix for 3 weeks, routine teleneurology consult, echocardiogram. Patient was evaluated at bedside. He is comfortably lying in the bed; he is not oriented to time or place. He answers some of the questions appropriately. He is able to follow simple commands. He denies any visual changes, weaknes s/numbness of any body part, fever, chills, chest pain, shortness of breath or abdominal pain. At baseline, patient is alert and oriented x 2; ambulates with the help of a walker. Allergies Allergy/AdvReac Type Severity Reaction Status Date / Time Thiazides AdvReac Intermediate Hypercalcem Verified 11/20/24 15:36 ia Home Medications Medication Instructions Recorded Confirmed Type allopurinol 100 mg tablet 100 mg PO QAM #90 tabs 03/18/22 01/09/25 Rx amlodipine 5 mg tablet 5 mg PO DAILY #90 tabs 12/27/22 01/09/25 Rx escitalopram oxalate 10 mg tablet 10 mg PO DAILY #90 tabs 01/31/23 01/09/25 Rx ferrous sulfate 325 mg (65 mg 325 mg PO 3XWK 04/08/23 01/09/25 History iron) tablet,delayed release aspirin 81 mg tablet,delayed 81 mg PO DAILY #0 tabs 07/31/23 01/09/25 Rx release atorvastatin 20 mg tablet 20 mg PO QAM #0 tabs 07/31/23 01/09/25 Rx Saccharomyces boulardii 250 mg 250 mg PO BID 08/20/23 01/09/25 History capsule alfuzosin 10 mg tablet,extended 10 mg PO QAM 09/04/23 01/09/25 History release 24 hr acetaminophen 500 mg tablet 1,000 mg PO Q8H PRN Pain/Fever 03/28/24 01/09/25 History clotrimazole-betamethasone 1 1 applic topical BID PRN Rash 03/28/24 01/09/25 History %-0.05 % topical cream lisinopril 20 mg tablet 40 mg PO QAM 11/20/24 01/09/25 History psyllium 1 - 2 tsp PO DAILY 11/20/24 01/09/25 History Past Med/Surg History Problem List (Updated 01/09/25 @ 08:36 by Guanakito Castillo DO) Bradycardia (Acute) Right arm weakness (Acute) Stroke-like symptoms (Acute) Episode of confusion Bradycardia (Acute) Encephalopathy acute (Acute) COVID-19 (Acute) Generalized weakness (Acute) Right-sided visual neglect A-fib (Acute) Stroke (Acute) Hypomagnesemia (Acute) Anemia (Acute) History of intracranial hemorrhage (Acute) Weakness (Acute) Urinary retention Abrasion of right arm (Acute) Elevated PSA H/O tooth extraction 3 weeks ago, then put in partial Weight loss BPH (benign prostatic hyperplasia) Anemia (Acute) GI bleed (Acute) Acute diverticulitis (Acute) Lower GI bleed (Acute) Gout Atrial fibrillation Gout Rosacea Permanent atrial fibrillation (Acute) Mild mitral regurgitation Hypertension BPH NOS w ur obs/LUTS Gross hematuria Diverticulosis Carpal tunnel syndrome of right wrist Benign prostatic hyperplasia with urinary obstruction Closed fracture of medial condyle of femur H/O total knee replacement Anticoagulant long-term use Nephrolithiasis Diverticular hemorrhage Current use of exterminator anticoagulation (Acute) Lab test negative for COVID-19 virus (Acute) Rectal bleeding (Acute) Vitamin D deficiency Hyperparathyroidism B12 deficiency Prediabetes Hematochezia Hypercalcemia (Acute) Medical History History of cardioembolic stroke Influenza A Bradycardia Fever UTI (urinary tract infection) due to urinary indwelling Gold catheter Fall ELISE (acute kidney injury) A-fib History of SCC (squamous cell carcinoma) of skin History of basal cell carcinoma Swelling of eyelid Kidney stones Hematuria FOLLOWING WITH DR. POLANCO. AWAITING CT AND CYSTOSCOPY GI bleed 4-5 YEARS AGO --> 2/2 DIVERTICULITIS Diverticular disease On anticoagulant therapy Atrial fibrillation Hypertension Surgical History History of tonsillectomy History of lithotripsy History of cataract surgery History of surgery on arm History of total knee replacement RIGHT Status post Mohs surgery MULTIPLE TIMES History of colonoscopy Family History Father Cancer PROSTATE CANCER Prostate cancer Denies family history of Ovarian cancer Myocardial infarction Breast cancer Colorectal cancer Social History Smoking Status: Unknown if ever smoked Hx Substance Use: No (Unknown, pt poor historian, family member not present.) Preferred Language: Japanese Communication Ability: Impaired Visual Impairment: Limited Hearing Ability: Normal Radon Inspector Required: No Beliefs That Will Affect Care: None marital status: Current Living Situation: Other Current Living Situation Comment: [facility] current occupational status: retired Feels Safe at Home: Yes Childhood Exposure to Second-Hand Smoke: No Dental Care, Regularly: Yes Physical Activity Frequency: 3-4 Times per Week Seatbelt Use: always Sunscreen Use: Yes Assistive Devices: Walker Review of Systems 2 Review of Systems: All systems reviewed & are unremarkable except as noted in Subjective Physical Exam Physical Exam: On physical examination; Constitutional: Awake, alert and oriented to self Respiratory: normal respiratory effort, lungs clear to auscultation, no wheeze, rales, rhonchi. Normal insp/exp effort, no accessory muscle use Cardiovascular: RRR, no murmur, no edema Vessels: no JVD or carotid bruit Chest: normal inspection of chest Abdomen: normal bowel sounds, soft, nontender, no hepatosplenomegaly Musculoskeletal: no cyanosis or clubbing, extremities motor strength 5/5 Skin: no rashes, warm and dry normal turgor Neurologic: PERRL, EOMI, accommodation nl, no face palsy, no dysarthria CN's II- XI intact bilaterally. Weakness appreciated in right upper extremity; strength intact otherwise in bilateral lower extremity and left upper extremity. Sensation intact. Results & Data Results & Data Vital Signs (Past 12 Hours) Vital Signs Temp Pulse Pulse Resp BP BP Pulse Ox 01/09/25 08:30 68 18 161/94 H 100 01/09/25 08:07 96 01/09/25 08:06 68 01/09/25 08:00 63 23 164/79 H 96 01/09/25 07:33 70 21 138/93 96 01/09/25 07:30 36.5 C 61 17 138/93 96 O2 Del Method O2 Flow Rate 01/09/25 08:30 Nasal Cannula 2 01/09/25 08:07 Nasal Cannula 2 01/09/25 08:06 01/09/25 08:00 Nasal Cannula 2 01/09/25 07:33 Room Air 01/09/25 07:30 Room Air
[2025-01-09] MEDS ORDERED: ACETAMINOPHEN 325 MG TAB PO PRN (09:10)
[2025-01-09] MEDS ORDERED: POLYETHYLENE (MIRALAX) 17 GM PACK PO PRN (09:10)
[2025-01-09 09:35] LABS: Hematocrit (blood only) 39.0 % (42.0-52.0); Hemoglobin 12.5 g/dL (14.0-18.0); Immature Granulocytes # (auto) 0.03 K/uL (0.01-0.20); Immature Granulocytes % (auto) 0.4 %; Mean Corpuscular Hemoglobin 31.7 pg (25.0-34.0); Mean Corpuscular Volume 99.0 fL (80.0-100.0); Platelet Count 150 K/uL (130-400); RDW Standard Deviation 51.8 fL (36.4-46.3); Red Blood Count 3.94 M/uL (4.70-6.10); White Blood Count 8.04 K/ul (4.8-10.8)
[2025-01-09] MEDS: ATORVASTATIN 40 MG TAB PO STA (11:56)
[2025-01-09] MEDS: TAMSULOSIN HCL 0.4 MG CAP PO SCH (11:56)
[2025-01-09] MEDS: ESCITALOPRAM OXALATE 10 MG TAB PO SCH (11:56)
[2025-01-09] MEDS: ASPIRIN 81 MG CHEW ONE ×2 (11:57)
[2025-01-09] MEDS: ASPIRIN 81 MG ECTAB PO STA (12:14)
--- NOTE | 2025-01-09 13:12 | XCELERA ---
[id number]
--- NOTE | 2025-01-09 14:34 | Magnetic Resonance Report ---
Exam: MRI of the brain without contrast. Exam reason: Stroke alert. Comparison: 11/30/2024. Technique: Multisequence multiplanar MR imaging of the brain was performed without contrast. Findings: There is redemonstration of generalized atrophy and mild ventriculomegaly. This is unchanged from the previous exam. There are numerous focal areas of hyperintensity seen primarily on the left on the diffusion sequence. These are most significant posteriorly. Note that similar lesions were identified on the previous exam however these were more prominent anterior laterally. Impression: 1. Multiple focal areas of restricted diffusion noted on the left as above. These are similar but distinct in distribution when compared to the previous exam and are suggestive of embolic strokes. Electronically signed by Memo Major 01-09-2025 2:34 PM
--- NOTE | 2025-01-09 15:14 | Communication Note ---
Date of Service: January 09, 2025 Results of the MRI brain reviewed. I discussed the results with patient's as well as patient's daughter over the phone. Patient has a known history of atrial fibrillation; history of Watchman device but continues to have cardioembolic stroke(his second and last 2 months). He has history of diverticular bleed back in 2021. I discussed pros and cons of anticoagulation with both patients daughter as well as . I discussed that there is risks involved with initiating blood thinner as it can lead to major bleeding, hemorrhagic shock and . Also discussed that not being on blood thinner could lead to further strokes in the future leading to decline in his quality of life/functional status/cognition. They verbalized understanding of the risk/benefit. Agreed on trial of anticoagulation. Plan to start heparin drip while the patient is hospitalized with goals of switching to Eliquis at the time of the discharge if he continues to tolerate well. Will discontinue aspirin. I also encouraged goals of care discussion given's patient's advancing age, multiple comorbidities, recent hospitalization. The daughter and patient's will discuss with father and will let the care team know.
[2025-01-09] MEDS: Heparin IV Adult Wt-Based Standard *NO* INITIAL Bolus Protocol IV STA (15:55)
[2025-01-09] MEDS: HEPARIN 25000 UNIT/500 ML D5W 25,000 UNITS/500 ML BAG IV SCH (15:55)
--- NOTE | 2025-01-09 16:49 | Communication Note ---
Date of Service: January 09, 2025 This was discussed with Dr. Mcneal MRI of the brain reviewed shows embolic strokes., History of diverticulitis GI bleed with concerns about risk of rebleed with anticoagulation. Dr. Pathak has already discussed with family risks and benefits given recurrent strokes. They agreed to a therapeutic trial on anticoagulation. Suggest aspirin for 3 days and switch to Eliquis PT OT rule out underlying infections.
--- NOTE | 2025-01-09 20:14 | Electrocardiogram Report ---
Test Reason : Blood Pressure : */* mmHG Vent. Rate : 64 BPM Atrial Rate : 64 BPM P-R Int : * ms QRS Dur : 96 ms QT Int : 422 ms P-R-T Axes : * -5 -39 degrees QTcB Int : 435 ms Atrial fibrillation with frequent PVCs Low voltage QRS Septal infarct , age undetermined Abnormal ECG When compared with ECG of 20-Nov-2024 13:04, frequent pvcs now present Confirmed by Anabel Flowers (Alis) on 01/09/2025 8:13:32 PM Referred By: REFERRED SELF Confirmed By: Anabel Flowers
[2025-01-09] MEDS: SACCHAROMYCES BOULARDII 250 MG CAP PO SCH (20:15)
[2025-01-09] MEDS ORDERED: ATROPINE SULFATE 0.1 MG/ML 5ML SYR IV PRN (22:32)
[2025-01-10 00:11] LABS: ANTI-Xa, UFH(UnfractionatedHep < 0.10 IU/ml (0.3-0.7)
[2025-01-10 00:22] LABS: Thyroid Stimulating Hormone 1.312 uIu/ml (0.300-4.500)
[2025-01-10 06:48] LABS: Hematocrit (blood only) 35.3 % (42.0-52.0); Hemoglobin 11.7 g/dL (14.0-18.0); Immature Granulocytes # (auto) 0.02 K/uL (0.01-0.20); Immature Granulocytes % (auto) 0.3 %; Mean Corpuscular Hemoglobin 32.6 pg (25.0-34.0); Mean Corpuscular Volume 98.3 fL (80.0-100.0); Platelet Count 142 K/uL (130-400); RDW Standard Deviation 51.3 fL (36.4-46.3); Red Blood Count 3.59 M/uL (4.70-6.10); White Blood Count 7.49 K/ul (4.8-10.8)
[2025-01-10 07:14] LABS: Anion Gap 5.0 (3-11); Blood Urea Nitrogen 20.0 mg/dl (6-23); Calcium 9.7 mg/dl (8.6-10.3); Carbon Dioxide 28.0 mmol/L (21-32); Chloride 110.0 mmol/L (98-107); Cholesterol 89.0 mg/dl (0-200); Creatinine Clr Calc Pharmacy 49.2 ml/min; Glucose 96.0 mg/dl (70-99(Fasting)); HDL Cholesterol 41.0 mg/dl; Potassium 4.1 mmol/L (3.5-5.1); Sodium 143.0 mmol/L (136-145); Triglycerides 74.0 mg/dl (0-150)
[2025-01-10] MEDS: PSYLLIUM HUSK 4GM PACKET PO SCH (08:49)
[2025-01-10] MEDS: FERROUS SULFATE 325 MG TAB PO SCH (08:53)
[2025-01-10] MEDS: ATORVASTATIN 40 MG TAB PO SCH (08:54)
[2025-01-10] MEDS: ASPIRIN 81 MG ECTAB PO SCH (10:24)
--- NOTE | 2025-01-10 10:39 | Hospitalist Progress Note ---
Date of Service January 10, 2025 Assessment & Plan (1) Stroke-like symptoms: Plan Assessment/plan Acute cardioembolic stroke History of recent cardioembolic stroke History of atrial fibrillation status post Watchman device, not on anticoagulation Patient presented to the hospital with weakness on right side CT head did not show any acute intracranial abnormality, mild small vessel ischemic disease, chronic left cortical and left cerebral infarct. CTA head and neck did not show significant stenosis MRI brain without contrast shows multiple focal regions of restricted diffusion noted on the left side. Echocardiogram shows EF of 50 to 55%; Discussed with patient's /daughter regarding benefits/risks of reinitiating anticoagulation. After discussion; decision was made to reinitiate anticoagulation. Discussed with neurology; suggested aspirin for 3 days and switch over to Eliquis. Continue permissive hypertension for now Continue PT OT LIBRARY SPECIALIST eval Atrial fibrillation with slow ventricular ratepatient's telemetry noted to have slow ventricular rate in 30s to 40s; cardiology was consulted overnight;Appreciate recommendation Echo as above. Hypertensionhold antihypertensives Atrial fibrillation s/p watchmanonly on aspirin; plan to switch to eliquis after 3 days of aspirin Hyperlipidemia continue on statin BPH- on alfuzosin mood disorder- escitalopram;continue CODE STATUS DVT prophylaxis SCDs Called patient's over the phone; left voice message. Time spent evaluating patient, direct bedside care, chart review, placing orders, interpretation of diagnostic studies, discussion with consultants, patient, and family members, as well as other required patient management activities is 50 minutes Please note the above document was generated using voice recognition software. It may contain grammatical, syntax or spelling errors. Any formal questions or concerns about the content, text or information contained within the body of this dictation should be directly addressed to the provider for clarification Admission and Anticipated Discharge Date Admission Date: January 09, 2025 Subjective Patient seen and examined at bedside. He is lying in the bed comfortably; not in any distress. Neurological status similar. Telemetry overnight showed b radycardia with ventricular rate in 30s Review of Systems Review of Systems: All systems reviewed & are unremarkable except as noted in Subjective Physical Exam Physical Exam: On physical examination; Constitutional: Awake, alert and oriented to self Respiratory: normal respiratory effort, lungs clear to auscultation, no wheeze, rales, rhonchi. Normal insp/exp effort, no accessory muscle use Cardiovascular: RRR, no murmur, no edema Vessels: no JVD or carotid bruit Chest: normal inspection of chest Abdomen: normal bowel sounds, soft, nontender, no hepatosplenomegaly Musculoskeletal: no cyanosis or clubbing, extremities motor strength 5/5 Skin: no rashes, warm and dry normal turgor Neurologic: PERRL, EOMI, accommodation nl, no face palsy, no dysarthria CN's II- XI intact bilaterally. Weakness appreciated in right upper extremity; strength intact otherwise in bilateral lower extremity and left upper extremity. Sensation intact. Results & Data Results & Data Vital Signs (Past 12 Hours) Vital Signs Temp Pulse Resp BP BP Pulse Ox O2 Del Method 01/10/25 07:16 36.5 C 62 18 151/83 H 94 Room Air 01/10/25 05:12 48 L 138/82 01/10/25 04:36 56 L 135/79 01/10/25 03:35 55 L 122/84 01/10/25 03:19 46 L 133/75 01/10/25 03:19 36.5 C 42 L 18 155/79 H 96 Nasal Cannula 01/10/25 02:36 55 L 150/75 H 01/10/25 01:36 48 L 133/66 01/10/25 00:36 56 L 138/72 01/09/25 23:26 36.3 C L 49 L 20 133/76 98 Nasal Cannula O2 Flow Rate 01/10/25 07:16 2 01/10/25 05:12 01/10/25 04:36 01/10/25 03:35 01/10/25 03:19 01/10/25 03:19 2 01/10/25 02:36 01/10/25 01:36 01/10/25 00:36 01/09/25 23:26 2
[2025-01-10 10:56] LABS: Appearance Urine Clear (Clear); Bacteria Urine Automated None Seen (None Seen); Cast Urine Automated 0-2 /lpf (0-2); Epithelial Cell Urine Auto 0-2 /hpf (0-2); Glucose Urine UA Negative (Negative); RBC Urine Automated >20 /hpf (0-2); WBC Urine Automated 21-50 /hpf (0-5)
--- NOTE | 2025-01-10 12:49 | Electrocardiogram Report ---
Test Reason : Blood Pressure : */* mmHG Vent. Rate : 38 BPM Atrial Rate : * BPM P-R Int : * ms QRS Dur : 104 ms QT Int : 472 ms P-R-T Axes : * -12 -26 degrees QTcB Int : 375 ms Atrial fibrillation with slow ventricular response Cannot rule out Inferior infarct , age undetermined Abnormal ECG When compared with ECG of 09-Jan-2025 22:40, (unconfirmed) QRS axis Shifted right Criteria for Anteroseptal infarct are no longer Present Confirmed by Jose Antonio Cadena ([id number]) on 01/10/2025 12:49:03 PM Referred By: REFERRED SELF Confirmed By: Jose Antonio Cadena
--- NOTE | 2025-01-10 12:49 | Electrocardiogram Report ---
Test Reason : Blood Pressure : */* mmHG Vent. Rate : 49 BPM Atrial Rate : * BPM P-R Int : * ms QRS Dur : 88 ms QT Int : 428 ms P-R-T Axes : * -50 -37 degrees QTcB Int : 386 ms Atrial fibrillation with slow ventricular response Left axis deviation Low voltage QRS Anteroseptal infarct (cited on or before 09-Jan-2025) Abnormal ECG When compared with ECG of 09-Jan-2025 07:29, QRS axis Shifted left Confirmed by Jose Antonio Cadena ([id number]) on 01/10/2025 12:49:38 PM Referred By: REFERRED SELF Confirmed By: Jose Antonio Cadena
--- NOTE | 2025-01-10 12:50 | Electrocardiogram Report ---
Test Reason : Blood Pressure : */* mmHG Vent. Rate : 34 BPM Atrial Rate : * BPM P-R Int : * ms QRS Dur : 104 ms QT Int : 484 ms P-R-T Axes : * -15 -24 degrees QTcB Int : 363 ms Atrial fibrillation with slow ventricular response Abnormal ECG When compared with ECG of 10-Jan-2025 04:43, (unconfirmed) No significant change was found Confirmed by Jose Antonio Cadena ([id number]) on 01/10/2025 12:50:27 PM Referred By: REFERRED SELF Confirmed By: Jose Antonio Cadena
--- NOTE | 2025-01-10 12:50 | Electrocardiogram Report ---
Test Reason : Blood Pressure : */* mmHG Vent. Rate : 44 BPM Atrial Rate : * BPM P-R Int : * ms QRS Dur : 100 ms QT Int : 478 ms P-R-T Axes : * -15 -20 degrees QTcB Int : 408 ms Atrial fibrillation with slow ventricular response with premature ventricular or aberrantly conducted complexes Low voltage QRS Abnormal ECG When compared with ECG of 10-Jan-2025 04:41, (unconfirmed) No significant change was found Confirmed by Jose Antonio Cadena ([id number]) on 01/10/2025 12:50:00 PM Referred By: REFERRED SELF Confirmed By: Jose Antonio Cadena
--- NOTE | 2025-01-10 13:02 | Electrocardiogram Report ---
Test Reason : Blood Pressure : */* mmHG Vent. Rate : 47 BPM Atrial Rate : * BPM P-R Int : * ms QRS Dur : 102 ms QT Int : 486 ms P-R-T Axes : * -13 -26 degrees QTcB Int : 430 ms Atrial fibrillation with slow ventricular response with premature ventricular or aberrantly conducted complexes Cannot rule out Inferior infarct , age undetermined Abnormal ECG When compared with ECG of 10-Jan-2025 04:45, (unconfirmed) QT has lengthened Confirmed by Jose Antonio Cadena ([id number]) on 01/10/2025 1:01:52 PM Referred By: REFERRED SELF Confirmed By: Jose Antonio Cadena
--- NOTE | 2025-01-10 17:29 | Cardiology Consultation ---
Date of Consultation January 10, 2025 Assessment & Plan (1) Bradycardia: (2) A-fib: Plan 1. Bradycardia: He does have periods of bradycardia, most noticeable at nighttime. Some relative bradycardia during the daytime as well, although he is very sedentary and generally bedbound. Unclear if he is having any symptoms related to bradycardia. I will attempt to contact his to obtain more history. However, given that most of the bradycardia occurs while he is sleeping or bedbound, given his poor mobility overall and absence of symptoms with declining cognitive function unclear if he truly benefits from a permanent pacemaker at this point. 2. Atrial fibrillation: Permanent. No overt symptoms. Unclear if thromboembolic events are related to his atrial fibrillation or a separate source. 4 candidate for systemic anticoagulation given history of gastrointestinal hemorrhage. Prior CHANTEL suggested good position of the left atrial appendage occlusion device without evidence of flow into the left atrial appendage. History of Present Illness Reason for Consultation: Bradycardia Requesting Physician: Fredis Attending Physician: Minesh Mcneal MD History of Present Illness The patient is an 89-year-old gentleman with a history of permanent atrial fibrillation, status post left atrial appendage occlusion and history of cerebrovascular events. He was admitted with concerns for another cerebrovascular event. He had some right sided neglect. He said some weakness on the right side previously. Unfortunately, the patient was not oriented or able to provide some meaningful history. It seems that while on telemetry he has been noted to have significant bradycardia. He did not endorse symptoms of lightheadedness, dizziness, breathing trouble or syncope. He has not been aware of any palpitations. According to the nursing staff he is not well ambulatory. He has some weakness on the right side of difficulty walking. Allergies Allergy/AdvReac Type Severity Reaction Status Date / Time Thiazides AdvReac Intermediate Hypercalcem Verified 11/20/24 15:36 ia Home Medications Medication Instructions Recorded Confirmed Type allopurinol 100 mg tablet 100 mg PO QAM #90 tabs 03/18/22 01/09/25 Rx amlodipine 5 mg tablet 5 mg PO DAILY #90 tabs 12/27/22 01/09/25 Rx escitalopram oxalate 10 mg tablet 10 mg PO DAILY #90 tabs 01/31/23 01/09/25 Rx ferrous sulfate 325 mg (65 mg 325 mg PO 3XWK 04/08/23 01/09/25 History iron) tablet,delayed release aspirin 81 mg tablet,delayed 81 mg PO DAILY #0 tabs 07/31/23 01/09/25 Rx release atorvastatin 20 mg tablet 20 mg PO QAM #0 tabs 07/31/23 01/09/25 Rx Saccharomyces boulardii 250 mg 250 mg PO BID 08/20/23 01/09/25 History capsule alfuzosin 10 mg tablet,extended 10 mg PO QAM 09/04/23 01/09/25 History release 24 hr acetaminophen 500 mg tablet 1,000 mg PO Q8H PRN Pain/Fever 03/28/24 01/09/25 History clotrimazole-betamethasone 1 1 applic topical BID PRN Rash 03/28/24 01/09/25 History %-0.05 % topical cream lisinopril 20 mg tablet 40 mg PO QAM 11/20/24 01/09/25 History psyllium 1 - 2 tsp PO DAILY 11/20/24 01/09/25 History Patient History Medical History History of cardioembolic stroke Influenza A Bradycardia Fever UTI (urinary tract infection) due to urinary indwelling Gold catheter Fall ELISE (acute kidney injury) A-fib History of SCC (squamous cell carcinoma) of skin History of basal cell carcinoma Swelling of eyelid Kidney stones Hematuria FOLLOWING WITH DR. POLANCO. AWAITING CT AND CYSTOSCOPY GI bleed 4-5 YEARS AGO --> 2/2 DIVERTICULITIS Diverticular disease On anticoagulant therapy Atrial fibrillation Hypertension Surgical History History of tonsillectomy History of lithotripsy History of cataract surgery History of surgery on arm History of total knee replacement RIGHT Status post Mohs surgery MULTIPLE TIMES History of colonoscopy Family History Father Cancer PROSTATE CANCER Prostate cancer Denies family history of Ovarian cancer Myocardial infarction Breast cancer Colorectal cancer Social History Smoking Status: Never smoker Second Hand Exposure: No; Do You Dip or Chew Tobacco: No; Tobacco Cessation Education Requested by Patient: No Hx Alcohol Use: No Hx Substance Use: No Preferred Language: Arabic Communication Ability: Impaired Visual Impairment: Limited Hearing Ability: Normal Recordings Librarian Required: No Beliefs That Will Affect Care: None marital status: Current Living Situation: Personal Care Facility Current Living Situation Comment: [facility] current occupational status: retired Other Information That Helps Us Care for You: No Feels Safe at Home: Yes Safety Concerns: Feels Safe At This Time Childhood Exposure to Second-Hand Smoke: No Dental Care, Regularly: Yes Physical Activity Frequency: 3-4 Times per Week Seatbelt Use: always Sunscreen Use: Yes Assistive Devices: Walker Review of Systems Review of Systems: Per HPI Physical Exam Physical Exam: The patient is alert. Mood and affect appeared normal. He was not oriented to place or situation. HEENT: Pupils are equal and reactive to light and accommodation. Extraocular movements are intact. The sclerae are anicteric. Neuro: Cranial nerves intact Lungs: Clear to auscultation bilaterally. He has good air movement without use of accessory muscles. No rales wheezes or rhonchi. Cardiac: Heart demonstrates an irregular rhythm. Normal rate. Normal S1 and S2. Holosystolic murmur. Pulses: The patient has palpable radial pulses bilaterally that are equal in intensity Extremities: There was no evidence of hypoperfusion. There is no cyanosis or clubbing. There is no edema. Skin: I did not appreciate any rashes on examination today. Results & Data Vital Signs (Past 12 Hours) Vital Signs Temp Pulse Pulse Resp BP BP Pulse Ox 01/10/25 15:33 36.8 C 62 18 146/78 H 94 01/10/25 14:33 54 L 01/10/25 13:46 93 01/10/25 11:13 36.6 C 149 H 18 132/78 95 01/10/25 10:57 01/10/25 08:00 46 L 01/10/25 07:16 36.5 C 62 18 151/83 H 94 O2 Del Method O2 Flow Rate 01/10/25 15:33 Room Air 01/10/25 14:33 01/10/25 13:46 Room Air 01/10/25 11:13 Nasal Cannula 2 01/10/25 10:57 Nasal Cannula 2 01/10/25 08:00 01/10/25 07:16 Room Air 2 Laboratory Results Abnormal Lab Results 01/09/25 01/10/25 01/10/25 23:20 05:55 10:10 WBC 7.49 RBC 3.59 L Hgb 11.7 L Hct 35.3 L MCV 98.3 MCH 32.6 MCHC 33.1 RDW Std Deviation 51.3 H RDW Coeff of Edith 14.1 Plt Count 142 MPV 10.2 Immature Gran % (Auto) 0.3 Neut % (Auto) 62.4 Lymph % (Auto) 21.6 [place] % (Auto) 11.2 Eos % (Auto) 4.0 Baso % (Auto) 0.5 Neut # (Auto) 4.67 Lymph # (Auto) 1.62 [place] # (Auto) 0.84 H Eos # (Auto) 0.30 Baso # (Auto) 0.04 Immature Gran # (Auto) 0.02 Heparin Anti-Xa, Unfract < 0.10 L Sodium 143 Potassium 4.1 Chloride 110 H Carbon Dioxide 28 Anion Gap 5 BUN 20 Creatinine 1.20 Est Cr Clr Drug Dosing 49.2 eGFR 58.17 BUN/Creatinine Ratio 16.7 Glucose 96 Calcium 9.7 Troponin I High Sens 12.4 12.6 Triglycerides 74 Cholesterol 89 LDL Cholesterol, Calc 33 VLDL Cholesterol, Calc 15 HDL Cholesterol 41 Cholesterol/HDL Ratio 2.2 TSH 1.312 Urine Color Yellow Urine Appearance Clear Urine pH 6.0 Ur Specific [place] 1.021 Urine Protein Negative Urine Glucose (UA) Negative Urine Ketones Negative Urine Blood 3+ H Urine Nitrite Negative Urine Bilirubin Negative Urine Urobilinogen Negative Ur Leukocyte Esterase 1+ H Urine WBC (Auto) 21-50 H Urine RBC (Auto) >20 H U Hyaline Cast (Auto) 0-2 U Epithel Cells (Auto) 0-2 Urine Bacteria (Auto) None Seen Urine Comment Diagnostic Findings Echocardiogram 01/09/2025: Normal LV systolic function with ejection fraction 50 to 55%. Moderate biatrial dilation. Mild to moderate mitral regurgitation. Mild aortic root dilation. PG Care Time/CCT Total # of Minutes Spent Total Time Spent with Patient: Total time spent is greater than 50% in coordination of care (as documented) at patient's floor/unit and/or counseling patient: Coding Level of Care Code 76976 INT INP/OBS CARE 3/75MIN Diagnoses Bradycardia R00.1 A-fib I48.11 Atrial fibrillation type: longstanding persistent (2) A-fib Atrial fibrillation type: longstanding persistent Qualified Code(s): I48.11 - Longstanding persistent atrial fibrillation
--- NOTE | 2025-01-11 10:14 | Hospitalist Progress Note ---
Date of Service January 11, 2025 Assessment & Plan (1) Stroke-like symptoms: Plan Assessment/plan Acute cardioembolic stroke History of recent cardioembolic stroke History of atrial fibrillation status post Watchman device, not on anticoagulation Patient presented to the hospital with weakness on right side CT head did not show any acute intracranial abnormality, mild small vessel ischemic disease, chronic left cortical and left cerebral infarct. CTA head and neck did not show significant stenosis MRI brain without contrast shows multiple focal regions of restricted diffusion noted on the left side. Echocardiogram shows EF of 50 to 55%; Discussed with patient's /daughter regarding benefits/risks of reinitiating anticoagulation. After discussion; decision was made to reinitiate anticoagulation. Discussed with neurology; suggested aspirin for 3 days and switch over to Eliquis; plan to start tomorrow Continue PT OT TAX COMPLIANCE AGENT eval Atrial fibrillation with slow ventricular ratepatient's telemetry noted to have slow ventricular rate in 30s to 40s; cardiology was consulted; no plans for permanent pacemaker currently Hypertensionrestarted on amlodipine; will resume lisinopril if blood pressure continues to be elevated Atrial fibrillation s/p watchmanonly on aspirin; plan to switch to eliquis after 3 days of aspirin Hyperlipidemia continue on statin BPH- on alfuzosin mood disorder- escitalopram;continue CODE STATUS DVT prophylaxis SCDs Time spent evaluating patient, direct bedside care, chart review, placing orders, interpretation of diagnostic studies, discussion with consultants, patient, and family members, as well as other required patient management activities is 50 minutes Please note the above document was generated using voice recognition software. It may contain grammatical, syntax or spelling errors. Any formal questions or concerns about the content, text or information contained within the body of this dictation should be directly addressed to the provider for clarification Admission and Anticipated Discharge Date Admission Date: January 09, 2025 Subjective Patient seen and examined at bedside. He is hard of hearing; but answers question appropriately. No movement noted on right arm. No significant events overnight. Telemetry continues to show slow ventricular rate overnight intermittently Review of Systems Review of Systems: All systems reviewed & are unremarkable except as noted in Subjective Physical Exam Physical Exam: On physical examination; Constitutional: Awake, alert and oriented to self Respiratory: normal respiratory effort, lungs clear to auscultation, no wheeze, rales, rhonchi. Normal insp/exp effort, no accessory muscle use Cardiovascular: RRR, no murmur, no edema Vessels: no JVD or carotid bruit Chest: normal inspection of chest Abdomen: normal bowel sounds, soft, nontender, no hepatosplenomegaly Musculoskeletal: no cyanosis or clubbing, extremities motor strength 5/5 Skin: no rashes, warm and dry normal turgor Neurologic: PERRL, EOMI, accommodation nl, no face palsy, no dysarthria CN's II- XI intact bilaterally. Weakness appreciated in right upper extremity; strength intact otherwise in bilateral lower extremity and left upper extremity. Sensation intact. Results & Data Results & Data Vital Signs (Past 12 Hours) Vital Signs Temp Pulse Pulse Resp BP BP Pulse Ox 01/11/25 08:06 36.5 C 72 19 144/83 H 96 01/11/25 07:09 54 L 01/11/25 02:33 36.7 C 67 20 158/91 H 92 01/10/25 23:19 36.7 C 53 L 18 149/89 H 92 O2 Del Method 01/11/25 08:06 Room Air 01/11/25 07:09 01/11/25 02:33 Room Air 01/10/25 23:19 Room Air
--- NOTE | 2025-01-11 18:10 | Cardiology Progress Note ---
Date of Service January 11, 2025 Assessment & Plan (1) Bradycardia: (2) A-fib: Plan 1. Bradycardia: Heart rate improved today. It is possible he had more significant bradycardia in the setting of an acute cerebrovascular event. His did not relay a history consistent with symptomatic bradycardia. He has not had symptoms of dizziness, lightheadedness or syncope. At this point his heart rate can be relatively low and he would likely not have symptoms as his mobility is severely impaired. I do not think there is an immediate indication for permanent pacemaker. As his overall physical abilities improve this can be reassessed. 2. Atrial fibrillation: Permanent. No overt symptoms. Unclear if thromboembolic events are related to his atrial fibrillation or a separate source. While there is some risk with starting anticoagulation given his history of gastrointestinal hemorrhage, his family is decided to restart Eliquis. Admission and Anticipated Discharge Date Admission Date: January 09, 2025 Subjective This evening patient had no specific complaints. He continues to have some right sided weakness and difficulty using the right arm. His was present for today's interview and provided some supplemental information. No history of syncope. Some history of falls. Has not been complaining of dizziness or lightheadedness but does have some difficulties with ambulation that are chronic. Review of Systems Review of Systems: Per HPI Physical Exam Physical Exam: The patient is alert. Mood and affect appeared normal. He recommends his . HEENT: Pupils are equal and reactive to light and accommodation. Extraocular movements are intact. The sclerae are anicteric. Neuro: Cranial nerves intact Lungs: Normal respiratory effort. Cardiac: Heart demonstrates an irregular rhythm. Normal rate. Normal S1 and S2. Holosystolic murmur. Pulses: The patient has palpable radial pulses bilaterally that are equal in intensity Extremities: There was no evidence of hypoperfusion. There is no cyanosis or clubbing. Skin: I did not appreciate any rashes on examination today. Results & Data Vital Signs (Past 12 Hours) Vital Signs Temp Pulse Pulse Resp BP Pulse Ox O2 Del Method 01/11/25 15:04 37.2 C 71 20 129/83 95 Room Air 01/11/25 14:14 73 01/11/25 11:33 37.2 C 81 20 130/75 95 Room Air 01/11/25 08:06 36.5 C 72 19 144/83 H 96 Room Air 01/11/25 07:09 54 L Laboratory Results Abnormal Lab Results 01/11/25 16:28 POC Glucose 161 H PG Care Time/CCT Total # of Minutes Spent Total Time Spent with Patient: Total time spent is greater than 50% in coordination of care (as documented) at patient's floor/unit and/or counseling patient: Coding Level of Care Code 82469 SUB INP/OBS CARE 2/35MIN Diagnoses Bradycardia R00.1 A-fib I48.11 Atrial fibrillation type: longstanding persistent (2) A-fib Atrial fibrillation type: longstanding persistent Qualified Code(s): I48.11 - Longstanding persistent atrial fibrillation
[2025-01-12 03:18] VITALS: O2SAT 97
[2025-01-12 06:40] LABS: Hematocrit (blood only) 37.4 % (42.0-52.0); Hemoglobin 12.5 g/dL (14.0-18.0); Immature Granulocytes # (auto) 0.03 K/uL (0.01-0.20); Immature Granulocytes % (auto) 0.3 %; Mean Corpuscular Hemoglobin 32.3 pg (25.0-34.0); Mean Corpuscular Volume 96.6 fL (80.0-100.0); Platelet Count 144 K/uL (130-400); RDW Standard Deviation 49.4 fL (36.4-46.3); Red Blood Count 3.87 M/uL (4.70-6.10); White Blood Count 9.27 K/ul (4.8-10.8)
[2025-01-12 07:04] LABS: Anion Gap 6.0 (3-11); Blood Urea Nitrogen 23.0 mg/dl (6-23); Calcium 9.9 mg/dl (8.6-10.3); Carbon Dioxide 27.0 mmol/L (21-32); Chloride 108.0 mmol/L (98-107); Creatinine Clr Calc Pharmacy 58.1 ml/min; Glucose 116.0 mg/dl (70-99(Fasting)); Potassium 3.9 mmol/L (3.5-5.1); Sodium 141.0 mmol/L (136-145)
[2025-01-12 08:03] VITALS: BP 160/95; RESP 19; TEMP 96.1
[2025-01-12] MEDS: APIXABAN 5 MG TABLET PO SCH (09:23)
--- NOTE | 2025-01-12 12:50 | Discharge Summary ---
Date of Service January 12, 2025 Admission HPI Per Admitting Provider History obtained from chart review, interview with the patient and discussion with ED provider. Past medical history of atrial fibrillation status post Watchman device, history of CVA with right visual neglect, hypertension. History of GI bleed while on Eliquis in 2021 leading to placement of Watchman device; also had GI bleeding on aspirin alone; therefore not on antiplatelet therapy for period of time. He s uffered stroke in July 2023; aspirin was restarted. He was last admitted in November for 2 November 24, 2024 with acute stroke. He was found to have scattered foci of acute infarct throughout the left cerebral hemisphere. He was not thought to be a candidate for anticoagulation due to history of prior hemorrhage. He also had episode of bradycardia for which she was given atropine last admission. He was brought to the hospital for concern of stroke. Last well-known was 11:30 PM last night. Patient was reported to be weaker on the right side. Stroke alert was called; CT head did not show any acute intracranial abnormality, mild small vessel ischemic disease, chronic left cortical and left cerebral infarct. CTA head and neck did not show significant stenosis. Teleneurology recommended admission to the hospital; permissive hypertension, recommended aspirin/Plavix for 3 weeks, routine teleneurology consult, echocardiogram. Patient was evaluated at bedside. He is comfortably lying in the bed; he is not oriented to time or place. He answers some of the questions appropriately. He is able to follow simple commands. He denies any visual changes, weakness/numbness of any body part, fever, chills, chest pain, shortness of breath or abdominal pain. At baseline, patient is alert and oriented x 2; ambulates with the help of a walker. Admission Exam Per Admitting Provider Constitutional: Awake, alert and oriented to self Respiratory: normal respiratory effort, lungs clear to auscultation, no wheeze, rales, rhonchi. Normal insp/exp effort, no accessory muscle use Cardiovascular: RRR, no murmur, no edema Vessels: no JVD or carotid bruit Chest: normal inspection of chest Abdomen: normal bowel sounds, soft, nontender, no hepatosplenomegaly Musculoskeletal: no cyanosis or clubbing, extremities motor strength 5/5 Skin: no rashes, warm and dry normal turgor Neurologic: PERRL, EOMI, accommodation nl, no face palsy, no dysarthria CN's II- XI intact bilaterally. Weakness appreciated in right upper extremity; strength intact otherwise in bilateral lower extremity and left upper extremity. Sensat ion intact. Principal Diagnosis Acute cardioembolic stroke History of recent cardioembolic stroke History of atrial fibrillation status post Watchman device, not on anticoagulation Atrial fibrillation with slow ventricular rate Discharge Exam Constitutional: Awake, alert and oriented to self and place Respiratory: normal respiratory effort, lungs clear to auscultation, no wheeze, rales, rhonchi. Normal insp/exp effort, no accessory muscle use Cardiovascular: RRR, no murmur, no edema Vessels: no JVD or carotid bruit Chest: normal inspection of chest Abdomen: normal bowel sounds, soft, nontender, no hepatosplenomegaly Musculoskeletal: no cyanosis or clubbing, extremities motor strength 5/5 Skin: no rashes, warm and dry normal turgor Neurologic: PERRL, EOMI, accommodation nl, no face palsy, no dysarthria CN's II- XI intact bilaterally. Weakness appreciated in right upper extremity; strength intact otherwise in bilateral lower extremity and left upper extremity. Sensation intact. Discharge Data Allergies Allergy/AdvReac Type Severity Reaction Status Date / Time Thiazides AdvReac Intermediate Hypercalcem Verified 11/20/24 15:36 ia Consultations 01/09/25 08:31 ED Decision to Admit Stat 01/09/25 09:10 Consult Neurology Routine 01/10/25 08:00 Consult Cardiology Routine Ordered Studies 01/09/25 07:00 CT angio head w con Stat CT angio neck with con Stat CT head/brain wo con Stat 01/09/25 09:10 MRI Brain [MR brain wo con] Stat Hospital Course (1) Stroke-like symptoms: Plan Per prior attending w/ addendum: Acute cardioembolic stroke History of recent cardioembolic stroke History of atrial fibrillation status post Watchman device, not on anticoagulation Patient presented to the hospital with weakness on right side CT head did not show any acute intracranial abnormality, mild small vessel ischemic disease, chronic left cortical and left cerebral infarct. CTA head and neck did not show significant stenosis MRI brain without contrast shows multiple focal regions of restricted diffusion noted on the left side. Echocardiogram shows EF of 50 to 55%; Discussed with patient's /daughter regarding benefits/risks of reinitiating anticoagulation. After discussion; decision was made to reinitiate anticoagulation. 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 Atrial fibrillation with slow ventricular ratepatient's telemetry noted to have slow ventricular rate in 30s to 40s; cardiology was consulted; no plans for permanent pacemaker currently Hypertensionrestarted on amlodipine; will resume lisinopril if blood pressure continues to be elevated Atrial fibrillation s/p watchmanonly on aspirin; plan to switch to eliquis after 3 days of aspirin Hyperlipidemia continue on statin BPH- on alfuzosin mood disorder- escitalopram;continue CODE STATUS DVT prophylaxis SCDs Addendum 01/12/25: Patient was seen and examined as a follow-up of acute cardioembolic stroke. Patient's heart rate is better and in 60s. Cardiology has evaluated the patient. Patient has been started on Eliquis, and aspirin has been stopped per prior discussion between the family and prior attending. Patient is hemodynamically stable, his lisinopril dose has been restarted d/t continued high BP. Patient is being discharged to [facility] with following instructions at the point of discharge: Follow-up with your primary care physician within a week time and likely you will need labs CBC/CMP/magnesium/phosphorus. Due to your recurrent (likely) cardioembolic stroke, neurology evaluated you. Follow-up with neurology in 1 to 2 months time. Your aspirin has been stopped, you have been started on Eliquis. Follow-up with your cardiology in 1 to 2 months time upon discharge. Continue with physical therapy at rehab. Will likely benefit from outpatient palliative care eval, coordinate with PCP office to set up the referral. Taking medications as prescribed. Please make sure that you are able to get your medications today by calling your pharmacy before you leave the hospital so that your treatment continuity is not broken. Please note the above document was generated using voice recognition software. It may contain grammatical, syntax or spelling errors. Any formal questions or concerns about the content, text or information contained within the body of this dictation should be directly addressed to the provider for clarification [facility]ly [facility], [facility]–1983 Attestation I certify that this patient is under my care and that I, or a physicians assistant grocery working with me, had a face to-face encounter that meets the [id number] encounter requirements with this patient. The encounter with the patient was in whole, or in part, for the following medical condition, which is the primary reason for home health care (list medical condition): I certify that, based on my findings, the following services are medically necessary home health services: My clinical findings support the need for the above services because: Further, I certify that my clinical findings support that this patient is homebound (i.e. absences from home require considerable and taxing effort and are for medical reasons or [employer]avian services or infrequently or of short duration when for other reasons) because: Certification for Home Health Services: Based on the above findings, I certify that this patient is confined to the home and needs intermittent nursing home care, physical therapy and/or speech therapy or continues to need occupational therapy. The patient is under my care, and I have initiated the establishment of the plan of care. This patient will be followed by a physician who will periodically review the plan of care. Total Time Total Time Spent Total Time Spent (In Minutes): 40 Discharge Plan Discharge Items Patient Disposition: Transfer Inpatient Rehab Fac Reason For Visit: STROKE ALERT Discharge Diagnosis: Acute cardioembolic stroke History of recent cardioembolic stroke History of atrial fibrillation status post Watchman device, not on anticoagulation Atrial fibrillation with slow ventricular rate Condition on Discharge: Fair Activity: Resume your previous activity Non-emergency contact: Primary Care Provider Call non-emergency contact if: you have any medication questions and your symptoms worsen Follow-up/Referrals: Tae Montez DO [Primary Care Provider] - Diet: Regular Diet Texture: Easy to Chew Addtl Attending Provider Instructions: Follow-up with your primary care physician within a week time and likely you will need labs CBC/CMP/magnesium/phosphorus. Due to your recurrent (likely) cardioembolic stroke, neurology evaluated you. Follow-up with neurology in 1 to 2 months time. Your aspirin has been stopped, you have been started on Eliquis. Follow-up with your cardiology in 1 to 2 months time upon discharge. Continue with physical therapy at rehab. Will likely benefit from outpatient palliative care eval, coordinate with PCP office to set up the referral. Taking medications as prescribed. Please make sure that you are able to get your medications today by calling your pharmacy before you leave the hospital so that your treatment continuity is not broken. Pending Studies at Discharge: No Stand-Alone Forms: My [facility] Skilled Items Patient informed of condition?: No DNR: No Discharge Level of Care: Acute rehab Communicable Disease: No Discharge Prognosis: Stable Lines: None Urinary Catheter: No Medications and DC Order Prescriptions: New atorvastatin 40 mg Tablet 80 mg PO QAM Qty: 60 0RF Eliquis 5 mg Tablet 5 mg PO BID Qty: 60 0RF Continued allopurinol 100 mg tablet 100 mg PO QAM Qty: 90 3RF Saccharomyces boulardii 250 mg capsule 250 mg PO BID Patient Comments: CONFIRMED W/ NURSE AT [facility]08[facility]19 amlodipine 5 mg tablet 5 mg PO DAILY Qty: 90 3RF escitalopram oxalate 10 mg tablet 10 mg PO DAILY Qty: 90 1RF alfuzosin 10 mg tablet extended release 24 hr 10 mg PO QAM Rx Instructions: administer after the same meal each day ferrous sulfate 325 mg (65 mg iron) tablet,delayed release (DR/EC) 325 mg PO [id number] Rx Instructions: Take one tablet once a day Friday, Friday and Friday acetaminophen 500 mg Tablet 1,000 mg PO Q8H MDD 3gm/24hr PRN (Reason: Pain/Fever) clotrimazole-betamethasone 1-0.05 % Cream 1 applic TOPICAL BID PRN (Reason: Rash) psyllium Powder 1 - 2 tsp PO DAILY Rx Instructions: mix into at least 4 oz water or juice before administering lisinopril 20 mg tablet 40 mg PO QAM Discontinued atorvastatin 20 mg Tablet 20 mg PO QAM Qty: 0 0RF aspirin 81 mg Tablet,Delayed Release (Dr/Ec) 81 mg PO DAILY Qty: 0 0RF Discharge Orders: Discharge Order (Routine); Ordered 01/12/25 Ordered By: Evette Branch/Other Patient Handouts: What Is Ischemic Stroke?, Risk Factors for Stroke, AFib Preventing Stroke Admission Data Admit Date/Time: 01/09/25 09:10 Attending Provider: Evette Costa Admit Provider: Minesh Mcneal Primary Care Provider: Tae Montez Other Providers: Minesh Mcneal; Altagracia Cabezas; Michael Olguin; Guanakito Phillips; Amandeep Leal; Abhay Christianson; Dorian Bae Jr; Brady Valdes; Cha Cheek; Michelle Flores; Jose Antonio Correa; Jose Antonio Cadena.; Sharla Downing; Tae Francisco; Melanie Irving; Tae Velasquez; Hunter Turner; Kevin No; Chaz Grayson; Fahad Brito; Rossi Wilkinson; Arabella Mcclellan
[2025-01-12 13:03] VITALS: PULSE 71
== END 2025-01-12 14:21 | DRG 65 ==
LOC: ED 07:14 → SUATTDRO 09:10 → 2S 09:10